=== PATIENT | male | born 1965 | race Hispanic/Latino ===

== ENCOUNTER 2019-06-13 11:31 | Inpatient (IN) | payer OTHER ==
[2019-06-13] MEDS ORDERED: MORPHINE 4 MG/ML SYR ONE (12:51)
[2019-06-13] MEDS ORDERED: ONDANSETRON 4 MG/2 ML VIAL ONE (12:51)
[2019-06-13] MEDS ORDERED: NA CHLORIDE 0.9% 1,000 ML ONE (12:51)
[2019-06-13 13:10] LABS: Absolute Lymphocytes (CBC) 2.7 K/uL (0.7-4.9); Basophils % 0.7 % (0-1.3); Hematocrit 43.6 % (39.6-49.0); Lymphocytes % 23.9 % (15.3-44.8); MPV 8.3 fL (7.6-11.3); RBC Red Blood Cell Count 4.95 M/uL (4.33-5.43)
[2019-06-13 13:38] LABS: Albumin 3.5 g/dL (3.4-5.0); Bilirubin Total 0.3 mg/dL (0.2-1.0); Potassium 4.2 mmol/L (3.5-5.1); Protein, Total 7.5 g/dL (6.4-8.2)
--- NOTE | 2019-06-13 14:13 | RAD REPORT ---
EXAM DESCRIPTION: RAD - Foot Right 3 View - 06/13/2019 1:24 pm CLINICAL HISTORY: Foot pain, foot wound COMPARISON: None. FINDINGS: No fracture, dislocation or periosteal reaction. No acute or destructive bone process to s uspect osteomyelitis. Spurring is present at the Achilles attachment. Soft tissue swelling present with no air or foreign body. IMPRESSION: No acute or destructive bone process. Soft tissue swelling without air or foreign body seen.
--- NOTE | 2019-06-13 15:06 | RAD REPORT ---
EXAM DESCRIPTION: MRI - Foot Right Wo Cont - 06/13/2019 2:43 pm CLINICAL HISTORY: Cellulitis Right Foot, possible osteomyelitis COMPARISON: None. TECHNIQUE: Multiplanar imaging of the right foot performed using T1 weighted, T2 fat saturation, T1 fat saturation and T2 stir sequencing. FINDINGS: Edematous/inflammatory signal is present between the fourth and fifth toes. No abscess or drainable fluid collection. Normal marrow signal characteristics present in the fourth and fifth toes as well as the distal fourth and fifth metatarsals. No MR evidence for osteomyelitis at this time. Elsewhere in the right foot no suspicious marrow edema or marrow replacing process. No abscess or dwight inable fluid collection in the soft tissues. Soft tissue edema is evidence over the dorsum of the erika t. IMPRESSION: No osteomyelitis or acute bone finding identifiable. Infectious/inflammatory stranding between the fourth and fifth toes with soft tissue swelling over th e dorsum of the foot. No abscess or drainable fluid collection.
--- NOTE | 2019-06-13 16:04 | ER ---
Nurse's Notes [facility] Name: Jude Grijalva Age: 54 yrs Sex: Male : 1965 Arrival Date: 06/13/2019 Time: 11:33 Bed 25 Private MD: Unknown, Unknown Diagnosis: Cellulitis of right lower limb-Failed outpatient antibiotic therapy Presentation: 06/13 11:41 Presenting complaint: Patient states: My doctor sent me here to get labs,had an la1 abnormal US and my foot wound is not responding after three days of ABX. Transition of care: patient was not received from another setting of care. Onset of symptoms was June 13, 2019. Risk Assessment: Do you want to hurt yourself or someone else? Patient reports no desire to harm self or others. Initial Sepsis Screen: Does the patient meet any 2 criteria? No. Patient's initial sepsis screen is negative. Does the patient have a suspected source of infection? No. Patient's initial sepsis screen is negative. Care prior to arrival: None. 11:41 Method Of Arrival: Ambulatory la1 11:41 Acuity: QASIM 3 la1 Historical: - Allergies: 11:41 No Known Allergies; la1 - PMHx: 11:41 Hypertension; Diabetes - NIDDM; la1 - Immunization history:: Adult Immunizations up to date. - Social history:: Smoking status: Patient uses tobacco products, smokes one-half pack cigarettes per day. - Ebola Screening: : No symptoms or risks identified at this time. Screenin:04 Abuse screen: Denies threats or abuse. Denies injuries from another. Nutritional mg2 screening: No deficits noted. Tuberculosis screening: No symptoms or risk factors identified. Fall Risk IV access (20 points). Assessment: 13:00 General: Appears in no apparent distress. comfortable, Behavior is calm, cooperative. mg2 Pain: Pain: Complains of pain in right foot. 13:00 Neuro: Level of Consciousness is awake, alert, obeys commands, Oriented to person, mg2 place, time, situation. Cardiovascular: Capillary refill < 3 seconds Patient's skin is warm and dry. GI: No signs and/or symptoms were reported involving the gastrointestinal system. 13:00 Respiratory: Airway is patent Respiratory effort is even, unlabored, Respiratory mg2 pattern is regular, symmetrical. : No signs and/or symptoms were reported regarding the genitourinary system. EENT: No signs and/or symptoms were reported regarding the EENT system. Derm: Skin is pink, warm \T\ dry. normal, Wound noted right foot Wound is with cellulitis in the right foot. Musculoskeletal: Circulation, motion, and sensation intact. Capillary refill < 3 seconds. 14:04 Reassessment: patient in MRI right now. mg2 Vital Signs: 11:42 BP 161 / 95; Pulse 88; Resp 16; Temp 98.4; Pulse Ox 100% on R/A; la1 13:00 BP 145 / 96; Pulse 90; Resp 18; Pulse Ox 100% on R/A; mg2 15:44 BP 163 / 95; Pulse 76; Resp 18; Pulse Ox 97% on R/A; mg2 ED Course: 11:33 Patient arrived in ED. ag5 11:34 Unknown, Unknown is Private Physician. ag5 11:41 Triage completed. la1 11:42 Arm band placed on right wrist. la1 12:19 Rob Hinson NP is PHCP. pm1 12:19 River Garcia MD is Attending Physician. pm1 12:22 Fredi Smith RN is Primary Nurse. mg2 12:56 Initial lab(s) drawn, by or, sent to lab. Inserted saline lock: 22 gauge in left sg forearm, using aseptic technique. Blood collected. 13:22 Foot Right 3 View XRAY In Process Unspecified. EDMS 14:04 Patient has correct armband on for positive identification. Pulse ox on. NIBP on. Door mg2 closed. 14:06 No provider procedures requiring assistance completed. mg2 14:28 Foot Right Wo Cont In Process Unspecified. EDMS 16:02 Wili Concepcion MD is Hospitalizing Provider. pm1 16:15 First set of blood cultures drawn by me, Second set of blood cultures drawn. mg2 18:00 Patient admitted, IV remains in place. mg2 Administered Medications: 13:29 Drug: morphine 4 mg Route: IVP; Site: left forearm; mg2 15:46 Follow up: Response: No adverse reaction mg2 13:29 Drug: Zofran 4 mg Route: IVP; Site: left forearm; mg2 15:46 Follow up: Response: No adverse reaction; Marked relief of symptoms mg2 13:29 Drug: NS 0.9% 1000 ml Route: IV; Rate: 1000 ml; Site: left forearm; mg2 15:46 Follow up: Response: No adverse reaction; IV Status: Completed infusion; IV Intake: mg2 1000ml 16:47 Drug: Zosyn 3.375 grams Route: IVPB; Infused Over: 60 mins; Site: left forearm; mg2 18:09 Follow up: Response: No adverse reaction; IV Status: Completed infusion mg2 18:01 Drug: vancoMYCIN 1 grams Route: IVPB; Infused Over: 2 hrs; Site: left forearm; mg2 18:09 Follow up: Response: No adverse reaction; IV Status: Infusion continued upon admission mg2 Intake: 15:46 IV: 1000ml; Total: 1000ml. mg2 Outcome: 16:02 Decision to Hospitalize by Provider. pm1 18:00 Admitted to Tele accompanied by tech, via wheelchair, room 427, with chart, Report mg2 called to RHETT Nicole 18:00 Condition: stable 18:00 Instructed on the need for admit, Demonstrated understanding of instructions. 18:19 Patient left the ED. mg2 Signatures: Dispatcher [employer] EDMS Juaquin Wynne RN RN sg Cornelio Amaral RN RN la1 Rob Hinson, [employer] MGMT DEV MANAGER pm1 Fredi Smith RN RN mg2 Cuco Mendoza ag5 Corrections: (The following items were deleted from the chart) 15:44 15:41 General: Appears in no apparent distress. comfortable, Behavior is calm, mg2 cooperative, mg2 15:44 15:41 Pain: mg2 mg2 15:48 15:44 Pulse 76bpm; Resp 18bpm; Pulse Ox 97% RA; mg2 mg2 16:03 15:44 BP 177 / 102; Pulse 76bpm; Resp 18bpm; Pulse Ox 97% RA; mg2 mg2
--- NOTE | 2019-06-13 16:04 | EDPHYS ---
Physician Documentation [facility] Name: Jude Grijalva Age: 54 yrs Sex: Male : 1965 Arrival Date: 06/13/2019 Time: 11:33 Bed 25 Private MD: Unknown, Unknown ED Physician River Garcia HPI: 06/13 13:05 This 54 yrs old Male presents to ER via Ambulatory with complaints of Right pm1 Foot Cellulitis Failed Outpatient. 13:05 The patient presents with pain, cellulitis. The complaints affect the right foot. pm1 Context: resulted from an unknown cause, the patient can fully bear weight, the patient is able to ambulate. Modifying factors: The symptoms are alleviated by nothing, the symptoms are aggravated by nothing. Associated signs and symptoms: Pertinent positives: swelling, pain, Pertinent negatives: calf tenderness, fever, numbness, tingling. Patient sent here by Dr. Robi Hdez, assistant general manager, for labs CBC, CMP. ESR. CRP, Lactate with a diagnosis or right foot cellulitis r/o osteomyelitis. Patient has taken 3 days of unknown antibiotics.. Historical: - Allergies: 11:41 No Known Allergies; la1 - PMHx: 11:41 Hypertension; Diabetes - NIDDM; la1 - Immunization history:: Adult Immunizations up to date. - Social history:: Smoking status: Patient uses tobacco products, smokes one-half pack cigarettes per day. - Ebola Screening: : No symptoms or risks identified at this time. ROS: 13:09 MS/extremity: Positive for pain, swelling, of the right foot. pm1 13:09 Constitutional: Negative for fever, chills, and weight loss, Neck: Negative for injury, pain, and swelling, Cardiovascular: Negative for chest pain, palpitations, and edema, Respiratory: Negative for shortness of breath, cough, wheezing, and pleuritic chest pain, Abdomen/GI: Negative for abdominal pain, nausea, vomiting, diarrhea, and constipation, Back: Negative for injury and pain. 13:09 Skin: Positive for ulceration, of the right foot between 4th and 5th toe. 13:09 All other systems are negative. Exam: 13:09 Constitutional: This is a well developed, well nourished patient who is awake, alert, pm1 and in no acute distress. Head/Face: Normocephalic, atraumatic. Neck: Trachea midline, no thyromegaly or masses palpated, and no cervical lymphadenopathy. Supple, full range of motion without nuchal rigidity, or vertebral point tenderness. No Meningismus. Chest/axilla: Normal chest wall appearance and motion. Nontender with no deformity. No lesions are appreciated. Cardiovascular: Regular rate and rhythm with a normal S1 and S2. No gallops, murmurs, or rubs. Normal PMI, no JVD. No pulse deficits. Respiratory: Lungs have equal breath sounds bilaterally, clear to auscultation and percussion. No rales, rhonchi or wheezes noted. No increased work of breathing, no retractions or nasal flaring. Abdomen/GI: Soft, non-tender, with normal bowel sounds. No distension or tympany. No guarding or rebound. No evidence of tenderness throughout. Back: No spinal tenderness. No costovertebral tenderness. Full range of motion. 13:09 Skin: Appearance: normal except for affected area, abscess, not appreciated, cellulitis, that is moderate, on the dorsum of right foot, sub-centimeter wound without any discharge present between 4th and 5th right toes. Vital Signs: 11:42 BP 161 / 95; Pulse 88; Resp 16; Temp 98.4; Pulse Ox 100% on R/A; la1 13:00 BP 145 / 96; Pulse 90; Resp 18; Pulse Ox 100% on R/A; mg2 15:44 BP 163 / 95; Pulse 76; Resp 18; Pulse Ox 97% on R/A; mg2 MDM: 12:20 Patient medically screened. pm1 15:54 Data reviewed: vital signs. Data interpreted: Pulse oximetry: on room air is 97 %. pm1 Interpretation: normal. 16:00 Physician consultation: Robi Hdez was contacted at 16:00, regarding consult, pm1 patient's condition, Would like the patient admitted to the hospital for failed outpatient antibiotic therapy. Concerned that antibiotics are not reaching his would due to poor circulation based on ultrasound results. Patient was taking Clindamycin and Cipro. 16:04 Counseling: I had a detailed discussion with the patient and/or guardian regarding: the pm1 historical points, exam findings, and any diagnostic results supporting the discharge/admit diagnosis, lab results, radiology results, the need for further work-up and treatment in the hospital. 17:00 Physician consultation: Wili Concepcion MD was contacted at 16:03, regarding admission, pm1 patient's condition, and will see patient in ED, would like medications started, Zosyn, Vancomycin. 06/13 12:27 Order name: CBC with Diff; Complete Time: 13:58 pm1 06/13 12:27 Order name: CMP; Complete Time: 13:58 pm1 06/13 12:28 Order name: ESR; Complete Time: 13:58 pm1 06/13 12:28 Order name: CRP; Complete Time: 13:58 pm1 06/13 12:28 Order name: Lactate; Complete Time: 13:58 pm1 06/13 16:03 Order name: Blood Culture Adult (2) pm1 06/13 16:03 Order name: Wound Culture pm1 06/13 16:32 Order name: CBC with Automated Diff EDMS 06/13 16:32 Order name: CBC with Automated Diff EDMS 06/13 16:32 Order name: Comprehensive Metabolic Panel EDMS 06/13 16:32 Order name: Comprehensive Metabolic Panel EDMS 06/13 16:34 Order name: Vancomycin Level Trough; Complete Time: 18:29 EDMS 06/13 18:04 Order name: Lipid Profile; Complete Time: 18:29 EDMS 06/13 18:16 Order name: Hemoglobin A1c; Complete Time: 18:29 EDMS 06/13 12:27 Order name: IV Saline Lock; Complete Time: 13:01 pm1 06/13 12:27 Order name: Foot Right 3 View XRAY; Complete Time: 15:41 pm1 06/13 12:41 Order name: Foot Right Wo Cont; Complete Time: 15:41 EDMS 06/13 16:32 Order name: CONS Pharmacy Consult EDMS 06/13 16:32 Order name: Consistent Carb (ADA) [address] EDMS 06/13 17:29 Order name: CT; Complete Time: 18:29 EDMS Administered Medications: 13:29 Drug: morphine 4 mg Route: IVP; Site: left forearm; mg2 15:46 Follow up: Response: No adverse reaction mg2 13:29 Drug: Zofran 4 mg Route: IVP; Site: left forearm; mg2 15:46 Follow up: Response: No adverse reaction; Marked relief of symptoms mg2 13:29 Drug: NS 0.9% 1000 ml Route: IV; Rate: 1000 ml; Site: left forearm; mg2 15:46 Follow up: Response: No adverse reaction; IV Status: Completed infusion; IV Intake: mg2 1000ml 16:47 Drug: Zosyn 3.375 grams Route: IVPB; Infused Over: 60 mins; Site: left forearm; mg2 18:09 Follow up: Response: No adverse reaction; IV Status: Completed infusion mg2 18:01 Drug: vancoMYCIN 1 grams Route: IVPB; Infused Over: 2 hrs; Site: left forearm; mg2 18:09 Follow up: Response: No adverse reaction; IV Status: Infusion continued upon admission mg2 Disposition: 18:46 Co-signature as Attending Physician, River Garcia MD. rn Disposition: 06/13/19 16:02 Hospitalization ordered by Wili Concepcion for Inpatient Admission. Preliminary diagnosis is Cellulitis of right lower limb - Failed outpatient antibiotic therapy. - Bed requested for Telemetry/MedSurg (Inpatient). - Status is Inpatient Admission. mg2 - Condition is Stable. - Problem is new. - Symptoms have improved. UTI on Admission? No Signatures: Dispatcher [employer] EDRosana Zamudio RN RN River Garcia MD MD rn Attema, Lee, RN RN la1 Rob Hinson NP PCAT INSTRUCTOR pm1 Fredi Smith RN RN mg2 Corrections: (The following items were deleted from the chart) 17:03 16:00 Physician consultation: Robi Prasannalivelillie was contacted at 16:00, regarding pm1 consult, patient's condition, Would like the patient admitted to the hospital for failed outpatient antibiotic therapy. Concerned that antibiotics are not reaching his would due to poor circulation based on ultrasound results, pm1 17:23 16:02 Hospitalization Ordered by Wili Concepcion MD for Inpatient Admission. Preliminary dw diagnosis is Cellulitis of right lower limb - Failed outpatient antibiotic therapy. Bed requested for Telemetry/MedSurg (Inpatient). Status is Inpatient Admission. Condition is Stable. Problem is new. Symptoms have improved. UTI on Admission? No. pm1 18:19 17:23 06/13/2019 16:02 Hospitalization Ordered by Wili Concepcion MD for Inpatient mg2 Admission. Preliminary diagnosis is Cellulitis of right lower limb - Failed outpatient antibiotic therapy. Bed requested for Telemetry/MedSurg (Inpatient). Status is Inpatient Admission. Condition is Stable. Problem is new. Symptoms have improved. UTI on Admission? No. dw
[2019-06-13] MEDS ORDERED: MORPHINE 2 MG/ML SYR IV PRN (16:28)
[2019-06-13] MEDS ORDERED: ONDANSETRON 4 MG/2 ML VIAL IV PRN (16:28)
[2019-06-13] MEDS ORDERED: ACETAMINOPHEN 500 MG TAB PO PRN (16:28)
[2019-06-13] MEDS: INSULIN -REGULAR HUMAN 50 UNIT/0.5 ML ML SQ SCH ×2 (16:30→22:17)
[2019-06-13] MEDS ORDERED: HYDROCODONE/APAP 10/325 TAB PO PRN (16:31)
[2019-06-13] MEDS ORDERED: NA CHLORIDE 0.9% 250 ML ONE (16:32)
[2019-06-13] MEDS ORDERED: VANCOMYCIN 1 GM/VIAL ONE (16:32)
[2019-06-13] MEDS ORDERED: PIPER/TAZO/NS 3.375gm 3.375 GM/100 ML BAG ONE (16:32)
--- NOTE | 2019-06-13 16:40 | P.HP ---
Certification for Inpatient Patient admitted to: Inpatient With expected LOS: >2 Midnights Patient will require the following post-hospital care: None Practitioner: I am a practitioner with admitting privileges, knowledge of patient current condition, hospital course, and medical plan of care. Services: Services provided to patient in accordance with Admission requirements found in Title 42 Section 412.3 of the Code of Federal Regulations Patient History Date of Service: 06/13/19 Reason for admission: Pain and swelling in the right foot History of Present Illness: 54 yrs old Male with past medical history of diabetes and hypertension transfer from Podiatrists office where he went with complaints of Right Foot Cellulitis 4 days back and was started on antibiotics with clindamycin and ciprofloxacin. As he was not getting better. He was sent to the ER for further workup to rule out osteomyelitis. Patient denies any trauma. No fever no chills. No nausea vomiting or diarrhea. States that started insidiously as pain between 4th and 5th toes and was noticed to have swelling which has been progressively worsening. Hence was seen in the podiatric office. At the time of interview the patient's vital signs were normal. he still complains of pain and swelling in the right foot. He had a workup in ER which was negative for osteomyelitis positive for PAD Is being admitted for for right foot cellulitis for failure of outpatient management Allergies No Known Drug Allergies Allergy (Unverified 07/05/14 14:51) Unknown No Known Allergies Allergy (Uncoded 12/01/16 08:18) Unknown Home medications list reviewed: Yes - Past Medical/Surgical History Past Medical History: Reviewed- Non-Contributory -: DM -: HTN Past Surgical History: Reviewed- Non-Contributory -: Denies any significant surgical history - Family History Family History: Reviewed- Non-Contributory - Social History Smoking Status: Former smoker Review of Systems 10-point ROS is otherwise unremarkable Eyes: Unremarkable Respiratory: Unremarkable Cardiovascular: Unremarkable Musculoskeletal: Foot Pain, Pedal edema Integumentary: Rash Physical Examination - Physical Exam General: Alert, In no apparent distress HEENT: Atraumatic, Normocephalic Neck: Supple, 2+ carotid pulse no bruit Respiratory: Clear to auscultation bilaterally, Normal air movement Cardiovascular: No edema, Regular rate/rhythm Gastrointestinal: Soft and benign, W/out hepatosplenomegaly Musculoskeletal: Swelling, Erythema, Tenderness, Warmth, Other (Right foot swollen tender, decreased peripheral pulses) Integumentary: Tenderness/swelling, Erythema, Warmth Neurological: Normal speech, Normal strength at 5/5 x4 extr Lymphatics: No axilla or inguinal lymphadenopathy External genitalia: Deferred Rectal: Deferred - Studies Laboratory Data (last 24 hrs) 06/13/19 12:50: Sodium 137, Potassium 4.2, BUN 17, Creatinine 0.90, Glucose 187 H, Total Bilirubin 0.3, AST 14 L, ALT 18, Alkaline Phosphatase 94 06/13/19 12:50: WBC 11.5 H, Hgb 15.1, Hct 43.6, Plt Count 226 Assessment and Plan - Problems (Diagnosis) (1) Cellulitis of right foot Current Visit: Yes Status: Acute Plan: Will start on IV antibiotics Pain control Podiatric consult Monitor closely Has elevated CRP Failed outpatient management with Cipro and clindamycin All (2) Diabetes Current Visit: Yes Status: Chronic Plan: Insulin sliding scale Will get an A1c Qualifiers: Diabetes mellitus complication status: with skin complications Diabetes mellitus complication detail: with foot ulcer (3) Hypertension Current Visit: Yes Status: Chronic Plan: Continue home medications and titrate as needed Hydralazine p.r.n. (4) PAD (peripheral artery disease) Current Visit: Yes Status: Acute Plan: Patient had an ultrasound done which was suggestive of PAD May need a CT angio to rule out any occlusions Discharge Plan: Home Plan to discharge in: Greater than 2 days - Advance Directives Does patient have a Living Will: No Does patient have a Durable POA for Healthcare: No Time Spent Managing Pts Care (In Minutes): 46
--- NOTE | 2019-06-13 17:27 | RAD REPORT ---
EXAM DESCRIPTION: CT - Lower Ext Angio - 06/13/2019 5:09 pm CLINICAL HISTORY: Leg pain. Peripheral arterial disease COMPARISON: None TECHNIQUE: Computed tomography angiography of the very distal abdominal aorta, right iliac, right fe moral, right popliteal artery is and the arteries of the right lower extremity. . 100 cc Isovue 370 w as administered intravenously. Coronal and sagittal reconstruction were performed. MIP 3D reconstruction was performed All CT scans are performed using dose optimization technique as appropriate and may include automated exposure control or mA/KV adjustment according to patient size. FINDINGS: Mild plaque is present within the distal abdominal aorta. Mild plaque is present within the right common iliac artery. Right internal and external iliac arteries are normal Mild to moderate plaque within the right common femoral artery The right superficial and deep femoral arteries are normal Right popliteal artery is normal Right posterior tibial artery is normal. Proximal and mid right peroneal artery normal. Mild disease involving the distal right peroneal arter y. Mild to moderate disease involves the right anterior tibial artery. Diffuse edema is present within the subcutaneous tissues of the right lower extremity IMPRESSION: [id number] stenosis right common femoral artery Mild to moderate disease involving the right anterior tibial artery.
[2019-06-13] MEDS: HYDRALAZINE HCL 20 MG/ML VIAL IV PRN (19:22)
[2019-06-13] MEDS ORDERED: CEFEPIME 1 GM/VIAL IV SCH (21:00)
[2019-06-13 21:43] VITALS: BMI 28.7
[2019-06-13 22:07] LABS: Urine Appearance CLEAR; Urine Bilirubin NEGATIVE (NEG); Urine Blood NEGATIVE (NEG); Urine Color YELLOW; Urine Glucose NEGATIVE (NEG); Urine Protein NEGATIVE (NEG); Urine Specific Gravity >=1.030 (1.005-1.030)
[2019-06-13] MEDS: CEFEPIME/SWI 1gm 10 ML IVP SCH (22:17)
[2019-06-13 22:19] LABS: Urine Microscopic Reflex NO UMIC
[2019-06-14] MEDS ORDERED: VANCOMYCIN 1.25 GM in NA CHLORIDE 0.9% 250 ML IVPB SCH (05:00)
[2019-06-14 07:00] LABS: Absolute Lymphocytes (CBC) 2.5 K/uL (0.7-4.9); Basophils % 0.4 % (0-1.3); Hematocrit 45.3 % (39.6-49.0); Lymphocytes % 22.2 % (15.3-44.8); MPV 8.2 fL (7.6-11.3); RBC Red Blood Cell Count 5.19 M/uL (4.33-5.43)
[2019-06-14 07:03] LABS: ALT/SGPT 17 U/L (12-78); AST/SGOT 12 U/L (15-37); Albumin 3.3 g/dL (3.4-5.0); Alkaline Phosphatase 84 U/L (45-117); BUN Blood Urea Nitrogen 12 mg/dL (7-18); Bicarbonate 30 mmol/L (21-32); Bilirubin Total 0.3 mg/dL (0.2-1.0); Glucose Level 157 mg/dL (74-106); Potassium 4.1 mmol/L (3.5-5.1); Protein, Total 7.1 g/dL (6.4-8.2); Sodium Level 141 mmol/L (136-145)
[2019-06-14] MEDS: PANTOPRAZOLE 40MG TABLET PO SCH (08:17)
[2019-06-14] MEDS: INSULIN -REGULAR HUMAN 50 UNIT/0.5 ML ML SQ SCH ×4 (08:27→22:25)
[2019-06-14] MEDS: CEFEPIME/SWI 1gm 10 ML IVP SCH ×2 (08:27→22:25)
--- NOTE | 2019-06-14 11:08 | P.PN ---
Subjective Date of Service: 06/14/19 Chief Complaint: Pain and swelling in the right foot Subjective: No new changes, Improving, Doing well <Gray Marie - Last Filed: 06/14/19 11:53> Date of Service: 06/14/19 <Gulhsan Hess - Last Filed: 06/14/19 17:33> Review of Systems General: Unremarkable Eyes: Unremarkable ENT: Unremarkable Respiratory: Unremarkable Cardiovascular: Unremarkable Gastrointestinal: Unremarkable Musculoskeletal: Unremarkable Integumentary: As per HPI (Diabetic ulcer right foot) Neurological: Unremarkable Lymphatics: Unremarkable <Gray Marie - Last Filed: 06/14/19 11:53> Physical Examination - Vital Signs Temperature: 97.1 F Blood Pressure: 156/89 Pulse: 77 Respirations: 17 Pulse Ox (%): 98 - Physical Exam General: Alert, In no apparent distress, Oriented x3, Cooperative HEENT: Normocephalic, PERRLA, Mucous membr. moist/pink, EOMI Neck: Supple, 2+ carotid pulse no bruit, JVD not distended, No Thyromegaly, No LAD Respiratory: Clear to auscultation bilaterally, Normal air movement Cardiovascular: No edema, Normal pulses, Regular rate/rhythm, Normal S1 S2, No gallops, No rubs, No murmurs Capillary refill: <2 Seconds Gastrointestinal: Normal bowel sounds, Soft and benign, Non-distended, No ascites, No tenderness, No masses Musculoskeletal: No clubbing, No swelling, No contractures Integumentary: Other (Patient has diabetic ulcer between the 4th and 5th digit with mild surrounding erythema. Foul-smelling odor. Minimal discharge) Neurological: Normal speech, Normal strength at 5/5 x4 extr, Normal tone, Sensation intact, Cranial nerves 3-12 intact, Normal reflexes 2+, Normal affect Lymphatics: No axilla or inguinal lymphadenopathy - Studies Laboratory Data (last 24 hrs) 06/13/19 12:50: Triglycerides 129, Cholesterol 155, HDL Cholesterol 36 L, Cholesterol/HDL Ratio 4.31 06/13/19 12:50: Sodium 137, Potassium 4.2, BUN 17, Creatinine 0.90, Glucose 187 H, Total Bilirubin 0.3, AST 14 L, ALT 18, Alkaline Phosphatase 94 06/13/19 12:50: WBC 11.5 H, Hgb 15.1, Hct 43.6, Plt Count 226 <Gray Marie - Last Filed: 06/14/19 11:53> - Studies Laboratory Data (last 24 hrs) 06/13/19 12:50: Triglycerides 129, Cholesterol 155, HDL Cholesterol 36 L, Cholesterol/HDL Ratio 4.31 <Gulshan Hess - Last Filed: 06/14/19 17:33> Assessment And Plan - Current Problems (Diagnosis) (1) Cellulitis of right foot Current Visit: Yes Status: Acute (2) PAD (peripheral artery disease) Current Visit: Yes Status: Chronic (3) Diabetes Current Visit: Yes Status: Chronic Qualifiers: Diabetes mellitus type: type 2 Diabetes mellitus complication status: with skin complications Diabetes mellitus complication detail: with foot ulcer (4) Hypertension Current Visit: Yes Status: Chronic Qualifiers: Hypertension type: essential hypertension Qualified Code(s): I10 - Essential (primary) hypertension - Plan Patient has a right foot cellulitis between the 4th and 5th digits with a diabetic ulcer stage 2/3. Dr. Short was consulted last night. I added Dr. denton recurred today after looking at wound. Patient will continue IV antibiotics. Mild pain at this time. No large amount of cellulitis or lymphangitis noted. Patient had MRI and does not appear to have a osto at this time. Will wait for Dr. Short and Jone's consults. Plan to discharge in: Greater than 2 days - Code Status/Comfort Care Code Status Assessed: No Critical Care: No Time Spent Managing PTS Care (In Minutes): 25 <Gray Marie - Last Filed: 06/14/19 11:53> - Plan Case discussed and reviewed with Venkat Marie NP. Continue IV antibiotic therapy at this time. Await recommendations by surgery and infectious disease. Cellulitis may be amenable to antibiotics. Likely no need for debridement. MRI shows no osteomyelitis at this time <Gulshan Hess - Last Filed: 06/14/19 17:33>
[2019-06-14 14:45] VITALS: O2SAT 98
--- NOTE | 2019-06-14 16:02 | CON ---
History Of Present Illness: Patient is a 54-year-old male coming in with right foot diabetic foot ul cer between the 4th and 5th toes. Patient denies any headache, nausea, vomiting, chest pain, abdomin al pain, constipation, diarrhea. Had redness, swelling, and increased discomfort to the right foot. Patient was started on clindamycin and Cipro as outpatient, did not get better, so came to the emerg ency room and MRI showed no signs of osteomyelitis. Past Medical History: Diabetes mellitus, hypertension, diabetic neuropathy. Past Surgical History: None. Social History: Former smoker. No alcohol. Family History: Noncontributory. Medications: Cefepime and vancomycin. Allergies: NO KNOWN DRUG ALLERGIES. Review of Systems: A 10-point review was performed. Physical Examination: General: This is a 54-year-old male, lying in bed, not in any acute cardiopulmonary distress. Vital Signs: Temperature 97, pulse 69, respirations 17, blood pressure 174/94. HEENT: Unremarkable. Neck: Supple. Lungs: Basal crackles. Heart: S1, S2. Regular. Abdomen: Soft, nontender. Bowel sounds present. Extremities: Right foot with erythematous changes, increased edema of 1+, and increased warmth. Sma ll 1 x 0.5 x cm wound noted at the right foot between the 4th and 5th toes with no excessi ve drainage at this time. Laboratory Data: Shows WBC 11.4, 15.6 hemoglobin, platelets are 241. Chemistry shows sodium 141, po tassium 4.1, chloride 107, bicarb 30, BUN 12, creatinine 0.8, glucose 157. Hemoglobin A1c of 7.9 and albumin level of 3.3. Assessment And Plan: 54-year-old male with diabetes mellitus and diabetic neuropathy, peripheral art erial disease, coming in with diabetic foot ulcer between 4th and 5th toes. We will recommend to anisa ly iodoform gauze, continue IV antibiotic, can be switched to oral on discharge, total of 2 weeks. F ollow up at the wound care clinic. We will follow the patient as needed. Thank you Dr. Concepcion for consult. KELSEA/MARLEY Voice ID: [id number] Report ID: [id number]
[2019-06-14] MEDS: VANCOMYCIN 1.5 GM in NA CHLORIDE 0.9% 500 ML IVPB SCH (17:03)
[2019-06-14] MEDS: HYDRALAZINE HCL 20 MG/ML VIAL IV PRN (17:26)
--- NOTE | 2019-06-14 21:15 | CON ---
Date of Consultation: 06/14/2019 Reason For Service: Right foot cellulitis. History Of Present Illness: This is the case of a 54-year-old patient, who comes to us complaining o f drainage and erythema of the right foot with tenderness. 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 H e did not improve with just p.o. medication. He was admitted to the hospital with failure of outpati ent treatment. He denies any dysuria, hematuria, hematochezia, or melena. He denies any trauma. He denies any recent travelling out of the country. He denies any family member sick at home. Allergies: NONE. Medical History: Diabetes, noninsulin dependent. Social History: He smokes half a pack a day. He does not drink alcohol. Family History: Noncontributory. Review of Systems: Ten points otherwise unremarkable. Physical Examination: General: Patient is awake and alert. No distress. HEENT: Pupils anicteric. Neck: Supple. Chest: Clear. Abdomen: Soft and depressible. Extremities: Bilateral dorsalis pedis pulse is still present but in the right foot, patient has an a long of cellulitis. Mainly at the dorsum of the foot, he has an opening already between the 4th and 5 th toe. It is about 1 cm opened. It is draining in the area and it looks big enough to at least dwight in the area of concern. I will be packing that area to keep this area open to drainage of that absce ss at point he probably had it. No cyanosis. Laboratory Data: Blood work shows a WBC count of 11.4 with hemoglobin of 15.6. Glucose 157. MRI of the right foot shows inflammatory changes over the 4th and 5th toes but no drainable abscess. Patie nt have a lower extremity CT angio, which shows moderate stenosis in the right common femoral artery and tibial disease. Patient recommended when this area get better and infection goes better, recomme janice to see his vascular surgeon. Assessment: This is a 54-year-old patient with cellulitis of the right foot. Apparently, this area open on its own, so he is draining that area properly. We just have to pack it, keep it clean and if it does not improve then we will make an incision bigger. At this moment, I believe it is going to be sufficient. Continue the antibiotics. Follow up cultures and when he gets discharged, he was adv ised to come to the wound healing center and also to visit his vascular surgeons. LATONYA/MARLEY Voice ID: [id number] Report ID: [id number]
[2019-06-15] MEDS: VANCOMYCIN 1.5 GM in NA CHLORIDE 0.9% 500 ML IVPB SCH (05:38)
[2019-06-15] MEDS: INSULIN -REGULAR HUMAN 50 UNIT/0.5 ML ML SQ SCH ×2 (07:30→12:39)
[2019-06-15] MEDS: PANTOPRAZOLE 40MG TABLET PO SCH (09:23)
[2019-06-15] MEDS: CEFEPIME/SWI 1gm 10 ML IVP SCH (09:24)
[2019-06-15 12:29] VITALS: BP 161/90; TEMP 98.1
--- NOTE | 2019-06-16 05:41 | DS ---
Date of Discharge: 06/15/2019 Discharge Diagnoses: 1. Diabetic foot ulcer with cellulitis. 2. Uncontrolled diabetes. 3. Peripheral vascular disease. 4. Neuropathy. 5. Hypertension. Consults: 1. General Surgery. 2. ID. Procedure: 1. Lower extremity CT showed [id number] stenosis, right common femoral artery, [id number]-pu-[id number] disease involving the right anterior tibial artery. 2. Foot MRI showed no osteomyelitis or acute bone findings. 3. Wound culture was negative except for mixed neyda, gram positive cocci and cluster, gram-positive rods. 4. Blood culture so far negative on preliminary. History Of Present Illness: Please refer to Dr. Concepcion's note on day of admission. Hospital Course: Initially, the patient presented to the Podiatry office with right foot cellulitis that started 4 days before. The patient was started on antibiotics, clindamycin and Cipro and did not get much better. He was sent to the ER to rule out osteomyelitis. MRI of the foot was negative for osteomyelitis. The patient was started on cefepime and vancomycin. White blood cells were elevated at 11.5. Chemistry was normal except for uncontrolled diabetes. Patient's wound culture was negative and showed mixed neyda. Blood culture was negative. ID consult requested as well as General Surgery and Dr. Short thought the patient need to follow up as outpatient with the wound care clinic and no need for debridement. Dr. Stinson advised to switch antibiotics to oral for 10 days and he ordered Cipro 500 mg for 10 days twice a day and clindamycin 300 mg every 8 hours for 10 days as well. The patient will be discharged today in stable condition. He will follow up with the primary care physician next week. Check his diabetes medication, check his hemoglobin A1c. He will also follow up with Dr. Stinson, in 2 wks after he finished antibiotics. He will need to follow up with the wound clinic in 2-3 days to check on his wound. Discharge Condition: Stable. Discharged Diet: Diabetic 1800 ADA. Discharge Activity: As tolerated. Discharge Condition: Stable. Discharge Physical Examination: Vital Signs: Blood pressure is 161/98, respiratory rate 18, pulse 75, temperature 98.1. General: The patient is alert and oriented x3. Does not look in any distress. HEENT: Atraumatic, normocephalic. PERRLA. Oral mucosa is moist. Neck: Supple. No JVD. No bruits. Chest: Clear to auscultation. Good air entry. Heart: Regular rate and rhythm. S1, S2 normal. No gallop or murmur. Abdomen: Soft, nontender. No masses. No hepatosplenomegaly. Positive bowel sounds. Overweight. Extremities: Right foot with mild erythema. +1 edema. There is 1 x 0.5 open wound on the right foot between the fifth and fourth toe with no bleeding or discharge. Discharge Medications: Metformin 500 mg twice a day, Cipro 500 mg twice a day for 10days, and clindamycin 300 mg t.i.d. every 8 hours for days. Again, patient is strongly advised to follow up with his primary care physician to adjust his diabetes medications, check his hemoglobin A1c, check his blood pressure and maybe I will start him on blood pressure medication. AMIE Voice ID: [id number] Report ID: [id number] MTDD
== END 2019-06-15 15:28 | disposition home or self-care (01) | DRG 638 ==
LOC: ER 11:31 → ERHOLD 16:30 → 4TH 18:02
PROVIDERS: ADMIT Internal Medicine; ATTEND Family Medicine
DX: E11.621 Type 2 diabetes mellitus with foot ulcer (principal); L03.115 Cellulitis of right lower limb; E11.65 Type 2 diabetes mellitus with hyperglycemia; I73.9 Peripheral vascular disease, unspecified; E11.40 Type 2 diabetes mellitus with diabetic neuropathy, unspecified; I10 Essential (primary) hypertension; F17.210 Nicotine dependence, cigarettes, uncomplicated
CPT/HCPCS: 36415; 73706; 80053; 80061; 80202; 81003; 82947; 83036; 83605; 85025; 85652; 86140; 87040; 87070; 87205; 96361; 96365; 96375; 99285; J0360; J0692; J2405; J2543; J7030; J7040; Q9967

== ENCOUNTER 2022-02-11 18:40 | Emergency (ER) | payer OTHER, SELFPAY ==
[2022-02-11 20:09] LABS: Protime INR 1.15
[2022-02-11 20:10] LABS: Absolute Lymphocytes (CBC) 2.9 K/uL (0.7-4.9); Hematocrit 40.5 % (39.6-49.0); Lymphocytes % 33.4 % (15.3-44.8); MCV 84.9 fL (80-100); MPV 7.5 fL (7.6-11.3); RBC Red Blood Cell Count 4.78 M/uL (4.33-5.43)
--- NOTE | 2022-02-11 20:15 | RAD REPORT ---
EXAM DESCRIPTION: RAD - Chest Single View - 02/11/2022 8:09 pm CLINICAL HISTORY: edema Chest pain. COMPARISON: Lumbar Spine 3 Views dated 2CHEST SINGLE VIEW dated 07/05/2014; CHEST SINGLE VIE W dated 03/13/2011 FINDINGS: Portable technique limits examination quality. The lungs are grossly clear. The heart is normal in size. No displaced fractures. IMPRESSION: No acute intrathoracic process suspected.
[2022-02-11 20:27] LABS: ALT/SGPT 16 U/L (12-78); AST/SGOT 15 U/L (15-37); Albumin 3.5 g/dL (3.4-5.0); Alkaline Phosphatase 101 U/L (45-117); BUN Blood Urea Nitrogen 12 mg/dL (7-18); Bicarbonate 28 mmol/L (21-32); Bilirubin Total 0.3 mg/dL (0.2-1.0); Glomerular Filtration Rate 97 ml/min (=/>90); Glucose Level 93 mg/dL (74-106); Magnesium 2.1 mg/dL (1.8-2.4); NT PRO-BNP 224 pg/mL (<125); Potassium 3.9 mmol/L (3.5-5.1); Protein, Total 7.9 g/dL (6.4-8.2); Sodium Level 139 mmol/L (136-145); Troponin High Sensitivity 5.6 pg/mL (<58.9)
[2022-02-11 20:47] LABS: Bilirubin Direct < 0.1 mg/dL (0-0.2)
--- NOTE | 2022-02-11 21:06 | RAD REPORT ---
EXAM DESCRIPTION: US - Extrem Venous W Compress Ganesh - 02/11/2022 8:32 pm CLINICAL HISTORY: SWELLING Bilateral leg edema and swelling. COMPARISON: Extremity Venous Uni Ltd dated 06/10/2019 TECHNIQUE: Real-time sonographic interrogation of the left and right lower extremity deep venous sys tems was performed. FINDINGS: Echogenic material is seen in the right femoral vein. Echogenic material is also seen in t he left mid and distal femoral vein. These portions of the veins are noncompressible completely. The remainder of the bilateral lower extremity venous system is unremarkable. IMPRESSION: Bilateral femoral vein partial DVT suspected, greater on the left.
--- NOTE | 2022-02-11 21:07 | RAD REPORT ---
EXAM DESCRIPTION: US - Lower Extremity Arterial Bilat - 02/11/2022 8:32 pm CLINICAL HISTORY: SWELLING Leg pain claudication COMPARISON: Lower Ext Angio dated 06/13/2019 TECHNIQUE: Bilateral lower extremity arterial Doppler examination was performed with waveform tracin g and velocity measurements. FINDINGS: Triphasic waveforms are seen on the right to the level of the popliteal artery. The right popliteal, posterior tibial and dorsalis pedis artery is monophasic. Triphasic waveforms are seen involving the left lower extremity arterial system to the level left pop liteal artery. The left posterior tibial and dorsalis pedis artery are monophasic and blunted. No complete occlusion identified. IMPRESSION: Moderate peripheral vascular disease is present bilaterally, predominately infrapoplitea l. No complete occlusion seen.
[2022-02-11] MEDS ORDERED: CLINDAMYCIN 900MG/D5W 900 MG/50 ML IVPB IV ONE (21:21)
--- NOTE | 2022-02-11 21:22 | ER ---
Nurse's Notes [facility] Name: Jude Grijalva Age: 57 yrs Sex: Male : 1965 Arrival Date: 02/11/2022 Time: 18:43 Bed 7 Private MD: Diagnosis: Acute embolism and thrombosis of other specified deep vein of left lower extremity;Acute embolism and thrombosis of other specified deep vein of right lower extremity Presentation: 02/11 18:50 Chief complaint: Patient states: Feet bleeding for one week. C/O JOHNNY feet pain. ld1 Coronavirus screen: At this time, the client does not indicate any symptoms associated with coronavirus-19. Ebola Screen: No symptoms or risks identified at this time. Initial Sepsis Screen: Does the patient meet any 2 criteria? No. Patient's initial sepsis screen is negative. Does the patient have a suspected source of infection? No. Patient's initial sepsis screen is negative. Risk Assessment: Do you want to hurt yourself or someone else? Patient reports no desire to harm self or others. Onset of symptoms was February 11, 2022. 18:50 Method Of Arrival: Ambulatory ld1 18:50 Acuity: QASIM 3 ld1 Triage Assessment: 18:51 General: Appears in no apparent distress. comfortable, Behavior is calm, cooperative, ld1 appropriate for age. Pain: Complains of pain in right foot and left foot Pain does not radiate. Pain currently is 10 out of 10 on a pain scale. EENT: No signs and/or symptoms were reported regarding the EENT system. Neuro: Level of Consciousness is awake, alert, obeys commands, Oriented to person, place, time, situation. Cardiovascular: Capillary refill < 3 seconds Patient's skin is warm and dry. Respiratory: Airway is patent Respiratory effort is even, unlabored. GI: Abdomen is flat, non-distended. : No signs and/or symptoms were reported regarding the genitourinary system. Derm: Reports. Historical: - Allergies: 18:51 No Known Allergies; ld1 - PMHx: 18:51 Diabetes - NIDDM; Hypertension; ld1 - PSHx: 18:51 None; ld1 - Immunization history:: Adult Immunizations up to date, Client reports receiving the 2nd dose of the Covid vaccine. - Social history:: Smoking status: Patient reports the use of cigarette tobacco products, smokes one-half pack cigarettes per day, Patient/guardian denies using alcohol. Screenin:50 Abuse screen: Denies threats or abuse. Denies injuries from another. Nutritional as6 screening: No deficits noted. Tuberculosis screening: No symptoms or risk factors identified. Fall Risk Ambulatory Aid- Crutches/Cane/Walker (15 pts). Total Santana Fall Scale indicates No Risk (0-24 pts). Assessment: 22:39 General: see triage assessment . as6 Vital Signs: 18:50 BP 163 / 85; Pulse 74; Resp 18; Temp 98.3(O); Pulse Ox 99% on R/A; Weight 77.11 kg; ld1 Height 5 ft. 7 in. (170.18 cm); Pain 10/10; 19:49 BP 162 / 83; Pulse 64; Resp 16 S; Pulse Ox 100% on R/A; as6 21:24 BP 162 / 89; Pulse 68; Resp 13 S; Pulse Ox 100% on R/A; as6 22:05 BP 153 / 82; Pulse 71; Resp 11 S; Pulse Ox 100% on R/A; as6 18:50 Body Mass Index 26.63 (77.11 kg, 170.18 cm) ld1 ED Course: 18:43 Patient arrived in ED. as 18:51 Triage completed. ld1 18:51 Arm band placed on right wrist. ld1 18:55 Jonnathan Julian PA is PHCP. cp 18:55 River Garcia MD is Attending Physician. cp 19:07 Escobar Romano, RHETT is Primary Nurse. as6 19:50 Bed in low position. Call light in reach. Client placed on continuous cardiac and pulse as6 oximetry monitoring. NIBP monitoring applied. 19:58 David Walker MD is Attending Physician. cp 20:06 Basic Metabolic Panel Sent. mh5 20:06 CBC with Diff Sent. mh5 20:06 LFT's Sent. mh5 20:06 Troponin HS Sent. mh5 20:06 PT-INR Sent. mh5 20:06 NT PRO-BNP Sent. mh5 20:06 Magnesium Sent. mh5 20:11 XRAY Chest (1 view) In Process Unspecified. EDMS 20:34 US LE Arterial Bilateral In Process Unspecified. EDMS 20:34 US Extremity Venous W Compression Johnny In Process Unspecified. EDMS 21:03 PHCP role handed off by Jonnathan Julian PA jmm 21:03 Junior Godfrey PA is PHCP. [facility] 21:21 Rodolfo Bang MD is Referral Physician. jmm 21:24 Inserted saline lock: 20 gauge in right antecubital area, using aseptic technique. as6 22:05 No provider procedures requiring assistance completed. as6 22:40 IV discontinued, intact, bleeding controlled, No redness/swelling at site. Pressure as6 dressing applied. Dressings: Kerlix X 2; left foot and right foot. Administered Medications: 21:24 Drug: Clindamycin 900 mg Route: IVPB; Infused Over: 30 mins; Site: right antecubital; as6 22:40 Follow up: Response: No adverse reaction; IV Status: Completed infusion; IV Intake: [id number] 22:20 Drug: Eliquis (apixaban) 5 mg Route: PO; as6 22:41 Follow up: Response: No adverse reaction as6 22:20 Drug: Eliquis (apixaban) 5 mg Route: PO; as6 22:41 Follow up: Response: No adverse reaction as6 Medication: 22:05 VIS not applicable for this client. as6 Intake: 22:40 IV: 50ml; Total: 50ml. as6 Outcome: 21:22 Discharge ordered by . jmm 22:40 Discharged to home ambulatory, with family. as6 22:40 Condition: stable 22:40 Discharge instructions given to patient, family, Instructed on discharge instructions, follow up and referral plans. medication usage, Demonstrated understanding of instructions, follow-up care, medications, Prescriptions given X 1. 22:45 Patient left the ED. as6 Signatures: Dispatcher [employer] EDMS Junior Godfrey PA PA jmm Martinez, Amelia as Jonnathan Julian PA PA cp Martinez, Maria [facility] Kathryn Thomas RN RN ld1 Escobar Romano RN RN as6
--- NOTE | 2022-02-11 21:22 | EDPHYS ---
Physician Documentation [facility] Name: Jude Grijalva Age: 57 yrs Sex: Male : 1965 Arrival Date: 02/11/2022 Time: 18:43 Bed 7 Private MD: ED Physician David Walker HPI: 02/11 19:30 This 57 yrs old Male presents to ER via Ambulatory with complaints of foot cp problem. 19:30 The patient presents with swelling, tenderness. The complaints affect the left lower cp leg and left foot and right lower leg and right foot. 19:30 Associated signs and symptoms: Pertinent negatives fever, weakness, shortness of breath.cp 19:30 Context: resulted from an unknown cause, the patient can fully bear weight, the patient cp is able to ambulate, with moderate difficulty. Onset: The symptoms/episode began/occurred gradually. 19:30 Treatment prior to arrival includes: no previous treatment. Severity of symptoms: in cp the emergency department the symptoms are unchanged, despite home interventions. Historical: - Allergies: 18:51 No Known Allergies; ld1 - PMHx: 18:51 Diabetes - NIDDM; Hypertension; ld1 - PSHx: 18:51 None; ld1 - Immunization history:: Adult Immunizations up to date, Client reports receiving the 2nd dose of the Covid vaccine. - Social history:: Smoking status: Patient reports the use of cigarette tobacco products, smokes one-half pack cigarettes per day, Patient/guardian denies using alcohol. ROS: 19:33 Constitutional: Negative for body aches, chills, fever, poor PO intake. cp 19:33 Eyes: Negative for injury, pain, redness, and discharge. cp 19:33 Neck: Negative for pain with movement, pain at rest, stiffness. 19:33 Cardiovascular: Positive for edema, Negative for chest pain, palpitations. 19:33 Respiratory: Negative for cough, shortness of breath, wheezing. 19:33 Abdomen/GI: Negative for abdominal pain, nausea, vomiting, and diarrhea. 19:33 Back: Negative for pain at rest, pain with movement. 19:33 MS/extremity: Positive for swelling, tenderness, warmth, of the right foot and left cp foot and right lower leg and left lower leg, Negative for injury or acute deformity, decreased range of motion. 19:33 Neuro: Negative for altered mental status, headache, weakness. 19:33 All other systems are negative. Exam: 19:35 Head/Face: Normocephalic, atraumatic. cp 19:35 Constitutional: The patient appears in no acute distress, alert, awake, non-diaphoretic, non-toxic, well developed, well nourished. 19:35 Eyes: Periorbital structures: appear normal, Conjunctiva: normal, no exudate, no injection, Sclera: no appreciated abnormality, Lids and lashes: appear normal, bilaterally. 19:35 ENT: External ear(s): are unremarkable, Nose: is normal, Mouth: Lips: moist, Oral mucosa: moist, Posterior pharynx: Airway: no evidence of obstruction, patent. 19:35 Neck: ROM/movement: no acute changes, pain. 19:35 Chest/axilla: Inspection: normal, Palpation: is normal. 19:35 Cardiovascular: Rate: normal, Rhythm: regular, Edema: ankle edema, that is moderate, JVD: is not appreciated. 19:35 Respiratory: mild respiratory distress is noted, Respirations: labored breathing, is not present, intercostal retractions, are absent, Breath sounds: are clear throughout, no bronchial sounds, no decreased breath sounds, no rales, rhonchi. 19:35 Abdomen/GI: Inspection: abdomen appears normal, Bowel sounds: active, all quadrants, Palpation: abdomen is soft and non-tender. 19:35 Back: pain, is absent, ROM is normal. cp 19:35 Musculoskeletal/extremity: Extremities: noted in the left lower leg: erythema, swelling, tenderness, noted in the left foot: swelling, tenderness, noted in the right lower leg: erythema, swelling, tenderness, Noted in right foot: swelling, tenderness, Pulses: noted to be 1+ in the right dorsalis pedis artery and left dorsalis pedis artery, Calf tenderness, that is mild, bilaterally. 19:35 Skin: warm, cracked with superficial bleeding from multiple areas, interdigital skin macerated of feet. 19:35 Neuro: Orientation: to person, place \T\ time. Mentation: is normal. cp 19:57 ECG was reviewed by the Attending Physician. cp Vital Signs: 18:50 BP 163 / 85; Pulse 74; Resp 18; Temp 98.3(O); Pulse Ox 99% on R/A; Weight 77.11 kg; ld1 Height 5 ft. 7 in. (170.18 cm); Pain 10/10; 19:49 BP 162 / 83; Pulse 64; Resp 16 S; Pulse Ox 100% on R/A; as6 21:24 BP 162 / 89; Pulse 68; Resp 13 S; Pulse Ox 100% on R/A; as6 22:05 BP 153 / 82; Pulse 71; Resp 11 S; Pulse Ox 100% on R/A; as6 18:50 Body Mass Index 26.63 (77.11 kg, 170.18 cm) ld1 MDM: 18:56 Patient medically screened. cp 20:00 Differential diagnosis: cellulitis, arterial occlusion, DVT. cp 21:21 Data reviewed: vital signs, nurses notes. Counseling: I had a detailed discussion with garrett the patient and/or guardian regarding: the historical points, exam findings, and any diagnostic results supporting the discharge/admit diagnosis, lab results, radiology results, the need for outpatient follow up, to return to the emergency department if symptoms worsen or persist or if there are any questions or concerns that arise at home. ED course: Patient is alert and nontoxic in appearance in the ED. Ultrasound revealed bilateral DVTs in the femoral vein. No arterial obstruction on imaging studies. Patient will be put on anticoagulants. Family given strict return precautions. Family history agrees plan of care.. 02/11 19:25 Order name: Basic Metabolic Panel; Complete Time: 20:50 cp 02/11 20:50 Interpretation: Reviewed. cp 02/11 19:25 Order name: CBC with Diff; Complete Time: 20:40 cp 02/11 20:40 Interpretation: Normal except: MPV 7.5. cp 02/11 19:25 Order name: LFT's; Complete Time: 20:50 cp 02/11 20:50 Interpretation: Normal except: GLOB 4.4; A/G 0.8. cp 02/11 19:25 Order name: Magnesium; Complete Time: 20:50 cp 02/11 19:25 Order name: NT PRO-BNP; Complete Time: 20:50 cp 02/11 20:50 Interpretation: NT PRO-BNP 224; Reviewed. cp 02/11 19:25 Order name: PT-INR; Complete Time: 20:40 cp 02/11 20:41 Interpretation: Reviewed. cp 02/11 19:25 Order name: Troponin HS; Complete Time: 20:50 cp 02/11 20:50 Interpretation: Reviewed. 02/11 19:25 Order name: XRAY Chest (1 view); Complete Time: 20:40 02/11 20:41 Interpretation: Report review. 02/11 19:25 Order name: EKG; Complete Time: 19:27 02/11 19:25 Order name: US LE Arterial Bilateral; Complete Time: 21:09 02/11 19:25 Order name: US Extremity Venous W Compression Ganesh; Complete Time: 21:09 02/11 19:25 Order name: Cardiac monitoring; Complete Time: 20:49 02/11 19:25 Order name: EKG - Nurse/Tech; Complete Time: 20:34 02/11 19:25 Order name: IV Saline Lock; Complete Time: 21:24 02/11 19:25 Order name: Labs collected and sent; Complete Time: 20:06 02/11 19:25 Order name: O2 Per Protocol; Complete Time: 19:39 02/11 19:25 Order name: O2 Sat Monitoring; Complete Time: 19:39 02/11 19:26 Order name: Wound Care: please clean feet; Complete Time: 22:39 cp EC:57 Rate is 66 beats/min. Rhythm is regular. VT interval is normal. QRS interval is normal. cp QT interval is normal. Interpreted by me. Reviewed by me. Administered Medications: 21:24 Drug: Clindamycin 900 mg Route: IVPB; Infused Over: 30 mins; Site: right antecubital; as6 22:40 Follow up: Response: No adverse reaction; IV Status: Completed infusion; IV Intake: [id number] 22:20 Drug: Eliquis (apixaban) 5 mg Route: PO; as6 22:41 Follow up: Response: No adverse reaction as6 22:20 Drug: Eliquis (apixaban) 5 mg Route: PO; as6 22:41 Follow up: Response: No adverse reaction as6 Disposition Summary: 02/11/22 21:22 Discharge Ordered Location: Home [facility] Condition: Stable jm Diagnosis - Acute embolism and thrombosis of other specified deep vein of left lower extremity jmm - Acute embolism and thrombosis of other specified deep vein of right lower extremity jmm Followup: jmm - With: Rodolfo Bang MD - When: 2 - 3 days - Reason: Recheck today's complaints, Continuance of care, Re-evaluation by your physician Discharge Instructions: - Discharge Summary Sheet jm - Deep Vein Thrombosis [facility] Forms: - Medication Reconciliation Form [facility] - Thank You Letter jm - Antibiotic Education jm - Prescription Opioid Use [facility] Prescriptions: - Eliquis DVT-PE Treat 30D Start 5 mg (74 tabs) Oral tablets,dose pack - take 2 tablet by ORAL route 2 times per day; 1 packet; Refills: 0, Product [facility] Selection Permitted Signatures: Dispatcher [employer] EDMS Junior Godfrey PA PA jmm Page, Corey, PA PA cp Dibbern, Lauren, RN RN ld1 Escobar Romano RN RN as6 Corrections: (The following items were deleted from the chart) 20:15 02/10 19:30 This 57 yrs old Male presents to ER via Ambulatory with complaints cp of foot problem. cp 02/11 21:02/10 19:35 Constitutional: The patient appears in no acute distress, alert, awake, cp non-diaphoretic, non-toxic, well developed, well nourished, cp 02/11 21:02/10 19:35 Head/Face: Normocephalic, atraumatic. cp cp 02/11 21:02/10 19:35 Eyes: Periorbital structures: appear normal, Conjunctiva: normal, no cp exudate, no injection, Sclera: no appreciated abnormality, Lids and lashes: appear normal, bilaterally, cp 02/11 21:02/10 19:35 ENT: External ear(s): are unremarkable, Nose: is normal, Mouth: Lips: cp moist, Oral mucosa: moist, Posterior pharynx: Airway: no evidence of obstruction, patent, cp 02/11 21:02/10 19:35 Neck: ROM/movement: no acute changes, pain, cp cp 02/11 21:02/10 19:35 Chest/axilla: Inspection: normal, Palpation: is normal, cp cp 02/11 21:02/10 19:35 Cardiovascular: Rate: normal, Rhythm: regular, Edema: ankle edema, that is cp moderate, JVD: is not appreciated, cp 02/11 21:02/10 19:35 Respiratory: mild respiratory distress is noted, Respirations: labored cp breathing, is not present, intercostal retractions, are absent, Breath sounds: are clear throughout, no bronchial sounds, no decreased breath sounds, no rales, rhonchi, cp 02/11 21:02/10 19:35 Abdomen/GI: Inspection: abdomen appears normal, Bowel sounds: active, all cp quadrants, Palpation: abdomen is soft and non-tender, cp 02/12 21:10 02/11 19:30 The complaints affect the ;eft lower leg and left foot and right lower leg cp and right foot, cp
[2022-02-11] MEDS ORDERED: APIXABAN 5 MG TABLET ONE (22:02)
[2022-02-12 01:21] VITALS: TEMP 98.3
[2022-02-12 01:23] VITALS: O2SAT 100
[2022-02-12 01:29] VITALS: BP 153/82
--- NOTE | 2022-02-13 06:23 | EKG ---
Test Date: 2022-02-11 Test Time: 19:56:17 [employer]her[employer] Engineer: TANYA MEASUREMENT RESULTS: Intervals: Rate: 66 VA: 186 QRSD: 94 QT: 402 QTc: 421 [place]: P: 48 VA: 186 QRS: 35 T: 41 INTERPRETIVE STATEMENTS: Normal sinus rhythm Normal ECG Compared to ECG 07/05/2014 11:56:27 Prolonged QT interval no longer present Electronically Signed On 02-13-22 06:22:00 CDT by Randall Tubbs
== END 2022-02-11 22:45 | disposition home or self-care (01) ==
LOC: ER 18:40
DX: I82.492 Acute embolism and thrombosis of other specified deep vein of left lower extremity (principal); I82.491 Acute embolism and thrombosis of other specified deep vein of right lower extremity; E11.9 Type 2 diabetes mellitus without complications; I10 Essential (primary) hypertension; F17.210 Nicotine dependence, cigarettes, uncomplicated
CPT/HCPCS: 36415; 71045; 80048; 80076; 83735; 83880; 84484; 85025; 85610; 93005; 93925; 93970; 96365; 99284

== ENCOUNTER 2022-03-08 18:23 | Inpatient (IN) | payer OTHER, SELFPAY ==
[2022-03-08 21:39] LABS: Absolute Lymphocytes (CBC) 1.9 K/uL (0.7-4.9); Lymphocytes % 11.3 % (15.3-44.8); MCV 82.3 fL (80-100); MPV 7.2 fL (7.6-11.3); RBC Red Blood Cell Count 4.62 M/uL (4.33-5.43)
[2022-03-08 21:41] LABS: Protime INR 1.42
--- NOTE | 2022-03-08 21:54 | RAD REPORT ---
EXAM DESCRIPTION: Elissa Single View03/08/2022 9:41 pm CLINICAL HISTORY: Chest pain COMPARISON: January 2022 FINDINGS: The lungs appear clear of acute infiltrate. The heart is normal size IMPRESSION: No acute abnormalities displayed
[2022-03-08 21:58] LABS: Albumin 2.9 g/dL (3.4-5.0); Bilirubin Direct 0.5 mg/dL (0-0.2); Magnesium 2.1 mg/dL (1.8-2.4); Potassium 4.1 mmol/L (3.5-5.1); Protein, Total 8.2 g/dL (6.4-8.2); Troponin High Sensitivity 4.8 pg/mL (<58.9)
--- NOTE | 2022-03-08 22:16 | RAD REPORT ---
EXAM DESCRIPTION: RAD - Foot Left 3 View - 03/08/2022 9:41 pm CLINICAL HISTORY: Left Foot pain FINDINGS: Ulceration involves the plantar soft tissue forefoot. Radiopaque foreign bodies are presen t within this region. There is equivocal collections of air within the deeper soft tissue which would indicate infection. T here is also equivocal cortical irregularity involving third proximal phalanx. If clinically indicated further evaluation with CT could obtained
--- NOTE | 2022-03-08 22:38 | RAD REPORT ---
EXAM DESCRIPTION: USExtrem Venous W Compress Bil03/08/2022 10:18 pm CLINICAL HISTORY: Leg pain COMPARISON: January 2022 FINDINGS: Right common femoral vein is patent. Partial thrombus right superficial femoral vein which has partially resolved since the prior exam. Right popliteal vein is patent. Right posterior tibial vein is patent Echogenic material consistent with thrombus is present within the proximal left superficial femoral v ein. This is a new finding when compared to the prior exam. Thrombus within the mid and distal left s uperficial femoral vein without significant change. Left popliteal vein is Grayscale, color and spectral analysis performed on all vessels IMPRESSION: Progression of thrombus into the proximal left superficial femoral vein since January 2022 Mild improvement in the right superficial femoral vein thrombus compared to January 2022
--- NOTE | 2022-03-08 22:41 | RAD REPORT ---
EXAM DESCRIPTION: US - Lower Extremity Arterial Bilat - 03/08/2022 10:18 pm CLINICAL HISTORY: Leg pain and swelling FINDINGS: Right common femoral arterial waveform triphasic. Right superficial femoral and right popliteal arter ial waveform is biphasic. Right posterior tibial artery waveform biphasic Right dorsalis pedis arterial waveform monophasic and diminished in amplitude Left common femoral, left superficial femoral, left popliteal, left posterior tibial and left dorsali s pedis arterial waveform is monophasic Grayscale, color and spectral analysis performed on all vessels IMPRESSION: Moderate distal right lower extremity arterial disease Moderate diffuse left lower extremity arterial disease No occlusion
[2022-03-08] MEDS ORDERED: MORPHINE 4 MG/ML SYR ONE (22:56)
[2022-03-08] MEDS ORDERED: VANCOMYCIN 1 GM/VIAL ONE (22:56)
[2022-03-08] MEDS ORDERED: ONDANSETRON 4 MG/2 ML VIAL ONE (22:56)
[2022-03-08] MEDS ORDERED: NA CHLORIDE 0.9% 250 ML ONE (22:56)
[2022-03-08] MEDS ORDERED: CEFEPIME 1 GM/VIAL ONE (23:11)
[2022-03-08] MEDS ORDERED: NA CHLORIDE 0.9% 100 ML ONE (23:11)
[2022-03-08 23:12] LABS: SARS-CoV-2 Antigen Rapid Res Negative (Negative)
--- NOTE | 2022-03-08 23:26 | EDPHYS ---
Physician Documentation [facility] Name: Jude Grijalva Age: 57 yrs Sex: Male : 1965 Arrival Date: 03/08/2022 Time: 18:26 Bed 17 Private MD: ED Physician Jack Ghosh HPI: 03/08 21:15 This 57 yrs old Male presents to ER via Wheelchair with complaints of Feet cp Swelling. 21:15 The patient presents with pain, swelling. The complaints affect the left foot. Onset: cp The symptoms/episode began/occurred gradually, and became worse 3 day(s) ago. Associated signs and symptoms: Pertinent positives: calf tenderness, swelling, warmth, bleeding and drainage, Pertinent negatives fever. Treatment prior to arrival includes: no previous treatment. Family member reports patient with HX DM, HTN, DVT and has not been taking any prescribed medications. Family member reports noticing bloody drainage from feet. Historical: - Allergies: 21:07 No Known Allergies; ha1 - Home Meds: 21:07 None [Active]; ha1 - PMHx: 21:07 Diabetes - NIDDM; Hypertension; stroke; left sided paralysis; ha1 - PSHx: 21:07 None; ha1 - Immunization history:: Adult Immunizations up to date, Client reports receiving the 2nd dose of the Covid vaccine. - Social history:: Smoking status: Patient reports the use of cigarette tobacco products, smokes one-half pack cigarettes per day, Patient/guardian denies using alcohol, street drugs. ROS: 21:20 Constitutional: Negative for body aches, chills, fever, poor PO intake. cp 21:20 Eyes: Negative for injury, pain, redness, and discharge. cp 21:20 ENT: Negative for drainage from ear(s), ear pain, sore throat, difficulty swallowing, difficulty handling secretions. 21:20 Cardiovascular: Positive for edema, Negative for chest pain, palpitations. 21:20 Respiratory: Negative for cough, shortness of breath, wheezing. 21:20 Abdomen/GI: Negative for abdominal pain, nausea, vomiting, and diarrhea. 21:20 Back: Negative for pain at rest, pain with movement. 21:20 MS/extremity: Positive for erythema, pain, swelling, tenderness, of the left foot, Negative for injury or acute deformity. 21:20 Neuro: Negative for altered mental status, dizziness, headache, syncope, weakness. 21:20 All other systems are negative. Exam: 21:25 Constitutional: The patient appears in no acute distress, alert, awake, cp non-diaphoretic, non-toxic, well developed, well nourished. 21:25 Head/Face: Normocephalic, atraumatic. cp 21:25 Eyes: Periorbital structures: appear normal, Conjunctiva: normal, no exudate, no injection, Sclera: no appreciated abnormality, Lids and lashes: appear normal, bilaterally. 21:25 ENT: External ear(s): are unremarkable, Nose: is normal, Mouth: Lips: moist, Oral mucosa: pink and intact, moist, Posterior pharynx: Airway: no evidence of obstruction, patent. 21:25 Chest/axilla: Inspection: normal, Palpation: is normal, no crepitus, no tenderness. 21:25 Cardiovascular: Rate: normal, Rhythm: regular, Pulses: palpable, weak bilateral dorsalis pedis pulses, JVD: is not appreciated. 21:25 Respiratory: the patient does not display signs of respiratory distress, Respirations: normal, no use of accessory muscles, no retractions, labored breathing, is not present, Breath sounds: are clear throughout, no decreased breath sounds, no stridor, no wheezing. 21:25 Abdomen/GI: Inspection: abdomen appears normal, Palpation: abdomen is soft and non-tender, in all quadrants. 21:25 Back: pain, is absent, ROM is normal. 21:25 Musculoskeletal/extremity: Extremities: noted in the left leg: swelling of lower leg with erythema extending from knee to foot, left third toe appears dark and discolored with lack of cap refill, deep open wound noted ball of foot plantar surface with purulent and foul smelling drainage, the left foot decreased sensation. 21:25 Neuro: Orientation: to person, place \T\ time. Mentation: is normal, Motor: moves all fours, strength is normal. 21:35 ECG was reviewed by the Attending Physician. cp 03/09 00:26 ECG was reviewed by the Attending Physician. cp Vital Signs: 03/08 18:38 BP 132 / 87; Pulse 95; Resp 16; Temp 97.8; Pulse Ox 99% on R/A; Pain 5/10; hb 23:32 Weight 76.2 kg (R); ha1 03/09 00:11 BP 212 / 169; Pulse 108; Resp 14; Pulse Ox 72% on R/A; ha1 00:52 BP 96 / 62; Pulse 89; Resp 13; Pulse Ox 95% on 5 lpm NC; ha1 01:30 BP 107 / 82; Pulse 90; Resp 13; Pulse Ox 97% on 5 lpm NC; ha1 MDM: 03/08 20:03 Patient medically screened. cp 22:00 Differential diagnosis: sepsis, cellulitis, osteomyelitis, arterial occlusion, dvt, cp pulmonary embolism. 23:15 Data reviewed: vital signs, nurses notes, lab test result(s), EKG, radiologic studies, cp plain films, ultrasound. 23:15 Test interpretation: by ED physician or midlevel provider: ECG, plain radiologic cp studies. Physician consultation: Cornelio Amaral was contacted at 23:10, regarding admission, to the telemetry unit. patient's condition, and will see patient in ED, shortly. 03/08 21:08 Order name: Basic Metabolic Panel; Complete Time: 22:08 cp 03/08 21:08 Order name: CBC with Diff; Complete Time: 22:08 cp 03/08 22:51 Interpretation: Normal except: WBC 16.70; HGB 13.0; HCT 38.0; MPV 7.2; ANA MARÍA% 80.2; LYM% cp 11.3; NEUT A 13.4. 03/08 21:08 Order name: LFT's; Complete Time: 22:37 cp 03/08 21:08 Order name: Magnesium; Complete Time: 22:37 cp 03/08 21:08 Order name: NT PRO-BNP; Complete Time: 22:37 cp 03/08 21:08 Order name: PT-INR; Complete Time: 22:37 cp 03/08 21:08 Order name: Troponin HS; Complete Time: 22:37 cp 03/08 21:08 Order name: Procalcitonin; Complete Time: 22:37 cp 03/08 21:08 Order name: Lactate; Complete Time: 22:37 cp 03/08 21:08 Order name: Blood Culture Adult (2) cp 03/08 21:12 Order name: Wound Culture cp 03/08 21:18 Order name: SARS RAPID; Complete Time: 23:20 mw2 03/09 00:13 Order name: ABG; Complete Time: 01:32 mw2 03/09 00:38 Order name: Glucose, Ancillary Testing; Complete Time: 00:41 EDMS 03/08 21:08 Order name: XRAY Chest (1 view); Complete Time: 22:37 cp 03/08 21:08 Order name: XRAY Foot LEFT 3 View; Complete Time: 22:37 cp 03/08 21:08 Order name: US Extremity Venous W Compression Ganesh; Complete Time: 22:50 cp 03/08 21:08 Order name: US LE Arterial Bilateral; Complete Time: 22:50 cp 03/09 00:14 Order name: Head Brain Wo Cont CT; Complete Time: 15:05 la1 03/09 00:28 Order name: Chest For PE Angio CT; Complete Time: 15:05 la1 03/09 05:34 Order name: Lactate; Complete Time: 15:05 EDMS 03/09 05:35 Order name: CBC with Automated Diff; Complete Time: 15:05 EDMS 03/09 05:48 Order name: Comprehensive Metabolic Panel; Complete Time: 15:05 EDMS 03/09 05:48 Order name: Troponin High Sensitivity; Complete Time: 15:05 EDMS 03/09 05:48 Order name: T4 Free; Complete Time: 15:05 EDMS 03/09 05:48 Order name: Thyroid Stimulating Hormone; Complete Time: 15:05 EDMS 03/09 08:02 Order name: Glucose, Ancillary Testing; Complete Time: 15:05 EDMS 03/08 21:08 Order name: EKG; Complete Time: 21:11 cp 03/08 21:08 Order name: Cardiac monitoring; Complete Time: 21:28 cp 03/08 21:08 Order name: EKG - Nurse/Tech; Complete Time: 21:28 cp 03/08 21:08 Order name: IV Saline Lock; Complete Time: 21:28 cp 03/08 21:08 Order name: Labs collected and sent; Complete Time: 21:28 cp 03/08 21:08 Order name: O2 Per Protocol; Complete Time: 21:28 cp 03/08 21:08 Order name: O2 Sat Monitoring; Complete Time: 21:28 cp 03/09 00:13 Order name: Glucose Level; Complete Time: 00:53 mw2 EC:35 Rate is 88 beats/min. Rhythm is regular. CA interval is normal. QRS interval is normal. cp QT interval is normal. T waves are Inverted in lead aVR. Interpreted by me. Reviewed by me. 03/09 00:26 Rate is 108 beats/min. Rhythm is regular. CA interval is normal at 132 msec. QRS cp interval is normal. QT interval is normal. T waves are Inverted in lead aVR. Interpreted by me. Reviewed by me. Administered Medications: 03/08 23:31 Drug: vancoMYCIN 1 grams Route: IVPB; Infused Over: 2 hrs; Site: left antecubital; ha1 23:35 Follow up: Response: No adverse reaction; IV Status: Completed infusion; IV Intake: ha1 250ml 23:31 Drug: morphine 4 mg Route: IVP; Infused Over: 4 mins; Site: left antecubital; ha1 23:35 Follow up: Response: No adverse reaction [facility] 23:31 Drug: Zofran (Ondansetron) 4 mg Route: IVP; Site: left antecubital; ha1 23:35 Follow up: Response: No adverse reaction [facility] 23:31 Drug: Cefepime 1 grams Route: IVPB; Rate: 200 ml/hr; Infused Over: 30 mins; Site: left ha1 antecubital; 03/09 00:53 Follow up: Response: No adverse reaction; IV Status: Completed infusion; IV Intake: ha1 100ml 03/08 23:34 Drug: Lovenox (enoxaparin) 1 mg/kg Route: Sub-Q; Site: abdomen; ha1 23:35 Follow up: Response: No adverse reaction [facility] 03/09 01:01 Drug: NS 0.9% 1000 ml Route: IV; Rate: 1 bolus; Site: right wrist; ha1 01:48 Follow up: Response: No adverse reaction; IV Status: Completed infusion; IV Intake: ha1 1000ml 01:49 Drug: NS 0.9% 1000 ml Route: IV; Rate: 1 bolus; Site: right wrist; ha1 Disposition Summary: 03/08/22 23:24 Hospitalization Ordered Hospitalization Status: Inpatient Admission cp Provider: Juan Garcia cp Condition: Stable cp Problem: new cp Symptoms: have improved cp Bed/Room Type: Standard cp Location: [facility] ER HOLD(03/08/22 23:28) Room Assignment: ERHOLD-(03/08/22 23:28) mw Diagnosis - Cellulitis of left lower limb cp - Chronic embolism and thrombosis of 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 [facility] Signatures: Dispatcher [employer] EDMS Angie Hollingsworth RN RN Cornelio Amaral, DIRECTOR WORKFORCE MANAGEMENT-C DIRECTOR WORKFORCE MANAGEMENT-Cla1 Jonnathan Julian PA PA cp Rashaad CarolReshma 2 Jack Ghosh MD MD [id number] Minna Singh RN RN kd3 Renee Song RN RN ha1 Corrections: (The following items were deleted from the chart) 03/08 23:28 23:24 Telemetry/MedSurg (Inpatient) [facility] 23: 23:24 [facility] 03/09 15:00 03/08 21:15 Family member reports patient with HX DM, HTN, DVT and has not been taking cp any prescribed medications since discharge from last admission to this hospital. 03/09 23:10 03/08 21:30 Constitutional: The patient appears in no acute distress, alert, awake, cp non-diaphoretic, non-toxic, well developed, well nourished, cp
--- NOTE | 2022-03-08 23:26 | ER ---
Nurse's Notes [facility] Name: Jude Grijalva Age: 57 yrs Sex: Male : 1965 Arrival Date: 03/08/2022 Time: 18:26 Bed 17 Private MD: Diagnosis: Cellulitis of left lower limb;Chronic embolism and thrombosis of unspecified deep veins of right lower extremity;Chronic embolism and thrombosis of unspecified deep veins of left lower extremity;Other specified sepsis Presentation: 03/08 18:38 Chief complaint: Bilateral foot pain and swelling x months. Daughter reports bleeding hb from toes that started 3 days ago. Coronavirus screen: At this time, the client does not indicate any symptoms associated with coronavirus-19. Ebola Screen: No symptoms or risks identified at this time. Risk Assessment: Do you want to hurt yourself or someone else? Patient reports no desire to harm self or others. Onset of symptoms is unknown. 18:38 Method Of Arrival: Wheelchair hb 18:38 Acuity: QASIM 3 hb 03/09 01:02 Initial Sepsis Screen: Does the patient meet any 2 criteria?. ha1 01:16 Initial Sepsis Screen: Does the patient meet any 2 criteria? No. Patient's initial ha1 sepsis screen is negative. Does the patient have a suspected source of infection? Yes: Skin breakdown/wound. Historical: - Allergies: 03/08 21:07 No Known Allergies; ha1 - Home Meds: 21:07 None [Active]; ha1 - PMHx: 21:07 Diabetes - NIDDM; Hypertension; stroke; left sided paralysis; ha1 - PSHx: 21:07 None; ha1 - Immunization history:: Adult Immunizations up to date, Client reports receiving the 2nd dose of the Covid vaccine. - Social history:: Smoking status: Patient reports the use of cigarette tobacco products, smokes one-half pack cigarettes per day, Patient/guardian denies using alcohol, street drugs. Screenin:09 Abuse screen: Denies threats or abuse. Denies injuries from another. Nutritional ha1 screening: No deficits noted. Tuberculosis screening: No symptoms or risk factors identified. Fall Risk Ambulatory Aid- Crutches/Cane/Walker (15 pts). Gait- Impaired (20 pts.). Total Santana Fall Scale indicates Low Risk Score (25-44 pts). Fall prevention measures have been instituted. Side Rails Up X 2 Frequent Obs/Assesments occuring Family Present and informed to notify staff if they need to leave bedside As available Patient and Family Educated on Fall Prevention Program and strategies. Assessment: 21:04 General: Appears in no apparent distress. comfortable, Behavior is calm, cooperative. ha1 Pain: Complains of pain in right foot, left foot, right leg and left leg. Neuro: No deficits noted. Level of Consciousness is awake, alert, obeys commands, Oriented to person, place, time, situation. Cardiovascular: No deficits noted. Denies chest pain, shortness of breath. Respiratory: No deficits noted. Airway is patent Trachea midline Respiratory effort is even, unlabored, Breath sounds are clear bilaterally. GI: No deficits noted. No signs and/or symptoms were reported involving the gastrointestinal system. Abdomen is flat, non-distended, Bowel sounds present X 4 quads. : No deficits noted. No signs and/or symptoms were reported regarding the genitourinary system. EENT: No deficits noted. No signs and/or symptoms were reported regarding the EENT system. Derm: Wound noted ball of left foot and left third toe swelling noted to bilateral extremities. third toe on left foot black in color. Musculoskeletal: Circulation, motion, and sensation intact. Range of motion: intact in all extremities, Swelling present in right foot, left foot, right leg and left leg. 22:05 Reassessment: Patient and/or family updated on plan of care and expected duration. Pain ha1 level reassessed. Patient is alert, oriented x 3, equal unlabored respirations, skin warm/dry/pink. 22:54 Reassessment: Patient appears in no apparent distress at this time. No changes from ha1 previously documented assessment. Patient and/or family updated on plan of care and expected duration. Pain level reassessed. Patient is alert, oriented x 3, equal unlabored respirations, skin warm/dry/pink. 03/09 00:11 Reassessment: pt became lethargic, confused and diaphoretic. oxygen saturation 72% on ha1 room air. 15L/min administered via non re-breather. Cornelio Amaral PEANUT [employer]TER MAKER notified. 00:52 Reassessment: pt currently more responsive and answering questions effectively. pt ha1 states he feels "good". pt no longer diaphoretic at this time. Vital Signs: 03/08 18:38 BP 132 / 87; Pulse 95; Resp 16; Temp 97.8; Pulse Ox 99% on R/A; Pain 5/10; hb 23:32 Weight 76.2 kg (R); ha1 03/09 00:11 BP 212 / 169; Pulse 108; Resp 14; Pulse Ox 72% on R/A; ha1 00:52 BP 96 / 62; Pulse 89; Resp 13; Pulse Ox 95% on 5 lpm NC; ha1 01:30 BP 107 / 82; Pulse 90; Resp 13; Pulse Ox 97% on 5 lpm NC; ha1 ED Course: 03/08 18:26 Patient arrived in ED. rg4 18:39 Triage completed. hb 18:55 Jonnathan Julian PA is PHCP. cp 18:55 Jose Luis Novak DO is Attending Physician. cp 20:02 Renee Song, RHETT is Primary Nurse. ha1 20:16 Jack Ghosh MD is Attending Physician. cp 21:09 Patient has correct armband on for positive identification. Fall risk band placed. ha1 Placed in gown. Bed in low position. Call light in reach. Side rails up X2. Client placed on continuous cardiac and pulse oximetry monitoring. NIBP monitoring applied. Door closed. Noise minimized. Warm blanket given. Family accompanied patient. 21:28 Procalcitonin Sent. ha1 21:28 Lactate Sent. ha1 21:28 Basic Metabolic Panel Sent. ha1 21:28 CBC with Diff Sent. ha1 21:28 LFT's Sent. ha1 21:28 Magnesium Sent. ha1 21:28 NT PRO-BNP Sent. ha1 21:28 PT-INR Sent. ha1 21:28 Troponin HS Sent. ha1 21:30 Inserted saline lock: 20 gauge in left antecubital area, using aseptic technique. Blood ha1 collected. 21:43 XRAY Chest (1 view) In Process Unspecified. EDMS 21:43 XRAY Foot LEFT 3 View In Process Unspecified. EDMS 22:20 US Extremity Venous W Compression Ganesh In Process Unspecified. EDMS 22:20 US LE Arterial Bilateral In Process Unspecified. EDMS 22:44 SARS RAPID Sent. ha1 22:44 Wound Culture Sent. ha1 22:44 Blood Culture Adult (2) Sent. ha1 23:22 Juan Garcia MD is Hospitalizing Provider. cp 03/09 00:52 Head Brain Wo Cont CT In Process Unspecified. EDMS 00:53 Chest For PE Angio CT In Process Unspecified. EDMS 01:01 Inserted saline lock: 20 gauge in right wrist, using aseptic technique. ha1 Administered Medications: 03/08 23:31 Drug: vancoMYCIN 1 grams Route: IVPB; Infused Over: 2 hrs; Site: left antecubital; ha1 23:35 Follow up: Response: No adverse reaction; IV Status: Completed infusion; IV Intake: ha1 250ml 23:31 Drug: morphine 4 mg Route: IVP; Infused Over: 4 mins; Site: left antecubital; ha1 23:35 Follow up: Response: No adverse reaction ha1 23:31 Drug: Zofran (Ondansetron) 4 mg Route: IVP; Site: left antecubital; ha1 23:35 Follow up: Response: No adverse reaction ha1 23:31 Drug: Cefepime 1 grams Route: IVPB; Rate: 200 ml/hr; Infused Over: 30 mins; Site: left ha1 antecubital; 03/09 00:53 Follow up: Response: No adverse reaction; IV Status: Completed infusion; IV Intake: ha1 100ml 03/08 23:34 Drug: Lovenox (enoxaparin) 1 mg/kg Route: Sub-Q; Site: abdomen; ha1 23:35 Follow up: Response: No adverse reaction ha1 03/09 01:01 Drug: NS 0.9% 1000 ml Route: IV; Rate: 1 bolus; Site: right wrist; ha1 01:48 Follow up: Response: No adverse reaction; IV Status: Completed infusion; IV Intake: ha1 1000ml 01:49 Drug: NS 0.9% 1000 ml Route: IV; Rate: 1 bolus; Site: right wrist; ha1 Intake: 03/08 23:35 IV: 250ml; Total: 250ml. ha1 03/09 00:53 IV: 100ml; Total: 350ml. ha1 01:48 IV: 1000ml; Total: 1350ml. ha1 Outcome: 03/08 23:24 Decision to Hospitalize by Provider. cp 03/09 12:37 Patient left the ED. iw Signatures: Dispatcher [employer] EDMS Dominic, Regine, RN RN Jonnathan Dinero PA PA cp Baxter, Heather, RN RN Julia Godinez 4 Renee Song, RN RN ha1
[2022-03-08] MEDS ORDERED: ENOXAPARIN 80 MG/0.8 ML SQ ONE (23:43)
[2022-03-09 00:57] LABS: Arterial Blood Carboxyhemoglob 1.1 % (0-1.5); Blood Gas Oxyhemoglobin 90.9 % (94-97); Blood O2 Saturation 92.8 % (92-98.5)
[2022-03-09] MEDS ORDERED: NA CHLORIDE 0.9% 1,000 ML ONE ×3 (01:06→03:05)
--- NOTE | 2022-03-09 02:02 | P.HP ---
Certification for Inpatient Patient admitted to: Inpatient With expected LOS: >2 Midnights Patient will require the following post-hospital care: None Practitioner: I am a practitioner with admitting privileges, knowledge of patient current condition, hospital course, and medical plan of care. Services: Services provided to patient in accordance with Admission requirements found in Title 42 Section 412.3 of the Code of Federal Regulations <Cornelio Amaral - Last Filed: 03/09/22 01:55> Patient History Date of Service: 03/09/22 History of Present Illness: 57-year-old male with history of diabetes, hypertension, medical noncompliance who was diagnosed with bilateral lower extremity DVTs on 02/11/2022 presents the emergency department for foot wound/bleeding. After being seen in the emergency department on 02/11/2022 patient did not fill his Eliquis, he stated he did not want to take any medication his family says he told them he would rather . Patient with significant diabetic foot wound to the plantar aspect of his left foot as well as a necrotic third toe with cellulitis of the left foot. Patient needs criteria for sepsis given leukocytosis, tachycardia. He was not hypotensive during her stay in the emergency department and his lactic acid was less than 2. No other endorgan damage noted. Venous ultrasound of bilateral lower extremity showed progression of thrombus into the proximal left superficial femoral vein and mild improvement in the right superficial femoral vein thrombus x-ray of the left foot showed ulceration involving the plantar soft tissue forefoot, equivocal collections of air within the deeper soft tissues which would indicate infection, cortical irregularity involving the third proximal phalanx arterial Doppler shows moderate distal right lower extremity arterial disease and moderate diffuse left lower extremity arterial disease with no occlusion this x-ray showed no acute abnormalities. During his stay in the emergency department patient had an episode where he became diaphoretic and altered for a couple of minutes. Repeat EKG was without changes ABG was obtained which was unremarkable CT scan of the head and CT angio for pulmonary embolism were performed which were both without acute findings, patient quickly was back to his baseline. No surgery was consulted while patient was in the emergency department instructed to the patient n.p.o. with anticipated surgical intervention of his diabetic foot wound. He was given a dose of therapeutic Lovenox for DVT in the emergency department. - Past Medical/Surgical History Diabetic: Yes -: DM -: HTN -: Denies any significant surgical history - Social History Smoking Status: Current every day smoker Counseled patient to stop smoking for: less than 10 minutes Smoking therapy provided: No Alcohol use: No CD- Drugs: No Caffeine use: Yes Place of Residence: Home <Cornelio Amaral - Last Filed: 03/09/22 01:55> Date of Service: 03/09/22 <Juan Garcia - Last Filed: 03/09/22 17:26> Allergies No Known Drug Allergies Allergy (Verified 06/13/19 18:54) Unknown Home Medications: NK [No Home Meds] 03/09/22 Review of Systems 10-point ROS is otherwise unremarkable Musculoskeletal: Foot Pain, As per HPI <Cornelio Amaral - Last Filed: 03/09/22 01:55> Physical Examination - Physical Exam General: Alert, In no apparent distress, Oriented x3 HEENT: Atraumatic, PERRLA, Mucous membr. moist/pink, EOMI, Sclerae nonicteric Neck: Supple, 2+ carotid pulse no bruit, No LAD, Without JVD or thyroid abnormality Respiratory: Clear to auscultation bilaterally, Normal air movement Cardiovascular: Regular rate/rhythm, Normal S1 S2 Capillary refill: <2 Seconds Gastrointestinal: Normal bowel sounds, No tenderness Musculoskeletal: No tenderness Integumentary: No rashes, Diabetic ulcer (Ulceration to the plantar aspect of the left foot, third left phalanx appears necrotic with surrounding cellulitis) Neurological: Normal speech, Normal strength at 5/5 x4 extr, Normal tone, Normal affect Lymphatics: No axilla or inguinal lymphadenopathy - Studies Laboratory Data (last 24 hrs) 03/08/22 21:23: PT 15.7 H, INR 1.42 03/08/22 21:23: WBC 16.70 H, Hgb 13.0 L, Hct 38.0 L, Plt Count 241 03/08/22 21:23: Sodium 133 L, Potassium 4.1, BUN 15, Creatinine 0.95, Glucose 110 H, Magnesium 2.1, Total Bilirubin 1.0, AST 35, ALT 38, Alkaline Phosphatase 125 H <Cornelio Amaral - Last Filed: 03/09/22 01:55> - Studies Laboratory Data (last 24 hrs) 03/08/22 21:23: PT 15.7 H, INR 1.42 03/08/22 21:23: WBC 16.70 H, Hgb 13.0 L, Hct 38.0 L, Plt Count 241 03/08/22 21:23: Sodium 133 L, Potassium 4.1, BUN 15, Creatinine 0.95, Glucose 110 H, Magnesium 2.1, Total Bilirubin 1.0, AST 35, ALT 38, Alkaline Phosphatase 125 H Microbiology Data (last 24 hrs): 03/08/22 22:40 Wound - Left Foot Gram Stain - Final <Juan Garcia - Last Filed: 03/09/22 17:26> Assessment and Plan - Plan Assessment: Sepsis secondary to left diabetic foot wound/cellulitis Diabetes mellitus type [id number] with noncompliance Bilateral lower extremity DVTs Moderate distal right lower extremity PAD, moderate diffuse left lower extremity PAD Hypertension Tobacco abuse Plan: Sepsis secondary to left diabetic foot wound/cellulitis: Patient not hypotensive, lactate less than 2 no indication for IV fluid bolus at this time continue broad-spectrum antibiotics with vancomycin/meropenem, case was discussed with general surgery plan is for surgical intervention tomorrow. N.p.o. Diabetes mellitus type [id number] with noncompliance: A1c in the morning, every 6 hours Accu-Cheks as patient will be n.p.o. until after surgery. Bilateral lower extremity DVTs: Patient given therapeutic dose of Lovenox in ED, likely will have surgical intervention of diabetic foot wound in the morning, further anticoagulation after cleared by surgery. PE noted on CT of the chest with contrast. Moderate distal right lower extremity PAD, moderate diffuse left lower extremity PAD: Patient could benefit with outpatient vascular evaluation. Hypertension: Patient not on any medications at home we will monitor blood pressure during hospitalization but medication as appropriate. Tobacco abuse: Counseled on need for tobacco cessation extensively. Patient reports he plans to quit. DVT PPX: Received therapeutic Lovenox in ED, hold till after surgical evaluation. Code status: Full Discharge Plan: Home Plan to discharge in: Greater than 2 days - Advance Directives Does patient have a Living Will: No Does patient have a Durable POA for Healthcare: No - Code Status/Comfort Care Code Status Assessed: Yes (Full code) Critical Care: No Time Spent Managing Pts Care (In Minutes): 70 <Cornelio Amaral - Last Filed: 03/09/22 01:55> - Plan Agree with plan of care as noted above. continue empiric antibiotics, sliding scale discussed with Dr. Kim, given noncompliance and risk; consulted Dr. Reddy for IVC filter placement Cardiology consulted to eval arterial flow; amputation needed later this week <Juan Garcia - Last Filed: 03/09/22 17:26>
[2022-03-09] MEDS: NA CHLORIDE 0.9% 1,000 ML IV SCH ×3 (02:49→22:49)
[2022-03-09] MEDS ORDERED: ONDANSETRON 4 MG/2 ML VIAL IV PRN (02:49)
[2022-03-09] MEDS ORDERED: VANCOMYCIN 1 GM in NA CHLORIDE 0.9% 250 ML IVPB SCH (02:49)
[2022-03-09 03:14] VITALS: BMI 24.0
[2022-03-09] MEDS ORDERED: VANCOMYCIN 1.25 GM in NA CHLORIDE 0.9% 250 ML IVPB SCH (04:00)
[2022-03-09 05:19] LABS: Absolute Lymphocytes (CBC) 1.4 K/uL (0.7-4.9); Hematocrit 38.2 % (39.6-49.0); Lymphocytes % 8.3 % (15.3-44.8); MCV 83.8 fL (80-100); MPV 7.6 fL (7.6-11.3); RBC Red Blood Cell Count 4.56 M/uL (4.33-5.43)
[2022-03-09 05:48] LABS: Albumin 2.4 g/dL (3.4-5.0); Bilirubin Total 1.2 mg/dL (0.2-1.0); Potassium 3.7 mmol/L (3.5-5.1); Thyroid Stimulating Hormone 1.52 uIU/mL (0.360-3.740); Troponin High Sensitivity 4.9 pg/mL (<58.9)
[2022-03-09] MEDS ORDERED: NA CHLORIDE 0.9% 500 ML IV ONE (07:05)
[2022-03-09] MEDS ORDERED: NA CHLORIDE 0.9% 500 ML ONE (07:23)
[2022-03-09] MEDS: INSULIN -REGULAR HUMAN 50 UNIT/0.5 ML ML SQ SCH ×4 (07:30→21:00)
[2022-03-09] MEDS: VANCOMYCIN 1.25 GM in NA CHLORIDE 0.9% 250 ML IVPB SCH ×2 (08:00→21:15)
[2022-03-09] MEDS ORDERED: KCL 20 MEQ/100 mL IVPB 20 MEQ/100 ML BAG IV SCH (10:00)
[2022-03-09] MEDS ORDERED: LIDOCAINE 1% MPF 30 ML VIAL ONE (10:03)
[2022-03-09] MEDS ORDERED: BUPIVACAINE 0.5% PF 10 ML VIAL ONE (10:03)
[2022-03-09] MEDS ORDERED: NA CHLORIDE 0.9% 50 ML ONE (10:03)
[2022-03-09] MEDS ORDERED: HEPARIN 5000 UNIT/ML 1 ML VIAL ONE (10:03)
[2022-03-09] MEDS ORDERED: propofoL 200 MG/20 ML VIAL IV ONE (10:37)
[2022-03-09] MEDS ORDERED: LIDOCAINE 2% MPF 5 ML VIAL ONE (10:38)
[2022-03-09] MEDS ORDERED: FENTANYL CITR 100 MCG/2 ML ONE (10:38)
[2022-03-09] MEDS ORDERED: Meropenem 1000 MG/VIAL IV ONE (10:40)
[2022-03-09] MEDS ORDERED: NA CHLORIDE 0.9% 100 ML ONE (10:41)
[2022-03-09] MEDS: Meropenem 1,000 MG in NA CHLORIDE 0.9% 100 ML IV SCH ×2 (10:50→16:40)
[2022-03-09] MEDS ORDERED: EPHEDRINE SULF 50 MG/ML VIAL ONE (11:23)
[2022-03-09] MEDS ORDERED: BUPIVACAINE 0.5% PF 10 ML VIAL SQ ONE (11:45)
--- NOTE | 2022-03-09 11:56 | P.OP ---
Date of Service: 03/09/22 Preop diagnosis: Bilateral lower extremity DVT, noncompliance to anticoagulation Postop diagnosis: Same Procedure performed: Placement of right common femoral vein Deep filter, interpretation of intraoperative fluoroscopy Surgeon: Korey Reddy MD Bathhouse Keeper: None Estimated blood loss: Minimal Specimen: None Findings: Normal anatomy Anesthesia: General Complications: None Drains: None Fluids and blood products: Not applicable Disposition: Recovery room Operative note: Patient brought to the OR and placed in the supine position. General anesthesia begun. Patient prepped and draped in usual sterile fashion. Marcaine 0.5% infiltrated locally. Doppler device used to identify the right femoral artery. At the inguinal crease, the right common femoral vein accessed with 18-gauge needle. Guidewire passed. Position confirmed with fluoroscopy. Dilator and sheath introducer placed under fluoroscopy. At the L3 level Deep filter deployed with complete opening. No motility of the filter noted. Pressure applied in the right groin and pressure dressing applied. Patient tolerated the procedure in stable condition and taken to recovery room in good general condition. CC:
--- NOTE | 2022-03-09 12:20 | RAD REPORT ---
EXAM DESCRIPTION: Head Brain Wo Cont 03/09/2022 1:22 AM CDT CLINICAL HISTORY: 57 years, Male, Mental status change, unknown cause COMPARISON: None. FINDINGS: Multiple transaxial tomograms of the brain were obtained from the base of the skull to the vertex without contrast. 2-D multiplanar reformats and the coronal and sagittal plane were performed and reviewed. This exam was performed according to our departmental dose-optimization protocol, which includes auto mated exposure control, adjustment of the mA and/or kV according to patient size and/or use of iterat milena reconstruction technique. Brain parenchyma demonstrate very minimal prominence of the sulci and gyri are corresponding to very minimal cerebral and cerebellar atrophy. There is minimal periventricular white matter changes of tal rovascular ischemia related to hypertension and/or diabetes. There is no midline shift and/or mass ef fect. There is no evidence for acute intracranial hemorrhage. Lateral ventricles and cisterns displ clara normal appearance. No intra or extra axial fluid collections were seen. The calvarium is intact with no evidence for fracture. The visualized portions of the paranasal sinuses demonstrate opacific ation/perhaps large mucus retention cyst left maxillary sinus. The mastoid air cells and orbits demon strate to be clear. IMPRESSION: No acute intracranial hemorrhage identified. Very minimal brain atrophy with minimal periventricular white matter changes of microvascular ischemi a from diabetes and/or hypertension. Opacification/perhaps large mucus retention cyst left maxillary sinus. Electronically signed by: Henrik Martinez MD 03/09/2022 1:24 AM CDT Due to temporary technical issues with the PACS/Fluency reporting system, reports are being signed by the in house radiologists without review as a courtesy to insure prompt reporting. The interpreting radiologist is fully responsible for the content of the report.
--- NOTE | 2022-03-09 12:43 | RAD REPORT ---
EXAM DESCRIPTION: Chest For Pe Angio 03/09/2022 1:18 AM CDT CLINICAL HISTORY: 57 years, Male, Pulmonary embolism (PE) suspected, high prob COMPARISON: None TECHNIQUE: Multiple transaxial tomograms of the chest were obtained from the lung apices through the lung bases utilizing 2 mm slice thickness at 2 mm interval reconstruction after the administration o f large bolus of IV contrast for complete opacification of the pulmonary arteries. Subsequent 3-D maximum intensity projection images were generated in the coronal and sagittal plane f or review. This exam was performed according to our departmental dose-optimization protocol, which includes auto mated exposure control, adjustment of the mA and/or kV according to patient size and/or use of iterat milena reconstruction technique. FINDINGS: Some of the images are compromised by breathing motion artifact limiting diagnostic value. The lungs parenchyma demonstrate minimal dependent ectatic changes posterior CP angles. No significan t masses, nodules and/or consolidations are identified. The trachea mainstem bronchus demonstrate t o be normal. There is no significant pericardial or pleural effusions. The thoracic aorta demonstrate demonstrate minimal intimal calcification proximal descending thoracic aorta. The heart is normal in size. No evidence for right ventricular strain. There is no significant mediastinal and/or hilar lymphadenopathy. The axillary regions demonstrate to be clear. Pulmonary arteries demonstrate suboptimal opacification with majority of the contrast along the thora cic aorta. No gross intraluminal within the central pulmonary arteries/or proximal lobar branches. The bone windows demonstrate mild diffuse bony osteopenia. There is anterior spondylosis along the T8 -T12. The visualized portions of the upper abdomen demonstrate cholelithiasis. IMPRESSION: Some of the images are compromised by breathing motion artifact limiting diagnostic valu e. No gross intraluminal within the central pulmonary arteries and/or proximal lobar branches. Minimal dependent ectatic changes at the lung bases. Cholelithiasis. Electronically signed by: Henrik Martinez MD 03/09/2022 1:22 AM CDT Due to temporary technical issues with the PACS/Fluency reporting system, reports are being signed by the in house radiologists without review as a courtesy to insure prompt reporting. The interpreting radiologist is fully responsible for the content of the report.
--- NOTE | 2022-03-09 13:52 | RAD REPORT ---
EXAM DESCRIPTION: RAD - Fluoroscopy <1 Hour - 03/09/2022 1:41 pm FINDINGS: There were 7 portable C-arm views submitted from fluoroscopic assisted placement of IVC fi lter. No suspicious or unexpected finding. Fluoro time was 1.1 minutes. Cumulative dose was 16.3 mGy.
--- NOTE | 2022-03-09 15:58 | PREOPCON ---
Date of Consultation: 03/09/2022 Reason: Patient needs Deep filter. History Of Present Illness: Patient is a 57-year-old gentleman with diabetes and hypertension, who w as diagnosed with bilateral lower extremity DVT last month, was sent home. He did not fill his medic ations, which was Eliquis and he came in with an infected diabetic foot wound, which Dr. Kim is m anaging and needs surgery for that as well and I was asked to put a Castle filter in the patient as he is noncompliant with his anticoagulation. Patient was given Lovenox last night for his DVT and I was asked to place a filter in the patient today. The venous Doppler was reviewed with the radiol ogist, although there is a thrombus in the superficial femoral, there is none in the common femoral o n the right side and a thrombus in the right superficial femoral is improving. The left groin does h ave thrombus, however. Patient denies any fever or chills at this time. Review of Systems: Otherwise unremarkable. Medical History: Significant for hypertension and diabetes. Surgical History: Patient denies surgical history. Allergies: NONE. Social History: Patient does smoke. Denies drinking. Family History: Noncontributory. Physical Examination: Vital Signs: Stable. He is currently afebrile. General: He is awake, alert. Speaks Georgian. Oriented x3. Head and Neck: No masses. Chest: Clear. Heart: S1, S2. Abdomen: Soft. Extremities: Slightly edematous. Neurovascularly intact. Neuro: Nonfocal. Laboratory Data: Reviewed. Patient has leukocytosis. INR is 1.42. Chemistry reviewed as well. Assessment: A 57-year-old gentleman with multiple medical problems with bilateral lower extremity DV T, but noncompliant with anticoagulation. Recommendations: We will proceed with placement of Castle filter. Patient is going to require s urgery for his right foot by Dr. Kim. Patient via blanket binder understands risks, benefits, and al ternatives and agrees to procedure. /MODL Voice ID: [id number] Report ID: [id number]
[2022-03-10] MEDS: Meropenem 1,000 MG in NA CHLORIDE 0.9% 100 ML IV SCH ×3 (00:29→18:12)
[2022-03-10] MEDS: NA CHLORIDE 0.9% 1,000 ML IV SCH ×3 (04:45→18:12)
--- NOTE | 2022-03-10 06:11 | P.PN ---
Date of Service: 03/10/22 Subjective: IVC filter placed yesterday surgery recommended BKA, patient refused, ok with toe amputation no new symptoms reports some pain at foot ROS: 10 point ROS as noted above, otherwise negative Physical exam GEN: Alert, oriented, NAD HEENT: Normal conjunctiva, sclera anicteric CV: Regular rate and rhythm, no edema Pulm: Non-labored respirations on room air ABD: Soft, nontender, nondistended MSK: No joint tenderness Integumentary: left foot: ulceration of plantar aspect of 3rd left phalanx, gangrenous changes Problem List Sepsis secondary to left diabetic foot wound/cellulitis Diabetes mellitus type 2wso-nrfmtgg-uyatrbqvq with noncompliance Bilateral lower extremity DVTs Moderate distal right lower extremity PAD, moderate diffuse left lower extremity PAD Hypertension Tobacco abuse Sepsis secondary to left diabetic foot wound/cellulitis Moderate distal right lower extremity PAD, moderate diffuse left lower extremity PAD no evidence of shock Continue broad-spectrum antibiotics, vancomycin, meropenem General surgery consulted, requested cardiology evaluation to assess potential therapeutic treatment of his decreased flow on his left leg Possible amputation on Monday N.p.o. after midnight Diabetes mellitus type 9knk-myjnyeo-icfawzuud with noncompliance: Continue Accu-Cheks, sliding scale Bilateral lower extremity DVTs: hold anticoagulation for surgery Dr. Reddy placed IVC filter on 03/09 Patient has been noncompliant, never picked up his anticoagulation medication that was prescribed a month ago Hypertension: monitor, medication as needed Tobacco abuse: Counseled on need for tobacco cessation extensively. Patient reports he plans to quit. Code: full Dispo: home, ~4 days
[2022-03-10 06:13] LABS: Absolute Lymphocytes (CBC) 1.8 K/uL (0.7-4.9); Lymphocytes % 11.5 % (15.3-44.8); MCV 84.8 fL (80-100); MPV 8.3 fL (7.6-11.3); RBC Red Blood Cell Count 4.36 M/uL (4.33-5.43)
[2022-03-10 06:27] LABS: Albumin 2.3 g/dL (3.4-5.0); Bilirubin Total 0.6 mg/dL (0.2-1.0); Protein, Total 6.8 g/dL (6.4-8.2)
[2022-03-10] MEDS: INSULIN -REGULAR HUMAN 50 UNIT/0.5 ML ML SQ SCH ×4 (07:30→21:00)
[2022-03-10] MEDS: VANCOMYCIN 1.25 GM in NA CHLORIDE 0.9% 250 ML IVPB SCH ×2 (10:40→21:48)
--- NOTE | 2022-03-10 14:30 | EKG ---
Test Date: 2022-03-08 Test Time: 21:24:16 Security Director: DWAIN MEASUREMENT RESULTS: Intervals: Rate: 89 RI: 142 QRSD: 94 QT: 376 QTc: 457 [place]: P: 50 RI: 142 QRS: 43 T: 62 INTERPRETIVE STATEMENTS: Normal sinus rhythm Normal ECG Compared to ECG 02/11/2022 19:56:17 No significant changes Electronically Signed On 03-10-22 14:28:24 CDT by Ike Nova
[2022-03-10] MEDS ORDERED: MIDAZOLAM HCL 2 MG/2 ML INJ ONE (15:12)
[2022-03-10] MEDS ORDERED: FENTANYL CITR 100 MCG/2 ML ONE (15:12)
[2022-03-10] MEDS ORDERED: CLOPIDOGREL 75 MG TABLET ONE (15:12)
[2022-03-10] MEDS ORDERED: ASPIRIN 325 MG TAB ONE (15:12)
[2022-03-10] MEDS ORDERED: ATROPINE SULF 1 MG/10 ML SYR IV ONE (15:13)
[2022-03-10] MEDS ORDERED: HEPARIN 10,000 UNIT/10 ML VIAL IV ONE (15:13)
[2022-03-10] MEDS ORDERED: TICAGRELOR 90 MG TABLET PO ONE (15:13)
[2022-03-10] MEDS ORDERED: NA CHLORIDE 0.9% 500 ML ONE (15:22)
[2022-03-10] MEDS ORDERED: HEPA 1000U/500MLS 1,000 UNIT/500 ML BAG IV ONE (16:07)
--- NOTE | 2022-03-10 20:41 | CON ---
Date of Consultation: 03/10/2022 Reason For Consultation: Peripheral vascular disease and nonhealing wounds. History Of Present Illness: A 57-year-old male with history of diabetes, hypertension, and history o f bilateral lower extremity DVT, presented for foot wound and pain and drainage, is evaluated by Gregg ellis and the patient needed amputation, however, patient is refusing amputation and I was asked by Sean garcia to evaluate the patient for the possibility of managing his peripheral vascular disease. Had an arterial Doppler that showed significant disease, involving left lower extremity. Past Medical History: Diabetes, hypertension. Medications: Refer reconciliation sheet for detailed list. Allergies: NO KNOWN DRUG ALLERGIES. Family History: No mention of coronary artery disease or cancer. Social History: He is a smoker, 1 pack per day. Does not drink or use any drugs. Review of Systems: All systems reviewed and they were negative except for mentioned in HPI. Physical Examination: Vital Signs: Reviewed. Head and Neck: Pupils are equal, reactive to light. Intact eye movements. No JVD. No cervical lymp hadenopathy. Neck is supple. Thyroid is not enlarged. Lungs: Clear to auscultation bilaterally. No rhonchi, wheezing, or crackles. No accessory muscle u se. Heart: Regular rate and rhythm. No extra sounds. Abdomen: Soft, nontender. Bowel sounds positive. No organomegaly. No masses or hernia. No rigidi ty or rebound. Extremities: No clubbing or cyanosis. Pulses are diminished in. Open wound of his foot. Neurologic: Alert, awake, oriented x3. No acute focal deficits appreciated. Lymph Nodes: No cervical lymphadenopathy. Investigations: Creatinine 0.61 and hemoglobin is 12.3, white blood cell count 15.3. The arterial D oppler was done, showed diffuse peripheral vascular disease in both lower extremity. Assessment And Recommendation: 1.Peripheral vascular disease, with significant wound to the right foot. We will plan to do periphe ral angiogram with a runoff today and intervention as needed. 2.Deep venous thrombosis, status post IVC filter placement. 3.Hypertension, blood pressure is controlled. Continue home medications. SR/MODL Voice ID: [id number] Report ID: [id number]
[2022-03-11] MEDS: Meropenem 1,000 MG in NA CHLORIDE 0.9% 100 ML IV SCH ×3 (01:15→17:01)
--- NOTE | 2022-03-11 02:57 | OP ---
Date of Procedure: 03/10/2022 Surgeon: CORAZON ZAIDI Procedures Performed: Peripheral angiogram with runoff and bilateral lower extremity selective angio gram. Indication: Peripheral vascular disease with foot ulcer. Access: Right femoral artery 6-Guamanian, closed with 6-Guamanian Angio-Seal. Complications: None. Bleeding: Less than 50 mL. Total Sedation Time: 50 minutes, used fentanyl and Versed. Description Of Procedure: After risks, benefits, and alternatives were explained, the patient agreed to the procedure and signed informed consent. The patient was brought into the cardiac catheterizat ion laboratory, prepped and draped in usual sterile fashion. Then, we accessed the right femoral art rhonda using micropuncture kit, fluoroscopy, and ultrasound guidance, placed 6-Guamanian Dyke sheath an d took a straight pigtail in the distal aorta and did distal aortogram with runoff and then exchanged for an Omni Flush with [place] Advantage wire and [place] Advantage wire was used to cross over to the s denver and placed the Omni Flush in the mid SFA and performed a selective angiogram to get the images be low the knee and then subsequently removed the catheter and sheath. A 6-Guamanian Angio-Seal was used f or closure with good hemostasis. Findings: 1.Silhouette is patent. 2.Right common iliac is normal, the right external iliac is normal, the right internal iliac artery has 60% stenosis. Then, the right profunda is patent, the right SFA is patent until the distal porti on has about 20% to 30% diffuse disease, and urtrw-ipw-lrgy, the posterior tibial has severe diffuse disease. Anterior tibial and peroneal are patent all the way to the toes. 3.The right common iliac, right external and internal iliacs, and common femoral artery are all christiansen nt. 4.The left common iliac, external and internal iliacs, and common femoral are patent, and then the l eft SFA is with distal 40% focal stenosis. Then xyqew-gsw-xved on the left, anterior tibial is widel y patent and large and reaches the toes. The peroneal and the posterior tibial are with diffuse dise ase, but there are small vessels and still have good flow all the way to the foot. Conclusion: Moderate peripheral vascular disease. Recommendation: Medical management. SR/MODL Voice ID: [id number] Report ID: [id number]
[2022-03-11 04:56] LABS: Absolute Lymphocytes (CBC) 1.9 K/uL (0.7-4.9); Hematocrit 33.3 % (39.6-49.0); Lymphocytes % 14.6 % (15.3-44.8); MCV 82.2 fL (80-100); MPV 7.3 fL (7.6-11.3); RBC Red Blood Cell Count 4.05 M/uL (4.33-5.43)
[2022-03-11 05:11] LABS: Albumin 2.2 g/dL (3.4-5.0); Bilirubin Total 0.5 mg/dL (0.2-1.0); Magnesium 1.6 mg/dL (1.8-2.4); Potassium 3.3 mmol/L (3.5-5.1); Protein, Total 6.5 g/dL (6.4-8.2)
--- NOTE | 2022-03-11 06:12 | P.PN ---
Date of Service: 03/11/22 Subjective: refused BKA denies any new symptoms/problems ROS: 10 point ROS as noted above, otherwise negative Physical exam GEN: Alert, oriented, NAD HEENT: Normal conjunctiva, sclera anicteric CV: Regular rate and rhythm, no edema Pulm: Non-labored respirations on room air ABD: Soft, nontender, nondistended Integumentary: left foot: ulceration of plantar aspect of 3rd left phalanx, gangrenous changes Problem List Sepsis secondary to left diabetic foot wound/cellulitis Diabetes mellitus type 1tnw-sdjwkwg-mcohslakc with noncompliance Bilateral lower extremity DVTs Moderate distal right lower extremity PAD, moderate diffuse left lower extremity PAD Hypertension Tobacco abuse Sepsis secondary to left diabetic foot wound/cellulitis Moderate distal right lower extremity PAD, moderate diffuse left lower extremity PAD no evidence of shock Continue broad-spectrum antibiotics, vancomycin, meropenem General surgery consulted, requested cardiology evaluation to assess potential therapeutic treatment of his decreased flow on his left leg no need for intervention per Dr. Nova amputation scheduled for today Diabetes mellitus type 4kvn-szdbxfq-qftldupmo with noncompliance: Continue Accu-Cheks, sliding scale Bilateral lower extremity DVTs: hold anticoagulation for surgery Dr. Reddy placed IVC filter on 03/09 Patient has been noncompliant, never picked up his anticoagulation medication that was prescribed a month ago Hypertension: monitor, medication as needed Tobacco abuse: Counseled on need for tobacco cessation extensively. Patient reports he plans to quit. Code: full Dispo: home, ~4 days
[2022-03-11] MEDS: INSULIN -REGULAR HUMAN 50 UNIT/0.5 ML ML SQ SCH ×4 (07:30→21:00)
[2022-03-11] MEDS: NA CHLORIDE 0.9% 1,000 ML IV SCH ×2 (08:38→17:01)
[2022-03-11] MEDS: VANCOMYCIN 1.25 GM in NA CHLORIDE 0.9% 250 ML IVPB SCH ×2 (08:40→21:57)
[2022-03-11] MEDS ORDERED: propofoL 200 MG/20 ML VIAL IV ONE (15:23)
[2022-03-11] MEDS ORDERED: FENTANYL CITR 100 MCG/2 ML ONE (15:24)
[2022-03-11] MEDS ORDERED: LIDOCAINE 2% MPF 5 ML VIAL ONE (15:24)
[2022-03-11] MEDS ORDERED: dexAMETHasone 10 MG/ML VIAL ONE (15:55)
[2022-03-11] MEDS ORDERED: ONDANSETRON 4 MG/2 ML VIAL ONE (15:56)
[2022-03-11] MEDS ORDERED: Phenylephrine HCl 10 MG/ML 1 ML VIAL ONE (16:05)
[2022-03-11] MEDS ORDERED: SODIUM HYPOCHLORITE 0.25% 473 ML ONE (16:13)
--- NOTE | 2022-03-11 16:19 | P.OP ---
Preoperative diagnosis: LEFT 3rd toe osteomyelitis Postoperative diagnosis: LEFT foot wet gangrene Primary procedure: Amputation of LEFT 3rd toe Secondary procedure: Debridement of LEFT food wound Anesthesia: GETA Estimated blood loss: <5cc Specimen: 3rd Toe, debridment tissue, cultures Findings: wet gangrene of LEFT foot extending beyond midfoot Complications: None Transferred to: Recovery Room Condition: Fair
[2022-03-12] MEDS: Meropenem 1,000 MG in NA CHLORIDE 0.9% 100 ML IV SCH ×3 (01:49→16:48)
--- NOTE | 2022-03-12 02:53 | OP ---
Date of Procedure: 03/11/2022 Surgeon: Jossue Kim MD, Brief History Of Present Illness: The patient is a 57-year-old male, admitted previously with draina ge and wound of his left foot. He noted that his third toe had become completely black and there was some drainage associated with it, which has foul odor. As such she came to the emergency room with the above-stated complaints. Ultimately, workup showed that he had a DVT. He was noncompliant and s tates he would rather than take medicine for diabetes and his blood thinners. Bert was prescr ibed. He outright refused to do so. He states further that he was not given specifically the medica tions in hand and was only given a prescription and therefore did not choose to fill these prescripti ons from the emergency room on previous admission. He comes in, however, with a significant draining wound and evidence of osteomyelitis and wet gangrenous changes. I spoke with Dr. Nova, who perfor med angiography of the lower extremity to evaluate it for blood flow as he had evidence of significan t peripheral arterial disease, which was confirmed on angiography. Please see Dr. Nova's note for complete details. As he had a history of a propagating DVT, he was given an IVC filter as well. Ult imately, he was taken to the operating room today, but would only agree to amputation and debridement . He would not submit to a hfvxm-iny-kbjb amputation, transmetatarsal amputation, or any higher leve l amputation of any other digits other than the third toe, which was the black most heavily involved and debridement to the remaining wound. I explained that the patient likely would benefit from below -knee amputation, however, as stated earlier, he states he would only submit to the above-stated proc edure. As such, we opted to proceed to get more information as well as to temporize and attempt to g et some semblance of source control in the area to help reduce his infectious burden to this area and obtain cultures as well. Preoperative Diagnosis: Left third toe osteomyelitis, wet gangrenous changes. Postoperative Diagnosis: Left foot wet gangrene. Procedure: 1.Amputation of the third toe of the left foot. 2.Debridement of left foot draining wound with necrosis. Anesthesia: General endotracheal. Estimated Fluid Loss: 5 cc. Specimen: Third toe and debridement tissue and cultures sent to both aerobic and anaerobic speciatio n. Findings: Significant wet green of the left foot extending beyond the mid foot with large areas of n ecrotic tissue extending through the entire plane. There was gross necrotic tissue, which was black in appearance with abscess extending all the way from the toe to the mid foot area with an open wound on the plantar aspect of the foot communicating with the same said area. Complications: None. Disposition: Patient was transferred to the recovery room in fair condition. Procedure In Detail: After informed consent was obtained as above, a curvilinear incision was made a round the base of the third toe, which was obviously black at the time of surgery. The wound was ope ginny. The toe was easily using simple blunt dissection from the metatarsophalangeal joint w ith minimal Metzenbaum scissor requirements. No bleeding was encountered. Hemostasis was not requir ed throughout the entire procedure. After the toe was sent off, I continued the debridement as there was significant amount of feculent foul odor coming from this black necrotic wet gangrenous tissue. As such, I cored out as much as I could within the plane of that third toe. It communicated with th e plantar wound and this necrotic tissue was removed as well. Leaving the foot open, I opted to go a head and irrigate as much as possible and packed the wound with Dakin solution and a sterile dressing placed over top. The patient tolerated the procedure without evidence of any complication, transfer red to PACU in fair condition. All counts were correct at the end of the case. I will revisit the c onversation for cyueo-mbj-indy amputation with the patient as I feel that without that the patient's life is in jeopardy. I will reiterate that with the patient as well and see if we can convince him t o proceed as I am significantly concerned with his chance of progression of this infectious process to cause a significant increase i n his mortality and morbidity. TK/MODL Voice ID: [id number] Report ID: [id number]
[2022-03-12 04:14] LABS: Absolute Lymphocytes (CBC) 1.3 K/uL (0.7-4.9); Hematocrit 34.5 % (39.6-49.0); Lymphocytes % 7.7 % (15.3-44.8); MPV 7.5 fL (7.6-11.3); RBC Red Blood Cell Count 4.11 M/uL (4.33-5.43)
[2022-03-12 04:34] LABS: Bilirubin Total 0.4 mg/dL (0.2-1.0); Magnesium 1.9 mg/dL (1.8-2.4); Potassium 3.7 mmol/L (3.5-5.1); Protein, Total 6.3 g/dL (6.4-8.2)
--- NOTE | 2022-03-12 06:12 | P.PN ---
Date of Service: 03/12/22 Subjective: s/p amputation yesterday, no complications discussed surgical findings - unlikely to salvage foot, needs BKA patient doing ok, seems depressed amenable to BKA now ROS: 10 point ROS as noted above, otherwise negative Physical exam GEN: Alert, oriented, NAD, depressed affect HEENT: Normal conjunctiva, sclera anicteric CV: Regular rate and rhythm, no edema Pulm: Non-labored respirations on room air ABD: Soft, nontender, nondistended Integumentary: left foot: Surgical dressing in place, foul odor Problem List Sepsis secondary to left diabetic foot wound/cellulitis, osteomyelitis Diabetes mellitus type 9bzc-[id number]-dqmvfeqfz with noncompliance Bilateral lower extremity DVTs Moderate distal right lower extremity PAD, moderate diffuse left lower extremity PAD Hypertension Tobacco abuse Sepsis secondary to left diabetic foot wound/cellulitis Moderate distal right lower extremity PAD, moderate diffuse left lower extremity PAD no evidence of shock Continue broad-spectrum antibiotics, vancomycin, meropenem wound culture: E. coli, Pseudomonas, pansensitive General surgery consulted, requested cardiology evaluation to assess potential therapeutic treatment of his decreased flow on his left leg performed on 03/10, no need for intervention per Dr. Nova s/p amputation 03/12 Surgeon reports foot does not appear to be salvageable given extensive infection and poor circulation Patient requires BKA, explained to the patient. agreed to BKA now Diabetes mellitus type 7zpb-bothkvs-xdjvijtsn with noncompliance: Continue Accu-Cheks, sliding scale Bilateral lower extremity DVTs: hold anticoagulation for surgery Dr. Reddy placed IVC filter on 03/09 Patient has been noncompliant, never picked up his anticoagulation medication that was prescribed a month ago Hypertension: monitor, medication as needed Tobacco abuse: Counseled on need for tobacco cessation extensively. Patient reports he plans to quit. Code: full Dispo: home, ~3 days Pending timing of BKA
[2022-03-12] MEDS: NA CHLORIDE 0.9% 1,000 ML IV SCH ×2 (06:18→10:49)
[2022-03-12] MEDS: VANCOMYCIN 1.25 GM in NA CHLORIDE 0.9% 250 ML IVPB SCH ×2 (08:31→20:47)
[2022-03-12] MEDS: INSULIN -REGULAR HUMAN 50 UNIT/0.5 ML ML SQ SCH ×4 (08:34→20:47)
[2022-03-12] MEDS ORDERED: POTASSIUM 25 MEQ EFFERV TAB PO ONE (09:00)
[2022-03-13] MEDS ORDERED: NA CHLORIDE 0.9% 100 ML ONE (00:50)
[2022-03-13] MEDS: Meropenem 1,000 MG in NA CHLORIDE 0.9% 100 ML IV SCH ×3 (00:54→16:45)
[2022-03-13 04:24] LABS: Hematocrit 32.5 % (39.6-49.0); MCV 82.9 fL (80-100); MPV 7.3 fL (7.6-11.3); RBC Red Blood Cell Count 3.92 M/uL (4.33-5.43)
[2022-03-13 04:46] LABS: C-Reactive Protein 62.1 mg/L (<3.00); Magnesium 1.8 mg/dL (1.8-2.4); Potassium 3.4 mmol/L (3.5-5.1)
[2022-03-13] MEDS ORDERED: POTASSIUM CL SA 10 MEQ TAB PO ONE (05:22)
--- NOTE | 2022-03-13 05:54 | P.PN ---
Date of Service: 03/13/22 Subjective: No acute events No significant pain and has left side, feels swelling ROS: 10 point ROS as noted above, otherwise negative Physical exam GEN: Alert, oriented, NAD, depressed affect HEENT: Normal conjunctiva, sclera anicteric CV: Regular rate and rhythm, trace LLE edema above ankle Pulm: Non-labored respirations on room air ABD: Soft, nontender, nondistended Integumentary: left foot: dressing in place, foul odor Problem List Sepsis secondary to left diabetic foot wound/cellulitis, osteomyelitis Diabetes mellitus type 9tqu-sungpfj-xedujyetg with noncompliance Bilateral lower extremity DVTs Moderate distal right lower extremity PAD, moderate diffuse left lower extremity PAD Hypertension Tobacco abuse Sepsis secondary to left diabetic foot wound/cellulitis Moderate distal right lower extremity PAD, moderate diffuse left lower extremity PAD no evidence of shock Continue broad-spectrum antibiotics, vancomycin, meropenem wound culture: E. coli, Pseudomonas, pansensitive General surgery consulted, requested cardiology evaluation to assess potential therapeutic treatment of his decreased flow on his left leg performed on 03/10, no need for intervention per Dr. Nova s/p amputation 03/12 Surgeon reports foot does not appear to be salvageable given extensive infection and poor circulation Patient requires BKA, explained to the patient. agreed to BKA now tentatively planned for Monday Diabetes mellitus type 1uqj-sywemru-dxaylzbof with noncompliance: Continue Accu-Cheks, sliding scale Bilateral lower extremity DVTs: hold anticoagulation for surgery Dr. Reddy placed IVC filter on 03/09 Patient has been noncompliant, never picked up his anticoagulation medication that was prescribed a month ago Hypertension: monitor, medication as needed Tobacco abuse: C : Patient reports he plans to quit. Code: full Dispo: home, ~4 days Pending timing of BKA -tentatively for Monday
[2022-03-13] MEDS: INSULIN -REGULAR HUMAN 50 UNIT/0.5 ML ML SQ SCH ×4 (07:30→20:46)
[2022-03-13] MEDS: VANCOMYCIN 1.25 GM in NA CHLORIDE 0.9% 250 ML IVPB SCH ×2 (08:10→20:41)
--- NOTE | 2022-03-13 08:22 | PN ---
Date of Progress Note: 03/11/2022 Mr. Grijalva underwent abdominal angiogram with runoff by Dr. Nova. He was found to have a diffuse disease in the peroneal and posterior tibial artery bilaterally. Vessels had good flow. There was small vessel that was decided to be medical therapy. The patient was cleared for surgery by Dr. Irasi barrios. The patient catheterization insertion site was intact without any hematoma. No cardiac complai nts. We will continue to follow him. I will follow him as needed. GAURANG/MARLEY Voice ID: [id number] Report ID: [id number]
[2022-03-13] MEDS: ACETAMINOPHEN 500 MG TAB PO PRN (16:44)
[2022-03-14] MEDS: Meropenem 1,000 MG in NA CHLORIDE 0.9% 100 ML IV SCH ×2 (01:22→09:00)
[2022-03-14] MEDS ORDERED: NA CHLORIDE 0.9% 100 ML ONE ×2 (01:24→08:09)
[2022-03-14] MEDS ORDERED: Meropenem 1000 MG/VIAL IV ONE ×2 (01:27→09:15)
[2022-03-14 05:42] LABS: Hematocrit 32.9 % (39.6-49.0); MCV 83.1 fL (80-100); MPV 7.1 fL (7.6-11.3); RBC Red Blood Cell Count 3.96 M/uL (4.33-5.43)
[2022-03-14 06:01] LABS: C-Reactive Protein 62.3 mg/L (<3.00); Potassium 3.6 mmol/L (3.5-5.1)
--- NOTE | 2022-03-14 06:26 | P.PN ---
Date of Service: 03/14/22 Subjective: stable ROS: 10 point ROS as noted above, otherwise negative Physical exam GEN: Alert, oriented, NAD, depressed affect HEENT: Normal conjunctiva, sclera anicteric CV: Regular rate and rhythm, trace LLE edema above ankle Pulm: Non-labored respirations on room air ABD: Soft, nontender, nondistended Integumentary: left foot: dressing in place, foul odor Problem List Sepsis secondary to left diabetic foot wound/cellulitis, osteomyelitis Diabetes mellitus type 9mpb-iifgkis-jseodxyxu with noncompliance Bilateral lower extremity DVTs Moderate distal right lower extremity PAD, moderate diffuse left lower extremity PAD Hypertension Tobacco abuse Sepsis secondary to left diabetic foot wound/cellulitis Moderate distal right lower extremity PAD, moderate diffuse left lower extremity PAD no evidence of shock Continue broad-spectrum antibiotics, vancomycin, meropenem wound culture: E. coli, Pseudomonas, pansensitive General surgery consulted, requested cardiology evaluation to assess potential therapeutic treatment of his decreased flow on his left leg performed on 03/10, no need for intervention per Dr. Nova s/p amputation 03/12 Surgeon reports foot does not appear to be salvageable given extensive infection and poor circulation Patient requires BKA, explained to the patient. agreed to BKA now tentatively planned for Monday Diabetes mellitus type 2ywo-pynjboh-rnrslxjsu with noncompliance: Continue Accu-Cheks, sliding scale Bilateral lower extremity DVTs: hold anticoagulation for surgery Dr. Reddy placed IVC filter on 03/09 Patient has been noncompliant, never picked up his anticoagulation medication that was prescribed a month ago Hypertension: monitor, medication as needed Tobacco abuse: C : Patient reports he plans to quit. Code: full Dispo: home, ~3 days Pending timing of BKA -tentatively for Monday
[2022-03-14] MEDS: INSULIN -REGULAR HUMAN 50 UNIT/0.5 ML ML SQ SCH ×4 (07:30→21:00)
--- NOTE | 2022-03-14 08:19 | EKG ---
Test Date: 2022-03-08 Test Time: 21:29:01 Spanish Language Lecturer: DWAIN MEASUREMENT RESULTS: Intervals: Rate: 88 [place]: 146 QRSD: 92 QT: 378 QTc: 457 [place]: P: 24 [place]: 146 QRS: 42 T: 53 INTERPRETIVE STATEMENTS: Normal sinus rhythm Normal ECG Compared to ECG 03/08/2022 21:24:16 No significant changes Electronically Signed On 03-14-22 08:07:35 CDT by Randall uTbbs
--- NOTE | 2022-03-14 08:19 | EKG ---
Test Date: 2022-03-09 Test Time: 00:23:06 Ophthalmic Pathologist: DWAIN MEASUREMENT RESULTS: Intervals: Rate: 108 MN: 132 QRSD: 90 QT: 366 QTc: 490 [place]: P: 39 MN: 132 QRS: -62 T: 48 INTERPRETIVE STATEMENTS: Sinus tachycardia Left axis deviation Nonspecific ST abnormality Abnormal ECG Compared to ECG 03/08/2022 21:29:01 Left-axis deviation now present ST (T wave) deviation now present Sinus rhythm no longer present Electronically Signed On 03-14-22 08:07:34 CDT by Randall Tubbs
[2022-03-14] MEDS: VANCOMYCIN 1.25 GM in NA CHLORIDE 0.9% 250 ML IVPB SCH ×2 (08:25→23:03)
[2022-03-14] MEDS ORDERED: POTASSIUM CL SA 10 MEQ TAB PO ONE (09:00)
--- NOTE | 2022-03-14 14:41 | CON ---
Date of Consultation: 03/09/2022 Brief History Of Present Illness: The patient is a 57-year-old male with a history of diabetes, hype rtension, medical noncompliance, who was diagnosed with bilateral lower extremity DVTs on 02/11/2022, who presented to the emergency room with left foot bleeding and foul feculent odor with a black toe. He was seen in the ER as described on 02/11/2022 and was given a prescription for Eliquis, which he did not take as he said he would rather than take any kind of long-term medications and he did h ave a significant diabetic foot wound at that time on the plantar aspect of the left foot and a necro tic third toe with cellulitis. He was admitted on this occasion on 03/08, I believe 03/[address] [facility] service. He was brought in for medical management, was given medications, and I was consult ed to see the patient. Given his history of DVT with likely propagation, I additionally requested ad ditional input from additional consultants. The patient had no pain, but noted feculent odor from hi s left foot. Past Medical History: Diabetes, hypertension. Past Surgical History: He denies any surgery before or in the past. Social History: He has a 40+ pack year history and currently continues to smoke. He denies alcohol or recreational drug use. He lives at home with his brothers. Allergies: NO KNOWN DRUG ALLERGIES. Home Medications: None. Review of Systems: Ten-point review of systems other than HPI, denies. Physical Examination: General: At the time of my examination, he is awake, alert, and oriented. I saw the patient with [facility] facility technician present as the patient is predominantly [place] Citizen speaking. He is conversive and anisa ropriate. He answers questions appropriately and has good insight to his situation. Neck: Supple without JVD. Chest: Normal expansion and excursion. Cardiovascular: Regular rate and rhythm. Pulmonary: Clear to auscultation bilaterally. Abdomen: Soft. Extremities: Focused examination of left lower extremity, there was a diabetic foot ulcer with a hol e/wound in the plantar aspect of his foot with feculent pus emanating from this area and a completely black necrotic gangrenous foot toe with evidence of wet gangrene extending to the metatarsophalangea l joint. The third phalanx was completely insensate and black and necrotic. There was surrounding c ellulitis and swelling of the lower extremity as well extending up to beyond the midfoot and beyond t he ankle. Laboratory Data: He had a laboratory exam, which revealed a white blood cell count of 16.7, hemoglob in 12.9, hematocrit 38.2, platelet count is 206. His coags showed a PT 15.7, INR 1.42. Chemistry sh owed a sodium of 137, potassium 3.7, chloride 102, carbon dioxide was 27, BUN 14, creatinine 0.78, gl ucose 126, lactic acid is 1.3 on admission. His COVID rapid was negative. He had imaging performed, which included a Doppler ultrasound on 03/08/2022, which was officially read as moderate distal lowe r extremity arterial disease, moderate diffuse left lower extremity arterial disease. The left commo n femoral, left SFA, left popliteal, left posterior tibial and left dorsalis pedis waveforms are mono phasic. The right dorsalis pedis is monophasic and diminished amplitude. The right SFA and right po pliteal artery were biphasic. The right common femoral artery is triphasic. Right posterior tibial artery is biphasic. He had an extremity venous study as well officially read as a progression of thr ombus into the proximal left superficial femoral vein since February 11, mildly improvement in the right superficial vein thrombus compared January 2022. He had an extremity x-ray of his left foot officially read as ulceration involved the plantar soft tissue, forefoot radiopaque foreign bodies are present w ithin this region. There is equivocal collection of air within the deeper soft tissue, which could i ndicate infection. There is also equivocal cortical irregularity involving the third proximal phalan x. Assessment And Plan: This is a 57-year-old male, who presents with signs and symptoms of a progressi ve diabetic foot wound with arterial insufficiency and deep vein thrombosis. 1.IV antibiotics. 2.I have requested placement of an inferior vena cava filter in the perioperative period. 3.I have requested Cardiology evaluation for possible endovascular evaluation to see if improved per fusion can be obtained for his lower extremity arterial insufficiency. 4.Cardiac clearance from Dr. Nova, who will also perform the peripheral vascular evaluations. 5.I have explained the risks, benefits, and alternatives of a snaok-lbj-vfmb amputation as this tran ent appears to have a significant infection of the right lower extremity precluding limb salvage in t his particular situation as with wet gangrene. This infection appears to extend significantly beyond the margins of just this toe and possibly a transmetatarsal amputation would be not plausible given his significant appearance of his foot and the location of the ulcer on his plantar aspect of the erika t with obvious feculent draining abscess. The patient has refused any below-knee amputation at this point and will only agree to an amputation of the third toe and debridement of the foot. Based on th at, he says he will consider further surgical intervention, but he absolutely refuses and does not wa nt to discuss orzfm-jcm-mnbi amputation at this point. As such, I will offer him an amputation as we ll as debridement of the foot to attempt to temporize his current situation and we will revisit the c onsideration of zunyv-jit-eepu amputation based on the findings of the surgery; however, given his cl inical condition, I feel it is unlikely that limb salvage would be possible given his poor arterial f indings and significant coagulopathic issues/deep vein thrombosis. I have explained the risks, benef its, and alternatives of the above stated plan. The patient agreed to proceed as indicated. PHOEBE/RONELL Voice ID: [id number] Report ID: [id number]
--- NOTE | 2022-03-14 17:06 | CON ---
History Of Present Illness: This is a 57-year-old male. I was consulted for evaluation of left foot osteomyelitis and diabetic foot ulcer. The patient has significant past medical history of diabetes mellitus and diabetic neuropathy. He was admitted to the hospital on 03/09 with significant damage to the left foot. The patient is awaiting below-knee amputation tomorrow. Denies any other problems at this time as the patient has severe neuropathy, has no sensation down there and because he was no t taking any medication for diabetes and hypertension and has no followup with any doctors outpatient , developed diabetic foot ulcer and currently on IV antibiotics. Past Medical History: Diabetes mellitus, hypertension. Social History: Tobacco positive. Alcohol negative. Family History: Noncontributory. Medications: Vancomycin, cefepime. See MAR for other medications. Allergies: NO KNOWN DRUG ALLERGIES. Review of Systems: A 10-point review was performed. Physical Examination: General: This is a 57-year-old male, lying in bed, not in any acute cardiopulmonary distress. Vital Signs: Temperature 98, pulse 67, respirations 18, blood pressure 117/70. HEENT: Unremarkable. Neck: Supple. Lungs: Clear to auscultation. Heart: S1, S2. Regular. Abdomen: Soft, nontender. Bowel sounds present. Extremities: No edema. Left foot with foul odor and large thickened metatarsal area wound noted and second toe was missing. Laboratory Data: Shows WBC 11.8, hemoglobin 11.2, platelets are 303. Chemistry shows sodium 138, po tassium 3.6, chloride 103, bicarb 21, BUN 13, creatinine 0.4, glucose is 107. C-reactive protein is 62. Micro data shows wound culture from the left side shows E coli and Proteus mirabilis. Assessment And Plan: Left foot osteomyelitis with poor prognosis. I agree with below-knee amputatio n. Currently being treated with vancomycin and cefepime. As the patient grew Escherichia coli and P roteus mirabilis, we will recommend to stop vancomycin. Continue cefepime for now, status post below -knee amputation. If the patient currently being used to do well, can be switched to Cipro 500 mg p. o. b.i.d. for total of 10 days. No other recommendation at this time. Thank you for consult. KELSEA/MARLYE Voice ID: [id number] Report ID: [id number]
[2022-03-14] MEDS: CEFEPIME 2 GM in NA CHLORIDE 0.9% 100 ML IV SCH (17:13)
[2022-03-15] MEDS: CEFEPIME 2 GM in NA CHLORIDE 0.9% 100 ML IV SCH ×3 (01:54→16:38)
[2022-03-15 03:55] LABS: Hematocrit 33.9 % (39.6-49.0); MCV 84.2 fL (80-100); MPV 7.3 fL (7.6-11.3); RBC Red Blood Cell Count 4.02 M/uL (4.33-5.43)
[2022-03-15 04:21] LABS: Potassium 3.5 mmol/L (3.5-5.1)
[2022-03-15] MEDS: INSULIN -REGULAR HUMAN 50 UNIT/0.5 ML ML SQ SCH ×4 (07:30→21:00)
[2022-03-15] MEDS: VANCOMYCIN 1.25 GM in NA CHLORIDE 0.9% 250 ML IVPB SCH (09:00)
[2022-03-15] MEDS ORDERED: POTASSIUM CL SA 10 MEQ TAB PO ONE (09:00)
--- NOTE | 2022-03-15 15:09 | P.PN ---
Subjective Date of Service: 03/15/22 Patient has no new complaints. No recorded fever. Oral intake has been good. Physical Examination - Vital Signs Temperature: 97.6 F Blood Pressure: 104/63 Pulse: 66 Respirations: 12 Pulse Ox (%): 99 Assessment And Plan - Plan Physical exam GEN: Alert, oriented, NAD, depressed affect HEENT: Normal conjunctiva, sclera anicteric CV: Regular rate and rhythm, trace LLE edema above ankle Pulm: Non-labored respirations on room air ABD: Soft, nontender, nondistended Integumentary: left foot: dressing in place, discharge noted. Problem List Sepsis secondary to left diabetic foot wound/cellulitis, osteomyelitis Diabetes mellitus type [id number]-[id number] with noncompliance Bilateral lower extremity DVTs Moderate distal right lower extremity PAD, moderate diffuse left lower extremity PAD Hypertension Tobacco abuse Sepsis secondary to left diabetic foot wound/cellulitis Moderate distal right lower extremity PAD, moderate diffuse left lower extremity PAD no evidence of shock Continue broad-spectrum antibiotics, vancomycin, meropenem wound culture: E. coli, Pseudomonas, pansensitive General surgery consulted, requested cardiology evaluation to assess potential therapeutic treatment of his decreased flow on his left leg Cardiology evaluation on 03/10, angiogram done on 03/11 which showed moderate peripheral vascular disease, no need for intervention per Dr. Nova s/p amputation 03/12 Surgeon reports foot does not appear to be salvageable given extensive infection and poor circulation Patient requires BKA, he has agreed to BKA, plan for tomorrow Diabetes mellitus type [id number]-[id number] with noncompliance: Continue Accu-Cheks, sliding scale Bilateral lower extremity DVTs: hold anticoagulation for surgery Dr. Reddy placed IVC filter on 03/09 Per report patient has been noncompliant with anticoagulation Hypertension: monitor, medication as needed Tobacco abuse: C : Smoking cessation advised. Code: full
[2022-03-15] MEDS ORDERED: VANCOMYCIN 1 GM in NA CHLORIDE 0.9% 250 ML IVPB SCH (21:00)
[2022-03-15] MEDS: VANCOMYCIN 1 GM in NA CHLORIDE 0.9% 250 ML IVPB SCH (21:17)
[2022-03-16] MEDS: CEFEPIME 2 GM in NA CHLORIDE 0.9% 100 ML IV SCH ×3 (01:22→16:44)
[2022-03-16 03:50] LABS: Hematocrit 33.1 % (39.6-49.0); MPV 7.2 fL (7.6-11.3); RBC Red Blood Cell Count 3.94 M/uL (4.33-5.43)
[2022-03-16 04:01] LABS: Potassium 3.5 mmol/L (3.5-5.1)
[2022-03-16] MEDS ORDERED: POTASSIUM CL SA 10 MEQ TAB PO ONE ×2 (04:46→04:51)
[2022-03-16] MEDS: INSULIN -REGULAR HUMAN 50 UNIT/0.5 ML ML SQ SCH ×4 (07:30→20:39)
[2022-03-16] MEDS: VANCOMYCIN 1 GM in NA CHLORIDE 0.9% 250 ML IVPB SCH ×2 (08:20→20:04)
[2022-03-16] MEDS ORDERED: propofoL 200 MG/20 ML VIAL IV ONE ×3 (10:58→13:26)
[2022-03-16] MEDS ORDERED: LIDOCAINE 2% MPF 5 ML VIAL ONE (10:59)
[2022-03-16] MEDS ORDERED: FENTANYL CITR 100 MCG/2 ML ONE (10:59)
[2022-03-16] MEDS ORDERED: MIDAZOLAM HCL 2 MG/2 ML INJ ONE (10:59)
[2022-03-16] MEDS ORDERED: NA CHLORIDE 0.9% 1,000 ML ONE (11:01)
[2022-03-16] MEDS ORDERED: BUPIVACAINE 0.25% PF 10 ML VIAL ONE (11:12)
[2022-03-16] MEDS ORDERED: BUPIVACAINE 0.5% Inj,MDV 50 mL VIAL ONE (11:13)
[2022-03-16] MEDS ORDERED: LIDOCAINE 1% MPF 5 ML VIAL ONE (11:13)
[2022-03-16] MEDS ORDERED: dexAMETHasone 4 MG/ML VIAL ONE (11:13)
[2022-03-16] MEDS ORDERED: BUPIVACAINE 0.25% PF 30 ML VIAL ONE (11:34)
[2022-03-16] MEDS ORDERED: Mastisol Adhesive Liq ONE (12:09)
[2022-03-16] MEDS ORDERED: EPHEDRINE SULF 50 MG/ML VIAL ONE (12:42)
--- NOTE | 2022-03-16 13:20 | P.PN ---
Subjective Date of Service: 03/16/22 Patient has no new complaints. No recorded fever. He is n.p.o. for surgery today. Physical Examination - Vital Signs Temperature: 97.0 F Blood Pressure: 167/87 Pulse: 73 Respirations: 16 Pulse Ox (%): 99 Assessment And Plan - Plan Physical exam GEN: Alert, oriented, NAD, depressed affect HEENT: Normal conjunctiva, sclera anicteric CV: Regular rate and rhythm, trace LLE edema above ankle Pulm: Non-labored respirations on room air ABD: Soft, nontender, nondistended Integumentary: left foot: dressing in place, discharge noted. Problem List Sepsis secondary to left diabetic foot wound/cellulitis, osteomyelitis Diabetes mellitus type [id number]-fhirugb-[id number] with noncompliance Bilateral lower extremity DVTs Moderate distal right lower extremity PAD, moderate diffuse left lower extremity PAD Hypertension Tobacco abuse Sepsis secondary to left diabetic foot wound/cellulitis Moderate distal right lower extremity PAD, moderate diffuse left lower extremity PAD no evidence of shock Continue broad-spectrum antibiotics, vancomycin, meropenem wound culture: E. coli, Pseudomonas, pansensitive General surgery is following Cardiology evaluation on 03/10, angiogram done on 03/11 which showed moderate peripheral vascular disease, no need for intervention per Dr. Nova s/p amputation 03/12 Surgeon reports foot does not appear to be salvageable given extensive infection and poor circulation Patient requires BKA, he has agreed to BKA. Patient plan for surgery today. Continue current antibiotics. Diabetes mellitus type [id number]-svfenau-ijedgqxwg with noncompliance: Continue Accu-Cheks, sliding scale Bilateral lower extremity DVTs: hold anticoagulation for surgery Dr. Reddy placed IVC filter on 03/09 Per report patient has been noncompliant with anticoagulation Hypertension: monitor, medication as needed Tobacco abuse: C : Smoking cessation advised. Code: full
--- NOTE | 2022-03-16 13:51 | P.OP ---
Preoperative diagnosis: LEFT Foot Gangrene / Severe Peripheral Arterial Disease Postoperative diagnosis: LEFT Foot Gangrene / Severe Peripheral Arterial Disease Primary procedure: LEFT Below the knee amputation Anesthesia: MAC + Regional Block Estimated blood loss: 50cc Specimen: Foot Findings: wet gangrene of LEFT foot extending beyond midfoot Complications: None Drain(s): SAPNA drain (10mm Flat SAPNA) Transferred to: Recovery Room Condition: Good
[2022-03-17] MEDS: CEFEPIME 2 GM in NA CHLORIDE 0.9% 100 ML IV SCH ×3 (00:21→17:35)
[2022-03-17 03:42] LABS: Absolute Lymphocytes (CBC) 1.7 K/uL (0.7-4.9); Hematocrit 36.2 % (39.6-49.0); Lymphocytes % 13.3 % (15.3-44.8); MCV 84.6 fL (80-100); RBC Red Blood Cell Count 4.28 M/uL (4.33-5.43)
[2022-03-17 04:00] LABS: Potassium 4.5 mmol/L (3.5-5.1)
[2022-03-17] MEDS: INSULIN -REGULAR HUMAN 50 UNIT/0.5 ML ML SQ SCH ×4 (07:30→20:42)
[2022-03-17] MEDS: VANCOMYCIN 1 GM in NA CHLORIDE 0.9% 250 ML IVPB SCH ×2 (10:38→20:41)
--- NOTE | 2022-03-17 14:44 | P.PN ---
Subjective Date of Service: 03/17/22 Patient has no new complaints. No recorded fever. Status post left BKA day 2. Physical Examination - Vital Signs Temperature: 97.1 F Blood Pressure: 103/58 Pulse: 57 Respirations: 16 Pulse Ox (%): 99 Assessment And Plan - Plan Physical exam GEN: Alert, oriented, NAD, depressed affect HEENT: Normal conjunctiva, sclera anicteric CV: Regular rate and rhythm, trace LLE edema above ankle Pulm: Non-labored respirations on room air ABD: Soft, nontender, nondistended Integumentary: left foot: dressing in place, discharge noted. Problem List Sepsis secondary to left diabetic foot wound/cellulitis, osteomyelitis Diabetes mellitus type [id number]-abketkjqu with noncompliance Bilateral lower extremity DVTs Moderate distal right lower extremity PAD, moderate diffuse left lower extremity PAD Hypertension Tobacco abuse Sepsis secondary to left diabetic foot wound/cellulitis Moderate distal right lower extremity PAD, moderate diffuse left lower extremity PAD no evidence of shock Continue broad-spectrum antibiotics, vancomycin, meropenem wound culture: E. coli, Pseudomonas, pansensitive General surgery is following Cardiology evaluation on 03/10, angiogram done on 03/11 which showed moderate peripheral vascular disease, no need for intervention per Dr. Nova s/p amputation 03/12 Surgeon reports foot does not appear to be salvageable given extensive infection and poor circulation. Status post BKA. Continue current antibiotics for now. Diabetes mellitus type [id number]-[id number] with noncompliance: Continue Accu-Cheks, sliding scale Bilateral lower extremity DVTs: Will discuss with Dr. Kim when to resume anticoagulation Dr. Reddy placed IVC filter on 03/09 Per report patient has been noncompliant with anticoagulation Hypertension: Patient has been normotensive without any antihypertensives. Code: full
[2022-03-17] MEDS ORDERED: DUOVISC 1 KIT OPTH ONE (16:08)
--- NOTE | 2022-03-17 18:23 | PN ---
Subjective: The patient had surgical BKA done yesterday. Denies any other problems. No fever. No chest pain, abdominal pain, constipation, or diarrhea. Objective: Vital Signs: Temperature 97, pulse 57, respirations 16, blood pressure 103/58. Lungs: Clear to auscultation. Heart: S1, S2. Regular. Abdomen: Soft, nontender. Bowel sounds present. Extremity: Left BKA and surgical dressing. Laboratory Data: WBC 12.5, hemoglobin 11.9, platelets are 344. Chemistry shows sodium 139, potassiu m 4.5, chloride 104, bicarb 24, BUN 15, creatinine 0.7, glucose 153. Assessment And Plan: Osteomyelitis and diabetic foot ulcer of the left foot, status post below-knee amputation. The patient is currently on vancomycin and cefepime. We will recommend to switch to Cip ro and doxycycline on discharge. Wound care per surgical team. No other recommendation at this time . Keep leg elevated when possible. We will follow the patient closely. NF/MODL Voice ID: [id number] Report ID: [id number]
[2022-03-17] MEDS: HYDROCODONE/APAP 5/325 MG TAB PO PRN (22:29)
[2022-03-17] MEDS: MORPHINE 2 MG/ML SYR IV PRN (23:51)
[2022-03-18] MEDS: CEFEPIME 2 GM in NA CHLORIDE 0.9% 100 ML IV SCH ×3 (00:25→17:06)
[2022-03-18] MEDS: HYDROCODONE/APAP 5/325 MG TAB PO PRN ×4 (04:03→21:36)
[2022-03-18] MEDS: MORPHINE 2 MG/ML SYR IV PRN (06:34)
[2022-03-18] MEDS: INSULIN -REGULAR HUMAN 50 UNIT/0.5 ML ML SQ SCH ×4 (07:30→21:00)
[2022-03-18] MEDS ORDERED: NA CHLORIDE 0.9% 250 ML ONE (08:52)
[2022-03-18] MEDS: VANCOMYCIN 1 GM in NA CHLORIDE 0.9% 250 ML IVPB SCH ×3 (09:00→21:36)
--- NOTE | 2022-03-18 15:18 | P.DS ---
Admission Date: 03/09/22 Discharge Date: 03/19/22 Disposition: ROUTINE DISCHARGE Discharge Condition: GOOD Brief History of Present Illness: 57-year-old male with history of diabetes, hypertension, medical noncompliance who was diagnosed with bilateral lower extremity DVTs on 02/11/2022 presented to the emergency department for foot wound/bleeding. After being seen in the emergency department on 02/11/2022 patient did not fill his Eliquis, he stated he did not want to take any medication his family says he told them he would rather . Patient with significant diabetic foot wound to the plantar aspect of his left foot as well as a necrotic third toe with cellulitis of the left foot. Patient met criteria for sepsis given leukocytosis, tachycardia. He was not hypotensive during her stay in the emergency department and his lactic acid was less than 2. No other endorgan damage noted. Venous ultrasound of bilateral lower extremity showed progression of thrombus into the proximal left superficial femoral vein and mild improvement in the right superficial femoral vein thrombus x-ray of the left foot showed ulceration involving the plantar soft tissue forefoot, equivocal collections of air within the deeper soft tissues which would indicate infection, cortical irregularity involving the third proximal phalanx arterial Doppler shows moderate distal right lower extremity arterial disease and moderate diffuse left lower extremity arterial disease with no occlusion this x-ray showed no acute abnormalities. During his stay in the emergency department patient had an episode where he became diaphoretic and altered for a couple of minutes. Repeat EKG was without changes ABG was obtained which was unremarkable. CT scan of the head and CT angio for pulmonary embolism were performed which were both without acute findings. Patient admitted for further management. Hospital Course: Diagnosis Sepsis secondary to left diabetic foot wound/cellulitis, osteomyelitis Diabetes mellitus type [id number]-smyinhy-lmmdzoyus with noncompliance Bilateral lower extremity DVTs Moderate distal right lower extremity PAD, moderate diffuse left lower extremity PAD Hypertension Tobacco abuse Sepsis secondary to left diabetic foot wound/cellulitis Moderate distal right lower extremity PAD, moderate diffuse left lower extremity PAD no evidence of shock Patient treated with broad-spectrum antibiotics, vancomycin, meropenem wound culture: E. coli, Pseudomonas, pansensitive Cardiology evaluation on 03/10, angiogram done on 03/11 which showed moderate peripheral vascular disease, no need for intervention per Dr. Nova s/p toe amputation 03/12 for wet gangrene. Surgeon reported foot does not appear to be salvageable given extensive infection and poor circulation. Status post BKA 03/16. Stable for discharge per Dr. Kim. Infectious disease recommend oral doxycycline and Cipro x7 days on discharge Diabetes mellitus type 3psw-lhftubu-yyqnezpmu with noncompliance: Continue Accu-Cheks, sliding scale Bilateral lower extremity DVTs: Dr. Reddy placed IVC filter on 03/09 Per report patient has been noncompliant with anticoagulation Resumed anticoagulation with Xarelto on discharge. Hypertension: Patient has been normotensive without any antihypertensives. Clinically stable for discharge. Vital Signs/Physical Exam: Temp Pulse Resp BP Pulse Ox 97.0 F 57 18 120/71 99 03/18/22 07:53 03/18/22 07:53 03/18/22 09:13 03/18/22 07:53 03/18/22 09:13 General: Alert, In no apparent distress HEENT: Mucous membr. moist/pink Neck: JVD not distended Respiratory: Clear to auscultation bilaterally, Normal air movement Cardiovascular: No edema, Regular rate/rhythm, Normal S1 S2 Gastrointestinal: Normal bowel sounds, Soft and benign, Non-distended Musculoskeletal: Other (Left BKA) Laboratory Data at Discharge: WBC 12.50 K/uL (4.3-10.9) H 03/17/22 03:14 Hgb 11.9 g/dL (13.6-17.9) L 03/17/22 03:14 Hct 36.2 % (39.6-49.0) L 03/17/22 03:14 Plt Count 344 K/uL (152-406) 03/17/22 03:14 PT 15.7 SECONDS (9.5-12.5) H 03/08/22 21:23 INR 1.42 03/08/22 21:23 Sodium 139 mmol/L (136-145) 03/17/22 03:14 Potassium 4.5 mmol/L (3.5-5.1) 03/17/22 03:14 BUN 15 mg/dL (7-18) 03/17/22 03:14 Creatinine 0.67 mg/dL (0.55-1.3) 03/17/22 03:14 Glucose 153 mg/dL (74-106) H 03/17/22 03:14 Magnesium 1.8 mg/dL (1.8-2.4) 03/13/22 03:58 Total Bilirubin 0.4 mg/dL (0.2-1.0) 03/12/22 03:56 AST 24 U/L (15-37) 03/12/22 03:56 ALT 28 U/L (12-78) 03/12/22 03:56 Alkaline Phosphatase 105 U/L (45-117) 03/12/22 03:56 Home Medications: Ciprofloxacin HCl [Cipro] 500 mg PO BID #14 tab 03/18/22 Doxycycline Hyclate 100 mg PO BID #14 tab 03/18/22 Hydrocodone 5/APAP 325 [[place] 5/325*] 1 tab PO Q6H PRN #20 tab 03/18/22 Rivaroxaban [Xarelto] 1 each PO BID #49 tab 03/19/22 New Medications: Ciprofloxacin HCl [Cipro] 500 mg PO BID #14 tab Doxycycline Hyclate 100 mg PO BID #14 tab Hydrocodone 5/APAP 325 [[place] 5/325*] 1 tab PO Q6H PRN #20 tab PRN Reason: Pain Scale 5-7 (Moderate) Rivaroxaban [Xarelto] 1 each PO BID #49 tab Physician Discharge Instructions: Please amputated leg elevated as much as possible to avoid contamination. Diet: ADA Activity: Fall precautions Followup: Jossue Kim MD [ACTIVE - CAN ADMIT] - 1 Week (Call to schedule appointment.) Time spent managing pt's care (in minutes): 39
--- NOTE | 2022-03-18 18:07 | P.PN ---
Subjective Date of Service: 03/18/22 Patient complaining of intermittent pain in the left amputated leg stump. Status post left BKA day 3. Physical Examination - Vital Signs Temperature: 98.2 F Blood Pressure: 148/72 Pulse: 64 Respirations: 18 Pulse Ox (%): 99 Assessment And Plan - Plan Physical exam GEN: Alert, oriented, NAD, depressed affect HEENT: Normal conjunctiva, sclera anicteric CV: Regular rate and rhythm, trace LLE edema above ankle Pulm: Non-labored respirations on room air ABD: Soft, nontender, nondistended Integumentary: left foot: dressing in place, discharge noted. Problem List Sepsis secondary to left diabetic foot wound/cellulitis, osteomyelitis Diabetes mellitus type [id number]-[id number] with noncompliance Bilateral lower extremity DVTs Moderate distal right lower extremity PAD, moderate diffuse left lower extremity PAD Hypertension Tobacco abuse Sepsis secondary to left diabetic foot wound/cellulitis Moderate distal right lower extremity PAD, moderate diffuse left lower extremity PAD no evidence of shock Continue broad-spectrum antibiotics, vancomycin, meropenem wound culture: E. coli, Pseudomonas, pansensitive Cardiology evaluation on 03/10, angiogram done on 03/11 which showed moderate peripheral vascular disease, no need for intervention per Dr. Nova s/p amputation 03/12 Surgeon reports foot does not appear to be salvageable given extensive infection and poor circulation. Status post BKA. Stable for discharge per Dr. Kim. Infectious disease recommend oral doxycycline and Cipro x7 days on discharge Diabetes mellitus type [id number]-[id number] with noncompliance: Continue Accu-Cheks, sliding scale Bilateral lower extremity DVTs: Will discuss with Dr. Kim when to resume anticoagulation Dr. Reddy placed IVC filter on 03/09 Per report patient has been noncompliant with anticoagulation Hypertension: Patient has been normotensive without any antihypertensives. Clinically stable for discharge. Code: full
[2022-03-19] MEDS ORDERED: NA CHLORIDE 0.9% 1,000 ML IV SCH (01:00)
[2022-03-19] MEDS: ACETAMINOPHEN 500 MG TAB PO PRN (01:02)
[2022-03-19] MEDS: CEFEPIME 2 GM in NA CHLORIDE 0.9% 100 ML IV SCH ×2 (01:07→09:00)
[2022-03-19 05:59] LABS: Potassium 3.6 mmol/L (3.5-5.1)
[2022-03-19] MEDS: INSULIN -REGULAR HUMAN 50 UNIT/0.5 ML ML SQ SCH ×2 (07:30→11:30)
[2022-03-19] MEDS ORDERED: VANCOMYCIN 1 GM/VIAL ONE (07:37)
[2022-03-19] MEDS ORDERED: NA CHLORIDE 0.9% 250 ML ONE (08:20)
[2022-03-19] MEDS ORDERED: POTASSIUM CL SA 10 MEQ TAB PO ONE (09:00)
[2022-03-19] MEDS: VANCOMYCIN 1 GM in NA CHLORIDE 0.9% 250 ML IVPB SCH (10:32)
[2022-03-19 11:03] VITALS: BP 148/63; TEMP 96
[2022-03-19 11:10] VITALS: O2SAT 100
[2022-03-19] MEDS ORDERED: CIPROFLOXACIN HCL 500 MG TAB PO SCH (21:00)
[2022-03-19] MEDS ORDERED: DOXYCYCLINE 100 MG CAP PO SCH (21:00)
--- NOTE | 2022-04-06 13:23 | OP ---
Date of Procedure: 03/16/2022 Surgeon: Jossue Kim MD, Preoperative Diagnosis: Left foot gangrene/severe peripheral arterial disease. Postoperative Diagnosis: Left foot gangrene/severe peripheral arterial disease. Procedure Performed: A left [id number]-[id number] amputation. Anesthesia: MAC plus regional block. Estimated Blood Loss: Less than 50 cc. Specimen: Foot and lower extremity on the left. Findings: Wet gangrene of the left foot extending beyond the midfoot. Complications: None. Drains: A 10 mm flat SAPNA drain placed. Disposition: The patient was transferred to the recovery room in good condition. Brief History Of Present Illness: The patient is a 57-year-old male, who presented to the hospital w ith significant peripheral arterial disease and gangrenous changes of the foot. He initially would n ot summit to surgical procedures and ultimately he ended up having an amputation of toes on the left foot in an attempt to save his foot as he did not want to consider BKA at that time. Postoperatively , he continued to have advancement and feculent drainage from his foot and he reconsidered at that po int and opted to proceed with left sxfzp-wws-lmnt amputation given his history of severe peripheral a rterial disease as well as continuing worsening infectious changes to his left lower extremity. I ex plained the risks, benefits, and alternatives of luzud-vra-pker amputation including, but not limited to bleeding, infection, damage to surrounding tissues, need for further operation and procedures, ch ronic pain, phantom limb, ongoing wound care, blood clots, heart, stroke, anesthesia related complica tions. We agreed to do this under regional anesthesia to minimize his perioperative mortality and mo rbidity risk. Procedure In Detail: The patient was prepped and draped in the usual sterile fashion. After the non infectious portions were exsanguinated, the tourniquet was applied to 300 mmHg at this time. I then marked around a posterior gastrocnemius flap distribution on the left lower extremity several cm belo w the tibial tuberosity with a marking pen for ventral flap closure. I then incised the skin down th rough subcutaneous tissues and circumferentially went around the entire skin area with a 10 blade. I then used electrocautery to dissect down through the subcutaneous plane approaching the fascial comp artments. As I encountered saphenous veins, these were suture ligated using 3-0 silk ties with good hemostasis in the anterior, lateral and posterior positions. Electrocautery was used to control the remaining small vessels, which were encountered. As I dissected down through the tissue planes, I ap proached the anterior compartment initially and after cutting through the tibialis anterior area, the tibia was cleared. I then entered through the interosseous membrane to expose the posterior tibial vein and artery. These were individually suture ligated on the artery as well as the vein using 2-0 Prolene sutures and an additional free tie of 2-0 silk was used as well on the arterial side. I then trimmed the tibial nerve back as high as possible and trimmed it and also tied it off with same said 2-0 silk tie and injected the nerve residual with Marcaine. I then dissected down through the peron eus longus and brevis compartments in the lateral compartment of the leg exposing the fibula and I di ssected down entering the posterior compartment at this point as well. As I encountered the deep per smith and anterior tibial artery and vein, these were individually suture ligated from the anterior c ompartment prior to entering the lateral compartment with the same said 2-0 Prolene suture on the art erial side and silk 2-0 ties on the venous side with good hemostasis. At this point, the deep perone al nerve was injected also to retract back after retracting distally. I then cleansed the area behind the tibialis and using an oscillating bone saw, I then secured the bone firmly and saw t hrough the bone at this point and I made a second cut bevelling the anterior portion of this to karmen h out the anterior surface of the bone. With bone separation was completed at this point, I then foc used on the fibula. I swept back the periosteum from both the tibia and fibula and allowed for good removal of periosteum back several cm from the cut edges of the both the tibia and fibula. I then us ed the same said bone saw to trim the fibula at this point approximately 2 cm higher than the tibia. At this point, the periosteum was pushed back additionally to allow for several cm of the periosteal surface to both the tibia and fibula. Hemostasis was good at this point. I then entered the bone density technician ior compartment and circumferentially dissected down to allow separation based on the gastrocs flap. I did take down the tissues of the soleus and removed these using electrocautery as well as the damir lupe artery and vein, which were encountered. These were individually suture ligated as well as the tibial nerve was also encountered and suture ligated and allowed to retract after injecting with Zain bob as well. I then used a Tracey knife to complete the dissection at this point and the gastrocnem ius muscle remained intact. I then took the tourniquet down this point. No additional hemostatic ma neuvers were required. I irrigated the area copiously and beveled the bone edges of both the tibia a nd fibula using a rasped until smooth. I irrigated the area once again copiously until completely cl ear. I then rotated the gastrocnemius flap over the anterior tibialis and secured it using interrupt ed combination 2-0 and 0 Vicryl sutures to secure to the anterior fascia. At this point, I then plac ed a drain into the space coming out laterally through a separate stab incision, which is a 10 mm fla t SAPNA drain, secured to the skin with a nylon 2-0 suture, and irrigated the skin and subcutaneous tiss ues at this point and then reapproximated the wound using a combination of 2-0 nylon and interrupted katharina. At this point, a sterile dressing placed over top. The patient tolerated the procedure wel l without evidence of complication and transferred to PACU in good condition. All counts were correc t at the end of the case. Tourniquet time was approximately 90 minutes total and the patient had goo d perfusion at the end of the procedure. Flaps were pink and viable at the end of the procedure. Th e patient had knee immobilizer placed. Once again, the patient tolerated the procedure well without evidence of complication and transferred to PACU in good condition. All counts were correct at the e nd of the case. TK/MODL Voice ID: [id number] Report ID: [id number]
== END 2022-03-19 12:42 | disposition home or self-care (01) | DRG 854 ==
LOC: ER 18:23 → ERHOLD 03-09 01:33 → 2ND 03-09 13:17 → 4TH 03-14 10:49
PROVIDERS: ADMIT Hospitalist; ATTEND Internal Medicine
PROC: 02HV3DZ Insertion of Intraluminal Device into Superior Vena Cava, Percutaneous Approach (ICD-10-PCS; principal; 2022-03-09 10:45)
PROC: B41G1ZZ Fluoroscopy of Left Lower Extremity Arteries using Low Osmolar Contrast (ICD-10-PCS; 2022-03-10)
PROC: B41F1ZZ Fluoroscopy of Right Lower Extremity Arteries using Low Osmolar Contrast (ICD-10-PCS; 2022-03-10)
PROC: 0Y6U0Z0 Detachment at Left 3rd Toe, Complete, Open Approach (ICD-10-PCS; 2022-03-11)
PROC: 0JBR0ZZ Excision of Left Foot Subcutaneous Tissue and Fascia, Open Approach (ICD-10-PCS; 2022-03-11)
PROC: 0Y6J0Z2 Detachment at Left Lower Leg, Mid, Open Approach (ICD-10-PCS; 2022-03-16)
DX: A41.51 Sepsis due to Escherichia coli [E. coli] (principal); L03.116 Cellulitis of left lower limb; E11.52 Type 2 diabetes mellitus with diabetic peripheral angiopathy with gangrene; M86.8X7 Other osteomyelitis, ankle and foot; I82.503 Chronic embolism and thrombosis of unspecified deep veins of lower extremity, bilateral; E11.69 Type 2 diabetes mellitus with other specified complication; E11.621 Type 2 diabetes mellitus with foot ulcer; E11.628 Type 2 diabetes mellitus with other skin complications; L97.529 Non-pressure chronic ulcer of other part of left foot with unspecified severity; I10 Essential (primary) hypertension; G83.9 Paralytic syndrome, unspecified; F17.210 Nicotine dependence, cigarettes, uncomplicated; B96.4 Proteus (mirabilis) (morganii) as the cause of diseases classified elsewhere; B96.5 Pseudomonas (aeruginosa) (mallei) (pseudomallei) as the cause of diseases classified elsewhere; Z79.01 Long term (current) use of anticoagulants; Z91.14 Patient's other noncompliance with medication regimen; Z79.899 Other long term (current) drug therapy; Z86.73 Personal history of transient ischemic attack (TIA), and cerebral infarction without residual deficits; Z20.822 Contact with and (suspected) exposure to COVID-19
CPT/HCPCS: 36200; 36415; 70450; 71045; 71275; 75630; 76000; 80048; 80053; 80076; 80202; 82805; 82947; 83036; 83605; 83735; 83880; 84132; 84145; 84439; 84443; 84484; 85025; 85027; 85610; 86140; 87040; 87070; 87075; 87077; 87186; 87205; 87811; 88305; 88307; 88311; 93005; 93925; 93970; 96361; 96365; 96372; 96375; 97161; 99251; 99284; C1760; C1769; C1893; G0269; J0692; J1100; J1644; J2001; J2185; J2250; J2270; J2370; J2405; J2704; J3010; J3370; J3480; J7030; J7040; J7050; Q9967

== ENCOUNTER 2022-04-22 18:14 | Inpatient (IN) | payer OTHER, SELFPAY ==
[2022-04-22] MEDS ORDERED: NA CHLORIDE 0.9% 500 ML ONE (19:34)
--- NOTE | 2022-04-22 19:41 | ER ---
Nurse's Notes [facility] Name: Jude Grijalva Age: 57 yrs Sex: Male : 1965 Arrival Date: 04/22/2022 Time: 18:18 Bed 4 Private MD: Diagnosis: Infection following a procedure-poorly compliant;Type 2 diabetes mellitus with hyperglycemia;Essential (primary) hypertension Presentation: 04/22 18:28 Chief complaint: Patient states: Pt's daughter reports pt with rash to RLE x1 week, pt kb3 using home remedy to treat and now experiencing pain and bleeding from underside of the toes. Pt with Left BKA approximately 1 month ago and has not followed dup. SAPNA drain remains in place draining dark colored drainage. Coronavirus screen: Vaccine status: Patient reports receiving the 2nd dose of the covid vaccine. Client denies travel out of the [place] in the last 14 days. Ebola Screen: Patient negative for fever greater than or equal to 101.5 degrees Fahrenheit, and additional compatible Ebola Virus Disease symptoms Patient denies exposure to infectious person. Patient denies travel to an Ebola-affected area in the 21 days before illness onset. No symptoms or risks identified at this time. Initial Sepsis Screen: Does the patient meet any 2 criteria? No. Patient's initial sepsis screen is negative. Does the patient have a suspected source of infection? No. Patient's initial sepsis screen is negative. Risk Assessment: Do you want to hurt yourself or someone else? Patient reports no desire to harm self or others. Onset of symptoms was April 15, 2022. 18:28 Method Of Arrival: Wheelchair kb3 18:28 Acuity: QASIM 3 kb3 Triage Assessment: 18:31 General: Appears in no apparent distress. Behavior is calm, cooperative. Pain: kb3 Complains of pain in plantar aspect of right fifth toe. Historical: - Allergies: 18:31 No Known Allergies; kb3 - Home Meds: 18:31 None [Active]; kb3 - PMHx: 18:31 Diabetes - NIDDM; Hypertension; left sided paralysis; stroke; kb3 - PSHx: 18:31 Left BKA; kb3 - Immunization history:: Adult Immunizations up to date, Client reports receiving the 2nd dose of the Covid vaccine, Last tetanus immunization: up to date. - Social history:: Smoking status: Patient reports the use of cigarette tobacco products, smokes one pack cigarettes per day. - Family history:: not pertinent. Screenin:43 Abuse screen: Denies threats or abuse. Denies injuries from another. Nutritional aa9 screening: No deficits noted. Tuberculosis screening: No symptoms or risk factors identified. Fall Risk Gait- Normal/Bed Rest/Wheelchair (0 pts). Assessment: 19:25 General: Appears uncomfortable, slender, Behavior is cooperative, anxious, Daughter aa9 states L BKA bandages have not been changed since PTS surgery month ago. General:. Pain: Complains of pain in right leg, lateral aspect of left calf, left lateral ankle, lateral aspect of left foot, left calf, left Achilles, left heel, medial aspect of left knee and left knee Pain currently is 6 out of 10 on a pain scale. Noted to be grimacing, Current management - is no interventions. Neuro: Level of Consciousness is awake, alert, obeys commands, Oriented to person, place, time, situation. Cardiovascular:. Musculoskeletal: Swelling present in right leg, lateral aspect of left calf, left lateral ankle, lateral aspect of left foot, left calf, left Achilles, left heel, medial aspect of left knee and left knee. 21:38 Reassessment: Patient is alert, oriented x 3, equal unlabored respirations, skin aa9 warm/dry/pink. Reassessment: Patient and/or family updated on plan of care and expected duration. Pain level reassessed. General: Appears uncomfortable. Neuro: Level of Consciousness is awake, alert, obeys commands. Vital Signs: 18:28 BP 139 / 88; Pulse 88; Resp 20; Temp 98.5; Pulse Ox 100% ; Weight 77.11 kg; Height 5 kb3 ft. 9 in. (175.26 cm); Pain 5/10; 19:15 BP 155 / 102; Pulse 86; Resp 16 S; Pulse Ox 96% on R/A; aa9 19:30 BP 147 / 77; Pulse 82; Resp 17 S; Temp 98.1(O); Pulse Ox 96% on R/A; aa9 20:00 BP 143 / 82; Pulse 83; Resp 17 S; Pulse Ox 97% on R/A; aa9 20:30 BP 133 / 70; Pulse 87; Resp 16 S; Pulse Ox 98% on R/A; aa9 21:00 BP 137 / 80; Pulse 85; Resp 16 S; Pulse Ox 98% on R/A; aa9 21:30 BP 153 / 77; Pulse 85; Resp 15 S; Pulse Ox 98% on R/A; aa9 21:58 BP 153 / 77; Pulse 86; Resp 12 S; Pulse Ox 98% on R/A; as6 23:21 BP 145 / 90; Pulse 86; Resp 14 S; Pulse Ox 97% on R/A; as6 18:28 Body Mass Index 25.10 (77.11 kg, 175.26 cm) kb3 ED Course: 18:18 Patient arrived in ED. dt4 18:31 Triage completed. kb3 18:31 Arm band placed on right wrist. kb3 19:00 Escobar Romano, RHETT is Primary Nurse. as6 19:15 Jonnathan Conn MD is Attending Physician. elsie 19:38 Juan Garcia MD is Hospitalizing Provider. elsie 19:59 PT-INR Sent. aa9 19:59 Troponin HS Sent. aa9 19:59 NT PRO-BNP Sent. aa9 19:59 Magnesium Sent. aa9 20:36 Blood Culture Adult (2) Sent. aa9 20:36 Lactate Sent. aa9 21:50 Basic Metabolic Panel Sent. aa9 21:50 CBC with Diff Sent. aa9 21:50 LFT's Sent. aa9 22:01 SARS RAPID Sent. aa9 22:02 Patient has correct armband on for positive identification. Bed in low position. Call aa9 light in reach. Warm blanket given. 23:05 Patient admitted, IV remains in place. aa9 23:21 No provider procedures requiring assistance completed. as6 Administered Medications: 20:04 Drug: NS 0.9% 1000 ml Route: IV; Rate: 125 ml/hr; Site: left forearm; aa9 23:22 Follow up: IV Status: Infusion continued upon admission as6 20:36 Drug: NS 0.9% 500 ml Route: IV; Rate: bolus; Site: left forearm; aa9 20:58 Follow up: IV Status: Completed infusion; IV Intake: 500ml aa9 20:58 Drug: Zosyn (piperacillin-tazobactam) 3.375 grams Route: IVPB; Infused Over: 60 mins; aa9 Site: left forearm; 21:37 Follow up: IV Status: Completed infusion; IV Intake: 100ml aa9 20:58 Drug: Pepcid (famotidine) 20 mg Route: IVP; Site: left forearm; aa9 21:37 Follow up: Response: No adverse reaction aa9 21:37 Drug: vancoMYCIN 1 grams Route: IVPB; Infused Over: 2 hrs; Site: left forearm; aa9 23:22 Follow up: Response: No adverse reaction; IV Status: Completed infusion; IV Intake: as6 250ml 22:00 Drug: Lovenox (enoxaparin) 1 mg/kg Route: Sub-Q; Site: abdomen; aa9 23:22 Follow up: Response: No adverse reaction as6 22:00 Drug: Lovenox (enoxaparin) 1 mg/kg Route: Sub-Q; Site: abdomen; aa9 Medication: 23:21 VIS not applicable for this client. as6 Intake: 20:58 IV: 500ml; Total: 500ml. aa9 21:37 IV: 100ml; Total: 600ml. aa9 23:22 IV: 250ml; Total: 850ml. as6 Outcome: 19:41 Decision to Hospitalize by Provider. [facility] 23:05 Admitted to Tele accompanied by nurse, family with patient, via stretcher, room 424, aa9 with chart, Report called to Angelica DELANEY 23:21 Condition: stable as6 23:22 Patient left the ED. aa9 Signatures: Jonnathan Conn MD MD cha Slawson, Ashby, RN RN as6 Liz Calzada RN RN aa9 Clotilde Ramirez RN RN kb3 Rita Williamson dt4
--- NOTE | 2022-04-22 19:41 | EDPHYS ---
Physician Documentation [facility] Name: Jude Grijalva Age: 57 yrs Sex: Male : 1965 Arrival Date: 04/22/2022 Time: 18:18 Bed 4 Private MD: ED Physician Jonnathan Conn HPI: 04/22 19:27 This 57 yrs old Male presents to ER via Wheelchair with complaints of SWOLLEN elsie RIGHT LEG, FOOT. 19:27 The patient presents with decreased range of motion, pain. The complaints affect the elsie lateral aspect of left thigh, left hamstring, medial aspect of left thigh and left quadriceps. Context: The problem was sustained at home, resulted from a mis-step, a repetitive motion, playing sports, the patient tripping, an unknown cause, last month. Onset: The symptoms/episode began/occurred 30 day(s) ago. Modifying factors: The symptoms are alleviated by nothing. the symptoms are aggravated by nothing. Associated signs and symptoms: The patient has no apparent associated signs or symptoms. Treatment prior to arrival includes: no previous treatment. Severity of symptoms: At their worst the symptoms were mild, in the emergency department the symptoms are unchanged. Historical: - Allergies: 18:31 No Known Allergies; kb3 - Home Meds: 18:31 None [Active]; kb3 - PMHx: 18:31 Diabetes - NIDDM; Hypertension; left sided paralysis; stroke; kb3 - PSHx: 18:31 Left BKA; kb3 - Immunization history:: Adult Immunizations up to date, Client reports receiving the 2nd dose of the Covid vaccine, Last tetanus immunization: up to date. - Social history:: Smoking status: Patient reports the use of cigarette tobacco products, smokes one pack cigarettes per day. - Family history:: not pertinent. ROS: 19:27 Constitutional: Negative for fever, chills, and weight loss, Eyes: Negative for injury, elsie pain, redness, and discharge, ENT: Negative for injury, pain, and discharge, Neck: Negative for injury, pain, and swelling, Cardiovascular: Negative for chest pain, palpitations, and edema, Respiratory: Negative for shortness of breath, cough, wheezing, and pleuritic chest pain, Abdomen/GI: Negative for abdominal pain, nausea, vomiting, diarrhea, and constipation, Back: Negative for injury and pain, : Negative for injury, bleeding, discharge, and swelling, Skin: Negative for injury, rash, and discoloration, Neuro: Negative for headache, weakness, numbness, tingling, and seizure, Psych: Negative for depression, anxiety, suicide ideation, homicidal ideation, and hallucinations, Allergy/Immunology: Negative for hives, rash, and allergies, Endocrine: Negative for neck swelling, polydipsia, polyuria, polyphagia, and marked weight changes, Hematologic/Lymphatic: Negative for swollen nodes, abnormal bleeding, and unusual bruising. 19:27 MS/extremity: Positive for injury or acute deformity, decreased range of motion, swelling, tenderness, warmth, of the lateral aspect of left thigh, left hamstring, medial aspect of left thigh and left quadriceps. Exam: 19:27 Constitutional: This is a well developed, well nourished patient who is awake, alert, elsie and in no acute distress. Head/Face: Normocephalic, atraumatic. Eyes: Pupils equal round and reactive to light, extra-ocular motions intact. Lids and lashes normal. Conjunctiva and sclera are non-icteric and not injected. Cornea within normal limits. Periorbital areas with no swelling, redness, or edema. ENT: Nares patent. No nasal discharge, no septal abnormalities noted. Tympanic membranes are normal and external auditory canals are clear. Oropharynx with no redness, swelling, or masses, exudates, or evidence of obstruction, uvula midline. Mucous membranes moist. Neck: Trachea midline, no thyromegaly or masses palpated, and no cervical lymphadenopathy. Supple, full range of motion without nuchal rigidity, or vertebral point tenderness. No Meningismus. Chest/axilla: Normal chest wall appearance and motion. Nontender with no deformity. No lesions are appreciated. Cardiovascular: Regular rate and rhythm with a normal S1 and S2. No gallops, murmurs, or rubs. Normal PMI, no JVD. No pulse deficits. Back: No spinal tenderness. No costovertebral tenderness. Full range of motion. Male : Normal genitalia with no discharge or lesions. Skin: Warm, dry with normal turgor. Normal color with no rashes, no lesions, and no evidence of cellulitis. Neuro: Awake and alert, GCS 15, oriented to person, place, time, and situation. Cranial nerves II-XII grossly intact. Motor strength 5/5 in all extremities. Sensory grossly intact. Cerebellar exam normal. Normal gait. Psych: Awake, alert, with orientation to person, place and time. Behavior, mood, and affect are within normal limits. 19:27 Musculoskeletal/extremity: Extremities: grossly normal except: noted in the lateral aspect of left thigh, left hamstring, medial aspect of left thigh and left quadriceps: contusion, decreased ROM, pain, ROM: intact in all extremities, Pulses: are normal with no appreciated deficits, Sensation intact. Compartment Syndrome exam of affected extremity: is normal. 20:09 ECG was reviewed by the Attending Physician. [facility] Vital Signs: 18:28 BP 139 / 88; Pulse 88; Resp 20; Temp 98.5; Pulse Ox 100% ; Weight 77.11 kg; Height 5 kb3 ft. 9 in. (175.26 cm); Pain 5/10; 19:15 BP 155 / 102; Pulse 86; Resp 16 S; Pulse Ox 96% on R/A; aa9 19:30 BP 147 / 77; Pulse 82; Resp 17 S; Temp 98.1(O); Pulse Ox 96% on R/A; aa9 20:00 BP 143 / 82; Pulse 83; Resp 17 S; Pulse Ox 97% on R/A; aa9 20:30 BP 133 / 70; Pulse 87; Resp 16 S; Pulse Ox 98% on R/A; aa9 21:00 BP 137 / 80; Pulse 85; Resp 16 S; Pulse Ox 98% on R/A; aa9 21:30 BP 153 / 77; Pulse 85; Resp 15 S; Pulse Ox 98% on R/A; aa9 21:58 BP 153 / 77; Pulse 86; Resp 12 S; Pulse Ox 98% on R/A; as6 23:21 BP 145 / 90; Pulse 86; Resp 14 S; Pulse Ox 97% on R/A; as6 18:28 Body Mass Index 25.10 (77.11 kg, 175.26 cm) kb3 MDM: 19:15 Patient medically screened. [facility] 19:30 Differential diagnosis: contusion, abrasion, tendonitis. Data reviewed: vital signs, [facility] nurses notes, lab test result(s), EKG, radiologic studies, plain films. Data interpreted: pvc monitor: rate is 100 beats/min, rhythm is regular, Pulse oximetry: on room air is 100 %. Test interpretation: by ED physician or midlevel provider: ECG, plain radiologic studies. Counseling: I had a detailed discussion with the patient and/or guardian regarding: the historical points, exam findings, and any diagnostic results supporting the discharge/admit diagnosis, lab results, radiology results. 04/22 19:26 Order name: Basic Metabolic Panel [facility] 04/22 19:26 Order name: CBC with Diff [facility] 04/22 19:26 Order name: LFT's [facility] 04/22 19:26 Order name: Magnesium [facility] 04/22 19:26 Order name: NT PRO-BNP [facility] 04/22 19:26 Order name: PT-INR [facility] 04/22 19:26 Order name: Troponin HS [facility] 04/22 19:36 Order name: Lactate [facility] 04/22 19:36 Order name: Blood Culture Adult (2) [facility] 04/22 19:41 Order name: SARS RAPID [facility] 04/22 20:29 Order name: CBC with Automated Diff; Complete Time: 21:14 EDID 04/22 20:32 Order name: Protime (+INR); Complete Time: 21:14 EDID 04/22 20:48 Order name: Basic Metabolic Panel; Complete Time: 21:14 EDID 04/22 20:48 Order name: Liver (Hepatic) Function; Complete Time: 21:14 EDID 04/22 19:26 Order name: XRAY Chest (1 view) [facility] 04/22 19:59 Order name: Tib Fib Left XRAY [facility] 04/22 20:22 Order name: Extrem Venous W Compression Ganesh US la1 04/22 20:41 Order name: RAD; Complete Time: 21:14 EDID 04/22 20:42 Order name: RAD; Complete Time: 21:14 EDID 04/22 20:48 Order name: Troponin High Sensitivity; Complete Time: 21:14 EDID 04/22 20:48 Order name: NT PRO-BNP; Complete Time: 21:14 EDMS 04/22 20:48 Order name: Magnesium; Complete Time: 21:14 EDID 04/22 20:59 Order name: SARS-COV-2 Antigen Rapid; Complete Time: 21:14 EDID 04/22 21:08 Order name: Lactate; Complete Time: 21:14 EDID 04/22 21:16 Order name: US; Complete Time: 21:30 EDMS 04/22 21:51 Order name: Urine Dipstick-Ancillary [facility] 04/22 19:26 Order name: EKG; Complete Time: 19:47 [facility] 04/22 19:26 Order name: Cardiac monitoring; Complete Time: :59 [facility] 04/22 19:26 Order name: EKG - Nurse/Tech; Complete Time: 19:59 [facility] 04/22 19:26 Order name: IV Saline Lock; Complete Time: :59 [facility] 04/22 19:26 Order name: Labs collected and sent; Complete Time: :59 [facility] 04/22 19:26 Order name: O2 Per Protocol; Complete Time: 19:59 [facility] 04/22 19:26 Order name: O2 Sat Monitoring; Complete Time: :59 [facility] 04/22 19:27 Order name: Urine Dipstick-Ancillary (obtain specimen); Complete Time: 21:50 elsie EC:09 Rate is 86 beats/min. Rhythm is regular. QRS [place] is Normal. OR interval is normal. QRS elsie interval is normal. QT interval is normal. No Q waves. T waves are Normal. No ST changes noted. Clinical impression: NSR w/ Non-specific ST/T Changes and No evidence of ischemia. Interpreted by me. Reviewed by me. Administered Medications: 20:04 Drug: NS 0.9% 1000 ml Route: IV; Rate: 125 ml/hr; Site: left forearm; aa9 23:22 Follow up: IV Status: Infusion continued upon admission as6 20:36 Drug: NS 0.9% 500 ml Route: IV; Rate: bolus; Site: left forearm; aa9 20:58 Follow up: IV Status: Completed infusion; IV Intake: 500ml aa9 20:58 Drug: Zosyn (piperacillin-tazobactam) 3.375 grams Route: IVPB; Infused Over: 60 mins; aa9 Site: left forearm; 21:37 Follow up: IV Status: Completed infusion; IV Intake: 100ml aa9 20:58 Drug: Pepcid (famotidine) 20 mg Route: IVP; Site: left forearm; aa9 21:37 Follow up: Response: No adverse reaction aa9 21:37 Drug: vancoMYCIN 1 grams Route: IVPB; Infused Over: 2 hrs; Site: left forearm; aa9 23:22 Follow up: Response: No adverse reaction; IV Status: Completed infusion; IV Intake: as6 250ml 22:00 Drug: Lovenox (enoxaparin) 1 mg/kg Route: Sub-Q; Site: abdomen; aa9 23:22 Follow up: Response: No adverse reaction as6 22:00 Drug: Lovenox (enoxaparin) 1 mg/kg Route: Sub-Q; Site: abdomen; aa9 Disposition Summary: 04/22/22 19:41 Hospitalization Ordered Hospitalization Status: Inpatient Admission elsie Provider: Juan Garcia cha Location: Telemetry/MedSurg (Inpatient) elsie Condition: Fair elsie Problem: new elsie Symptoms: have improved elsie Bed/Room Type: Standard elsie Room Assignment: [id number](04/22/22 22:21) cg Diagnosis - Infection following a procedure - poorly compliant elsie - Type 2 diabetes mellitus with hyperglycemia elsie - Essential (primary) hypertension elsie Forms: - Medication Reconciliation Form elsie - SBAR form elsie Signatures: Dispatcher [employer] EDJonnathan Jansen MD MD cha Attema, Lee, DRAG CAR RACER-C DRAG CAR RACER-Cla1 Anna Castle RN RN cg Liz Calzada RN RN aa9 Clotilde Ramirez RN RN kb3 Escobar Romano RN as6 Corrections: (The following items were deleted from the chart) 22:21 19:41 elsie cg
[2022-04-22 20:27] LABS: Absolute Lymphocytes (CBC) 2.5 K/uL (0.7-4.9); Hematocrit 37.3 % (39.6-49.0); Lymphocytes % 23.8 % (15.3-44.8); MCV 84.5 fL (80-100); MPV 7.2 fL (7.6-11.3); RBC Red Blood Cell Count 4.42 M/uL (4.33-5.43)
[2022-04-22 20:31] LABS: Protime INR 1.07
[2022-04-22] MEDS ORDERED: VANCOMYCIN 1 GM/VIAL ONE (20:38)
[2022-04-22] MEDS ORDERED: PIPERACIL/TAZO 3.375 GM VIAL IV ONE (20:39)
[2022-04-22] MEDS ORDERED: NA CHLORIDE 0.9% 100 ML IV ONE (20:39)
[2022-04-22] MEDS ORDERED: FAMOTIDINE 20 MG/2 ML VIAL IV ONE (20:39)
[2022-04-22] MEDS ORDERED: NA CHLORIDE 0.9% 1,000 ML ONE (20:39)
[2022-04-22] MEDS ORDERED: NA CHLORIDE 0.9% 250 ML ONE (20:41)
--- NOTE | 2022-04-22 20:41 | RAD REPORT ---
EXAM DESCRIPTION: RAD - Femur Left - 04/22/2022 8:33 pm CLINICAL HISTORY: PAIN COMPARISON: No comparisons FINDINGS/IMPRESSION: No left femur fracture identified. Status post below the knee amputation with s urgical katharina and a drain in place. No soft tissue gas. Mild left acetabular degenerative changes.
--- NOTE | 2022-04-22 20:41 | RAD REPORT ---
EXAM DESCRIPTION: RAD - Chest Single View - 04/22/2022 8:33 pm CLINICAL HISTORY: COUGH COMPARISON: Chest Single View dated 03/08/2022; Chest Single View dated 02/11/2022; CHEST SINGLE VIEW dated 07/05/2014; CHEST SINGLE VIEW dated 03/13/2011 FINDINGS: Lines: None. Lungs: No evidence of edema or pneumonia. Pleural: No significant pleural effusions or pneumothorax. Cardiac: The heart size is within normal limits. Mediastinum: Within normal limits. Bones: No acute fractures. Other: None IMPRESSION: No acute cardiopulmonary disease.
[2022-04-22 20:42] LABS: ALT/SGPT 19 U/L (12-78); AST/SGOT 11 U/L (15-37); Albumin 3.2 g/dL (3.4-5.0); Alkaline Phosphatase 113 U/L (45-117); BUN Blood Urea Nitrogen 10 mg/dL (7-18); Bicarbonate 29 mmol/L (21-32); Bilirubin Total 0.3 mg/dL (0.2-1.0); Glomerular Filtration Rate 103 ml/min (=/>90); Glucose Level 130 mg/dL (74-106); Magnesium 1.8 mg/dL (1.8-2.4); NT PRO-BNP 229 pg/mL (<125); Potassium 3.9 mmol/L (3.5-5.1); Protein, Total 7.5 g/dL (6.4-8.2); Sodium Level 137 mmol/L (136-145); Troponin High Sensitivity 3.3 pg/mL (<58.9)
[2022-04-22 20:47] LABS: Bilirubin Direct < 0.1 mg/dL (0-0.2)
[2022-04-22 20:58] LABS: SARS-CoV-2 Antigen Rapid Res Negative (Negative)
--- NOTE | 2022-04-22 21:14 | RAD REPORT ---
EXAM DESCRIPTION: US - Extrem Venous W Compress Ganesh - 04/22/2022 9:01 pm CLINICAL HISTORY: SWELLING COMPARISON: Extrem Venous W Compress Ganesh dated 03/08/2022; Extrem Venous W Compress Ganesh dated 02/12/20 TECHNIQUE: Real-time sonographic evaluation of the lower extremity deep venous systems was performed using color Doppler, grayscale, and compression. FINDINGS: Bilateral lower extremities. Color Doppler, grayscale, and spectral analysis was performed . Eccentric nonocclusive thrombus is present along the right mid and distal femoral vein. The popliteal vein is compressible and patent. The greater saphenous vein is compressible and patent. The posterio r tibial vein was not seen. Nonocclusive echogenic material present at the left femoral vein at its midportion, distally, as well as at the popliteal with partial compressibility. The patient has had a prior [id number] amputat ion and therefore the posterior tibial vein was not visualized. IMPRESSION: Chronic bilateral lower extremity nonocclusive deep venous thrombosis. The findings are similar to 03/08/2022.
[2022-04-22 21:50] LABS: Urine Blood Trace-intact (Negative); Urine Glucose Negative (Negative); Urine Protein Negative (Negative)
[2022-04-22] MEDS ORDERED: ENOXAPARIN 80 MG/0.8 ML SQ ONE (21:58)
--- NOTE | 2022-04-22 22:27 | P.HP ---
Certification for Inpatient Patient admitted to: Inpatient With expected LOS: >2 Midnights Patient will require the following post-hospital care: None Practitioner: I am a practitioner with admitting privileges, knowledge of patient current condition, hospital course, and medical plan of care. Services: Services provided to patient in accordance with Admission requirements found in Title 42 Section 412.3 of the Code of Federal Regulations Patient History Date of Service: 04/22/22 Reason for admission: LLE wound/infection History of Present Illness: 57-year-old male with history of diabetes mellitus type 2not insulin-dependent, bilateral lower extremity DVTs, hypertension, tobacco abuse, recent diabetic foot wound/cellulitis requiring BKA performed on 03/16/2022 presents the emergency department for leg pain/swelling/erythema concern for infection. He has not followed up with surgery after discharge from hospital nor has he been compliant with his anticoagulant therapy for DVTs. He still has a drain present to left lower extremity from surgery and katharina in place to wound. He has been putting Merthiolate on both of his lower extremities at home, surgical incision sites left lower extremity well approximated, distal/lateral aspect of wound with drain present has surrounding erythema/granulation tissue with some mild purulent drainage, right lower extremity with some blistering/erythema also staying red with Merthiolate currently. Patient was evaluated in the emergency department his labs were significant for white blood cell count 10.5 glucose 130 lactic acid 2.1 no SIRS criteria present at this time. Patient was given IV antibiotics in the emergency department ED provider discussed case with general surgery who will consult. Chest x-ray was obtained which was negative for acute findings x-ray left lower extremity was obtained which was negative for fractures, status post below-knee amputation with surgical katharina and drain in place no soft tissue gas. Mild left acetabular degenerative changes. Ultrasound of lower extremities bilaterally revealed chronic bilateral lower extremity nonocclusive deep vein thrombosis findings are similar to 03/08/2022. ED prior wishes to admit for further evaluation and management of left lower extremity wound/infection, chronic bilateral lower extremity DVT. Allergies No Known Drug Allergies Allergy (Verified 06/13/19 18:54) Unknown Home Medications: Ciprofloxacin HCl [Cipro] 500 mg PO BID #14 tab 03/18/22 Doxycycline Hyclate 100 mg PO BID #14 tab 03/18/22 Hydrocodone 5/APAP 325 [[place] 5/325*] 1 tab PO Q6H PRN #20 tab 03/18/22 Rivaroxaban [Xarelto] 1 each PO BID #49 tab 03/19/22 - Past Medical/Surgical History Diabetic: Yes -: DM -: HTN -: Bilateral DVTs -: Medical noncompliance -: Denies any significant surgical history -: Left BKA Psychosocial/ Personal History: Patient lives at home with his family - Family History Family History: Reviewed- Non-Contributory - Social History Smoking Status: Current every day smoker Alcohol use: No CD- Drugs: No Caffeine use: Yes Place of Residence: Home Review of Systems 10-point ROS is otherwise unremarkable Musculoskeletal: Leg Pain, As per HPI Physical Examination - Physical Exam General: Alert, In no apparent distress, Oriented x3 HEENT: Atraumatic, PERRLA, Mucous membr. moist/pink, EOMI, Sclerae nonicteric Neck: Supple, 2+ carotid pulse no bruit, No LAD, Without JVD or thyroid abnormality Respiratory: Clear to auscultation bilaterally, Normal air movement Cardiovascular: Regular rate/rhythm, Normal S1 S2 Capillary refill: <2 Seconds Gastrointestinal: Normal bowel sounds, No tenderness Musculoskeletal: No tenderness, Other (Left BKA) Integumentary: Diabetic ulcer, Other (Status post left BKA with katharina/drain in place, purulent drainage noted around drain site, erythema/granulation tissue also present in surrounding area. We will approximated otherwise.) Neurological: Normal speech, Normal strength at 5/5 x4 extr, Normal tone, Normal affect Lymphatics: No axilla or inguinal lymphadenopathy - Studies Laboratory Data (last 24 hrs) 04/22/22 19:58: PT 11.8, INR 1.07 04/22/22 19:58: WBC 10.50, Hgb 12.7 L, Hct 37.3 L, Plt Count 210 04/22/22 19:58: Sodium 137, Potassium 3.9, BUN 10, Creatinine 0.77, Glucose 130 H, Magnesium 1.8, Total Bilirubin 0.3, AST 11 L, ALT 19, Alkaline Phosphatase 113 Assessment and Plan - Plan Assessment: Left lower extremity postsurgical wound/infection secondary to noncompliance Chronic bilateral lower extremity DVT with medical noncompliance Diabetes was type XWxjm-siwybyi-mjrkxuzlb Hypertension Tobacco abuse Plan: Left lower extremity postsurgical wound/infection secondary to noncompliance: Blood cultures obtained in the emergency department, general surgery consult in place. Patient never followed up with surgery on outpatient basis still had drain present from surgery. Counseled patient's importance of outpatient follow-up. Continue antibiotics, appreciate further input from general surgery. Chronic bilateral lower extremity DVT with medical noncompliance: Patient reports that he was taking his anticoagulant he was discharged with but stopped a few weeks ago. He was given therapeutic Lovenox in the ED. Continue Lovenox at the time being. Diabetes was type [id number]: Every 6 hours Accu-Chek, sliding scale insulin. Hypertension: Continue home medications Tobacco abuse: Counseled on need for tobacco cessation. DVT PPX: Therapeutic Lovenox Code status: Full Discharge Plan: Home Plan to discharge in: 48 Hours - Advance Directives Does patient have a Living Will: No Does patient have a Durable POA for Healthcare: No - Code Status/Comfort Care Code Status Assessed: Yes (Full code) Critical Care: No Time Spent Managing Pts Care (In Minutes): 70
[2022-04-22] MEDS ORDERED: ONDANSETRON 4 MG/2 ML VIAL IV PRN (23:56)
[2022-04-22] MEDS ORDERED: VANCOMYCIN 1 GM in NA CHLORIDE 0.9% 250 ML IVPB SCH (23:56)
[2022-04-22] MEDS ORDERED: MORPHINE 2 MG/ML SYR IV PRN (23:56)
[2022-04-23] MEDS ORDERED: VANCOMYCIN 500 MG in NA CHLORIDE 0.9% 100 ML IVPB ONE (00:30)
[2022-04-23 05:14] VITALS: BMI 23.0
[2022-04-23 05:54] LABS: Absolute Lymphocytes (CBC) 2.6 K/uL (0.7-4.9); Hematocrit 34.8 % (39.6-49.0); Lymphocytes % 28.6 % (15.3-44.8); MCV 85.1 fL (80-100); MPV 7.3 fL (7.6-11.3); RBC Red Blood Cell Count 4.09 M/uL (4.33-5.43)
[2022-04-23 05:58] LABS: Albumin 2.8 g/dL (3.4-5.0); Bilirubin Total 0.4 mg/dL (0.2-1.0); Potassium 3.7 mmol/L (3.5-5.1); Protein, Total 6.6 g/dL (6.4-8.2)
--- NOTE | 2022-04-23 06:38 | P.PN ---
Date of Service: 04/23/22 Subjective continues with pain in bilateral legs upset he is NPO denies fever/chills, no chest pain, no SOB ROS 10 point ROS as noted above, otherwise negative Physical Exam Gen: NAD, AOx3 HEENT: normal conjunctiva, sclera anicteric CV: Regular rate/rhythm, no edema Pulm: clear to auscultation bilaterally, nonlabored respirations on room air MSK: L BKA site: katharina in place, drain still in place, erythematous, tender on lateral aspect around drain site R leg: peeled / dry skin in lower leg/foot Problem List Left lower extremity postsurgical wound/infection secondary to noncompliance Chronic bilateral lower extremity DVT with medical noncompliance Diabetes was type KOloc-gcpfost-gqmsfnice Hypertension Tobacco abuse Left lower extremity postsurgical wound/infection secondary to noncompliance: Blood cultures obtained in the emergency department, general surgery consult in place. Patient never followed up with surgery on outpatient basis still had drain present from surgery. discussed importance of follow up. Niece at bedside says he seemed to take care of himself for 1-2 weeks, then stopped continue antibiotics general surgery consulted Chronic bilateral lower extremity DVT with medical noncompliance: Patient reports that he was taking his anticoagulant he was discharged with but stopped a few weeks ago. He was given therapeutic Lovenox in the ED. Continue Lovenox at the time being. Diabetes was type KZrol-cdsrbho-moiikefri: q6h Accu-Chek, sliding scale insulin. Hypertension: Continue home medications Tobacco abuse: Counseled on need for tobacco cessation. VTE: lovenox Code: Full Dispo: home, ~3-4 days
[2022-04-23] MEDS: INSULIN -REGULAR HUMAN 50 UNIT/0.5 ML ML SQ SCH ×4 (07:30→20:58)
[2022-04-23 08:02] LABS: Urine Bilirubin NEGATIVE (Negative); Urine Blood Negative (Negative); Urine Clarity Clear (Clear); Urine Color Light-Yellow (Yellow); Urine Glucose NEGATIVE (Negative); Urine Protein NEGATIVE (Negative); Urine Urobilinogen Normal (Normal)
[2022-04-23 08:56] LABS: Urine Bacteria None Seen /HPF (<20); Urine RBC <5 /HPF (None Seen)
[2022-04-23] MEDS: VANCOMYCIN 1.5 GM in NA CHLORIDE 0.9% 500 ML IVPB SCH ×2 (09:36→20:56)
[2022-04-23] MEDS: ENOXAPARIN 80 MG/0.8 ML SQ SCH ×2 (09:38→20:06)
[2022-04-23] MEDS ORDERED: VANCOMYCIN 1.25 GM in NA CHLORIDE 0.9% 250 ML IVPB SCH (12:00)
[2022-04-23] MEDS: CEFEPIME 1 GM in NA CHLORIDE 0.9% 100 ML IV SCH ×2 (14:54→20:06)
[2022-04-23] MEDS ORDERED: CODEINE 30MG/APAP 300MG TAB PO PRN (15:05)
--- NOTE | 2022-04-23 18:04 | CON ---
Date of Consultation: 04/23/2022 Brief History Of Present Illness: Patient is a 57-year-old male, known to me from previous [facility] approximately 1-1/2 months ago. He presented at that time with significant peripheral arteria l disease and a left lower extremity wound with gangrenous changes. I had discussed the surgical opt ions at that time, which included surgical debridement of this wet gangrenous infection of the left f oot. However, I explained to him that he likely would need a tybqr-nqy-ikov amputation based on his poor arterial supply and significant infection at that time. He refused surgical intervention initia chris, then he agreed to a surgical intervention limited to the foot. Ultimately, we performed that charles laura. Postoperatively, his wound was very poor, necrotic, and had evidence of ongoing infection. A s such, I discussed that I felt that a yqveg-ofk-kqzz amputation would be necessary to save his life due to his significant peripheral arterial disease, medical comorbidities, smoking history, and lack of improvement of this lower extremity wound after surgical debridement. He finally agreed after marco hughes refusing the txzes-rbt-hunn amputation to a gukrp-dwm-dfnv amputation approximately on 022. He ultimately was discharged after improvement. He is self funded, but was sent home after a l anibalthy discussion I had with the patient's sister and brothers about wound care and the necessity for followup and ongoing wound care to manage his medical issues as well as need for endovascular interv ention to optimize his blood flow and see if he had any options for improved blood flow to his bilate ral residual lower extremity and his contralateral lower extremity. Subsequently, patient after basil goff called for an appointment to my office. However, he opted to not follow up with me and he was lost to follow up at that point. We had made several attempts to reach out to him and his family mem bers; however, he opted to not follow up with me despite our insistence that for the need to remove h is SAPNA drain, which was placed at the BKA stump as well as staple removal, ongoing wound care, and med ical management as described previously. He now presents on 04/22/2022, yesterday, with new onset of cellulitis of his BKA area as well as new onset cellulitis to the right lower extremity extending up to almost the knee area. He had pain, swelling, erythema to bilateral lower extremities, residual B KA site, as well as the contralateral extremity. He has not been compliant with his anticoagulation for DVTs as well and as stated, his katharina and SAPNA drain remained in site. He came to the emergency room with blistering of the skin, erythema, and worsening pain in the area. Past Medical History: Significant for diabetes, hypertension, bilateral DVTs, medical noncompliance. Past Surgical History: Includes left lower extremity debridement of foot and left qpmwr-krp-qocn amp utation. Social History: He lives at home. He smokes approximately a pack per day continuously. Denies alco hol or recreational drug use. Allergies: NO KNOWN DRUG ALLERGIES. Home Medications: Were prescribed including Cipro, doxycycline, [place], Xarelto; however, he is not t aking any of these by his report. He lives at home with his brothers and sisters and his is also present, but by report has other medical comorbidities precluding his presence here today. Review of Systems: Otherwise, 10-point review of systems other than HPI, denies. Physical Examination: General: He is awake, alert, and oriented x3. Psychiatric: He is appropriate, conversive. HEENT: Normocephalic. Sclerae anicteric. Mucous membranes are moist. Oropharynx clear. Neck: Supple. No JVD. Chest: Normal expansion and excursion. Cardiovascular: Regular rate and rhythm. Pulmonary: Clear to auscultation bilaterally. Abdomen: Soft. Extremities: Focused examination of the lower extremity, he has scaly cellulitic changes to the enti re right lower extremity below the knee with simple cellulitis extending to the knee with somewhat sk ip pattern from just below the knee to right at the knee and above the knee. There is some serous dr soledad from the foot as well. Examination of the left lower extremity BKA site has minimal celluliti s around the edges and at the entry point of the SAPNA drain, which has a feculent appearance. His knee has cellulitic changes, but the skin surrounding the BKA and leading up to the knee does not appear grossly cellulitic and only has mild cellulitic changes just in the area around the drain and near th e incision. There is minimal tenderness in this area. There is significant redness confined to the knee area. The contralateral lower extremity has significant cellulitis as described. I have remove d the SAPNA drain from the surgical site. The katharina remain in place for now, but I plan to remove the m during this admission. Laboratory Data: He had a laboratory exam, which revealed a white blood cell count of 9.2, hemoglobi n 11.8, hematocrit 34.8, platelet count is 200, neutrophils are 60%. His sodium is 143, potassium 3. 7, chloride was 109, carbon dioxide 30, BUN 8, creatinine 0.67, glucose is 105. Hemoglobin A1c was 5 .1. Lactic acid 1.3. AST 10, ALT 16, alkaline phosphatase was 93. He had imaging, which included a chest x-ray on 04/22, which is read as no acute cardiopulmonary disease. Additionally, he had a fem ur x-ray as well, which was officially read no left femur fracture identified, status post below-the- knee amputation with surgical katharina and drain in place. No soft tissue gas. Mild left acetabular degenerative changes. He additionally had an extremity venous study on 04/22, officially read as chr onic bilateral lower extremity nonocclusive deep venous thrombosis. Findings are similar to 03/08/20 22, specifically the eccentric nonocclusive thrombus is present along the right mid and distal femora l vein. The popliteal vein is compressible and patent. The posterior tibial vein was not seen. Non occlusive echogenic material present at the left femoral vein at its midportion distally as well as t he popliteal with partial compressibility of the left. The patient has a prior tvlqm-wzj-twcl amputa tion and therefore the posterior tibial vein was not visualized. His last Doppler study on , officially read as moderate distal right lower extremity arterial disease, moderate diffuse left l ower extremity arterial disease, and no occlusion, specifically. The right common femoral artery was triphasic. Right superficial femoral artery and popliteal artery were biphasic. Right posterior ar johanna was biphasic. Right dorsalis pedis waveform is monophasic and diminished in amplitude. Left co mmon femoral, left superficial femoral, left popliteal, left posterior tibial and left dorsalis pedis arterial waveforms are all monophasic that was preoperative on 03/08/2022. Assessment And Plan: This is a 57-year-old male, who comes in with cellulitis to bilateral lower ext remities. His right lower extremity is currently significantly more cellulitic and worse in appearan ce than his left hekcl-jam-hizq amputation; however, there is cellulitis on both. 1.IV fluid hydration. 2.Medical management of DVT with anticoagulation. 3.IV antibiotics for cellulitis. 4.Serial exams. 5.I have removed the SAPNA drain of the left BKA site and will remove katharina during this admission. 6.I have recommended Silvadene topically to both bilateral lower extremities, wraps, elevation, and minimal compression. 7.I have stressed the importance once again of smoking cessation and medical management and close fo llowup with a medical doctor to optimize his medical comorbidities and to improve his outcome. I hav e explained this to the patient and his family who was present in the room during my examination and through the entire course. I spent approximately 45 minutes discussing this with the patient and they have agreed to proceed. Jenny shelton is agreeable at this time to the nonoperative medical treatment plan and states he plans to fo llow up with me as an outpatient after his discharge. PHOEBE/MARLEY Voice ID: [id number] Report ID: [id number]
[2022-04-24 05:01] LABS: Absolute Lymphocytes (CBC) 2.6 K/uL (0.7-4.9); Hematocrit 34.4 % (39.6-49.0); Lymphocytes % 33.4 % (15.3-44.8); MCV 84.9 fL (80-100); MPV 7.1 fL (7.6-11.3); RBC Red Blood Cell Count 4.05 M/uL (4.33-5.43)
[2022-04-24 05:18] LABS: Albumin 2.6 g/dL (3.4-5.0); Bilirubin Total 0.4 mg/dL (0.2-1.0); C-Reactive Protein 52.5 mg/L (<3.00); Potassium 3.8 mmol/L (3.5-5.1); Protein, Total 6.5 g/dL (6.4-8.2)
[2022-04-24] MEDS: INSULIN -REGULAR HUMAN 50 UNIT/0.5 ML ML SQ SCH ×4 (07:30→21:00)
--- NOTE | 2022-04-24 07:45 | EKG ---
Test Date: 2022-04-22 Test Time: 19:51:08 Occup Therapist: FABRICE MEASUREMENT RESULTS: Intervals: Rate: 85 TX: 154 QRSD: 86 QT: 374 QTc: 445 [place]: P: 59 TX: 154 QRS: 52 T: 47 INTERPRETIVE STATEMENTS: Normal sinus rhythm Normal ECG Compared to ECG 03/09/2022 00:23:06 Sinus tachycardia no longer present Left-axis deviation no longer present ST (T wave) deviation no longer present Electronically Signed On 04-24-22 07:43:44 CDT by Randall Tubbs
[2022-04-24] MEDS: ENOXAPARIN 80 MG/0.8 ML SQ SCH ×2 (08:17→20:44)
[2022-04-24] MEDS: CEFEPIME 1 GM in NA CHLORIDE 0.9% 100 ML IV SCH ×2 (08:17→21:00)
[2022-04-24] MEDS: SILVER SULFADIAZINE 1% 25 GM TOP SCH (08:18)
[2022-04-24 08:28] VITALS: O2SAT 100
[2022-04-24] MEDS: VANCOMYCIN 1.5 GM in NA CHLORIDE 0.9% 500 ML IVPB SCH ×2 (09:00→14:07)
--- NOTE | 2022-04-24 15:49 | P.PN ---
Date of Service: 04/24/22 Subjective Pain improved No further worsening or new symptoms Drain removed by Dr. Kim yesterday ROS 10 point ROS as noted above, otherwise negative Physical Exam Gen: NAD, AOx3 HEENT: normal conjunctiva, sclera anicteric CV: Regular rate/rhythm, no edema Pulm: clear to auscultation bilaterally, nonlabored respirations on room air MSK: L BKA site: katharina in place, erythematous, soft, mildly tender R leg: peeled / dry skin in lower leg/foot, wrapped in Santosh bandage Problem List Left lower extremity postsurgical wound/infection secondary to noncompliance Chronic bilateral lower extremity DVT with medical noncompliance Diabetes was type VEzkk-jgdsgjj-uddtpuycb Hypertension Tobacco abuse Left lower extremity postsurgical wound/infection secondary to noncompliance: Blood cultures obtained in the emergency department without growth, general surgery consult in place. Patient never followed up with surgery on outpatient basis still had drain present from surgery. discussed importance of follow up. Niece at bedside says he seemed to take care of himself for 1-2 weeks, then stopped continue antibiotics, awaiting cultures general surgery consulted no plans for surgery Recommended antibiotics and topical wound care Chronic bilateral lower extremity DVT with medical noncompliance: Patient reports that he was taking his anticoagulant he was discharged with but stopped a few weeks ago. He was given therapeutic Lovenox in the ED. Continue Lovenox at the time being. Diabetes was type ZQlrt-orlgxzq-emejuegwk: q6h Accu-Chek, sliding scale insulin. Hypertension: Continue home medications Tobacco abuse: Counseled on need for tobacco cessation. VTE: lovenox Code: Full Dispo: home, ~1-2 days Possibly tomorrow if remains afebrile, labs normal security services manager consulted, niece requesting information/help with insurance
[2022-04-24] MEDS ORDERED: CEFEPIME 1 GM/VIAL ONE (20:27)
[2022-04-25 06:11] LABS: Hematocrit 37.2 % (39.6-49.0); MCV 83.7 fL (80-100); MPV 6.8 fL (7.6-11.3); RBC Red Blood Cell Count 4.45 M/uL (4.33-5.43)
[2022-04-25 06:31] LABS: C-Reactive Protein 28.3; Potassium 3.7 mmol/L (3.5-5.1)
[2022-04-25] MEDS: INSULIN -REGULAR HUMAN 50 UNIT/0.5 ML ML SQ SCH ×3 (07:30→15:49)
[2022-04-25] MEDS: CEFEPIME 1 GM in NA CHLORIDE 0.9% 100 ML IV SCH (09:42)
[2022-04-25] MEDS: ENOXAPARIN 80 MG/0.8 ML SQ SCH (09:43)
[2022-04-25] MEDS: SILVER SULFADIAZINE 1% 25 GM TOP SCH (09:45)
[2022-04-25] MEDS: VANCOMYCIN 1.5 GM in NA CHLORIDE 0.9% 500 ML IVPB SCH (10:57)
[2022-04-25 12:51] VITALS: TEMP 96.8
[2022-04-25] MEDS ORDERED: levoFLOXacin 750 MG TAB PO SCH (13:00)
--- NOTE | 2022-04-25 14:16 | EKG ---
Test Date: 2022-04-22 Test Time: 19:52:10 Osteopathic Neurologist: FABRICE MEASUREMENT RESULTS: Intervals: Rate: 86 TX: 140 QRSD: 84 QT: 374 QTc: 447 [place]: P: 30 TX: 140 QRS: 37 T: 51 INTERPRETIVE STATEMENTS: Normal sinus rhythm Normal ECG Compared to ECG 04/22/2022 19:51:08 No significant changes Electronically Signed On 04-25-22 14:14:01 CDT by Ike Nova
--- NOTE | 2022-04-25 16:45 | P.DS ---
Admission Date: 04/22/22 Discharge Date: 04/25/22 Disposition: ROUTINE DISCHARGE Discharge Condition: GOOD Reason for Admission: LLE wound/infection Vital Signs/Physical Exam: Temp Pulse Resp BP Pulse Ox 96.8 F 70 16 163/86 H 100 04/25/22 12:00 04/25/22 12:00 04/25/22 12:00 04/25/22 12:00 04/25/22 12:00 Laboratory Data at Discharge: WBC 5.90 K/uL (4.3-10.9) 04/25/22 05:27 Hgb 12.7 g/dL (13.6-17.9) L D 04/25/22 05:27 Hct 37.2 % (39.6-49.0) L 04/25/22 05:27 Plt Count 216 K/uL (152-406) 04/25/22 05:27 PT 11.8 SECONDS (9.5-12.5) 04/22/22 19:58 INR 1.07 04/22/22 19:58 Sodium 140 mmol/L (136-145) 04/25/22 05:27 Potassium 3.7 mmol/L (3.5-5.1) 04/25/22 05:27 BUN 11 mg/dL (7-18) 04/25/22 05:27 Creatinine 0.63 mg/dL (0.55-1.3) 04/25/22 05:27 Glucose 85 mg/dL (74-106) 04/25/22 05:27 Magnesium 1.8 mg/dL (1.8-2.4) 04/22/22 19:58 Total Bilirubin 0.4 mg/dL (0.2-1.0) 04/24/22 04:50 AST 13 U/L (15-37) L 04/24/22 04:50 ALT 16 U/L (12-78) 04/24/22 04:50 Alkaline Phosphatase 86 U/L (45-117) 04/24/22 04:50 Home Medications: RX: Doxycycline Hyclate 100 mg PO BID 12 Days #24 cap 04/25/22 RX: Silver Sulfadiazine [Silvadene 1% Cream] 1 appl TOP DAILY 14 Days #1 tube 04/25/22 RX: levoFLOXacin [Levaquin*] 750 mg PO DAILY 12 Days #12 tab 04/25/22 New Medications: RX: Doxycycline Hyclate 100 mg PO BID 12 Days #24 cap RX: levoFLOXacin [Levaquin*] 750 mg PO DAILY 12 Days #12 tab RX: Silver Sulfadiazine [Silvadene 1% Cream] 1 appl TOP DAILY 14 Days #1 tube Physician Discharge Instructions: Patient presented with lower extremity pain and redness. Found to have cellulitis of both lower extremities. Patient had not followed up with his general surgeon who performed amputation and still had the SAPNA drain in place. He was empirically treated with IV antibiotics. He did not have a leukocytosis, negative procalcitonin, and remained afebrile. The SAPNA drain and katharina were removed without issue. Cultures were negative. Patient had improvement of his pain. He was deemed stable for discharge home Is to continue doxycycline and Levaquin for 10 days. Continue silvadene for 7 days Advised to follow-up with general surgery in 1-2 weeks. Reviewed and stressed the importance of adhering to these medications and having close follow-up, to minimize the risk of further surgery/amputations. Resume xarelto Followup: NONE,NONE [Primary Care Provider] -
[2022-04-25 17:05] VITALS: BP 180/82
[2022-04-25] MEDS ORDERED: DOXYCYCLINE 100 MG CAP PO SCH (21:00)
--- NOTE | 2022-04-25 21:15 | CON ---
History Of Present Illness: This is a known patient to me from previous admission. The patient is c oming in with left leg cellulitis and right foot cellulitis. The patient denies any chest pain, abdo vonda pain, constipation, diarrhea, like to go home, has longstanding history of tobacco abuse, diabe tic foot wounds requiring BKA on March 16, 2022. The patient denies any other problems at this time . Past Medical History: As per HPI. Social History: Nonsmoker. Nondrinker. Family History: Noncontributory. Medications: Levaquin and doxy. See MAR for other medications. Allergies: NO KNOWN DRUG ALLERGIES. Review of Systems: A 10-point review was performed. Physical Examination: General: This is a 57-year-old male, lying in bed, not in any acute cardiopulmonary distress. Vital Signs: Temperature 96.8, pulse 70, respirations 16, blood pressure 163/86. HEENT: Unremarkable. Neck: Supple. Lungs: Basal crackles. Heart: S1, S2. Regular. Abdomen: Soft, nontender. Bowel sounds present. Extremities: Left leg BKA wound noted with SAPNA drain in place. Right leg with erythematous changes. Laboratory Data: Shows WBC 5.9, hemoglobin 12.7, platelets 216. Chemistry shows sodium 140, potassi um 3.7, chloride 106, bicarb 31, BUN 11, creatinine 0.6, glucose 85. Procalcitonin 0.05. Micro data shows blood cultures no growth. Assessment And Plan: 1.Left below-knee amputation status post nonhealing diabetic foot ulcer. 2.Noncompliance right leg xerosis. Recommend to continue Levaquin for 7 more days. Monitor signs f or infection. No other recommendation. NF/MODL Voice ID: [id number] Report ID: [id number]
== END 2022-04-25 17:49 | disposition home or self-care (01) | DRG 603 ==
LOC: ER 18:14 → 4TH 22:29
PROVIDERS: ADMIT Hospitalist; ATTEND Hospitalist
DX: L03.116 Cellulitis of left lower limb (principal); I82.503 Chronic embolism and thrombosis of unspecified deep veins of lower extremity, bilateral; L03.115 Cellulitis of right lower limb; E11.65 Type 2 diabetes mellitus with hyperglycemia; E11.621 Type 2 diabetes mellitus with foot ulcer; L97.529 Non-pressure chronic ulcer of other part of left foot with unspecified severity; I10 Essential (primary) hypertension; F17.210 Nicotine dependence, cigarettes, uncomplicated; Z79.01 Long term (current) use of anticoagulants; Z91.14 Patient's other noncompliance with medication regimen; Z89.512 Acquired absence of left leg below knee; Z79.899 Other long term (current) drug therapy; Z20.822 Contact with and (suspected) exposure to COVID-19; W01.0XXA Fall on same level from slipping, tripping and stumbling without subsequent striking against object, initial encounter
CPT/HCPCS: 36415; 71045; 80048; 80053; 80076; 80202; 81003; 82947; 83036; 83605; 83735; 83880; 84145; 84484; 85025; 85027; 85610; 86140; 87040; 87811; 93005; 93970; 96361; 96365; 96367; 96372; 96375; 97161; 97530; 99285; J0692; J2270; J2543; J3370; J7030; J7040; J7050

== ENCOUNTER 2022-11-23 17:51 | Inpatient (IN) | payer OTHER ==
--- OUTSIDE RECORDS SUMMARY | 2022-11-23 17:54 | XMS REPORT | Continuity of Care Document ---
:1965 Author Organization [facility] t Address [address] [place] [address] [place] [address] Care Team Providers Name Role Phone Courtney Campbell Primary Care Physician [phone] Problems This patient has no known problems. Allergies, Adverse Reactions, Alerts This patient has no known allergies or adverse reactions. Medications Ordered Filled Start Stop Current Ordering Indication Dosage Frequency Signature Comments Components Source Medication Medication Date Date Medication? Clinician (SIG) Name Name TAKE 2021-07 No CAPSULE BY 0-15 MOUTH TWICE 00:00: DAILY 00 TAKE 2021-07 No TABLET BY 0-15 MOUTH DAILY 00:00: 00 TAKE 2021-07 No CAPSULE BY 0-15 MOUTH TWICE 00:00: DAILY 00 TAKE 2021-07 No TABLET BY 0-15 MOUTH DAILY 00:00: 00 Vital Signs Vital Name Observation Time Observation Value Comments Source BP Systolic 2022-06-04 09:40:00 173 mm[Hg] BP Diastolic 2022-06-04 09:40:00 93 mm[Hg] Weight Measured 2022-06-04 09:40:00 170.00 pounds Height Measured 2022-06-04 09:40:00 69.50 inches Body Temperature 2022-06-04 09:40:00 98.30 degrees Heart Rate 2022-06-04 09:40:00 78.00 /min Respiratory Rate 2022-06-04 09:40:00 16.00 /min Heart Rate 2022-05-12 10:27:00 75.00 /min Respiratory Rate 2022-05-12 10:27:00 18.00 /min BP Systolic 2022-05-12 10:27:00 157 mm[Hg] BP Diastolic 2022-05-12 10:27:00 87 mm[Hg] Weight Measured 2022-05-12 10:27:00 170.00 pounds Height Measured 2022-05-12 10:27:00 69.50 inches Body Temperature 2022-05-12 10:27:00 98.10 degrees BP Systolic 2021-10-05 16:19:00 166 mm[Hg] BP Diastolic 2021-10-05 16:19:00 91 mm[Hg] Weight Measured 2021-10-05 16:19:00 173.20 pounds Height Measured 2021-10-05 16:19:00 69.50 inches Body Temperature 2021-10-05 16:19:00 98.30 degrees Heart Rate 2021-10-05 16:19:00 86.00 /min Respiratory Rate 2021-10-05 16:19:00 16.00 /min BP Systolic 2014-07-26 09:10:00 148 mm[Hg] BP Diastolic 2014-07-26 09:10:00 90 mm[Hg] Weight Measured 2014-07-26 09:10:00 Height Measured 2014-07-26 09:10:00 Body Temperature 2014-07-26 09:10:00 Heart Rate 2014-07-26 09:10:00 Respiratory Rate 2014-07-26 09:10:00 BP Systolic 2014-07-26 08:39:00 141 mm[Hg] BP Diastolic 2014-07-26 08:39:00 92 mm[Hg] Weight Measured 2014-07-26 08:39:00 201.80 pounds Height Measured 2014-07-26 08:39:00 69.50 inches Body Temperature 2014-07-26 08:39:00 98.40 degrees Heart Rate 2014-07-26 08:39:00 88.00 /min Respiratory Rate 2014-07-26 08:39:00 18.00 /min BP Systolic 2014-07-26 08:32:00 141 mm[Hg] BP Diastolic 2014-07-26 08:32:00 92 mm[Hg] Weight Measured 2014-07-26 08:32:00 201.80 pounds Height Measured 2014-07-26 08:32:00 69.50 inches Body Temperature 2014-07-26 08:32:00 98.40 degrees Heart Rate 2014-07-26 08:32:00 88.00 /min Respiratory Rate 2014-07-26 08:32:00 18.00 /min Procedures This patient has no known procedures. Plan of Care Planned Activity Planned Date Details Comments Source Goal Plan of Care Note [code = 52216-3] Goal Plan of Care Note [code = 00059-7] Goal Plan of Care Note [code = 54587-7] Goal Plan of Care Note [code = 41848-5] Goal Plan of Care Note [code = 18951-7] Goal Plan of Care Note [code = 13859-3] Goal Plan of Care Note [code = 35474-6] Goal Plan of Care Note [code = 58961-2] Goal Plan of Care Note [code = 02019-7] Goal Plan of Care Note [code = 46129-1] Goal Plan of Care Note [code = 83562-7] Goal Plan of Care Note [code = 92399-3] Goal Plan of Care Note [code = 23192-9] Goal Plan of Care Note [code = 31493-5] Goal Plan of Care Note [code = 72120-3] Goal Plan of Care Note [code = 60710-1] Goal Plan of Care Note [code = 68140-3] Goal Plan of Care Note [code = 40565-3] Goal Plan of Care Note [code = 84784-1] Goal Plan of Care Note [code = 57051-6] Goal Plan of Care Note [code = 50165-7] Goal Plan of Care Note [code = 14153-4] Encounters Start End Encounter Admission Attending Care Care Encounter Source Date/Time Date/Time Type Type Clinicians Facility Department ID 2022-11-23 2022-11-23 Outpatient SFA SFA [id number] [place] 11:21:31 11:21:31 0503 F [facility] 2022-08-20 2022-08-20 Outpatient SFA SFA [id number] [place] 11:50:43 11:50:43 0128 F [place] 2022-06-04 2022-06-04 Outpatient SFA SFA [id number] [place] 09:36:28 09:36:28 1112 [place] 2022-06-04 2022-06-04 Outpatient [id number] 00:00:00 00:00:00 Visit [id number] 2022-05-12 Outpatient TED [id number] [place] 10:06:19 10:06:19 1020 F Henr[place] 2022-05-12 2022-05-12 Outpatient [id number] 00:00:00 00:00:00 Visit [id number] Results Test Description Test Time Test Comments Results Result Comments Source COMPREHENSIVE METABOLIC PANEL 2022-08-22 00:01:28 Test Item Value Reference Range Interpretation Comme nts GLUCOSE (test code = 2217) 80 MG/DL 70-99 BUN (test code = 2208) 11 MG/DL 6-20 CREATININE (test code = 0.77 MG/DL 0.80-1.40 L 2213) eGFR (2020 CKD-EPI) (test 103 ML/MIN/1.73 >60 code = 92169) CALC BUN/CREAT (test code = 14 RATIO 01-18) SODIUM (test code = 2231) 146 MEQ/L 133-146 POTASSIUM (test code = 2228) 3.7 MEQ/L 3.5-5.4 CHLORIDE (test code = 2215) 104 MEQ/L 95-107 CARBON DIOXIDE (test code = 29 MEQ/L 2205) CALCIUM (test code = 2209) 10.1 MG/DL 8.5-10.5 PROTEIN, TOTAL (test code = 7.4 G/DL 6.1-8.3 2228) ALBUMIN (test code = 2201) 4.6 G/DL 3.5-5.2 CALC GLOBULIN (test code = 2.8 G/DL 1.9-3.7 2239) CALC A/G RATIO (test code = 1.6 RATIO 1.0-2.6 2233) BILIRUBIN, TOTAL (test code 0.6 MG/DL See_Comment [Automated message] The = 2206) system which ge nerated this result transmit anup reference range : <=1.2. The reference range was not used to interpr et this result as ej l/abnormal. ALKALINE PHOSPHATASE (test 84 U/L 40-123 code = 2204) AST (test code = 2218) 14 U/L 9-50 ALT (test code = 2219) 10 U/L 5-50 LIPID [id number] 00:01:28 Test Item Value Reference Range Interpretation Comments CHOLESTEROL (test 151 MG/DL <200 code = 2210) TRIGLYCERIDES (test 90 MG/DL <150 code = 2232) HDL CHOLESTEROL (test 41 MG/DL >39 code = 2220) CALC LDL CHOL (test 92 MG/DL <100 NOTE: C ALCULATED LDL code = 2237) IS BASED ON NOE-OBRIEN METHOD WHICHINCLUDES ADJUSTABLE TRIGLYCERIDE:VL DL CHOLESTEROL RAT IO.THIS FACTOR VARIES B Y MEASURED TRIGLY CERIDE AND NON-HDLCHOL ESTEROL CONCENTRATIONS WITH INCREASED CALCU LATED LDL SEENIN HIGH ER TRIGLYCERIDE OR LOWER NON-HDL SPECIME NS. FOR MOREINFORMATION , SEE CLIENT ANNOUNCE MENT AT [email or web address] LDL/HDL 2.24 RATIO <3.55 (test code = 2238) HEMOGLOBIN [id number] 03:24:54 Test Item Value Reference Range Interpretation Comments HEMOGLOBIN A1c (test 5.4 % 4.2-5.6 UNLESS OTHERWISE code = 23042) INDICATED, ALL TESTING PERFORMED [facility], [facility]. [address] [place] [id number] [place] [address] DIRECTOR: CHUCKY VAZQUEZ M.D. CLIA NUMBER [id number] CAP ACCREDITATION N O. [id number] HEMOGLOBIN [id number] 06:27:45 Test Item Value Reference Range Interpretation Comments HEMOGLOBIN A1c (test code = 10334) 5.0 % 4.2-5.6 COMPREHENSIVE METABOLIC [id number] 05:38:57 Test Item Value Reference Range Interpretation Comments GLUCOSE (test code = 89 MG/DL 70-99 2216) BUN (test code = 11 MG/DL 6-20 2207) CREATININE (test 0.65 MG/DL 0.80-1.40 L code = 2214) eGFR (2020 CKD-EPI) 109 >60 (test code = 45403) ML/MIN/1.73 CALC BUN/CREAT (test 17 RATIO 01-18 code = 2235) SODIUM (test code = 146 MEQ/L 676-467 4451) POTASSIUM (test code 4.5 MEQ/L 3.5-5.4 = 2227) CHLORIDE (test code 106 MEQ/L 95-107 = 2215) CARBON DIOXIDE (test 28 MEQ/L 19-31 code = 220) CALCIUM (test code = 9.6 MG/DL 8.5-10.5 2208) PROTEIN, TOTAL (test 7.8 G/DL 6.1-8.3 code = 222) ALBUMIN (test code = 4.7 G/DL 3.5-5.2 2200) CALC GLOBULIN (test 3.1 G/DL 1.9-3.7 code = 2240) CALC A/G RATIO (test 1.5 RATIO 1.0-2.6 code = 2234) BILIRUBIN, TOTAL 0.5 MG/DL See_Comment [Automated message] (test code = 220) The syste [employer] which generated this result transmit anup reference range : <=1.2. The refe rence range was not u sed to interpret th is result as normal/abnormal . ALKALINE PHOSPHATASE 92 U/L 40-123 (test code = 2203) AST (test code = 18 U/L 9-50 2217) ALT (test code = 16 U/L 5-50 2218) LIPID [id number] 05:38:57 Test Item Value Reference Range Interpretation Comments CHOLESTEROL (test 164 MG/DL <200 code = 2210) TRIGLYCERIDES (test 104 MG/DL <150 code = 2232) HDL CHOLESTEROL (test 43 MG/DL >39 code = 2220) CALC LDL CHOL (test 101 MG/DL <100 H NOTE: C ALCULATED LDL code = 2237) IS BASED ON NOE-OBRIEN METHOD WHICHINCLUDES ADJUSTABLE TRIGLYCERIDE:VL DL CHOLESTEROL RAT IO.THIS FACTOR VARIES B Y MEASURED TRIGLY CERIDE AND NON-HDLCHOL ESTEROL CONCENTRATIONS WITH INCREASED CALCU LATED LDL SEENIN HIGH ER TRIGLYCERIDE OR LOWER NON-HDL SPECIME NS. FOR MOREINFORMATION , SEE CLIENT ANNOUNCE MENT AT [email or web address] [email or web address] [email or web address] LDL/HDL 2.35 RATIO <3.55 (test code = 2238) PROTHROMBIN TIME (PT)2022-05-13 03:24:02 Test Item Value Reference Range Interpretation Comments PROTHROMBIN TIME 13.2 SECONDS 12.5-14.7 (PT) (test code = 1402) INR (test code = 1.0 SEE BELOW CURRENT 10041) RECOMMENDATIONS ARE FOR AN INR OF 2 .0-3.0 FOR ALL PATIENT S ON VITAMIN K ANTAG ONISTS, EXCEPT THOSE WI TH PROSTHETIC HEAR T VALVES, FOR WHO M INR OF 2.5-3.5 IS RECOMMENDED. U NLESS OTHERWISE INDIC ATED, ALL TESTING PER FORMED ATCL[facility]ICAL PATH [facility]LOGY [facility]IES, [facility]. [address] [place] [address] [facility] DIRECTOR: CHUCKY VAZQUEZ M.D. CLIA NUMBER [id number] CAP ACCREDITATION N O. [id number] COMPREHENSIVE METABOLIC [id number] 00:00:00 Test Item Value Reference Range Interpretation Comments GLUCOSE (test code = 2217) 89 MG/DL BUN (test code = 2208) 11 MG/DL CREATININE (test code = 2214) 0.65 MG/DL eGFR (2020 CKD-EPI) (test 109 ML/MIN/1.73 code = 70229) CALC BUN/CREAT (test code = 17 RATIO 2235) SODIUM (test code = 2231) 146 MEQ/L POTASSIUM (test code = 2228) 4.5 MEQ/L CHLORIDE (test code = 2215) 106 MEQ/L CARBON DIOXIDE (test code = 28 MEQ/L 2205) CALCIUM (test code = 2209) 9.6 MG/DL PROTEIN, TOTAL (test code = 7.8 G/DL 222) ALBUMIN (test code = 2201) 4.7 G/DL CALC GLOBULIN (test code = 3.1 G/DL 2240) CALC A/G RATIO (test code = 1.5 RATIO 2234) BILIRUBIN, TOTAL (test code = 0.5 MG/DL 220) ALKALINE PHOSPHATASE (test 92 U/L code = 2204) AST (test code = 2218) 18 U/L ALT (test code = 2219) 16 U/L COMPREHENSIVE METABOLIC [id number] 00:00:00 Test Item Value Reference Range Interpretation Comments GLUCOSE (test code = 2217) 89 MG/DL BUN (test code = 2208) 11 MG/DL CREATININE (test code = 2214) 0.65 MG/DL eGFR (2020 CKD-EPI) (test 109 ML/MIN/1.73 code = 73919) CALC BUN/CREAT (test code = 17 RATIO 2235) SODIUM (test code = 2231) 146 MEQ/L POTASSIUM (test code = 2228) 4.5 MEQ/L CHLORIDE (test code = 2215) 106 MEQ/L CARBON DIOXIDE (test code = 28 MEQ/L 2205) CALCIUM (test code = 2209) 9.6 MG/DL PROTEIN, TOTAL (test code = 7.8 G/DL 2228) ALBUMIN (test code = 2201) 4.7 G/DL CALC GLOBULIN (test code = 3.1 G/DL 2239) CALC A/G RATIO (test code = 1.5 RATIO 2233) BILIRUBIN, TOTAL (test code = 0.5 MG/DL 2206) ALKALINE PHOSPHATASE (test 92 U/L code = 2204) AST (test code = 2218) 18 U/L ALT (test code = 2219) 16 U/L LIPID [id number] 00:00:00 Test Item Value Reference Range Interpretation Comments CHOLESTEROL (test code = 2210) 164 MG/DL TRIGLYCERIDES (test code = 2232) 104 MG/DL HDL CHOLESTEROL (test code = 2220) 43 MG/DL CALC LDL CHOL (test code = 2237) 101 MG/DL RISK RATIO LDL/HDL (test code = 2.35 RATIO 2238) LIPID [id number] 00:00:00 Test Item Value Reference Range Interpretation Comments CHOLESTEROL (test code = 2210) 164 MG/DL TRIGLYCERIDES (test code = 2232) 104 MG/DL HDL CHOLESTEROL (test code = 2220) 43 MG/DL CALC LDL CHOL (test code = 2237) 101 MG/DL RISK RATIO LDL/HDL (test code = 2.35 RATIO 2238) HEMOGLOBIN [id number] 00:00:00 Test Item Value Reference Range Interpretation Comments HEMOGLOBIN A1c (test code = 41363) 5.0 % HEMOGLOBIN [id number] 00:00:00 Test Item Value Reference Range Interpretation Comments HEMOGLOBIN A1c (test code = 57352) 5.0 % HEMOGLOBIN [id number] 00:00:00 Test Item Value Reference Range Interpretation Comments HEMOGLOBIN A1c (test code = 82321) 5.0 % PROTHROMBIN TIME (PT)2022-05-13 00:00:00 Test Item Value Reference Range Interpretation Comments PROTHROMBIN TIME (PT) (test code 13.2 SECONDS = 1402) INR (test code = 67134) 1.0 PROTHROMBIN TIME (PT)2022-05-13 00:00:00 Test Item Value Reference Range Interpretation Comments PROTHROMBIN TIME (PT) (test code 13.2 SECONDS = 1402) INR (test code = 83624) 1.0
[2022-11-23 18:45] LABS: Absolute Lymphocytes (CBC) 2.6 K/uL (0.7-4.9); Hematocrit 44.6 % (39.6-49.0); Lymphocytes % 28.9 % (15.3-44.8); MCV 87.5 fL (80-100); MPV 7.2 fL (7.6-11.3)
[2022-11-23 18:48] LABS: Protime INR 1.22
[2022-11-23 18:59] LABS: Albumin 3.5 g/dL (3.4-5.0); Bilirubin Total 0.3 mg/dL (0.2-1.0); Potassium 3.8 mEq/L (3.5-5.1); Protein, Total 7.4 g/dL (6.4-8.2)
--- NOTE | 2022-11-23 19:10 | RAD REPORT ---
EXAM DESCRIPTION: Elissa Single View11/23/2022 6:49 pm CLINICAL HISTORY: Hypertension/leg swelling COMPARISON: 2021 FINDINGS: The lungs appear clear of acute infiltrate. The heart is normal size IMPRESSION: No acute abnormalities displayed
--- NOTE | 2022-11-23 19:48 | RAD REPORT ---
EXAM DESCRIPTION: USExtrem Venous W Compress Bil11/23/2022 7:27 pm CLINICAL HISTORY: Leg swelling COMPARISON: 2021 FINDINGS: Chronic peripheral thrombus right superficial femoral vein without significant change from prior exam. The vein is compressible. Right common femoral, right popliteal, right greater saphenous and right posterior tibial veins patent Left superficial femoral vein contains acute and chronic thrombus. Portion of the vein is noncompress ible. Acute and chronic thrombus extends into the left popliteal vein Doppler demonstrates good flow. Grayscale, color and spectral analysis performed on all vessels IMPRESSION: Acute and chronic thrombus left superficial femoral and left popliteal veins
--- NOTE | 2022-11-23 19:50 | RAD REPORT ---
EXAM DESCRIPTION: US - Lower Extremity Artery Uni Ltd - 11/23/2022 7:27 pm CLINICAL HISTORY: Leg swelling COMPARISON: 2021 FINDINGS: The right common femoral, superficial femoral and popliteal arteries demonstrate monophasic waveforms The right posterior tibial and dorsalis pedis arteries demonstrate monophasic waveforms No high-grade stenosis/occlusion seen Grayscale, color and spectral analysis performed on all vessels IMPRESSION: Monophasic waveforms throughout the arteries of the right lower extremity may indicate significant ri ght iliac arterial disease
--- NOTE | 2022-11-23 20:54 | RAD REPORT ---
EXAM DESCRIPTION: CT - Chest For Pe Angio - 11/23/2022 8:39 pm CLINICAL HISTORY: Chest pain/DVT COMPARISON: 2021 TECHNIQUE: Dynamically enhanced axial 3 mm thick images of the chest were obtained during administra tion of 100 mL Isovue 370 IV contrast. Coronal and oblique reconstruction images were generated and r eviewed. Exam utilizes a protocol for optimal evaluation of pulmonary arterial tree. Maximum intensity projections 3D imaging was utilized All CT scans are performed using dose optimization technique as appropriate and may include automated exposure control or mA/KV adjustment according to patient size. FINDINGS: A pulmonary embolus is not seen. A thoracic aortic aneurysm is not noted. A pleural effusion is not seen. A pericardial effusion is not seen. A lung consolidation is not present. IMPRESSION: Negative for a pulmonary embolism.
[2022-11-23] MEDS ORDERED: VANCOMYCIN 1 GM/VIAL ONE (21:23)
[2022-11-23] MEDS ORDERED: NA CHLORIDE 0.9% 250 ML ONE (21:23)
--- NOTE | 2022-11-23 21:32 | ER ---
Nurse's Notes 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 Coronavirus screen: At this time, the client does not indicate any symptoms associated with coronavirus-19. Ebola Screen: Patient denies travel to an Ebola-affected area in the 21 days before illness onset. Initial Sepsis Screen: Does the patient meet any 2 criteria? No. Patient's initial sepsis screen is negative. Does the patient have a suspected source of infection? No. Patient's initial sepsis screen is negative. Risk Assessment: Do you want to hurt yourself or someone else? Patient reports no desire to harm self or others. Onset of symptoms was November 2022. 18:00 Acuity: QASIM 3 aa5 18:00 Method Of Arrival: Wheelchair aa5 Historical: - Allergies: 18:00 No Known Allergies; aa5 - PMHx: 18:00 Diabetes - NIDDM; Hypertension; left sided paralysis; stroke; aa5 - PSHx: 18:00 Left BKA; aa5 - Immunization history:: Adult Immunizations unknown. - Social history:: Smoking status: Patient denies any tobacco usage or history of. Screenin:31 [facility] ED Fall Risk Assessment (Adult) History of falling in the last 3 months, aa9 including since admission No falls in past 3 months (0 pts) Confusion or Disorientation No (0 pts) Intoxicated or Sedated No (0 pts) Impaired Gait Yes (1 pt) Mobility Assist Device Used Yes (1 pt) Altered Elimination No (0 pt) Score/Fall Risk Level 3 or more points = High Risk Oriented to surroundings, Maintained a safe environment, Educated pt \T\ family on fall prevention, incl call for assistance when getting out of bed. Abuse screen: Denies threats or abuse. Denies injuries from another. Nutritional screening: No deficits noted. Tuberculosis screening: No symptoms or risk factors identified. Assessment: 18:46 General: Appears in no apparent distress. Behavior is cooperative, appropriate for age. mb9 Pain: Complains of pain in right leg Pain does not radiate. Pain currently is 4 out of 10 on a pain scale. Quality of pain is described as aching, throbbing. Neuro: Level of Consciousness is awake, alert, obeys commands, Oriented to person, place, time, situation, Appropriate for age. Cardiovascular: Patient's skin is warm and dry. Pulses are 1+ in right posterior tibial artery and right dorsalis pedis artery Rhythm is regular. Respiratory: Airway is patent Respiratory effort is even, unlabored, Respiratory pattern is regular, symmetrical, Breath sounds are clear bilaterally. GI: No signs and/or symptoms were reported involving the gastrointestinal system. : No signs and/or symptoms were reported regarding the genitourinary system. Derm: Rash noted that is red, on right foot and right leg. Musculoskeletal: Swelling present in right leg. 19:45 General: Appears in no apparent distress. comfortable, Behavior is calm, cooperative. aa9 Neuro: Level of Consciousness is awake, alert, obeys commands, Oriented to person, place, time, situation. Respiratory: Airway is patent Respiratory effort is even, unlabored. 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 aa9 23:23 Reassessment: Patient appears in no apparent distress at this time. Patient and/or aa9 family updated on plan of care and expected duration. Pain level reassessed. Patient is alert, oriented x 3, equal unlabored respirations, skin warm/dry/pink. Vital Signs: 18:00 BP 142 / 79; Pulse 77; Resp 18 S; Temp 97.9(TE); Pulse Ox 100% on R/A; Weight 77.11 kg aa5 (R); 18:48 BP 131 / 74; Pulse 70; Resp 18; Pulse Ox 100% ; mb9 19:45 BP 122 / 82; Pulse 66; Resp 18 S; Temp 98(O); Pulse Ox 100% ; aa9 ED Course: 17:56 Patient arrived in ED. am2 17:59 Arm band placed on. aa5 18:01 Triage completed. aa5 18:02 [facility] cp 18:02 Jonnathan Conn MD is Attending Physician. cp 18:05 Alia Allen, RN is Primary Nurse. mb9 18:25 First set of blood cultures drawn. EKG done, by ED staff, reviewed by Jonnathan MANNING. mb9 18:34 CBC with Diff Sent. mb9 18:34 CMP Sent. mb9 18:34 Lactate w/ 2H reflex if indic. Sent. mb9 18:34 Protime (+inr) Sent. mb9 18:34 Ptt, Activated Sent. mb9 18:40 Missed attempt(s): 22 gauge in left forearm. Bleeding controlled, band aid applied, mb9 catheter tip intact. 18:47 Placed in gown. Bed in low position. Call light in reach. Side rails up X 1. Client mb9 placed on continuous cardiac and pulse oximetry monitoring. NIBP monitoring applied. events solutions consultant on. 18:48 No provider procedures requiring assistance completed. mb9 18:51 Chest Single View XRAY In Process Unspecified. EDMS 19:01 Second set of blood cultures drawn by me. Inserted saline lock: 22 gauge in left wrist, em1 using aseptic technique. Blood collected. 19:29 US Extremity Venous W Compression Ganesh In Process Unspecified. EDMS 19:29 Lower Extremity Artery Uni Ltd US In Process Unspecified. EDMS 20:17 Vick Scott MD is Attending Physician. cp 20:41 CT Chest For PE Angio In Process Unspecified. EDMS 21:30 Nazia Sullivna PA-C is Hospitalizing Provider. cp 22:02 Jose Manuel Oscar is Hospitalizing Provider. sb4 22:44 Patient admitted, IV remains in place. aa9 Administered Medications: 21:27 Drug: vancoMYCIN IVPB 1 grams Route: IVPB; Infused Over: 2 hrs; Site: left hand; aa9 Medication: 18:47 VIS not applicable for this client. mb9 Outcome: 21:32 Decision to Hospitalize by Provider. cp 22:31 Condition: stable aa9 22:43 Admitted to Med/surg accompanied by tech, room 217, with chart, Report called to johnson lopes 22:43 Instructed on the need for admit. 23:28 Patient left the ED. jb4 Signatures: Dispatcher [employer] EDMS Matias Short em1 Sandie North, RN RN aa5 Jonnathan Julian PA PA cp Jaime Parish RN RN jb4 Delores Sanders am2 Liz Calzada, RN RN aa9 Nazia Sullivan PA-C PA-C sb4 Alia Allen, RN RN mb9
--- NOTE | 2022-11-23 21:32 | EDPHYS ---
Physician Documentation [facility] Name: Jude Grijalva Age: 57 yrs Sex: Male : 1965 Arrival Date: 11/23/2022 Time: 17:51 Bed 8 Private MD: ED Physician Vick Scott HPI: 11/23 18:20 This 57 yrs old Male presents to ER via Wheelchair with complaints of Leg cp Swelling. 18:20 The patient presents with pain, that is acute, swelling, tenderness. The complaints cp affect the right lower leg and right foot. 18:20 Context: resulted from an unknown cause. Onset: The symptoms/episode began/occurred 3 cp day(s) ago. 18:20 Associated signs and symptoms: Pertinent negatives fever, numbness, vomiting, shortness cp of breath, chest pain. Historical: - Allergies: 18:00 No Known Allergies; aa5 - PMHx: 18:00 Diabetes - NIDDM; Hypertension; left sided paralysis; stroke; aa5 - PSHx: 18:00 Left BKA; aa5 - Immunization history:: Adult Immunizations unknown. - Social history:: Smoking status: Patient denies any tobacco usage or history of. ROS: 18:25 Constitutional: Negative for body aches, chills, fever, poor PO intake. cp 18:25 Eyes: Negative for injury, pain, redness, and discharge. cp 18:25 ENT: Negative for drainage from ear(s), ear pain, sore throat, difficulty swallowing, difficulty handling secretions. 18:25 Cardiovascular: Negative for chest pain, palpitations. 18:25 Respiratory: Negative for cough, shortness of breath, wheezing. 18:25 MS/extremity: Positive for swelling, tenderness, of the right foot and right lower leg. cp 18:25 Neuro: Negative for altered mental status, dizziness, headache, weakness. cp 18:25 All other systems are negative. Exam: 18:30 Constitutional: The patient appears in no acute distress, alert, awake, cp non-diaphoretic, non-toxic, well developed, well nourished. 18:30 Head/Face: Normocephalic, atraumatic. cp 18:30 Eyes: Periorbital structures: appear normal, Conjunctiva: normal, no exudate, no injection, Sclera: no appreciated abnormality, Lids and lashes: appear normal, bilaterally. 18:30 ENT: External ear(s): are unremarkable, Nose: is normal, Mouth: Lips: moist, Oral mucosa: pink and intact, moist, Posterior pharynx: is normal, airway is patent, no erythema, no exudate. 18:30 Chest/axilla: Inspection: normal. 18:30 Cardiovascular: Rate: normal, Rhythm: regular. 18:30 Respiratory: the patient does not display signs of respiratory distress, Respirations: normal, no use of accessory muscles, no retractions, labored breathing, is not present, Breath sounds: are clear throughout, no decreased breath sounds, no stridor, no wheezing. 18:30 Abdomen/GI: Inspection: abdomen appears normal, Palpation: abdomen is soft and non-tender, in all quadrants. 18:30 Back: pain, is absent, ROM is normal. 18:30 Musculoskeletal/extremity: Extremities: grossly normal except: noted in the right foot and right lower leg: erythema, swelling, tenderness. 18:30 Neuro: Orientation: to person, place \T\ time. Mentation: is normal. 18:40 ECG was reviewed by the Attending Physician. Vital Signs: 18:00 BP 142 / 79; Pulse 77; Resp 18 S; Temp 97.9(TE); Pulse Ox 100% on R/A; Weight 77.11 kg aa5 (R); 18:48 BP 131 / 74; Pulse 70; Resp 18; Pulse Ox 100% ; mb9 19:45 BP 122 / 82; Pulse 66; Resp 18 S; Temp 98(O); Pulse Ox 100% ; aa9 MDM: 18:03 Patient medically screened. [facility] 21:30 Data reviewed: vital signs, nurses notes, lab test result(s), EKG, radiologic studies, cp CT scan, ultrasound. 21:30 Differential diagnosis: DVT, cellulitis, abscess, sepsis. Consideration of cp Admission/Observation Patient was admitted/placed on observation. Management of patient was discussed with the following: Hospitalist: Clarisse Sullivan NP will admit after discussion. I considered the following discharge prescriptions or medication management in the emergency department Medications were administered in the Emergency Department. See MAR. Historians other than the Patient: Friend: friend of patient assists with HPI and translation. Care significantly affected by the following chronic conditions: Diabetes, Hypertension. 11/23 18:18 Order name: Blood Culture Adult (2); Complete Time: 22:03 cp /03 18:18 Order name: CBC with Diff; Complete Time: 19:25 cp 05/03 19:25 Interpretation: Normal except: MPV 7.2. cp 05/03 18:18 Order name: CMP; Complete Time: 19:25 cp /03 18:18 Order name: Lactate w/ 2H reflex if indic.; Complete Time: 19:25 cp / 18:18 Order name: Protime (+inr); Complete Time: 19:25 cp / 18:18 Order name: Ptt, Activated; Complete Time: 19:25 cp / 18:18 Order name: Urinalysis w/ reflexes cp / 18:18 Order name: Chest Single View XRAY; Complete Time: 19:25 cp /03 18:18 Order name: US Extremity Venous W Compression Ganesh; Complete Time: 19:55 cp 11/23 19:56 Interpretation: Report reviewed. cp 11/23 18:18 Order name: Lower Extremity Artery Uni Ltd US; Complete Time: 19:55 cp 11/23 19:57 Order name: CT Chest For PE Angio; Complete Time: 20:57 cp /03 20:57 Interpretation: Report reviewed. cp 03 18:18 Order name: EKG; Complete Time: 18:19 cp /03 18:18 Order name: Accucheck; Complete Time: 18:33 cp /03 18:18 Order name: Cardiac monitoring; Complete Time: 18:34 cp /03 18:18 Order name: EKG - Nurse/Tech; Complete Time: 18:34 cp 03 18:18 Order name: IV Saline Lock - Large Bore; Complete Time: 18:34 cp 05/03 18:18 Order name: Labs collected and sent; Complete Time: 18:34 cp /03 18:18 Order name: O2 Per Protocol; Complete Time: 18:34 cp 05/03 18:18 Order name: O2 Sat Monitoring; Complete Time: 18:34 cp 05/03 18:18 Order name: Vital Signs; Complete Time: 18:34 cp EC:40 Rate is 69 beats/min. Rhythm is regular. RI interval is normal. QRS interval is normal. cp QT interval is normal. T waves are Inverted in lead aVR. Interpreted by me. Reviewed by me. Administered Medications: 21:27 Drug: vancoMYCIN IVPB 1 grams Route: IVPB; Infused Over: 2 hrs; Site: left hand; aa9 Disposition: 11/24 06:13 Co-signature as Attending Physician, Vick Scott MD I agree with the assessment and kdr plan of care. Disposition Summary: 11/23/22 21:32 Hospitalization Ordered Hospitalization Status: Inpatient Ad[facility] Condition: Stable cp Problem: new cp Symptoms: have improved cp Bed/Room Type: Standard cp Provider: Jose Manuel Oscar(11/23/22 22:02) sb4 Room Assignment: [facility](11/23/22 22:27) Diagnosis - Cellulitis of right lower limb cp - Chronic embolism and thrombosis of other specified deep vein of lower extremity, cp bilateral Forms: - Medication Reconciliation Form cp - SBAR form cp Signatures: Dispatcher [employer] EDJonnathan Jansen MD MD cha Rittger, Kevin, MD MD [facility] Sandie North RN RN aa5 Jonnathan Julian PA PA cp Garcia, Cindy, RN RN cg Liz Calzada RN RN aa9 Nazia Sullivan, PA-C PA-C sb4 Corrections: (The following items were deleted from the chart) 11/23 22:02 21:32 Nazia Sullivan cp sb4 22:27 21:32 cp cg
--- NOTE | 2022-11-23 22:10 | P.HP ---
Certification for Inpatient Patient admitted to: Inpatient With expected LOS: <2 Midnights Patient will require the following post-hospital care: None Practitioner: I am a practitioner with admitting privileges, knowledge of patient current condition, hospital course, and medical plan of care. Services: Services provided to patient in accordance with Admission requirements found in Title 42 Section 412.3 of the Code of Federal Regulations Patient History Date of Service: 11/23/22 Reason for admission: Cellulitus RLE History of Present Illness: Mr. Grijalva is a 57 year old male, primarily Nigerien speaking, with history of diabetes mellitus type 2, chronic bilateral lower extremity DVTs, hypertension, tobacco abuse, and known noncompliance who presented to the emergency department with complaints of right leg swelling and erythema. He went to an outpatient clinic today and was sent to the ED. He states that he has not followed up nor taken any medication since he was discharged from the hospital in April 2022. Right lower extremity is cellulitic. Ultrasound of lower extremities revealed acute and chronic thrombus left superficial femoral and left popliteal veins. He was started on vancomyin in the emergency department. Patient denies any pain. Vital signs stable. ED prior wishes to admit for further evaluation and management of right lower extremity cellulitus and bilateral lower extremity DVTs. Allergies No Known Drug Allergies Allergy (Verified 06/13/19 18:54) Unknown Home medications list reviewed: Yes Home Medications: Doxycycline Hyclate 100 mg PO BID 12 Days #24 cap 04/25/22 Silver Sulfadiazine [Silvadene 1% Cream] 1 appl TOP DAILY 14 Days #1 tube 04/25/22 levoFLOXacin [Levaquin*] 750 mg PO DAILY 12 Days #12 tab 04/25/22 - Past Medical/Surgical History Diabetic: Yes -: DM -: HTN -: Bilateral DVTs -: Medical noncompliance -: CVA -: Left BKA Psychosocial/ Personal History: Patient lives at home with his family - Family History Family History: Reviewed- Non-Contributory - Social History Smoking Status: Current every day smoker Alcohol use: No CD- Drugs: No Caffeine use: Yes Place of Residence: Home Review of Systems Integumentary: Other (right leg swelling and erythema) Physical Examination - Vital Signs Temperature: 98 F Blood Pressure: 122/82 Pulse: 66 Respirations: 18 Pulse Ox (%): 100 - Physical Exam General: Alert, In no apparent distress HEENT: Atraumatic, EOMI, Sclerae nonicteric Neck: Supple, 2+ carotid pulse no bruit Respiratory: Clear to auscultation bilaterally, Normal air movement Cardiovascular: Regular rate/rhythm, Normal S1 S2 Gastrointestinal: Normal bowel sounds, No tenderness Musculoskeletal: No tenderness Integumentary: No rashes Neurological: Normal speech, Sensation intact, Normal affect - Studies Laboratory Data (last 24 hrs) 11/23/22 18:29: PT 13.4 H, INR 1.22, APTT 30.3 11/23/22 18:29: Sodium 138, Potassium 3.8, BUN 10, Creatinine 0.76, Glucose 101, Total Bilirubin 0.3, AST 9 L, ALT 17, Alkaline Phosphatase 88 11/23/22 18:29: WBC 8.80, Hgb 15.0, Hct 44.6, Plt Count 220 Assessment and Plan - Problems (Diagnosis) (1) Cellulitis of right leg Current Visit: Yes Status: Acute (2) Diabetes Current Visit: Yes Status: Chronic Qualifiers: Diabetes mellitus type: type 2 Diabetes mellitus rn long term care insulin use: without jail use Diabetes mellitus complication status: with skin complications Diabetes mellitus complication detail: with other skin complication Qualified Code(s): E11.628 - Type 2 diabetes mellitus with other skin complications (3) Hypertension Current Visit: Yes Status: Chronic Qualifiers: Hypertension type: primary hypertension Qualified Code(s): I10 - Essential (primary) hypertension (4) PAD (peripheral artery disease) Current Visit: Yes Status: Chronic (5) DVT (deep venous thrombosis) Current Visit: Yes Status: Acute Qualifiers: DVT location: lower extremity Affected thrombotic vein of extremity: unspecified vein of extremity Chronicity: chronic Laterality: bilateral Qualified Code(s): I82.503 - Chronic embolism and thrombosis of unspecified deep veins of lower extremity, bilateral - Plan Right lower extremity cellulitus Blood cultures obtained in the emergency department. Continue vancomycin. Lactate and WBC within normal limits. Acute and chronic thrombus left superficial femoral and left popliteal veins Patient is supposed to be taking xarelto but has not had any anticoagulation since his discharge from the hospital in April 2022. Start therapeutic lovenox Diabetes was type [id number] Accu-Chek, sliding scale insulin. Check A1c and lipid panel Hypertension Continue home medications Tobacco abuse Counseled on need for tobacco cessation. Nicoderm patch proivded. Discharge Plan: Home Plan to discharge in: 48 Hours - Advance Directives Does patient have a Living Will: No Does patient have a Durable POA for Healthcare: No - Code Status/Comfort Care Code Status Assessed: Yes Code Status: Full Code Physician Review: Patient Assessed, Agree with Above Assessment and Plan Critical Care: No Time Spent Managing Pts Care (In Minutes): 50
[2022-11-23] MEDS ORDERED: ENOXAPARIN 80 MG/0.8 ML SQ ONE (23:00)
[2022-11-23] MEDS ORDERED: ONDANSETRON 4 MG/2 ML VIAL IV PRN (23:39)
[2022-11-23] MEDS ORDERED: ACETAMINOPHEN 500 MG TAB PO PRN (23:39)
[2022-11-23] MEDS ORDERED: VANCOMYCIN 1 GM in NA CHLORIDE 0.9% 250 ML IVPB SCH (23:39)
[2022-11-24] MEDS: NA CHLORIDE 0.9% 1,000 ML IV SCH ×2 (00:15→12:59)
[2022-11-24 00:45] VITALS: BMI 23.6
[2022-11-24] MEDS ORDERED: VANCOMYCIN 500 MG in NA CHLORIDE 0.9% 100 ML IVPB ONE (03:15)
[2022-11-24 03:54] LABS: Absolute Lymphocytes (CBC) 2.8 K/uL (0.7-4.9); Hematocrit 39.4 % (39.6-49.0); Lymphocytes % 28.7 % (15.3-44.8); MCV 87.8 fL (80-100); MPV 7.9 fL (7.6-11.3); RBC Red Blood Cell Count 4.48 M/uL (4.33-5.43)
[2022-11-24 04:22] LABS: BUN Blood Urea Nitrogen 6 mg/dL (7-18); Bicarbonate 28 mEq/L (21-32); Glomerular Filtration Rate 106 ml/min (=/>90); Glucose Level 104 mg/dL (74-106); HDL Cholesterol 33 mg/dL (40-60); LDL Cholesterol, Calculated 59 mg/dL (<130); Magnesium 1.8 mg/dL (1.6-2.4); Phosphorus 3.1 mg/dL (2.5-4.9); Potassium 3.3 mEq/L (3.5-5.1); Sodium Level 137 mEq/L (136-145)
[2022-11-24 04:24] LABS: C-Reactive Protein < 2.90 mg/L (<3.00)
[2022-11-24 04:39] LABS: Specific Gravity > 1.030 (1.005-1.030); Urine Bilirubin NEGATIVE (Negative); Urine Blood Negative (Negative); Urine Clarity Clear (Clear); Urine Color Light-Yellow (Yellow); Urine Glucose NEGATIVE (Negative); Urine Protein NEGATIVE (Negative); Urine Urobilinogen Normal (Normal); Urine pH 6.5 (5.0-7.0)
[2022-11-24] MEDS ORDERED: MAGNESIUM SULFATE 1 gm IVPB 1 GM/100 ML BAG IV ONE (05:00)
[2022-11-24] MEDS: INSULIN -REGULAR HUMAN 50 UNIT/0.5 ML ML SQ SCH ×4 (07:30→21:00)
--- NOTE | 2022-11-24 07:50 | EKG ---
Test Date: 2022-11-23 Test Time: 18:33:54 Can Closing Machine Operator: AYLA MEASUREMENT RESULTS: Intervals: Rate: 69 PA: 162 QRSD: 94 QT: 384 QTc: 411 [place]: P: 49 PA: 162 QRS: 15 T: 50 INTERPRETIVE STATEMENTS: Normal sinus rhythm Normal ECG Compared to ECG 04/22/2022 19:52:10 No significant changes Electronically Signed On 11-24-22 07:49:37 CDT by Randall Tubbs
[2022-11-24] MEDS: ENOXAPARIN 80 MG/0.8 ML SQ SCH ×2 (08:30→22:16)
[2022-11-24] MEDS ORDERED: POTASSIUM CL SA 10 MEQ TAB PO ONE (09:00)
[2022-11-24] MEDS ORDERED: VANCOMYCIN 1.5 GM in NA CHLORIDE 0.9% 500 ML IVPB SCH ×4 (15:00)
[2022-11-24] MEDS: WARFARIN SODIUM 5 MG TAB PO SCH (17:32)
--- NOTE | 2022-11-24 17:33 | P.PN ---
Subjective Date of Service: 11/24/22 Chief Complaint: Cellulitus RLE Patient is Italian-speaking. He denies any complain. He denies any pain in the right leg. Erythema and swelling completely resolved. Physical Examination - Vital Signs Temperature: 97.0 F Blood Pressure: 139/79 Pulse: 74 Respirations: 16 Pulse Ox (%): 100 - Studies Laboratory Data (last 24 hrs) 11/23/22 18:29: PT 13.4 H, INR 1.22, APTT 30.3 11/23/22 18:29: Sodium 138, Potassium 3.8, BUN 10, Creatinine 0.76, Glucose 101, Total Bilirubin 0.3, AST 9 L, ALT 17, Alkaline Phosphatase 88 11/23/22 18:29: WBC 8.80, Hgb 15.0, Hct 44.6, Plt Count 220 Assessment And Plan - Current Problems (Diagnosis) (1) DVT (deep venous thrombosis) Current Visit: Yes Status: Acute Qualifiers: DVT location: lower extremity Affected thrombotic vein of extremity: unspecified vein of extremity Chronicity: chronic Laterality: bilateral Qualified Code(s): I82.503 - Chronic embolism and thrombosis of unspecified deep veins of lower extremity, bilateral (2) Diabetes Current Visit: Yes Status: Chronic Qualifiers: Diabetes mellitus type: type 2 Diabetes mellitus watermelon inspector insulin use: without watermelon inspector use Diabetes mellitus complication status: with skin complications Diabetes mellitus complication detail: with other skin complication Qualified Code(s): E11.628 - Type 2 diabetes mellitus with other skin complications (3) Hypertension Current Visit: Yes Status: Chronic Qualifiers: Hypertension type: primary hypertension Qualified Code(s): I10 - Essential (primary) hypertension (4) PAD (peripheral artery disease) Current Visit: Yes Status: Chronic - Plan Physical Exam General: Alert, In no apparent distress HEENT: Atraumatic, EOMI, Sclerae nonicteric Neck: Supple, 2+ carotid pulse no bruit Respiratory: Clear to auscultation bilaterally, Normal air movement Cardiovascular: Regular rate/rhythm, Normal S1 S2 Gastrointestinal: Normal bowel sounds, No tenderness Musculoskeletal: No tenderness, right lower extremity erythema resolved, no swelling, not warm to touch, left BKA Integumentary: No rashes Neurological: Normal speech, Sensation intact, Normal affect Plan: I doubt patient has cellulitis. Discontinue antibiotic. Erythema and swelling likely related to the DVT. Patient with noncompliance issues. He is not insured. Family member stated patient was able to fill the Eliquis which was prescribed previously for DVT but patient did not take it. He is waiting to apply for Medicaid. Continue full dose Lovenox. Start warfarin and monitor PT/INR daily. Patient will need close monitoring as outpatient given his noncompliance issues Insulin sliding scale for glucose management. Continue other home medications. Physician Review: Patient Assessed, Agree with Above Assessment and Plan
[2022-11-25] MEDS: NA CHLORIDE 0.9% 1,000 ML IV SCH ×2 (02:29→15:53)
[2022-11-25 03:35] LABS: Absolute Lymphocytes (CBC) 2.6 K/uL (0.7-4.9); Hematocrit 40.8 % (39.6-49.0); Lymphocytes % 27.6 % (15.3-44.8); MCV 86.4 fL (80-100); MPV 7.8 fL (7.6-11.3); Protime INR 1.13; RBC Red Blood Cell Count 4.72 M/uL (4.33-5.43)
[2022-11-25 03:42] LABS: Magnesium 1.9 mg/dL (1.6-2.4); Potassium 3.8 mEq/L (3.5-5.1)
[2022-11-25] MEDS ORDERED: POTASSIUM CL SA 10 MEQ TAB PO ONE (04:45)
[2022-11-25] MEDS: INSULIN -REGULAR HUMAN 50 UNIT/0.5 ML ML SQ SCH ×4 (07:30→20:28)
[2022-11-25] MEDS: ENOXAPARIN 80 MG/0.8 ML SQ SCH ×2 (08:15→20:26)
--- NOTE | 2022-11-25 14:07 | P.PN ---
Subjective Date of Service: 11/25/22 Chief Complaint: Cellulitus RLE Patient is Kinyarw[place]-speaking. He denies any complain. He denies any pain in the right leg and wants to go home. Physical Examination - Vital Signs Temperature: 97.5 F Blood Pressure: 154/86 Pulse: 71 Respirations: 16 Pulse Ox (%): 100 Assessment And Plan - Current Problems (Diagnosis) (1) DVT (deep venous thrombosis) Current Visit: Yes Status: Acute Qualifiers: DVT location: lower extremity Affected thrombotic vein of extremity: unspecified vein of extremity Chronicity: chronic Laterality: bilateral Qualified Code(s): I82.503 - Chronic embolism and thrombosis of unspecified deep veins of lower extremity, bilateral (2) Diabetes Current Visit: Yes Status: Chronic Qualifiers: Diabetes mellitus type: type 2 Diabetes mellitus mid level game designer insulin use: without intermediate use Diabetes mellitus complication status: with skin complications Diabetes mellitus complication detail: with other skin complication Qualified Code(s): E11.628 - Type 2 diabetes mellitus with other skin complications (3) Hypertension Current Visit: Yes Status: Chronic Qualifiers: Hypertension type: primary hypertension Qualified Code(s): I10 - Essential (primary) hypertension (4) PAD (peripheral artery disease) Current Visit: Yes Status: Chronic - Plan Physical Exam General: Alert, In no apparent distress Respiratory: Clear to auscultation bilaterally, Normal air movement Cardiovascular: Regular rate/rhythm, Normal S1 S2 Gastrointestinal: Normal bowel sounds, No tenderness Musculoskeletal: No tenderness, right lower extremity erythema resolved, no swelling, not warm to touch, left BKA Integumentary: No rashes Neurological: Normal speech, Sensation intact, Normal affect Plan: No cellulitis. Off vancomycin. Erythema and swelling likely related to the DVT. Erythema and swelling resolved Patient with noncompliance issues. He is not insured. Family member stated patient was able to fill the Eliquis which was prescribed previously for DVT but patient did not take it. She mentioned patient has 2 weeks of Eliquis supply but no potential refills He is waiting to apply for Medicaid. Continue full dose Lovenox and warfarin. Monitor PT/INR daily. Patient will need close monitoring as outpatient given his noncompliance issues. He plans to use [facility] for INR monitoring Insulin sliding scale for glucose management. Continue other home medications.
[2022-11-25] MEDS: WARFARIN SODIUM 5 MG TAB PO SCH (17:31)
[2022-11-25 22:08] VITALS: O2SAT 99
[2022-11-26] MEDS: NA CHLORIDE 0.9% 1,000 ML IV SCH (05:09)
[2022-11-26 06:58] LABS: Protime INR 2.28
[2022-11-26 07:19] LABS: Albumin 3.3 g/dL (3.4-5.0); Bilirubin Total 0.2 mg/dL (0.2-1.0); Potassium 3.6 mEq/L (3.5-5.1); Protein, Total 6.9 g/dL (6.4-8.2)
[2022-11-26] MEDS: INSULIN -REGULAR HUMAN 50 UNIT/0.5 ML ML SQ SCH ×4 (07:30→20:55)
[2022-11-26] MEDS ORDERED: POTASSIUM CL SA 10 MEQ TAB PO ONE (09:00)
[2022-11-26] MEDS: ENOXAPARIN 80 MG/0.8 ML SQ SCH (09:03)
--- NOTE | 2022-11-26 16:47 | P.PN ---
Subjective Date of Service: 11/26/22 Chief Complaint: Cellulitus RLE He denies any complain. Physical Examination - Vital Signs Temperature: 97.3 F Blood Pressure: 136/74 Pulse: 71 Respirations: 16 Pulse Ox (%): 100 Assessment And Plan - Current Problems (Diagnosis) (1) DVT (deep venous thrombosis) Current Visit: Yes Status: Acute Qualifiers: DVT location: lower extremity Affected thrombotic vein of extremity: unspecified vein of extremity Chronicity: chronic Laterality: bilateral Qualified Code(s): I82.503 - Chronic embolism and thrombosis of unspecified deep veins of lower extremity, bilateral (2) Diabetes Current Visit: Yes Status: Chronic Qualifiers: Diabetes mellitus type: type 2 Diabetes mellitus fpc insulin use: without exterminator helper use Diabetes mellitus complication status: with skin complications Diabetes mellitus complication detail: with other skin complication Qualified Code(s): E11.628 - Type 2 diabetes mellitus with other skin complications (3) Hypertension Current Visit: Yes Status: Chronic Qualifiers: Hypertension type: primary hypertension Qualified Code(s): I10 - Essential (primary) hypertension (4) PAD (peripheral artery disease) Current Visit: Yes Status: Chronic - Plan Physical Exam General: Alert, In no apparent distress Respiratory: Clear to auscultation bilaterally, Normal air movement Cardiovascular: Regular rate/rhythm, Normal S1 S2 Gastrointestinal: Normal bowel sounds, No tenderness Musculoskeletal: No tenderness, right lower extremity erythema resolved, no swelling, not warm to touch, left BKA Integumentary: No rashes Neurological: Normal speech, Sensation intact, Normal affect Plan: No cellulitis. Off vancomycin. Erythema and swelling likely related to the DVT. Erythema and swelling resolved Patient with noncompliance issues. He is not insured. Family member stated patient was able to fill the Eliquis which was prescribed previously for DVT but patient did not take it. She mentioned patient has 2 weeks of Eliquis supply but no potential refills He is waiting to apply for Medicaid. INR is now therapeutic. Discontinue full dose Lovenox Warfarin dose reduced to 5 mg daily Check INR tomorrow and discharge if INR is stable. Patient will need close monitoring as outpatient given his noncompliance issues. He plans to use [facility] for INR monitoring Insulin sliding scale for glucose management. Continue other home medications.
[2022-11-26] MEDS ORDERED: WARFARIN SODIUM 5 MG TAB PO SCH (17:00)
[2022-11-27 03:29] LABS: Protime INR 3.58
[2022-11-27] MEDS: INSULIN -REGULAR HUMAN 50 UNIT/0.5 ML ML SQ SCH (07:30)
[2022-11-27 09:04] VITALS: BP 119/81; TEMP 97.3
--- NOTE | 2022-11-27 14:18 | P.DS ---
Admission Date: 11/23/22 Discharge Date: 11/27/22 Disposition: AMA-LEFT AGAINST MEDICAL ADVIC Reason for Admission: Cellulitus RLE - Problems (1) DVT (deep venous thrombosis) Status: Acute Qualifiers: DVT location: lower extremity Affected thrombotic vein of extremity: unspecified vein of extremity Chronicity: chronic Laterality: bilateral Qualified Code(s): I82.503 - Chronic embolism and thrombosis of unspecified deep veins of lower extremity, bilateral (2) Diabetes Status: Chronic Qualifiers: Diabetes mellitus type: type 2 Diabetes mellitus exterminator insulin use: without halfway use Diabetes mellitus complication status: with skin complications Diabetes mellitus complication detail: with other skin complication Qualified Code(s): E11.628 - Type 2 diabetes mellitus with other skin complications (3) Hypertension Status: Chronic Qualifiers: Hypertension type: primary hypertension Qualified Code(s): I10 - Essential (primary) hypertension (4) PAD (peripheral artery disease) Status: Chronic Brief History of Present Illness: Mr. Grijalva is a 57 year old male, primarily German speaking, with history of diabetes mellitus type 2, chronic bilateral lower extremity DVTs, hypertension, tobacco abuse, and known noncompliance who presented to the emergency department with complaints of right leg swelling and erythema. He went to an outpatient clinic and was sent to the ED. He states that he did not followed up nor taken any medication since he was discharged from the hospital in April 2022. Right lower extremity is cellulitic. Ultrasound of lower extremities revealed acute and chronic thrombus left superficial femoral and left popliteal veins. He was started on vancomyin in the emergency department. Patient denied any pain. Vital signs stable. Patient admitted for further evaluation and management of right lower extremity cellulitus and bilateral lower extremity DVTs. Hospital Course: No cellulitis. Vancomycin stopped.. Erythema and swelling likely related to the DVT. Erythema and swelling resolved Patient with noncompliance issues. He is not insured. Family member stated [facility] prescribed him Eliquis for DVT. He stated he stopped taking it because someone told him it is not a good medication. jewelry technician mentioned patient has 2 weeks of Eliquis supply left. He is waiting to apply for Medicaid. He was started on Warfarin and full dose lovenox INR became slightly supratherapeutic (3.58). Discontinue full dose Lovenox. Warfarin dose decreased to 5 mg yesterday. Plan was to continue INR monitoring until it stabilizes because of concern for further increase. Patient stated he will not wait for another day and signed out AGAINST MEDICAL ADVICE. He mentioned he has the option of follow-up with [facility] to refill his Eliquis once he runs out. I also gave him a prescription to check his INR within 2 days to make sure it is stable, then consider prescribing him warfarin if he would like to use warfarin instead of Eliquis. He stated he will utilize [facility] for INR monitoring if he chooses warfarin. Vital Signs/Physical Exam: Temp Pulse Resp BP Pulse Ox 97.3 F 75 16 119/81 100 11/27/22 08:00 11/27/22 08:00 11/27/22 08:00 11/27/22 08:00 11/27/22 08:00 Laboratory Data at Discharge: WBC 9.50 thou/uL (4.3-10.9) 11/25/22 03:03 Hgb 13.8 g/dL (13.6-17.9) 11/25/22 03:03 Hct 40.8 % (39.6-49.0) 11/25/22 03:03 Plt Count 189 thou/uL (152-406) 11/25/22 03:03 PT 39.4 SECONDS (9.5-12.5) H 11/27/22 03:09 INR 3.58 11/27/22 03:09 APTT 30.3 SECONDS (24.3-36.9) 11/23/22 18:29 Sodium 139 mEq/L (136-145) 11/26/22 06:42 Potassium 4.2 mEq/L (3.5-5.1) D 11/27/22 03:09 BUN 7 mg/dL (7-18) 11/26/22 06:42 Creatinine 0.56 mg/dL (0.70-1.30) L 11/26/22 06:42 Glucose 86 mg/dL (74-106) 11/26/22 06:42 Phosphorus 3.1 mg/dL (2.5-4.9) 11/24/22 02:15 Magnesium 1.9 mg/dL (1.6-2.4) 11/25/22 03:03 Total Bilirubin 0.2 mg/dL (0.2-1.0) 11/26/22 06:42 AST 14 U/L (15-37) L 11/26/22 06:42 ALT 15 U/L (16-61) L 11/26/22 06:42 Alkaline Phosphatase 80 U/L (45-117) 11/26/22 06:42 Triglycerides 43 mg/dL (<150) 11/24/22 02:15 Cholesterol 101 mg/dL (<200) 11/24/22 02:15 HDL Cholesterol 33 mg/dL (40-60) L 11/24/22 02:15 Cholesterol/HDL Ratio 3.06 11/24/22 02:15 Home Medications: Doxycycline Hyclate 100 mg PO BID 12 Days #24 cap 04/25/22 Silver Sulfadiazine [Silvadene 1% Cream] 1 appl TOP DAILY 14 Days #1 tube 04/25/22 levoFLOXacin [Levaquin*] 750 mg PO DAILY 12 Days #12 tab 04/25/22 Followup: NONE,NONE [Primary Care Provider] -
== END 2022-11-27 09:55 | disposition left against medical advice (07) | DRG 301 ==
LOC: ER 17:51 → ERHOLD 22:02 → 2ND 23:03
PROVIDERS: ADMIT Internal Medicine; ATTEND Internal Medicine
DX: I82.412 Acute embolism and thrombosis of left femoral vein (principal); I82.432 Acute embolism and thrombosis of left popliteal vein; I10 Essential (primary) hypertension; E11.628 Type 2 diabetes mellitus with other skin complications; E11.51 Type 2 diabetes mellitus with diabetic peripheral angiopathy without gangrene; F17.200 Nicotine dependence, unspecified, uncomplicated; T45.516A Underdosing of anticoagulants, initial encounter; Z86.73 Personal history of transient ischemic attack (TIA), and cerebral infarction without residual deficits; Z53.29 Procedure and treatment not carried out because of patient's decision for other reasons; Z91.128 Patient's intentional underdosing of medication regimen for other reason; Z91.199 Patient's noncompliance with other medical treatment and regimen due to unspecified reason; Z89.512 Acquired absence of left leg below knee; Z91.148 Patient's other noncompliance with medication regimen for other reason; Z79.899 Other long term (current) drug therapy
CPT/HCPCS: 36415; 71045; 71275; 80048; 80053; 80061; 81003; 82947; 83036; 83605; 83735; 84100; 84132; 84145; 85025; 85610; 85730; 86140; 87040; 93005; 93926; 93970; 96374; 99285; J3475; J7030; J7040; J7050; Q9967

== ENCOUNTER 2023-01-15 11:43 | Emergency (ER) | payer OTHER, SELFPAY ==
--- OUTSIDE RECORDS SUMMARY | 2023-01-15 11:46 | XMS REPORT | Continuity of Care Document ---
:1965 Author Organization [facility] t Address [address] [place] [address] [place] [id number] Care Team Providers Name Role Phone Courtney Campbell Primary Care Physician [phone] Problems This patient has no known problems. [...] Goal Plan of Care Note [code = 03729-3] Goal Plan of Care Note [code = 31630-8] Goal Plan of Care Note [code = 46132-9] Goal Plan of Care Note [code = 48309-8] Goal Plan of Care Note [code = 19730-8] Goal Plan of Care Note [code = 03832-5] Goal Plan of Care Note [code = 68993-5] Goal Plan of Care Note [code = 52892-5] Goal Plan of Care Note [code = 80831-4] Goal Plan of Care Note [code = 50089-5] Goal Plan of Care Note [code = 55151-2] Goal Plan of Care Note [code = 65198-3] Goal Plan of Care Note [code = 23458-9] Goal Plan of Care Note [code = 05938-6] Goal Plan of Care Note [code = 16748-6] Goal Plan of Care Note [code = 52702-1] Goal Plan of Care Note [code = 81240-9] Goal Plan of Care Note [code = 42898-1] Goal Plan of Care Note [code = 35802-0] Goal Plan of Care Note [code = 10992-8] Goal Plan of Care Note [code = 18240-1] Goal Plan of Care Note [code = 83139-5] Encounters Start End Encounter Admission Attending Care Care Encounter Source Date/Time Date/Time Type Type Clinicians Facility Department ID 2022-11-23 2022-11-23 Outpatient SFA SFA [id number] Elmer 11:21:31 11:21:31 0503 F Henrry 2022-08-20 2022-08-20 Outpatient SFA SFA [id number] Elmer 11:50:43 11:50:43 0128 F Henrry 2022-06-04 2022-06-04 Outpatient SFA SFA [id number] Elmer 09:36:28 09:36:28 1112 F Mcbrides 2022-06-04 2022-06-04 Outpatient [id number] 00:00:00 00:00:00 Visit [id number] 1454-10-20 2022-05-12 Outpatient [facility] [id number] Elmer 10:06:19 10:06:19 1020 F Henrry 2022-05-12 2022-05-12 Outpatient [id number] 00:00:00 00:00:00 Visit [id number] Results Test Description Test Time Test Comments Results Result Comments Source COMPREHENSIVE METABOLIC PANEL 2022-08-22 00:01:28 Test Item Value Reference Range Interpretation Comme nts GLUCOSE (test code = 2217) 80 MG/DL 70-99 BUN (test code = 2208) 11 MG/DL 6-20 CREATININE (test code = 0.77 MG/DL 0.80-1.40 L 2213) eGFR (2020 CKD-EPI) (test 103 ML/MIN/1.73 >60 code = 46879) CALC BUN/CREAT (test code = 14 RATIO [...] code = 2219) 10 U/L 5-50 LIPID [id number] 00:01:28 Test Item Value Reference Range Interpretation [...] MOREINFORMATION , SEE CLIENT ANNOUNCE MENT AT [email or web address] LDL/HDL 2.24 RATIO <3.55 (test code = 2238) HEMOGLOBIN [id number] 03:24:54 Test Item Value Reference Range Interpretation Comments HEMOGLOBIN A1c (test 5.4 % 4.2-5.6 UNLESS OTHERWISE code = 49184) INDICATED, ALL TESTING PERFORMED [facility] NICAL PATHOLOGY [facility], [facility]. [address] [place] [id number] [place] [address] DIRECTOR: CHUCKY VAZQUEZ M.D. CLIA NUMBER [id number] CAP ACCREDITATION N O. [id number] HEMOGLOBIN [id number] 06:27:45 Test Item Value Reference Range Interpretation Comments HEMOGLOBIN A1c (test code = 84761) 5.0 % 4.2-5.6 LIPID [id number] 05:38:57 Test Item Value Reference Range Interpretation [...] MOREINFORMATION , SEE CLIENT ANNOUNCE MENT AT [email or web address] LDL/HDL 2.35 RATIO <3.55 (test code = 2237) COMPREHENSIVE METABOLIC [id number] 05:38:57 Test Item Value Reference Range Interpretation Comments GLUCOSE (test code = 89 MG/DL 70-99 2216) BUN (test code = 11 MG/DL 6-20 2207) CREATININE (test 0.65 MG/DL 0.80-1.40 L code = 221) eGFR (2020 CKD-EPI) 109 >60 (test code = 12856) ML/MIN/1.73 CALC BUN/CREAT (test 17 RATIO 6-28 code = 2235) SODIUM (test code = 146 MEQ/L 427-012 3305) POTASSIUM (test code 4.5 MEQ/L 3.5-5.4 = 2227) CHLORIDE (test code 106 MEQ/L 95-107 = 2214) CARBON DIOXIDE (test 28 MEQ/L 19-31 code = 220) CALCIUM (test code = 9.6 MG/DL 8.5-10.5 2208) PROTEIN, TOTAL (test 7.8 G/DL 6.1-8.3 code = 222) ALBUMIN (test code = 4.7 G/DL 3.5-5.2 2200) CALC GLOBULIN (test 3.1 G/DL 1.9-3.7 code = 2240) CALC A/G RATIO (test 1.5 RATIO 1.0-2.6 code = 223) BILIRUBIN, TOTAL 0.5 MG/DL See_Comment [Automated message] (test code = 2207) The syste m which generated this result transmit anup reference range : <=1.2. The refe rence range was not u sed to interpret th is result as normal/abnormal . ALKALINE PHOSPHATASE 92 U/L 40-123 (test code = 2203) AST (test code = 18 U/L 9-50 2217) ALT (test code = 16 U/L 5-50 2218) PROTHROMBIN TIME (PT)2022-05-13 03:24:02 Test Item Value Reference Range Interpretation Comments PROTHROMBIN TIME 13.2 SECONDS 12.5-14.7 (PT) (test code = 1402) INR (test code = 1.0 SEE BELOW CURRENT 34193) RECOMMENDATIONS ARE FOR AN INR OF 2 .0-3.0 FOR ALL PATIENT S ON VITAMIN K ANTAG ONISTS, EXCEPT THOSE WI TH PROSTHETIC HEAR T VALVES, FOR WHO M INR OF 2.5-3.5 IS RECOMMENDED. U NLESS OTHERWISE INDIC ATED, ALL TESTING PER FORMED ATCLINICAL PATH [facility]LOGY LAB[facility]ATORIES, [facility]. [address] [place] [address] [facility] DIRECTOR: CHUCKY VAZQUEZ M.D. CLIA NUMBER [id number] CAP ACCREDITATION N O. [id number] COMPREHENSIVE METABOLIC [id number] 00:00:00 Test Item Value Reference Range Interpretation Comments GLUCOSE (test code = 2217) 89 MG/DL BUN (test code = 2208) 11 MG/DL CREATININE (test code = 2214) 0.65 MG/DL eGFR (2020 CKD-EPI) (test 109 ML/MIN/1.73 code = 01881) CALC BUN/CREAT (test code = 17 RATIO [...] code = 2219) 16 U/L COMPREHENSIVE METABOLIC [id number] 00:00:00 Test Item Value Reference Range Interpretation Comments GLUCOSE (test code = 2217) 89 MG/DL BUN (test code = 2208) 11 MG/DL CREATININE (test code = 2214) 0.65 MG/DL eGFR (2020 CKD-EPI) (test 109 ML/MIN/1.73 code = 36242) CALC BUN/CREAT (test code = 17 RATIO [...] (test code = 2219) 16 U/L LIPID [id number] 00:00:00 Test Item Value Reference Range Interpretation Comments CHOLESTEROL (test code = 2210) 164 MG/DL TRIGLYCERIDES (test code = 2232) 104 MG/DL HDL CHOLESTEROL (test code = 2220) 43 MG/DL CALC LDL CHOL (test code = 2237) 101 MG/DL RISK RATIO LDL/HDL (test code = 2.35 RATIO 2238) LIPID [id number] 00:00:00 Test Item Value Reference Range Interpretation Comments CHOLESTEROL (test code = 2210) 164 MG/DL TRIGLYCERIDES (test code = 2232) 104 MG/DL HDL CHOLESTEROL (test code = 2220) 43 MG/DL CALC LDL CHOL (test code = 2237) 101 MG/DL RISK RATIO LDL/HDL (test code = 2.35 RATIO 2238) HEMOGLOBIN [id number] 00:00:00 Test Item Value Reference Range Interpretation Comments HEMOGLOBIN A1c (test code = 73740) 5.0 % HEMOGLOBIN [id number] 00:00:00 Test Item Value Reference Range Interpretation Comments HEMOGLOBIN A1c (test code = 34235) 5.0 % HEMOGLOBIN [id number] 00:00:00 Test Item Value Reference Range Interpretation Comments HEMOGLOBIN A1c (test code = 04744) 5.0 % PROTHROMBIN TIME (PT)2022-05-13 00:00:00 Test Item Value Reference Range Interpretation Comments PROTHROMBIN TIME (PT) (test code 13.2 SECONDS = 1402) INR (test code = 34342) 1.0 PROTHROMBIN TIME (PT)2022-05-13 00:00:00 Test Item Value Reference Range Interpretation Comments PROTHROMBIN TIME (PT) (test code 13.2 SECONDS = 1402) INR (test code = 55443) 1.0
[2023-01-15 12:32] LABS: Absolute Lymphocytes (CBC) 2.4 K/uL (0.7-4.9); Hematocrit 48.1 % (39.6-49.0); Lymphocytes % 23.4 % (15.3-44.8); MCV 88.5 fL (80-100); MPV 7.5 fL (7.6-11.3); RBC Red Blood Cell Count 5.44 M/uL (4.33-5.43)
[2023-01-15 12:39] LABS: Protime INR 0.98
--- NOTE | 2023-01-15 12:40 | RAD REPORT ---
EXAM DESCRIPTION: RAD - Chest Single View - 01/15/2023 12:34 pm CLINICAL HISTORY: SWELLING Chest pain. COMPARISON: Chest Single View dated 11/23/2022; Chest Single View dated 04/22/2022; Chest Single View d ated 03/08/2022; Chest Single View dated 02/11/2022 FINDINGS: Portable technique limits examination quality. Mild interstitial pulmonary edema. The heart is upper limit of normal. No displaced fractures. IMPRESSION: Mild CHF.
[2023-01-15 12:49] LABS: Albumin 3.4 g/dL (3.4-5.0); Bilirubin Total 0.3 mg/dL (0.2-1.0); Potassium 3.6 mEq/L (3.5-5.1); Protein, Total 7.7 g/dL (6.4-8.2)
--- NOTE | 2023-01-15 14:30 | RAD REPORT ---
EXAM DESCRIPTION: US - Extremity Venous Uni Ltd - 01/15/2023 2:22 pm CLINICAL HISTORY: Swelling;Numbness/tingling Leg swelling and edema. COMPARISON: Extrem Venous W Compress Ganesh dated 11/23/2022 FINDINGS: Right lower extremity venous system was interrogated with Doppler technique. Normal flow, compressibility and augmentation was noted. There is no DVT present. IMPRESSION: No evidence of right lower extremity deep venous thrombosis.
--- NOTE | 2023-01-15 14:32 | RAD REPORT ---
EXAM DESCRIPTION: US - Lower Extremity Artery Uni Ltd - 01/15/2023 2:22 pm CLINICAL HISTORY: Numbness/tingling;Swelling Pain and swelling COMPARISON: Lower Extremity Artery Uni Ltd dated 11/23/2022 FINDINGS: Right lower extremity arterial sonography was performed. Right common femoral artery, supe rficial femoral artery, popliteal artery demonstrate triphasic waveforms. Right SILK SCREEN CUTTER and dorsalis pedi s are monophasic. No occlusion. IMPRESSION: Moderate peripheral vascular disease right lower extremity infrapopliteal vessels.
--- NOTE | 2023-01-15 14:36 | EDPHYS ---
Physician Documentation [facility] Name: Jude Grijalva Age: 58 yrs Sex: Male : 1965 Arrival Date: 01/15/2023 Time: 11:43 Bed 17 Private MD: JAMES Physician Jonnathan Conn HPI: 01/15 12:42 This 58 yrs old Male presents to ER via Ambulatory with complaints of Leg snw Pain, Medication Refill. 12:42 The patient presents with numbness to right plantar foot. The complaints affect the snw plantar foot. Context: The problem was sustained at home, the patient is able to ambulate, Left BKA. Onset: The symptoms/episode began/occurred acutely. Modifying factors: The symptoms are alleviated by nothing. the symptoms are aggravated by nothing. Severity of symptoms: At their worst the symptoms were mild, moderate. It is unknown whether or not the patient has had similar symptoms in the past. The patient has not recently seen a physician. Historical: - Allergies: 11:54 No Known Drug Allergies; ll1 - PMHx: 11:54 Diabetes - NIDDM; Hypertension; left sided paralysis; stroke; ll1 - PSHx: 11:54 Left BKA; ll1 - Immunization history:: Client reports receiving the 2nd dose of the Covid vaccine. - Social history:: Smoking status: Patient reports the use of cigarette tobacco products, denies chronic smoking, but will smoke occasionally. ROS: 12:41 Constitutional: Negative for fever, chills, and weight loss, Eyes: Negative for injury, snw pain, redness, and discharge, ENT: Negative for injury, pain, and discharge, Neck: Negative for injury, pain, and swelling, Cardiovascular: Negative for chest pain, palpitations, and edema, Respiratory: Negative for shortness of breath, cough, wheezing, and pleuritic chest pain, Abdomen/GI: Negative for abdominal pain, nausea, vomiting, diarrhea, and constipation, Back: Negative for injury and pain, : Negative for injury, bleeding, discharge, and swelling, Skin: Negative for injury, rash, and discoloration, Neuro: Negative for headache, weakness, numbness, tingling, and seizure, Psych: Negative for depression, anxiety, suicide ideation, homicidal ideation, and hallucinations. 12:41 MS/extremity: Positive for paresthesias, numbness to right plantar foot. Exam: 12:10 Constitutional: This is a well developed, well nourished patient who is awake, alert, snw and in no acute distress. Head/Face: Normocephalic, atraumatic. Eyes: Pupils equal round and reactive to light, extra-ocular motions intact. Lids and lashes normal. Conjunctiva and sclera are non-icteric and not injected. Cornea within normal limits. Periorbital areas with no swelling, redness, or edema. ENT: Nares patent. No nasal discharge, no septal abnormalities noted. Tympanic membranes are normal and external auditory canals are clear. Oropharynx with no redness, swelling, or masses, exudates, or evidence of obstruction, uvula midline. Mucous membranes moist. Neck: Trachea midline, no thyromegaly or masses palpated, and no cervical lymphadenopathy. Supple, full range of motion without nuchal rigidity, or vertebral point tenderness. No Meningismus. Chest/axilla: Normal chest wall appearance and motion. Nontender with no deformity. No lesions are appreciated. Cardiovascular: Regular rate and rhythm with a normal S1 and S2. No gallops, murmurs, or rubs. Normal PMI, no JVD. No pulse deficits. Respiratory: Lungs have equal breath sounds bilaterally, clear to auscultation and percussion. No rales, rhonchi or wheezes noted. No increased work of breathing, no retractions or nasal flaring. Abdomen/GI: Soft, non-tender, with normal bowel sounds. No distension or tympany. No guarding or rebound. No evidence of tenderness throughout. Back: No spinal tenderness. No costovertebral tenderness. Full range of motion. Neuro: Awake and alert, GCS 15, oriented to person, place, time, and situation. Cranial nerves II-XII grossly intact. Motor strength 5/5 in all extremities. Sensory grossly intact. Cerebellar exam normal. Normal gait. Psych: Awake, alert, with orientation to person, place and time. Behavior, mood, and affect are within normal limits. 12:10 Skin: Appearance: normal except for affected area, skin is shiny, hairless, left bka, c/o numbness to plantar right foot. Vital Signs: 11:53 BP 120 / 69; Pulse 84; Resp 17; Temp 98.9; Pulse Ox 98% ; Weight 72.57 kg; Height 5 ft. ll1 9 in. ; Pain 9/10; 12:28 BP 122 / 85; Pulse 85; Resp 16; Temp 97.6; Pulse Ox 98% on R/A; ll1 13:00 BP 133 / 81; Pulse 84; Resp 14; Pulse Ox 98% on R/A; db 14:30 BP 164 / 87; Pulse 82; Resp 18; Pulse Ox 96% on R/A; db 11:53 Body Mass Index 23.63 (72.57 kg, 175.26 cm) ll1 11:53 Pain Scale: Adult ll1 MDM: 11:56 Patient medically screened. elsie 14:33 Differential diagnosis: arterial occlusion, diabetic neuropathy. Data reviewed: vital snw signs, nurses notes, lab test result(s), EKG, radiologic studies. Historians other than the Patient: Friend: Neighbor. Counseling: I had a detailed discussion with the patient and/or guardian regarding: the historical points, exam findings, and any diagnostic results supporting the discharge/admit diagnosis, lab results, radiology results, the need for outpatient follow up, for definitive care, to return to the emergency department if symptoms worsen or persist or if there are any questions or concerns that arise at home, smoking cessation. 01/15 12:10 Order name: Blood Culture Adult (2) snw 01/15 12:10 Order name: CBC with Diff; Complete Time: 12:40 snw 01/15 12:10 Order name: CMP; Complete Time: 12:49 snw 01/15 12:10 Order name: Protime (+inr); Complete Time: 12:40 snw 01/15 12:10 Order name: Ptt, Activated; Complete Time: 12:40 snw 01/15 12:38 Order name: Glucose, Ancillary Testing; Complete Time: 12:40 EDMS 01/15 11:59 Order name: Extremity Venous Uni Ltd US; Complete Time: 14:32 snw 01/15 11:59 Order name: Lower Extremity Artery Uni Ltd US; Complete Time: 14:32 snw 01/15 12:10 Order name: Chest Single View XRAY; Complete Time: 12:40 snw 01/15 12:10 Order name: EKG; Complete Time: 12:11 snw 01/15 12:10 Order name: Accucheck; Complete Time: 12:26 snw 01/15 12:10 Order name: Cardiac monitoring; Complete Time: : snw 01/15 12:10 Order name: EKG - Nurse/Tech; Complete Time: snw 01/15 12:10 Order name: IV Saline Lock - Large Bore; Complete Time: : snw 01/15 12:10 Order name: Labs collected and sent; Complete Time: : snw 01/15 12:10 Order name: O2 Per Protocol; Complete Time: : snw 01/15 12:10 Order name: O2 Sat Monitoring; Complete Time: : snw 01/15 12:10 Order name: Vital Signs; Complete Time: : snw EC:30 Rate is 83 beats/min. Rhythm is regular. QRS Tad is Normal. ME interval is normal. QRS snw interval is normal. QT interval is normal. Clinical impression: Normal ECG. Administered Medications: No medications were administered Disposition Summary: 01/15/23 14:35 Discharge Ordered Location: Home snw Condition: Stable snw Diagnosis - Peripheral vascular disease, unspecified snw - Diabetes mellitus due to underlying condition with diabetic neuropathy, unspecified snw - Tobacco use snw Followup: snw - With: Emergency Department - When: As needed - Reason: Worsening of condition Followup: snw - With: Private Physician - When: 2 - 3 days - Reason: Recheck today's complaints, Continuance of care, Re-evaluation by your physician Discharge Instructions: - Discharge Summary Sheet snw - Diabetes Mellitus and Foot Care snw - Diabetes Mellitus and Sick Day Management snw - Neuropathic Pain snw - Peripheral Vascular Disease snw - Steps to Quit Smoking snw - Health Risks of Smoking snw - Daily Diabetes Mellitus Record snw - Peripheral Neuropathy snw - Blood Glucose Monitoring, Adult snw - Aspirin and Your Heart snw - Smoking and Musculoskeletal Health snw Forms: - Medication Reconciliation Form snw - Thank You Letter snw - Antibiotic Education snw - Prescription Opioid Use snw Prescriptions: - aspirin/dipyridamole - take 1 capsule by ORAL route 2 times per day aspirin/dipyridamole 25/200 snw capsules; 60 tablet; Refills: 0, Product Selection Permitted Signatures: Dispatcher [employer] EDJonnathan Jansen MD MD cha Waters, Shelly, [employer] TEACHER-C [employer]ER-Csnw Jose Cleveland, RN RN ll1
--- NOTE | 2023-01-15 14:36 | ER ---
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 ll1 Coronavirus screen: Vaccine status: Patient reports receiving the 2nd dose of the covid vaccine. Client denies travel out of the [place] in the last 14 days. At this time, the client does not indicate any symptoms associated with coronavirus-19. Ebola Screen: Patient denies travel to an Ebola-affected area in the 21 days before illness onset. Initial Sepsis Screen: Does the patient meet any 2 criteria? No. Patient's initial sepsis screen is negative. Does the patient have a suspected source of infection? Yes: Bone or joint infection. Risk Assessment: Do you want to hurt yourself or someone else? Patient reports no desire to harm self or others. Onset of symptoms was January 12, 2023. 11:53 Method Of Arrival: Ambulatory ll1 11:53 Acuity: QASIM 3 ll1 Triage Assessment: 11:57 General: Appears uncomfortable, Behavior is calm, cooperative, appropriate for age. aa5 Pain: Complains of pain in right foot. Musculoskeletal: Reports pain in right foot. Historical: - Allergies: 11:54 No Known Drug Allergies; ll1 - PMHx: 11:54 Diabetes - NIDDM; Hypertension; left sided paralysis; stroke; ll1 - PSHx: 11:54 Left BKA; ll1 - Immunization history:: Client reports receiving the 2nd dose of the Covid vaccine. - Social history:: Smoking status: Patient reports the use of cigarette tobacco products, denies chronic smoking, but will smoke occasionally. Screenin:18 [facility] ED Fall Risk Assessment (Adult) History of falling in the last 3 months, db including since admission No falls in past 3 months (0 pts) Confusion or Disorientation No (0 pts) Intoxicated or Sedated No (0 pts) Impaired Gait No (0 pts) Mobility Assist Device Used No (0 pt) Altered Elimination No (0 pt) Score/Fall Risk Level 0 - 2 = Low Risk Oriented to surroundings, Maintained a safe environment. Abuse screen: Denies threats or abuse. Denies injuries from another. Nutritional screening: No deficits noted. Tuberculosis screening: No symptoms or risk factors identified. Assessment: 13:15 Reassessment: Patient appears in no apparent distress at this time. db 13:18 Reassessment: Patient appears in no apparent distress at this time. Patient and/or db family updated on plan of care and expected duration. Pain level reassessed. Patient is alert, oriented x 3, equal unlabored respirations, skin warm/dry/pink. 13:50 Reassessment: Patient appears in no apparent distress at this time. ultrasound at db bedside. 13:50 Reassessment: Patient appears in no apparent distress at this time. Patient and/or db family updated on plan of care and expected duration. Pain level reassessed. Patient is alert, oriented x 3, equal unlabored respirations, skin warm/dry/pink. General: Appears in no apparent distress. comfortable, Behavior is calm, cooperative. Pain: Complains of pain in right foot. Neuro: Level of Consciousness is awake, alert, obeys commands, Oriented to person, place, time, situation. Respiratory: Airway is patent Respiratory effort is even, unlabored, Respiratory pattern is regular, symmetrical. 14:45 Reassessment: Patient appears in no apparent distress at this time. Patient and/or db family updated on plan of care and expected duration. Pain level reassessed. Patient is alert, oriented x 3, equal unlabored respirations, skin warm/dry/pink. General: Appears in no apparent distress. comfortable, Behavior is calm, cooperative. Neuro: Level of Consciousness is awake, alert, obeys commands, Oriented to person, place, time, situation, Speech is normal. Respiratory: Airway is patent Respiratory effort is even, unlabored, Respiratory pattern is regular, symmetrical. Vital Signs: 11:53 BP 120 / 69; Pulse 84; Resp 17; Temp 98.9; Pulse Ox 98% ; Weight 72.57 kg; Height 5 ft. ll1 9 in. ; Pain 9/10; 12:28 BP 122 / 85; Pulse 85; Resp 16; Temp 97.6; Pulse Ox 98% on R/A; ll1 13:00 BP 133 / 81; Pulse 84; Resp 14; Pulse Ox 98% on R/A; db 14:30 BP 164 / 87; Pulse 82; Resp 18; Pulse Ox 96% on R/A; db 11:53 Body Mass Index 23.63 (72.57 kg, 175.26 cm) ll1 11:53 Pain Scale: Adult ll1 ED Course: 11:45 Patient arrived in ED. am2 11:54 Triage completed. ll1 11:56 Deedee Evans F[facility]-C [facility]. snw 11:56 Jonnathan Conn MD is Attending Physician. snw 11:57 Eugenio Gaitan, RN is Primary Nurse. bp 11:58 Arm band placed on Patient placed in an exam room, on a stretcher. aa5 12:35 Chest Single View XRAY In Process Unspecified. EDMS 12:35 Inserted saline lock: 20 gauge in right forearm, using aseptic technique. ,using db aseptic technique. PLACED BY ANGY Blood collected. 12:40 First set of blood cultures drawn RFA. db 12:49 Second set of blood cultures drawn RAC. db 13:00 Patient has correct armband on for positive identification. Bed in low position. Call db light in reach. Side rails up X2. Client placed on continuous cardiac and pulse oximetry monitoring. NIBP monitoring applied. 13:15 Warm blanket given. db 14:24 Extremity Venous Uni Ltd US In Process Unspecified. EDMS 14:24 Lower Extremity Artery Uni Ltd US In Process Unspecified. EDMS 15:00 No provider procedures requiring assistance completed. db 15:04 IV discontinued, intact, bleeding controlled, No redness/swelling at site. db Administered Medications: No medications were administered Medication: 15:00 VIS not applicable for this client. db Outcome: 14:35 Discharge ordered by . snw 15:04 Discharged to home via wheelchair, with friend. db 15:04 Condition: stable 15:04 Discharge instructions given to patient, Instructed on discharge instructions, follow up and referral plans. Prescriptions given X 1. 15:16 Patient left the ED. ll1 Signatures: Dispatcher [employer] EDMS Deedee Evans FNP-C FNP-Sandie Salamanca RN RN aa5 Delores Sanders am2 Eugenio Gaitan, RHETT RN bp Jose Cleveland RN RN ll1 Abiola Carlin RN RN db Corrections: (The following items were deleted from the chart) 11:57 11:53 Chief complaint: Patient states: R foot pain, numbness, and swelling for 1 few aa5 days. [email or web address]
[2023-01-15 15:23] VITALS: TEMP 97.6
[2023-01-15 15:26] VITALS: BP 164/87; O2SAT 96
--- NOTE | 2023-01-16 17:12 | EKG ---
Test Date: 2023-01-15 Test Time: 12:23:38 Crosstie Inspector: SERAFIN MEASUREMENT RESULTS: Intervals: Rate: 83 WI: 160 QRSD: 94 QT: 382 QTc: 448 Sabine: P: 34 WI: 160 QRS: 70 T: 29 INTERPRETIVE STATEMENTS: Normal sinus rhythm Normal ECG Compared to ECG 11/23/2022 18:33:54 No significant changes Electronically Signed On 01-16-23 17:10:38 CDT by Ike Nova
== END 2023-01-15 15:16 | disposition home or self-care (01) ==
LOC: ER 11:43
DX: I73.9 Peripheral vascular disease, unspecified (principal); E08.40 Diabetes mellitus due to underlying condition with diabetic neuropathy, unspecified; Z72.0 Tobacco use; R20.0 Anesthesia of skin; M79.671 Pain in right foot; Z89.512 Acquired absence of left leg below knee; I10 Essential (primary) hypertension
CPT/HCPCS: 36415; 71045; 80053; 82947; 85025; 85610; 85730; 87040; 93005; 93926; 93971; 99284

== ENCOUNTER 2025-04-27 12:13 | Emergency (ER) | payer OTHER, SELFPAY ==
--- OUTSIDE RECORDS SUMMARY | 2025-04-27 12:16 | XMS REPORT | Continuity of Care Document ---
Author Name Unknown Address [address] [facility] [place] [address] [facility] Address [address] [facility] [address] [place] [address] Care Team Providers Care Wheel Polisher Name Role Phone Courtney Campbell Primary Care Physician Medications Ordered Medication Name Filled Medication Name Start Date Stop Date Current Medication? Ordering Clinician Indication Dosage Frequency Signature (SIG) Comments Components Source TAKE 1 CAPSULE BY MOUTH TWICE DAILY 2021-07 0-15 00:00: 00 No TAKE 1 TABLET BY MOUTH DAILY 2021-07 0-15 00:00: 00 No TAKE 1 CAPSULE BY MOUTH TWICE DAILY 2021-07 0-15 00:00: 00 No TAKE 1 TABLET BY MOUTH DAILY 2021-07 0-15 00:00: 00 No Vital Signs Vital Name Observation Time Observation Value Comments S ource BP Systolic 2022-06-04 09:40:00 173 mm[Hg] BP [...] /min Respiratory Rate 2014-07-26 08:32:00 18.00 /min Plan of Care Planned Activity Planned Date Details Comments Source Goal Plan of Care Note [code = 12519-5] Goal Plan of Care Note [code = 55755-3] Goal Plan of Care Note [code = 46461-8] Goal Plan of Care Note [code = 89047-7] Goal Plan of Care Note [code = 97223-9] Goal Plan of Care Note [code = 61816-1] Goal Plan of Care Note [code = 34431-0] Goal Plan of Care Note [code = 54036-5] Goal Plan of Care Note [code = 29873-8] Goal Plan of Care Note [code = 39841-5] Goal Plan of Care Note [code = 48782-2] Goal Plan of Care Note [code = 18062-4] Goal Plan of Care Note [code = 48281-8] Goal Plan of Care Note [code = 42972-8] Goal Plan of Care Note [code = 61666-9] Goal Plan of Care Note [code = 75944-2] Goal Plan of Care Note [code = 80263-0] Goal Plan of Care Note [code = 82864-6] Goal Plan of Care Note [code = 78155-5] Goal Plan of Care Note [code = 62166-9] Goal Plan of Care Note [code = 76946-8] Goal Plan of Care Note [code = 82069-8] Encounters Start Date/Time End Date/Time Encounter Type Admission Type Attending [facility] Facility Care Department Encounter ID Source 2023-05-19 14:06:17 2023-05-19 14:06:17 Outpatient [facility] [id number] 2022-11-23 11:21:31 2022-11-23 11:21:31 Outpatient [facility] [id number] 2022-08-20 11:50:43 2022-08-20 11:50:43 Outpatient [facility] [id number] 2022-06-04 09:36:28 2022-06-04 09:36:28 Outpatient [facility] [id number] 2022-06-04 00:00:00 2022-06-04 00:00:00 Outpatient Visit [id number] [id number] 10:06:19 2022-05-12 10:06:19 Outpatient [facility] [id number] 2022-05-12 00:00:00 2022-05-12 00:00:00 Outpatient Visit [id number] Results Test Description Test Time Test Comments Results Result Co mments Source LIPID [id number] 00:01:28* Test Item Value Reference Range Interpretation Comme nts CHOLESTEROL (test code = 2210) 151 MG/DL <200 TRIGLYCERIDES (test code = 2232) 90 MG/DL <150 HDL CHOLESTEROL (test code = 2220) 41 MG/DL >39 CALC LDL CHOL (test code = 2237) 92 MG/DL <100 NOTE: CALCULATED LDL IS BASED ON NOE-OBRIEN METHOD WHICHINCLUDES ADJUSTABLE TRIGLYCERIDE:VLDL CHOLESTEROL RATIO.THIS FACTOR VARIES BY MEASURED TRIGLYCERIDE AND NON-HDLCHOLESTEROL CONCENTRATIONS WITH INCREASED CALCULATED LDL SEENIN HIGHER TRIGLYCERIDE OR LOWER NON-HDL SPECIMENS. FOR MOREINFORMATION, SEE CLIENT ANNOUNCEMENT AT [email or web address] RISK RATIO LDL/HDL (test code = 2238) 2.24 RATIO <3.55 HEMOGLOBIN [id number] 03:24:54* Test Item Value Reference Range Interpretation Comme nts HEMOGLOBIN A1c (test code = 53868) 5.4 % 4.2-5.6 UNLESS OTHERWISE INDICATED, ALL TESTING PERFORMED [facility] [address] [place] [address], [place] [address] UTILITY INSPECTOR: CHUCKY VAZQUEZ M.D. CLIA NUMBER [id number] [facility] [place]. [id number] HEMOGLOBIN [id number] 06:27:45* Test Item Value Reference Range Interpretation Comme nts HEMOGLOBIN A1c (test code = 35824) 5.0 % 4.2-5.6 COMPREHENSIVE METABOLIC [id number] 05:38:57* Test Item Value Reference Range Interpretation Comme nts GLUCOSE (test code = 2216) 89 MG/DL 70-99 BUN (test code = 2207) 11 MG/DL 6-20 CREATININE (test code = 2213) 0.65 MG/DL 0.80-1.40 L eGFR (2020 CKD-EPI) (test code = ) 109 ML/MIN/1.73 >60 CALC BUN/CREAT (test code = 2234) 17 RATIO 6-28 SODIUM (test code = 2230) 146 MEQ/L 133-146 POTASSIUM (test code = 2227) 4.5 MEQ/L 3.5-5.4 CHLORIDE (test code = 2214) 106 MEQ/L 95-107 CARBON DIOXIDE (test code = 2205) 28 MEQ/L 19-31 CALCIUM (test code = 2208) 9.6 MG/DL 8.5-10.5 PROTEIN, TOTAL (test code = 2228) 7.8 G/DL 6.1-8.3 ALBUMIN (test code = 2200) 4.7 G/DL 3.5-5.2 CALC GLOBULIN (test code = 2239) 3.1 G/DL 1.9-3.7 CALC A/G RATIO (test code = 2233) 1.5 RATIO 1.0-2.6 BILIRUBIN, TOTAL (test code = 2206) 0.5 MG/DL See_Comment [Automated me ssage] The system which generated this result transmitted reference range: <=1.2. The reference range was not used to interpret this result as normal/abnormal. ALKALINE PHOSPHATASE (test code = 2203) 92 U/L 40-123 AST (test code = 2217) 18 U/L 9-50 ALT (test code = 2219) 16 U/L 5-50 LIPID [id number] 05:38:57* Test Item Value Reference Range Interpretation Comme nts CHOLESTEROL (test code = 0) 164 MG/DL <200 TRIGLYCERIDES (test code = 223) 104 MG/DL <150 HDL CHOLESTEROL (test code = 222) 43 MG/DL >39 CALC LDL CHOL (test code = 2236) 101 MG/DL <100 H NOTE: CALCULATED LDL IS BASED ON NOE-OBRIEN METHOD WHICHINCLUDES ADJUSTABLE TRIGLYCERIDE:VLDL CHOLESTEROL RATIO.THIS FACTOR VARIES BY MEASURED TRIGLYCERIDE AND NON-HDLCHOLESTEROL CONCENTRATIONS WITH INCREASED CALCULATED LDL SEENIN HIGHER TRIGLYCERIDE OR LOWER NON-HDL SPECIMENS. FOR MOREINFORMATION, SEE CLIENT ANNOUNCEMENT AT [email or web address] RISK RATIO LDL/HDL (test code = 2238) 2.35 RATIO <3.55 PROTHROMBIN TIME (PT)2022-05-13 03:24:02* Test Item Value Reference Range Interpretation Comme nts PROTHROMBIN TIME (PT) (test code = 1402) 13.2 SECONDS 12.5-14.7 INR (test code = 57974) 1.0 SEE BELOW CURRENT RECOMMENDATIONS ARE FOR AN INR OF 2.0-3.0 FOR ALL PATIENTS ON VITAMIN K ANTAGONISTS, EXCEPT THOSE WITH PROSTHETIC HEART VALVES, FOR WHOM INR OF 2.5-3.5 IS RECOMMENDED. UNLESS OTHERWISE INDICATED, ALL TESTING PERFORMED [facility] [address] [place] [address] UTILITY INSPECTOR: CHUCKY VAZQUEZ M.D. CLIA NUMBER [id number] [facility] [place]. [id number] COMPREHENSIVE METABOLIC [id number] 00:00:00* Test Item Value Reference Range Interpretation Comme nts GLUCOSE (test code = 2217) 89 MG/DL BUN (test code = 2208) 11 MG/DL CREATININE (test code = 2214) 0.65 MG/DL eGFR (2020 CKD-EPI) (test code = 23649) 109 ML/MIN/1.73 CALC BUN/CREAT (test code = 2235) 17 RATIO SODIUM (test code = 2231) 146 MEQ/L POTASSIUM (test code = 2228) 4.5 MEQ/L CHLORIDE (test code = 2215) 106 MEQ/L CARBON DIOXIDE (test code = 2206) 28 MEQ/L CALCIUM (test code = 2209) 9.6 MG/DL PROTEIN, TOTAL (test code = 2229) 7.8 G/DL ALBUMIN (test code = 2201) 4.7 G/DL CALC GLOBULIN (test code = 2240) 3.1 G/DL CALC A/G RATIO (test code = 2234) 1.5 RATIO BILIRUBIN, TOTAL (test code = 2207) 0.5 MG/DL ALKALINE PHOSPHATASE (test code = 2204) 92 U/L AST (test code = 2218) 18 U/L ALT (test code = 2219) 16 U/L LIPID [id number] 00:00:00* Test Item Value Reference Range Interpretation Comme nts CHOLESTEROL (test code = 2210) 164 MG/DL TRIGLYCERIDES (test code = 2232) 104 MG/DL HDL CHOLESTEROL (test code = 2220) 43 MG/DL CALC LDL CHOL (test code = 2237) 101 MG/DL RISK RATIO LDL/HDL (test cod e = 2238) 2.35 RATIO HEMOGLOBIN [id number] 00:00:00* Test Item Value Reference Range Interpretation Comme nts HEMOGLOBIN A1c (test code = 74714) 5.0 % PROTHROMBIN TIME (PT)2022-05-13 00:00:00* Test Item Value Reference Range Interpretation Comme nts PROTHROMBIN TIME (PT) (test code = 1402) 13.2 SECONDS INR (test code = 99078) 1.0
[2025-04-27] MEDS ORDERED: ONDANSETRON 4 MG/2 ML VIAL ONE (12:31)
[2025-04-27] MEDS ORDERED: NA CHLORIDE 0.9% 1,000 ML ONE (12:32)
[2025-04-27] MEDS ORDERED: MORPHINE 4 MG/ML SYR ONE (12:32)
[2025-04-27 12:36] LABS: Absolute Lymphocytes (CBC) 2.0 K/uL (0.7-4.9); Hematocrit 47.5 % (39.6-49.0); Hemoglobin 16.3 g/dL (13.6-17.9); MCH 30.0 pg (27.0-35.0); MCHC 34.3 g/dL (32.0-36.0); MCV 87.6 fL (80-100); MPV 7.8 fL (7.6-11.3); Nucleated RBC Absolute Count 0.0 (0-0); Nucleated Red Blood Cells % 0.1 % (0-0); RBC Red Blood Cell Count 5.42 M/uL (4.33-5.43); White Blood Count 21.90 thou/uL (4.3-10.9)
[2025-04-27 12:45] LABS: PT Prothrombin Time 12.3 SECONDS (10-13.0); Protime INR 1.09
[2025-04-27 12:59] LABS: ALT/SGPT 15 U/L (16-61); Albumin 3.5 g/dL (3.4-5.0); Albumin/Globulin Ratio 0.8 (1.1-1.8); Alkaline Phosphatase 110 U/L (45-117); Anion Gap 11.1 mEq/L (5.0-15.0); BUN Blood Urea Nitrogen 12 mg/dL (7-18); Globulin 4.2 g/dL (2.3-3.5); Glucose Level 193 mg/dL (74-106); Lipase 16 U/L (13-75); NT PRO-BNP 253 pg/mL (<125); Troponin High Sensitivity 4.6 pg/mL (<58.9)
[2025-04-27 13:00] LABS: AST/SGOT 20 U/L (15-37); Bilirubin Indirect, Calculated 0.4 mg/dL (0.2-0.8); Magnesium 1.7 mg/dL (1.6-2.4); Potassium 4.1 mEq/L (3.5-5.1)
[2025-04-27 13:07] LABS: Blood Morphology Comment NOT SEEN (NOT SEEN); Differential Total Cells Count 100; Segmented Neutrophils 81 % (40-80); Smudge Cells SEVERAL
--- NOTE | 2025-04-27 13:11 | RAD REPORT ---
EXAM: Chest Single View HISTORY: 60 years Male CHEST PAIN COMPARISON: 01/15/2023 FINDINGS: LUNGS/PLEURA: Ill-defined opacities present at the right lung base. Low lung volumes. CARDIAC/MEDIASTINUM: The cardiac silhouette is within normal limits. UPPER ABDOMEN: No significant abnormality. BONES: No acute abnormality. LINES/TUBES/OTHER: N/A IMPRESSION: Atelectasis versus airspace disease at the right lung base.
--- NOTE | 2025-04-27 14:10 | ER ---
Nurse's Notes [facility] Name: Jude Grijalva Age: 60 yrs Sex: Male : 1965 Arrival Date: 04/27/2025 Time: 12:13 Bed 17 Private MD: Diagnosis: Upper abdominal pain, unspecified;Lobar pneumonia, unspecified organism Presentation: 04/27 12:17 Chief complaint: EMS states: toned out for sudden onset of RUQ pain after eating this me1 morning. Pain 10 sharp. Denies n/v/d. 20 g LFA established by EMS. BGL 168, bp 160/100, NSR. 96% on room air. Coronavirus screen: At this time, the client does not indicate any symptoms associated with coronavirus-19. Ebola Screen: No symptoms or risks identified at this time. Initial Sepsis Screen: Does the patient meet any 2 criteria? No. Patient's initial sepsis screen is negative. Does the patient have a suspected source of infection? No. Patient's initial sepsis screen is negative. Risk Assessment: Do you want to hurt yourself or someone else? Patient reports no desire to harm self or others. Onset of symptoms was April 27, 2025 at 11:30. 12:17 Method Of Arrival: EMS: [facility] 12:17 Acuity: QASIM 3 me1 Triage Assessment: 12:19 General: Appears uncomfortable, Behavior is calm, cooperative, appropriate for age. me1 Pain: Complains of pain in right upper quadrant Pain does not radiate. Pain currently is 10 out of 10 on a pain scale. Quality of pain is described as sharp, Pain began suddenly, 30 min ago. Is continuous. EENT: No signs and/or symptoms were reported regarding the EENT system. Neuro: Level of Consciousness is awake, alert, obeys commands, Oriented to person, place, time, situation, Appropriate for age. Cardiovascular: Patient's skin is warm and dry. Respiratory: Airway is patent Respiratory effort is even, unlabored, Respiratory pattern is regular, symmetrical. GI: Reports upper abdominal pain, Patient currently denies diarrhea, nausea, vomiting. : No signs and/or symptoms were reported regarding the genitourinary system. Derm: Skin is intact, is healthy with good turgor, Skin is clammy, Skin is normal. Musculoskeletal: No signs and/or symptoms reported regarding the musculoskeletal system. Amputation of L BKA. Historical: - Allergies: 12:19 No Known Drug Allergies; me1 - PMHx: 12:19 Diabetes - NIDDM; Hypertension; left sided paralysis; stroke; me1 - PSHx: 12:19 Left BKA; me1 - Immunization history:: Adult Immunizations unknown. - Infectious Disease History:: Denies. - Social history:: Smoking status: Patient reports the use of cigarette tobacco products, smokes one pack cigarettes per day. Screenin:21 [facility] ED Fall Risk Assessment (Adult) History of falling in the last 3 months, fl1 including since admission No falls in past 3 months (0 pts) Confusion or Disorientation No (0 pts) Intoxicated or Sedated No (0 pts) Impaired Gait Yes (1 pt) Mobility Assist Device Used Yes (1 pt) Altered Elimination No (0 pt) Score/Fall Risk Level 0 - 2 = Low Risk Maintained a safe environment, Provided non-skid footwear, Hourly rounding (assess needs \T\ fall precautionary measures) done. Abuse screen: Denies threats or abuse. Nutritional screening: No deficits noted. Tuberculosis screening: No symptoms or risk factors identified. Assessment: 12:21 Reassessment: See triage assessment. me1 14:31 Reassessment: Discharged to [facility], showed patient how to use the phone to call his fl1 brother for a ride, demonstrated ability to call. Vital Signs: 12:17 BP 171 / 94; Pulse 81; Resp 20; Temp 98.2; Pulse Ox 98% ; Weight 85.2 kg; me1 12:17 Pain 10/10; me1 13:00 BP 177 / 94; Pulse 87; Resp 19; Pulse Ox 98% ; me1 14:00 BP 168 / 99; Pulse 92; Resp 17; Pulse Ox 97% ; me1 12:17 Pain Scale: Adult [facility] ED Course: 12:17 Patient arrived in ED. sb4 12:17 Nazia Sullivan PA-C is PHCP. sb4 12:17 Jonnathan Conn MD is Attending Physician. sb4 12:17 Deborah Mayer, RHETT is Primary Nurse. me1 12:19 Triage completed. me1 12:19 Arm band placed on Patient placed in an exam room. me1 12:21 Patient has correct armband on for positive identification. Bed in low position. Call me1 light in reach. Side rails up X2. Provided Education on: POC. Verbalized understanding.. Client placed on continuous cardiac and pulse oximetry monitoring. NIBP monitoring applied. engine monitor on. Pulse ox on. NIBP on. 12:21 No provider procedures requiring assistance completed. Maintain EMS IV. Dressing me1 intact. Good blood return noted. Site clean \T\ dry. Gauge \T\ site: 20g LFA. Flushed with 10 mL NS. 12:28 Basic Metabolic Panel Sent. me1 12:28 CBC with Diff Sent. me1 12:28 LFT's Sent. me1 12:28 Magnesium Sent. me1 12:28 NT PRO-BNP Sent. me1 12:28 PT-INR Sent. me1 12:28 Troponin HS Sent. me1 12:40 Initial lab(s) drawn, by me, sent to lab. EKG done, by ED staff, reviewed by Nazia carter1 Nate STYLES. 12:53 XRAY Chest (1 view) In Process Unspecified. EDMS 14:30 IV discontinued, intact, bleeding controlled, No redness/swelling at site. Pressure me1 dressing applied. Administered Medications: 12:35 Drug: Ondansetron IVP 4 mg IVP once; over 2 minutes Route: IVP; Site: left forearm; me1 13:31 Follow up: Response: No adverse reaction; Nausea is decreased me1 12:35 Drug: morphine IVP or IV 4 mg IVP once over 4 mins Route: IVP; Infused Over: 4 mins; me1 Site: left forearm; 13:31 Follow up: Response: No adverse reaction; Pain is decreased me1 12:35 Drug: NS 0.9% IV 1000 ml IV at 1 bolus Per protocol; to be given as a bolus over 60 me1 minutes Route: IV; Rate: 1 bolus; Site: left forearm; 13:31 Follow up: Response: No adverse reaction; IV Status: Completed infusion me1 Medication: 12:21 VIS not applicable for this client. me1 Outcome: 14:10 Discharge ordered by . sb4 14:30 Discharged to home via wheelchair, with family, me1 14:30 Condition: stable 14:30 Discharge instructions given to patient, Instructed on discharge instructions, follow up and referral plans. medication usage, Demonstrated understanding of instructions, follow-up care, medications, Prescriptions given X 1, 14:31 Patient left the ED. me1 Signatures: Dispatcher [employer] Nazia Sharma PA-C PA-C sb4 Deborah Mayer, RN RN me1
--- NOTE | 2025-04-27 14:11 | EDPHYS ---
Physician Documentation [facility] Name: Jude Grijalva Age: 60 yrs Sex: Male : 1965 Arrival Date: 04/27/2025 Time: 12:13 Bed 17 Private MD: ED Physician Jonnathan Conn HPI: 04/27 12:29 This 60 yrs old Male presents to ER via EMS with complaints of Abdominal Pain. sb4 12:29 Patient reports sudden onset of right upper quadrant pain that began this morning after sb4 eating eggs. Denies any nausea or vomiting or diarrhea. Denies any prior incidences of this. Denies any chest pain or shortness of breath. Reports history of hypertension and diabetes but is not taking any daily medications. Historical: - Allergies: 12:19 No Known Drug Allergies; me1 - PMHx: 12:19 Diabetes - NIDDM; Hypertension; left sided paralysis; stroke; me1 - PSHx: 12:19 Left BKA; me1 - Immunization history:: Adult Immunizations unknown. - Infectious Disease History:: Denies. - Social history:: Smoking status: Patient reports the use of cigarette tobacco products, smokes one pack cigarettes per day. ROS: 12:29 Constitutional: Negative for fever, chills, and weight loss, sb4 12:29 Abdomen/GI: Positive for abdominal pain, 12:29 All other systems are negative, Exam: 12:29 Head/Face: Normocephalic, atraumatic. Eyes: Extra-ocular motions intact. Periorbital sb4 areas with no swelling, redness, or edema. ENT: Mucous membranes moist. Cardiovascular: Regular rate and rhythm with a normal S1 and S2. Respiratory: No increased work of breathing, no retractions or nasal flaring. Skin: Warm, dry with normal turgor. Normal color with no rashes, no lesions, and no evidence of cellulitis. 12:29 Constitutional: The patient appears alert, awake, uncomfortable, 12:29 Abdomen/GI: Inspection: distension, that is mild, Bowel sounds: normal, Palpation: soft, mild abdominal tenderness, in the right upper quadrant, 12:29 Musculoskeletal/extremity: left BKA. Vital Signs: 12:17 BP 171 / 94; Pulse 81; Resp 20; Temp 98.2; Pulse Ox 98% ; Weight 85.2 kg; me1 12:17 Pain 10/10; me1 13:00 BP 177 / 94; Pulse 87; Resp 19; Pulse Ox 98% ; me1 14:00 BP 168 / 99; Pulse 92; Resp 17; Pulse Ox 97% ; me1 12:17 Pain Scale: Adult me1 MDM: 12:17 Medical Screening Exam initiated sb4 12:30 Differential diagnosis: acute coronary syndrome, cholecystitis, Cholelithiasis, sb4 gastritis, gastroesophageal reflux disease, non-specific abd pain, pancreatitis, Peptic Ulcer Disease. 14:10 Data reviewed: vital signs, nurses notes, EMS record, lab test result(s), EKG, sb4 radiologic studies, and as a result, I will discharge patient. Counseling: I had a detailed discussion with the patient and/or guardian regarding the historical points, exam findings, and any diagnostic results supporting the discharge/admit diagnosis, the presence of at least one elevated blood pressure reading (>120/80) during this emergency department visit, lab results, radiology results, the need for outpatient follow up, for definitive care, to return to the emergency department if symptoms worsen or persist or if there are any questions or concerns that arise at home. Refusal of service: The patient/guardian displays adequate decision making capability and despite a detailed discussion of alternatives, benefits, risks, and consequences refuses: CT Scan. 14:16 ED course: Wanted to obtain CT chest abdomen to evaluate further causes abdominal pain sb4 and get a better look at the lung bases but patient refused. States he feels better and wants to go home at this time. Will prescribe antibiotics and the possibility of pneumonia and advised follow-up for any new or worsening symptoms. 04/27 12:18 Order name: Basic Metabolic Panel; Complete Time: 13:02 sb4 04/27 12:18 Order name: CBC with Diff; Complete Time: 13:09 sb4 04/27 12:18 Order name: LFT's; Complete Time: 13:02 sb4 04/27 12:18 Order name: Magnesium; Complete Time: 13:02 sb4 04/27 12:18 Order name: NT PRO-BNP; Complete Time: 13:02 sb4 04/27 12:18 Order name: PT-INR; Complete Time: 12:45 sb4 04/27 12:18 Order name: Troponin HS; Complete Time: 13:02 sb4 04/27 12:18 Order name: Lipase; Complete Time: 13:02 sb4 04/27 13:07 Order name: Manual Differential; Complete Time: 13:09 EDMS 04/27 12:18 Order name: XRAY Chest (1 view); Complete Time: 13:12 sb4 04/27 12:18 Order name: Cardiac monitoring; Complete Time: 12:28 sb4 04/27 12:18 Order name: EKG - Nurse/Tech; Complete Time: 12:40 sb4 04/27 12:18 Order name: IV Saline Lock; Complete Time: 12:28 sb4 04/27 12:18 Order name: Labs collected and sent; Complete Time: 12: sb4 04/27 12:18 Order name: O2 Per Protocol; Complete Time: 12: sb4 04/27 12:18 Order name: O2 Sat Monitoring; Complete Time: 12: sb4 EC:43 Rate is 86 beats/min. Rhythm is regular, Normal Sinus Rhythm. MI interval is normal at sb4 154 msec. QRS interval is normal at 96 msec. QT interval is normal at 406 msec. No Q waves. T waves are Normal. No ST changes noted. Clinical impression: No evidence of ischemia. Interpreted by me. Reviewed by me. Administered Medications: 12:35 Drug: Ondansetron IVP 4 mg IVP once; over 2 minutes Route: IVP; Site: left forearm; me1 13:31 Follow up: Response: No adverse reaction; Nausea is decreased me1 12:35 Drug: morphine IVP or IV 4 mg IVP once over 4 mins Route: IVP; Infused Over: 4 mins; me1 Site: left forearm; 13:31 Follow up: Response: No adverse reaction; Pain is decreased me1 12:35 Drug: NS 0.9% IV 1000 ml IV at 1 bolus Per protocol; to be given as a bolus over 60 me1 minutes Route: IV; Rate: 1 bolus; Site: left forearm; 13:31 Follow up: Response: No adverse reaction; IV Status: Completed infusion me1 Disposition Summary: 04/27/25 14:10 Discharge Ordered Notes: Location: Home sb4 Problem: new sb4 Symptoms: are resolved sb4 Condition: Stable sb4 Diagnosis - Upper abdominal pain, unspecified sb4 - Lobar pneumonia, unspecified organism sb4 Followup: sb4 - With: Emergency Department - When: As needed - Reason: Trouble breathing, Worsening of condition Discharge Instructions: - Discharge Summary Sheet sb4 - Abdominal Pain, Adult sb4 - Community-Acquired Pneumonia, Adult sb4 Forms: - Antibiotic Education sb4 - Patient Portal Instructions sb4 - Leadership Thank You Letter sb4 Prescriptions: - levofloxacin 500 mg Oral tablet - take 1 tablet ORAL route once daily for 7 days; 7 tablet; Refills: 0, Product sb4 Selection Permitted Addendum: 05/07/2025 08:01 Co-signature as Attending Physician, Jonnathan Conn MD I agree with the assessment and c andrade plan of care. Signatures: Dispatcher [employer] EDJonnathan Jansen MD MD cha Brown, Sophia, PA-C PA-C sb4 Deborah Mayer, RN RN me1 Corrections: (The following items were deleted from the chart) 04/27 13:07 12:45 CBC Smear Scan ordered. EDMS EDMS 14:15 13:20 Chest Abdomen W/ Con+CT.RAD.BRZ ordered. EDMS EDMS
[2025-04-27 14:39] VITALS: TEMP 98.2
[2025-04-27 14:42] VITALS: BP 168/99; O2SAT 97
== END 2025-04-27 14:31 | disposition home or self-care (01) ==
LOC: ER 12:13
DX: J18.1 Lobar pneumonia, unspecified organism (principal); F17.210 Nicotine dependence, cigarettes, uncomplicated; Z89.512 Acquired absence of left leg below knee
CPT/HCPCS: 96361; 93005; 85025; 80048; 36415; 83735; 85610; 80076; 84484; 83690; 83880; 71045; 96375; 96374; 99285; J2405; J7030

== ENCOUNTER 2025-04-27 19:39 | Inpatient (IN) | payer OTHER ==
--- OUTSIDE RECORDS SUMMARY | 2025-04-27 19:41 | XMS REPORT | Continuity of Care Document ---
Author Name Unknown Address [address] [facility] [address] [place] [address] [facility] Address [address] [facility] [address] [place] [address] Care Team Providers Care Drier Belt Conveyor Name Role Phone Courtney Campbell Primary Care [...] Goal Plan of Care Note [code = 75606-7] Goal Plan of Care Note [code = 83149-8] Goal Plan of Care Note [code = 53457-5] Goal Plan of Care Note [code = 62191-3] Goal Plan of Care Note [code = 02804-7] Goal Plan of Care Note [code = 22958-2] Goal Plan of Care Note [code = 51239-8] Goal Plan of Care Note [code = 42090-3] Goal Plan of Care Note [code = 25454-1] Goal Plan of Care Note [code = 82080-9] Goal Plan of Care Note [code = 54467-3] Goal Plan of Care Note [code = 60059-6] Goal Plan of Care Note [code = 29913-0] Goal Plan of Care Note [code = 22310-0] Goal Plan of Care Note [code = 02309-8] Goal Plan of Care Note [code = 69698-4] Goal Plan of Care Note [code = 08253-0] Goal Plan of Care Note [code = 12960-0] Goal Plan of Care Note [code = 05813-3] Goal Plan of Care Note [code = 64837-0] Goal Plan of Care Note [code = 87050-1] Goal Plan of Care Note [code = 16895-1] Encounters Start Date/Time End Date/Time Encounter Type Admission Type Attending [facility] Facility Care Department Encounter ID Source 2023-05-19 14:06:17 2023-05-19 14:06:17 Outpatient [facility] [id number] 2022-11-23 11:21:31 2022-11-23 11:21:31 Outpatient [facility] [id number] 2022-08-20 11:50:43 2022-08-20 11:50:43 Outpatient [facility] [id number] 2022-06-04 09:36:28 2022-06-04 09:36:28 Outpatient [facility] [id number] 2022-06-04 00:00:2022-06-04 00:00:00 Outpatient Visit [id number] [id number] 10:06:19 2022-05-12 10:06:19 Outpatient [facility] [id number] [address] 2022-05-12 00:00:00 2022-05-12 00:00:00 Outpatient Visit [id number] Results Test Description Test Time Test Comments Results Result Co mments Source LIPID [id number] 00:01:28* Test Item Value Reference Range Interpretation [...] SPECIMENS. FOR MOREINFORMATION, SEE CLIENT ANNOUNCEMENT AT [email or web address] /CalcLDL-C RISK RATIO LDL/HDL (test code = 2238) 2.24 RATIO <3.55 HEMOGLOBIN [id number] 03:24:54* Test Item Value Reference Range Interpretation Comme nts HEMOGLOBIN A1c (test code = 96862) 5.4 % 4.2-5.6 UNLESS OTHERWISE INDICATED, ALL TESTING PERFORMED [facility] [address] [place] [address], [place] [address] SALES REPRESENTATIVE [employer]OPE: CHUCKY VAZQUEZ M.D. CLIA NUMBER [id number] [facility] [place]. [id number] HEMOGLOBIN [id number] 06:27:45* Test Item Value Reference Range Interpretation Comme nts HEMOGLOBIN A1c (test code = 44969) 5.0 % 4.2-5.6 COMPREHENSIVE METABOLIC [id number] 05:38:57* Test Item Value Reference Range Interpretation [...] code = 2219) 16 U/L 5-50 LIPID [id number] 05:38:57* Test Item Value Reference Range Interpretation Comme nts CHOLESTEROL (test code = 2209) 164 MG/DL <200 TRIGLYCERIDES (test code = [...] SPECIMENS. FOR MOREINFORMATION, SEE CLIENT ANNOUNCEMENT AT [email or web address] /CalcLDL-C RISK RATIO LDL/HDL (test code = 2238) 2.35 RATIO <3.55 PROTHROMBIN TIME (PT)2022-05-13 03:24:02* Test Item Value Reference Range Interpretation Comme nts PROTHROMBIN TIME (PT) (test code = 1402) 13.2 SECONDS 12.5-14.7 INR (test code = 23030) 1.0 SEE BELOW CURRENT RECOMMENDATIONS ARE FOR AN INR OF 2.0-3.0 FOR ALL PATIENTS ON VITAMIN K ANTAGONISTS, EXCEPT THOSE WITH PROSTHETIC HEART VALVES, FOR WHOM INR OF 2.5-3.5 IS RECOMMENDED. UNLESS OTHERWISE INDICATED, ALL TESTING PERFORMED [facility] [address] [place] [address] SALES REPRESENTATIVE [employer]: CHUCKY VAZQUEZ M.D. CLIA NUMBER [id number] [facility] [place]. [id number] COMPREHENSIVE METABOLIC [id number] 00:00:00* Test Item Value Reference Range Interpretation Comme nts GLUCOSE (test code = 2217) 89 MG/DL BUN (test code = 2208) 11 MG/DL CREATININE (test code = 2214) 0.65 MG/DL eGFR (2020 CKD-EPI) (test code = 64020) 109 ML/MIN/1.73 CALC BUN/CREAT (test code = [...] (test code = 2219) 16 U/L LIPID [id number] 00:00:00* Test Item Value Reference Range Interpretation Comme nts CHOLESTEROL (test code = 2210) 164 MG/DL TRIGLYCERIDES (test code = 2232) 104 MG/DL HDL CHOLESTEROL (test code = 2220) 43 MG/DL CALC LDL CHOL (test code = 2237) 101 MG/DL RISK RATIO LDL/HDL (test cod e = 2238) 2.35 RATIO HEMOGLOBIN [id number] 00:00:00* Test Item Value Reference Range Interpretation Comme nts HEMOGLOBIN A1c (test code = 42803) 5.0 % PROTHROMBIN TIME (PT)2022-05-13 00:00:00* Test Item Value Reference Range Interpretation Comme nts PROTHROMBIN TIME (PT) (test code = 1402) 13.2 SECONDS INR (test code = 92476) 1.0
[2025-04-27] MEDS ORDERED: KETOROLAC 30 MG/ML INJ ONE (20:29)
[2025-04-27] MEDS ORDERED: ONDANSETRON 4 MG/2 ML VIAL ONE (20:29)
[2025-04-27] MEDS ORDERED: VANCOMYCIN 1 GM/VIAL ONE (20:30)
[2025-04-27] MEDS ORDERED: CEFEPIME 2 GM VIAL ONE (20:30)
[2025-04-27] MEDS ORDERED: FAMOTIDINE 20 MG/2 ML VIAL IV ONE (20:30)
[2025-04-27] MEDS ORDERED: NA CHLORIDE 0.9% 2,000 ML ONE (20:31)
[2025-04-27] MEDS ORDERED: NA CHLORIDE 0.9% 100 ML ONE (20:31)
[2025-04-27] MEDS ORDERED: NA CHLORIDE 0.9% 500 ML ONE (20:32)
[2025-04-27 21:05] LABS: ALT/SGPT 22.0 U/L (16-61); AST/SGOT 19.0 U/L (15-37); Albumin 3.4 g/dL (3.4-5.0); Albumin/Globulin Ratio 0.8 (1.1-1.8); Alkaline Phosphatase 98.0 U/L (45-117); Anion Gap 12.0 mEq/L (5.0-15.0); BUN Blood Urea Nitrogen 9.0 mg/dL (7-18); Globulin 4.2 g/dL (2.3-3.5); Glucose Level 193.0 mg/dL (74-106); Lipase 29.0 U/L (13-75); Potassium 4.0 mEq/L (3.5-5.1)
--- NOTE | 2025-04-27 21:15 | RAD REPORT ---
EXAM: Chest Abdomen Pelvis W Cont CLINICAL INDICATION: Male, 60 years ABD PAIN TECHNIQUE: CT chest, abdomen and pelvis was performed, with IV contrast, as per department protocol. Axial, sagittal and coronal reconstructions were obtained. One or more of the following dose reduction techniques were used: Automated exposure control, adjustment of the mA and/or kV according to the patient size, and/or iterative reconstruction. Unless otherwise specified, incidental findings do not require dedicated imaging follow-up. [id number]. COMPARISON: No prior exams FINDINGS: ---THORAX--- LOWER NECK AND CHEST WALL: Visualized thyroid gland and soft tissues are normal. MEDIASTINUM AND LYMPH NODES: Enlarged mediastinal and hilar lymph nodes which are likely reactive. M ild distal esophageal thickening. THORACIC AORTA: No thoracic aortic aneurysm. PULMONARY ARTERIES: Caliber is within normal limits. HEART: Mild cardiomegaly. Mild coronary artery calcifications. No significant pericardial effusion. LUNGS AND AIRWAYS: Mild paraseptal emphysema. Dependent atelectasis. No suspicious and/or stable pulm onary nodules. PLEURA: No pleural effusion. No pneumothorax. ---ABDOMEN/PELVIS--- UPPER GI: No significant abnormality. LIVER: Steatosis and probably early cirrhosis. GALLBLADDER/BILE DUCTS: Cholelithiasis with gallbladder wall thickening and pericholecystic edema.? PANCREAS: No mass, ductal dilation, or emelia-pancreatic fluid. SPLEEN: Unremarkable. ADRENALS: Left adrenal nodularity. KIDNEYS AND URETERS: No hydronephrosis.Low density and/or too small to characterize renal lesions whi ch are statistically benign.No renal calculi. No ureteral calculi. ABDOMINAL AORTA AND OTHER VESSELS: Moderate atherosclerotic changes without aortic aneurysm. IVC filt er. PERITONEUM: Nonspecific free fluid. LYMPH NODES: No pathologic lymphadenopathy. ABDOMINAL WALL: Unremarkable SMALL BOWEL/COLON: Small bowel has normal course and caliber. No colonic wall thickening or pericolon ic inflammatory changes. Normal appendix. URINARY BLADDER: Underdistended but grossly unremarkable. REPRODUCTIVE ORGANS: No pathologic process. ---COMBINED--- MUSCULOSKELETAL: Multilevel degenerative changes in the spine. No acute fracture. ADDITIONAL FINDINGS: None. IMPRESSION: Cholelithiasis with mild gallbladder wall thickening and pericholecystic edema suspicious for acute c holecystitis. No other acute findings identified.
[2025-04-27 21:26] LABS: Absolute Lymphocytes (CBC) 1.7 K/uL (0.7-4.9); Hematocrit 47.0 % (39.6-49.0); Hemoglobin 16.0 g/dL (13.6-17.9); MCH 29.8 pg (27.0-35.0); MCHC 34.1 g/dL (32.0-36.0); MCV 87.4 fL (80-100); MPV 8.4 fL (7.6-11.3); Nucleated RBC Absolute Count 0.0 (0-0); Nucleated Red Blood Cells % 0.2 % (0-0); RBC Red Blood Cell Count 5.38 M/uL (4.33-5.43); White Blood Count 19.60 thou/uL (4.3-10.9)
[2025-04-27] MEDS ORDERED: DIPHENHYDRAMINE 50 MG/ML VIAL ONE (21:37)
[2025-04-27] MEDS ORDERED: METHYLPREDNISOLONE 125 MG INJ ONE (21:38)
[2025-04-27] MEDS ORDERED: Levofloxacin 750mg IV 750 MG/150 ML BAG IV ONE (21:41)
[2025-04-27 21:58] LABS: Blood Morphology Comment NOT SEEN (NOT SEEN); Platelets Clumped FEW; White Blood Cell Scan OK (OK)
--- NOTE | 2025-04-27 22:26 | RAD REPORT ---
Abdomen Exam Limited: 04/27/2025 9:39 PM CLINICAL HISTORY: ABD PAIN STUDY: Limited right upper quadrant ultrasound of abdomen. COMPARISON: Same-day CT FINDINGS: Liver: Limited evaluation but grossly unremarkable. Bile ducts: No intrahepatic or extrahepatic biliary ductal dilatation. Common bile duct measures 3 mm. Gallbladder: Cholelithiasis present. No sonographic Mojica sign. Gallbladder wall is thickened. IMPRESSION: Cholelithiasis with gallbladder wall thickening but no sonographic Mojica sign. The findings could st ill indicate acute cholecystitis in the appropriate clinical setting.
[2025-04-27 22:37] LABS: Sqamous Epithelial <5 /HPF (None Seen); Urine Culture Reflex Order REFLEXED; Urine Microscopic Reflex YN ORDER UMIC; Urine WBC Clump Rare /HPF (None Seen)
--- NOTE | 2025-04-28 00:20 | EDPHYS ---
Physician Documentation [facility] Name: Jude Grijalva Age: 60 yrs Sex: Male : 1965 Arrival Date: 04/27/2025 Time: 19:39 Bed 8 Private MD: ED Physician Dano Vidal HPI: 04/27 19:42 This 60 yrs old Male presents to ER via Unassigned with complaints of sp4 abdominal pain . 04/28 19:27 Patient returns to the emergency room with complaint of right sided abdominal pain most sp4 of the right lower quadrant. Patient was in the ER earlier today for abdominal pain but refused CT.. Historical: - Allergies: 04/27 22:11 cefepime; ha1 - PMHx: 20:13 Diabetes - NIDDM; Hypertension; left sided paralysis; stroke; cc6 - PSHx: 20:13 Left BKA; cc6 - Immunization history:: Adult Immunizations not up to date. - Infectious Disease History:: Denies. - Social history:: Smoking status: Patient reports the use of cigarette tobacco products, smokes one-half pack cigarettes per day. - Family history:: not pertinent. ROS: 04/28 19:27 Constitutional: Negative for fever, chills, and weight loss, positive for right lower sp4 abdominal pain All other systems are negative, Exam: 19:27 Constitutional: This is a well developed, well nourished patient who is awake, alert, sp4 and in no acute distress. Patient has left below-knee amputation. Well-healed stump Head/Face: Normocephalic, atraumatic. Eyes: Pupils equal round and reactive to light, extra-ocular motions intact. Lids and lashes normal. Conjunctiva and sclera are not injected. Cornea within normal limits. Periorbital areas with no swelling, redness, or edema. ENT: Nares patent. No nasal discharge, no septal abnormalities noted. Tympanic membranes are normal and external auditory canals are clear. Oropharynx with no redness, swelling, or masses, exudates, or evidence of obstruction, uvula midline. Mucous membranes moist. Neck: Trachea midline, no thyromegaly or masses palpated, and no cervical lymphadenopathy. Supple, full range of motion without nuchal rigidity, or vertebral point tenderness. Chest/axilla: Normal chest wall appearance and motion. Nontender with no deformity. No lesions are appreciated. Cardiovascular: Regular rate and rhythm with a normal S1 and S2. No gallops, murmurs, or rubs. No pulse deficits. Respiratory: Lungs have equal breath sounds bilaterally, clear to auscultation and percussion. No rales, rhonchi or wheezes noted. No increased work of breathing, no retractions or nasal flaring. Abdomen/GI: Soft, with normal bowel sounds. No distension or tympany. No guarding or rebound. No evidence of tenderness throughout. Back: No spinal tenderness. No costovertebral tenderness. Skin: Warm, dry with normal turgor. Normal color with no rashes, no lesions, and no evidence of cellulitis. MS/ Extremity: Pulses equal, no cyanosis. Neurovascular intact. Full, normal range of motion. Neuro: Awake and alert, GCS 15, oriented to person, place, time, and situation. Cranial nerves II-XII grossly intact. Motor strength 5/5 in all extremities. Sensory grossly intact. Psych: Awake, alert, with orientation to person, place and time. Behavior, mood, and affect are within normal limits Vital Signs: 04/27 19:40 BP 157 / 85; Pulse 92; Resp 18; Temp 99.2; Pulse Ox 98% on R/A; Weight 65.77 kg; Height cc6 5 ft. 7 in. ; Pain 10/10; 19:40 BP 157 / 85; Pulse 92; Resp 18; Temp 99.2; Pulse Ox 98% on R/A; Weight 65.77 kg; Height cc6 5 ft. 7 in. ; Pain 10/10; 20:52 BP 156 / 91; Pulse 89; Resp 18; Pulse Ox 99% on R/A; cc6 21:30 BP 165 / 76; Pulse 99; Resp 17; Pulse Ox 95% on R/A; cc6 23:40 BP 153 / 80; Pulse 90; Resp 18 S; Pulse Ox 99% on R/A; ha1 04/28 01:30 BP 160 / 78; Pulse 92; Resp 18 S; Temp 98.2(O); Pulse Ox 97% on R/A; ha1 04/27 19:40 Body Mass Index 22.71 (65.77 kg, 170.18 cm) cc6 04/27 19:40 Pain Scale: Adult cc6 19:40 Pain Scale: Adult cc6 [place] Coma Score: 19:27 Eye Response: spontaneous(4). Motor Response: obeys commands(6). Verbal Response: sp4 oriented(5). Total: 15. MDM: 04/27 21:15 Medical Screening Exam initiated sp4 04/28 00:05 ED course: FINDINGS: Liver: Limited evaluation but grossly unremarkable. Bile ducts: No sp4 intrahepatic or extrahepatic biliary ductal dilatation. Common bile duct measures 3 mm. Gallbladder: Cholelithiasis present. No sonographic Mojica sign. Gallbladder wall is thickened. IMPRESSION: Cholelithiasis with gallbladder wall thickening but no sonographic Mojica sign. The findings could still indicate acute cholecystitis in the appropriate clinical setting.. ED course: FINDINGS: ---THORAX--- LOWER NECK AND CHEST WALL: Visualized thyroid gland and soft tissues are normal. MEDIASTINUM AND LYMPH NODES: Enlarged mediastinal and hilar lymph nodes which are likely reactive. Mild distal esophageal thickening. THORACIC AORTA: No thoracic aortic aneurysm. PULMONARY ARTERIES: Caliber is within normal limits. HEART: Mild cardiomegaly. Mild coronary artery calcifications. No significant pericardial effusion. LUNGS AND AIRWAYS: Mild paraseptal emphysema. Dependent atelectasis. No suspicious and/or stable pulmonary nodules. PLEURA: No pleural effusion. No pneumothorax. ---ABDOMEN/PELVIS--- UPPER GI: No significant abnormality. LIVER: Steatosis and probably early cirrhosis. GALLBLADDER/BILE DUCTS: Cholelithiasis with gallbladder wall thickening and pericholecystic edema.? PANCREAS: No mass, ductal dilation, or emelia-pancreatic fluid. SPLEEN: Unremarkable. ADRENALS: Left adrenal nodularity. KIDNEYS AND URETERS: No hydronephrosis.Low density and/or too small to characterize renal lesions which are statistically benign.No renal calculi. No ureteral calculi. ABDOMINAL AORTA AND OTHER VESSELS: Moderate atherosclerotic changes without aortic aneurysm. IVC filter. PERITONEUM: Nonspecific free fluid. RADIOLOGY SERVICES REPORT LYMPH NODES: No pathologic lymphadenopathy. ABDOMINAL WALL: Unremarkable SMALL BOWEL/COLON: Small bowel has normal course and caliber. No colonic wall thickening or pericolonic inflammatory changes. Normal appendix. URINARY BLADDER: Underdistended but grossly unremarkable. REPRODUCTIVE ORGANS: No pathologic process. ---COMBINED--- MUSCULOSKELETAL: Multilevel degenerative changes in the spine. No acute fracture. ADDITIONAL FINDINGS: None. IMPRESSION: Cholelithiasis with mild gallbladder wall thickening and pericholecystic edema suspicious for acute cholecystitis. No other acute findings identified. . 00:19 Differential diagnosis: appendicitis, bowel obstruction, cholecystitis, Cholelithiasis, sp4 diverticulitis, gastritis, gastroesophageal reflux disease, Irritable bowel syndrome. Data reviewed: vital signs, nurses notes, EMS record, old medical records, lab test result(s), EKG, radiologic studies, CT scan, ultrasound. Consideration of Admission/Observation Escalation of care including admission/observation considered. ED course: Sepsis reevaluation complete. Full septic fluid bolus 30 mL/kg could not be administered secondary to concern for volume overload. Patient was administered a total of 1 L bolus and started on maintenance fluids 125 mL/h.. 19:27 Management of patient was discussed with the following: Hospitalist: Admission team. 4 [place]: Dr. Kim . 04/27 19:45 Order name: CBC with Diff; Complete Time: 00:02 [facility] 04/27 19:45 Order name: CMP; Complete Time: 21:37 [facility] 04/27 19:45 Order name: Lipase; Complete Time: 21:37 [facility] 04/27 19:46 Order name: UA Rfx Geremias Cult if indicated; Complete Time: 00:02 [facility] 04/27 20:11 Order name: Blood Culture Adult (2) [facility] 04/27 20:11 Order name: Lactate w/ 2H reflex if indic.; Complete Time: 21:37 [facility] 04/27 20:11 Order name: CRP; Complete Time: 21:37 [facility] 04/27 21:20 Order name: Ghost Lactate-NO COLLECT Timer; Complete Time: 00:02 [facility] 04/27 21:30 Order name: CBC Smear Scan; Complete Time: 00:02 [facility] 04/27 22:41 Order name: Urine Culture [facility] 04/27 23:45 Order name: Lactate Sepsis 2 HR Follow-up; Complete Time: 00:02 [facility] 04/28 01:35 Order name: CBC with Automated Diff EDMS 04/28 01:35 Order name: CBC with Automated Diff EDMS 04/28 01:35 Order name: CBC with Automated Diff EDMS 04/28 01:36 Order name: CBC with Automated Diff EDMS 04/28 01:36 Order name: Comprehensive Metabolic Panel [facility] 04/28 01:36 Order name: Comprehensive Metabolic Panel EDMS 04/28 01:36 Order name: Comprehensive Metabolic Panel EDMS 04/28 01:36 Order name: Comprehensive Metabolic Panel EDMS 04/28 01:36 Order name: Magnesium EDMS 04/28 01:36 Order name: Magnesium EDMS 04/28 01:36 Order name: Magnesium EDMS 04/28 01:36 Order name: Magnesium EDMS 04/28 01:36 Order name: Phosphorus EDMS 04/28 01:36 Order name: Phosphorus EDMS 04/28 01:36 Order name: Phosphorus EDMS 04/28 01:36 Order name: Phosphorus EDMS 04/27 20:49 Order name: Chest Abdomen Pelvis W Cont; Complete Time: 21:37 ED[facility] 04/27 21:39 Order name: US Abdomen Limited; Complete Time: 00:02 sp4 04/27 19:45 Order name: IV Saline Lock; Complete Time: 20:30 sp4 04/27 19:45 Order name: Labs collected and sent; Complete Time: 20:30 sp4 Administered Medications: 04/27 22:11 Discontinued: cefepime2 grams IVPB at 200 ml/hr once over 30 mins; (mix in NS 100 mL) cc6 21:18 Drug: Famotidine IVP 20 mg IVP once; dilute with 10 mL 0.9% NaCl; give over 2 minutes cc6 Route: IVP; Site: right antecubital; 21:49 Follow up: Response: No adverse reaction cc6 21:18 Drug: Droperidol IVP 2.5 mg IVP once Route: IVP; Site: right antecubital; cc6 21:48 Follow up: Response: No adverse reaction cc6 21:18 Drug: NS 0.9% IV 1000 ml IV at 250 ml/hr once; to be given at 250 ml / hour Route: IV; cc6 Rate: 250 ml/hr; Site: right antecubital; 04/28 02:02 Follow up: Response: No adverse reaction; IV Status: Infusion continued upon admission ha1 04/27 21:18 Drug: Cefepime IVPB 2 grams IVPB at 200 ml/hr once over 30 mins; (mix in NS 100 mL) cc6 Route: IVPB; Rate: 200 ml/hr; Infused Over: 30 mins; Site: right antecubital; 21:47 Follow up: Response: Adverse reaction, Physician notified cc6 21:19 Drug: TORadol - Ketorolac IVP 15 mg IVP once Route: IVP; Site: right antecubital; cc6 21:49 Follow up: Response: No adverse reaction cc6 21:19 Drug: Ondansetron IVP 4 mg IVP once; over 2 minutes Route: IVP; Site: right antecubital;cc6 21:49 Follow up: Response: No adverse reaction cc6 21:19 Drug: NS 0.9% IV 1000 ml IV at 1 bolus Per protocol; to be given as a bolus over 60 cc6 minutes Route: IV; Rate: 1 bolus; Site: right antecubital; 04/28 01:00 Follow up: Response: No adverse reaction; IV Status: Completed infusion ha1 04/27 21:46 Drug: diphenhydrAMINE IVP 50 mg IVP once Route: IVP; Site: right antecubital; cc6 22:10 Follow up: Response: No adverse reaction; Marked relief of symptoms ha1 21:46 Drug: MethylPrednisoLONE IVP 125 mg IVP once Route: IVP; Site: right antecubital; cc6 22:10 Follow up: Response: No adverse reaction; Marked relief of symptoms ha1 23:22 Drug: levofloxacin IVPB 750 mg 150 ml IVPB once over 90 mins Volume: 150 ml; Route: cc6 IVPB; Infused Over: 90 mins; Site: right antecubital; 04/28 00:47 Follow up: Response: No adverse reaction; IV Status: Completed infusion; IV Intake: cc6 150ml 01:10 Drug: metroNIDAZOLE IVPB 500 mg 100 ml IVPB at 200 ml/hr once over 30 mins Volume: 100 ha1 ml; Route: IVPB; Rate: 200 ml/hr; Infused Over: 30 mins; Site: right antecubital; 02:00 Follow up: Response: No adverse reaction; IV Status: Completed infusion ha1 02:01 Drug: vancoMYCIN IVPB 2 grams IVPB at calculated rate once Route: IVPB; Rate: ha1 calculated rate; Site: right antecubital; 04:04 Follow up: Response: No adverse reaction; IV Status: Infusion continued upon admission cc6 Disposition Summary: 04/28/25 00:19 Hospitalization Ordered Notes: Hospitalization Status: Inpatient Admission sp4 Provider: Garcia, Juan sp4 Location: Telemetry/MedSurg (Inpatient) sp4 Condition: Stable sp4 Problem: new sp4 Symptoms: have improved sp4 Bed/Room Type: Standard sp4 Room Assignment: 414(04/28/25 02:24) cc6 Diagnosis - Acute calculous cholecystitis, sepsis secondary to cholecystitis sp4 - Other specified sepsis sp4 Forms: - Medication Reconciliation Form sp4 - SBAR form sp4 - Leadership Thank You Letter sp4 Signatures: Dispatcher [employer] EDMS Renee Song RN RN ha1 Dano Vidal MD MD sp4 Denia Kang Cassandra, RN RN cc6 Corrections: (The following items were deleted from the chart) 04/27 20:49 19:46 Abdomen Pelvis W Con+CT.RAD.BRZ ordered. EDHI EDHI 22:11 20:13 Allergies: No Known Allergies; cc6 ha1 04/28 01:31 00:19 sp4 vk 02:24 01:31 413 [facility]6
--- NOTE | 2025-04-28 00:20 | ER ---
Nurse's Notes [facility] Name: Jude Grijalva Age: 60 yrs Sex: Male : 1965 Arrival Date: 04/27/2025 Time: 19:39 Bed 8 Private MD: Diagnosis: Acute calculous cholecystitis, sepsis secondary to cholecystitis;Other specified sepsis Presentation: 04/27 19:40 Chief complaint: EMS states: of abdominal pain that has been ongoing was discharged cc6 earlier with an anibitoic. States "the pain never went away.". 19:40 Coronavirus screen: Client denies travel out of the [place] in the last 14 days. At this cc6 time, the client does not indicate any symptoms associated with coronavirus-19. Ebola Screen: No symptoms or risks identified at this time. Initial Sepsis Screen: Does the patient meet any 2 criteria? No. Patient's initial sepsis screen is negative. Does the patient have a suspected source of infection? No. Patient's initial sepsis screen is negative. Risk Assessment: Do you want to hurt yourself or someone else? Patient reports no desire to harm self or others. Onset of symptoms was April 27, 2025. 19:40 Method Of Arrival: EMS: [facility] cc6 19:40 Acuity: QASIM 3 cc6 Triage Assessment: 20:13 General: SEE NURSING ASSESSMENT. cc6 Historical: - Allergies: 22:11 cefepime; ha1 - PMHx: 20:13 Diabetes - NIDDM; Hypertension; left sided paralysis; stroke; cc6 - PSHx: 20:13 Left BKA; cc6 - Immunization history:: Adult Immunizations not up to date. - Infectious Disease History:: Denies. - Social history:: Smoking status: Patient reports the use of cigarette tobacco products, smokes one-half pack cigarettes per day. - Family history:: not pertinent. Screenin:17 [facility] ED Fall Risk Assessment (Adult) History of falling in the last 3 months, cc6 including since admission No falls in past 3 months (0 pts) Confusion or Disorientation No (0 pts) Intoxicated or Sedated No (0 pts) Impaired Gait Yes (1 pt) Mobility Assist Device Used Yes (1 pt) Altered Elimination No (0 pt) Score/Fall Risk Level 0 - 2 = Low Risk Oriented to surroundings, Maintained a safe environment, Educated pt \\T\\ family on fall prevention, incl call for assistance when getting out of bed. Abuse screen: Denies threats or abuse. Denies injuries from another. Nutritional screening: No deficits noted. Tuberculosis screening: No symptoms or risk factors identified. Assessment: 19:40 General: Appears in no apparent distress. comfortable, Behavior is calm, cooperative. cc6 Pain: Complains of pain in right lower quadrant Pain does not radiate. Pain currently is 10 out of 10 on a pain scale. Quality of pain is described as sharp, Pain began 1 day ago. Is continuous. Neuro: Level of Consciousness is awake, alert, obeys commands, Oriented to person, place, time, situation. Cardiovascular: Patient's skin is warm and dry. Respiratory: Airway is patent. Respiratory: Respiratory effort is even, unlabored, Respiratory pattern is regular, symmetrical. GI: Bowel sounds present X 4 quads. Abd is soft and non tender X 4 quads. : No signs and/or symptoms were reported regarding the genitourinary system. EENT: No signs and/or symptoms were reported regarding the EENT system. Derm: No signs and/or symptoms reported regarding the dermatologic system. Musculoskeletal: Range of motion: intact in all extremities. 20:52 Reassessment: Patient and/or family updated on plan of care and expected duration. Pain cc6 level reassessed. Patient is alert, oriented x 3, equal unlabored respirations, skin warm/dry/pink. 21:30 Reassessment: Patient and/or family updated on plan of care and expected duration. Pain cc6 level reassessed. Patient is alert, oriented x 3, equal unlabored respirations, skin warm/dry/pink. 21:43 Reassessment: NOTICED REDNESS ON THE FACE. PATIENT STATES"MY FACE FEELS HOT". NOTIFIED ha1 DR. GORDON. 22:05 Reassessment: Patient and/or family updated on plan of care and expected duration. Pain ha1 level reassessed. Patient is alert, oriented x 3, equal unlabored respirations, skin warm/dry/pink. Patient denies pain at this time. Patient states feeling better. Patient states symptoms have improved. 23:20 Reassessment: Patient and/or family updated on plan of care and expected duration. Pain ha1 level reassessed. Patient is alert, oriented x 3, equal unlabored respirations, skin warm/dry/pink. 04/28 00:21 Reassessment: Patient and/or family updated on plan of care and expected duration. Pain ha1 level reassessed. Patient is alert, oriented x 3, equal unlabored respirations, skin warm/dry/pink. 01:10 Reassessment: Patient and/or family updated on plan of care and expected duration. Pain ha1 level reassessed. 02:03 Reassessment: Patient and/or family updated on plan of care and expected duration. Pain ha1 level reassessed. EYES CLOSED. Respiratory: Airway is patent Respiratory effort is even, unlabored, Respiratory pattern is regular, symmetrical. 02:31 Reassessment: Patient and/or family updated on plan of care and expected duration. Pain ha1 level reassessed. Vital Signs: 04/27 19:40 BP 157 / 85; Pulse 92; Resp 18; Temp 99.2; Pulse Ox 98% on R/A; Weight 65.77 kg; Height cc6 5 ft. 7 in. ; Pain 10/; 19:40 BP 157 / 85; Pulse 92; Resp 18; Temp 99.2; Pulse Ox 98% on R/A; Weight 65.77 kg; Height cc6 5 ft. 7 in. ; Pain 10/10; 20:52 BP 156 / 91; Pulse 89; Resp 18; Pulse Ox 99% on R/A; cc6 21:30 BP 165 / 76; Pulse 99; Resp 17; Pulse Ox 95% on R/A; cc6 23:40 BP 153 / 80; Pulse 90; Resp 18 S; Pulse Ox 99% on R/A; ha1 04/28 01:30 BP 160 / 78; Pulse 92; Resp 18 S; Temp 98.2(O); Pulse Ox 97% on R/A; ha1 04/27 19:40 Body Mass Index 22.71 (65.77 kg, 170.18 cm) cc6 04/27 19:40 Pain Scale: Adult cc6 19:40 Pain Scale: Adult cc6 [place] Coma Score: 19:27 Eye Response: spontaneous(4). Motor Response: obeys commands(6). Verbal Response: sp4 oriented(5). Total: 15. ED Course: 04/27 19:40 Patient arrived in ED. vk 19:41 Potepalov, Dano, MD is Attending Physician. sp4 19:57 Minna Singh, RHETT is Primary Nurse. kd3 20:10 Inserted saline lock: 20 gauge in right antecubital area, using aseptic technique. ha1 Blood collected. Flushed with 10 mL NS. 20:13 Triage completed. cc6 20:17 Bed in low position. Call light in reach. Side rails up X 1. Provided Education on: USE cc6 OF CALL LIGHT. 20:18 Arm band placed on right wrist. cc6 20:30 CBC with Diff Sent. ha1 20:30 CMP Sent. ha1 20:30 Lipase Sent. ha1 20:31 Blood Culture Adult (2) Sent. ha1 20:31 Lactate w/ 2H reflex if indic. Sent. ha1 20:31 CRP Sent. ha1 20:59 Chest Abdomen Pelvis W Cont In Process Unspecified. EDMS 22:07 US Abdomen Limited In Process Unspecified. EDMS 04/28 00:16 Juan Garcia MD is Hospitalizing Provider. sp4 04:05 No provider procedures requiring assistance completed. Patient admitted, IV remains in cc6 place. Administered Medications: 04/27 22:11 Discontinued: cefepime2 grams IVPB at 200 ml/hr once over 30 mins; (mix in NS 100 mL) cc6 21:18 Drug: Famotidine IVP 20 mg IVP once; dilute with 10 mL 0.9% NaCl; give over 2 minutes cc6 Route: IVP; Site: right antecubital; 21:49 Follow up: Response: No adverse reaction cc6 21:18 Drug: Droperidol IVP 2.5 mg IVP once Route: IVP; Site: right antecubital; cc6 21:48 Follow up: Response: No adverse reaction cc6 21:18 Drug: NS 0.9% IV 1000 ml IV at 250 ml/hr once; to be given at 250 ml / hour Route: IV; cc6 Rate: 250 ml/hr; Site: right antecubital; 04/28 02:02 Follow up: Response: No adverse reaction; IV Status: Infusion continued upon admission ha1 04/27 21:18 Drug: Cefepime IVPB 2 grams IVPB at 200 ml/hr once over 30 mins; (mix in NS 100 mL) cc6 Route: IVPB; Rate: 200 ml/hr; Infused Over: 30 mins; Site: right antecubital; 21:47 Follow up: Response: Adverse reaction, Physician notified cc6 21:19 Drug: TORadol - Ketorolac IVP 15 mg IVP once Route: IVP; Site: right antecubital; cc6 21:49 Follow up: Response: No adverse reaction cc6 21:19 Drug: Ondansetron IVP 4 mg IVP once; over 2 minutes Route: IVP; Site: right antecubital;cc6 21:49 Follow up: Response: No adverse reaction 6 21:19 Drug: NS 0.9% IV 1000 ml IV at 1 bolus Per protocol; to be given as a bolus over 60 cc6 minutes Route: IV; Rate: 1 bolus; Site: right antecubital; 04/28 01:00 Follow up: Response: No adverse reaction; IV Status: Completed infusion ha1 04/27 21:46 Drug: diphenhydrAMINE IVP 50 mg IVP once Route: IVP; Site: right antecubital; cc6 22:10 Follow up: Response: No adverse reaction; Marked relief of symptoms ha1 21:46 Drug: MethylPrednisoLONE IVP 125 mg IVP once Route: IVP; Site: right antecubital; cc6 22:10 Follow up: Response: No adverse reaction; Marked relief of symptoms ha1 23:22 Drug: levofloxacin IVPB 750 mg 150 ml IVPB once over 90 mins Volume: 150 ml; Route: cc6 IVPB; Infused Over: 90 mins; Site: right antecubital; 04/28 00:47 Follow up: Response: No adverse reaction; IV Status: Completed infusion; IV Intake: cc6 150ml 01:10 Drug: metroNIDAZOLE IVPB 500 mg 100 ml IVPB at 200 ml/hr once over 30 mins Volume: 100 ha1 ml; Route: IVPB; Rate: 200 ml/hr; Infused Over: 30 mins; Site: right antecubital; 02:00 Follow up: Response: No adverse reaction; IV Status: Completed infusion ha1 02:01 Drug: vancoMYCIN IVPB 2 grams IVPB at calculated rate once Route: IVPB; Rate: ha1 calculated rate; Site: right antecubital; 04:04 Follow up: Response: No adverse reaction; IV Status: Infusion continued upon admission 6 Medication: 02:30 VIS not applicable for this client. ha1 Intake: 00:47 IV: 150ml; Total: 150ml. cc6 Outcome: 00:19 Decision to Hospitalize by Provider. sp4 04:05 Admitted to Tele accompanied by nurse, via stretcher, room 406, cc6 04:05 Condition: stable 04:05 Instructed on the need for admit, Demonstrated understanding of instructions, 04:06 Patient left the ED. cc6 Signatures: Dispatcher [employer] Minna Noble, RN RN kd3 Renee Song RN RN ha1 Dano Vidal MD MD sp4 Denia Kang Cassandra, RN RN cc6 Corrections: (The following items were deleted from the chart) 04/27 20:51 20:16 BP 157 / 85; Pulse 92bpm; Resp 18bpm; Pulse Ox 98% RA; Temp 99.2F; 65.77 kg; cc6 Height 5 ft. 7 in.; BMI: 22.7; Pain 05/02, Adult; cc6 22:11 20:13 Allergies: No Known Allergies; cc6 ha1 22:14 22:13 BP 165 / 76; Pulse 99bpm; Resp 17bpm; Pulse Ox 95% RA; cc6 cc6 04/28 02:32 01:30 BP 160 / 78; Pulse 92bpm; Resp 18bpm; Spontaneous; Pulse Ox 97% RA; ha1 ha1
[2025-04-28] MEDS ORDERED: METRONIDAZOLE 500mg IVPB 500 MG/100 ML BAG IV ONE (00:50)
[2025-04-28] MEDS ORDERED: MORPHINE 4 MG/ML SYR IV PRN (01:26)
[2025-04-28] MEDS ORDERED: ONDANSETRON 4 MG/2 ML VIAL IV PRN (01:29)
--- NOTE | 2025-04-28 01:41 | P.HP ---
Certification for Inpatient Patient admitted to: Inpatient With expected LOS: >2 Midnights Patient will require the following post-hospital care: None Practitioner: I am a practitioner with admitting privileges, knowledge of patient current condition, hospital course, and medical plan of care. Services: Services provided to patient in accordance with Admission requirements found in Title 42 Section 412.3 of the Code of Federal Regulations <Merlin Roque - Last Filed: 04/28/25 06:12> Patient History Date of Service: 04/28/25 Reason for admission: Acute Cholecystitis History of Present Illness: Patient is a 62-year-old male predominantly Iranian-speaking only with past medical history of type 2 diabetes mellitus, essential hypertension, PVD, bilateral lower extremities DVT, left BKA, tobacco use disorder, noncompliant with medications administration, who presents to the ER complaining of severe pain right upper quadrant with associated nausea but no vomiting. Patient had previously visited the ER in the morning complaining of abdominal pain, but he left AMA and refused to have CT scan done. Patient presents back this evening to ER complaining of worsening pain right upper quadrant. Patient states he suddenly developed right upper quadrant pain this morning after eating some eggs. Initially denied of any nausea or vomiting, but subsequently started having nausea but no vomiting. Denies of any associated chest pain, shortness of breath. On admission assessment, patient positive rebound tenderness right upper quadrant. Report received from PA in ER, states consulted Dr. Kim, and will see patient in AM. Patient received cefepime in the ER, and had severe allergy reaction with hives, had to be given Benadryl. Course in ER. (1) CT chest, abdomen, and pelvis impression. (1) cholelithiasis with mild gallbladder wall thickening and pericholecystitis edema suspicion for acute cholecystitis. No other acute findings identified. (2) abdominal ultrasound. Impression: Cholelithiasis with gallbladder wall thickening but no sonographic Mojica sign. The findings could still indicate acute cholecystitis in the appropriate clinical setting. - Past Medical/Surgical History Diabetic: Yes -: DM -: HTN -: Bilateral DVTs -: Medical noncompliance -: CVA -: Tobacco abuse -: Left BKA Psychosocial/ Personal History: Lives at home, alone - Family History Mother -: Diabetes - Social History Alcohol use: No CD- Drugs: No Caffeine use: Yes Place of Residence: Home <Merlin Roque - Last Filed: 04/28/25 06:12> Date of Service: 04/28/25 <Jacoby King - Last Filed: 04/28/25 06:48> Allergies No Known Drug Allergies Allergy (Verified 11/23/22 23:42) Unknown Home Medications: Smz./Tmp. [Bactrim Ds 800 MG/160 MG] 1 tab PO BID 7 Days #14 tab 02/05/24 lisinopriL [Prinivil*] 10 mg PO DAILY #30 tab 02/05/24 Review of Systems 10-point ROS is otherwise unremarkable Gastrointestinal: Nausea, Vomiting, Abdominal Pain <Merlin Roque - Last Filed: 04/28/25 06:12> Physical Examination - Physical Exam General: Alert, In no apparent distress, Oriented x3 Neck: Supple, 2+ carotid pulse no bruit, JVD not distended, No Thyromegaly, No LAD, Without JVD or thyroid abnormality Respiratory: Clear to auscultation bilaterally, Normal air movement Cardiovascular: No edema, Normal pulses, Regular rate/rhythm, Normal S1 S2, No gallops Gastrointestinal: Normal bowel sounds, Non-distended, W/out hepatomegaly, W/out splenomegaly, No ascites, No rebound, No guarding (right uppwer quad), Tenderness - Studies Laboratory Data (last 24 hrs) 04/27/25 04/27/25 20:05 20:05 WBC 19.60 H Hgb 16.0 Hct 47.0 Plt Count 186 Sodium 136 Potassium 4.0 BUN 9 Creatinine 0.88 Glucose 193 H Total Bilirubin 0.6 AST 19 ALT 22 Alkaline Phosphatase 98 Lipase 29 Microbiology Data (last 24 hrs): 04/27/25 20:10 Blood - Blood Anaerobic Blood Culture - Final 04/27/25 20:25 Blood - Blood Anaerobic Blood Culture - Final <Merlin Roque - Last Filed: 04/28/25 06:12> - Studies Laboratory Data (last 24 hrs) 04/27/25 04/27/25 20:05 20:05 WBC 19.60 H Hgb 16.0 Hct 47.0 Plt Count 186 Sodium 136 Potassium 4.0 BUN 9 Creatinine 0.88 Glucose 193 H Total Bilirubin 0.6 AST 19 ALT 22 Alkaline Phosphatase 98 Lipase 29 Microbiology Data (last 24 hrs): 04/27/25 20:10 Blood - Blood Anaerobic Blood Culture - Final 04/27/25 20:25 Blood - Blood Anaerobic Blood Culture - Final <Jacoby King - Last Filed: 04/28/25 06:48> Male Exam - Male Exam Inguinal exam: No hernias <Merlin Roque - Last Filed: 04/28/25 06:12> Assessment and Plan - Plan Patient is a 60-year-old male admitted to inpatient with diagnosis of acute cholecystitis. (1)Acute cholecystitis. -Dr. Kim consulted. Patient was previously seen by Dr. Kim did amputation of his leg leg BKA. -Levaquin 7 and 50 mg IV daily, and metronidazole 500 mg IV every 8 hours. Patient had severe allergy reaction hives in ER today when cefepime was adm inistered. -IV NS at 75 mL/ hr. -Morphine 4 mg IV as needed every 6 hours. -NPO after midnight. -Zofran 4 mg IV as needed every 6 hours. (2)Chronic type 2 diabetes mellitus. -Order Accu-Chek Q6 patient NPO after midnight with moderate sliding scale coverage. -To resume Accu-Chek ACHS when patient start eating, moderate sliding scale coverage. (3)Catient home medications to be resumed when reconciled. Explained entire treatment plan to the patient, solicited questions answered and voiced understanding. Discharge Plan: Home Plan to discharge in: Greater than 2 days - Advance Directives Does patient have a Living Will: No Does patient have a Durable POA for Healthcare: No - Code Status/Comfort Care Code Status Assessed: Yes Code Status: Full Code Critical Care: No Time Spent Managing Pts Care (In Minutes): 55 <Merlin Roque - Last Filed: 04/28/25 06:12> Physician Review: Patient Assessed, Agree with Above Assessment and Plan <Jacoby King - Last Filed: 04/28/25 06:48>
[2025-04-28 04:41] VITALS: BMI 22.7
[2025-04-28 04:54] VITALS: O2SAT 97
[2025-04-28] MEDS: NA CHLORIDE 0.9% 1,000 ML IV SCH (05:26)
[2025-04-28] MEDS: INSULIN REGULAR (HUMAN) 100 UNIT/ML SQ SCH (05:28)
[2025-04-28] MEDS ORDERED: INSULIN REGULAR (HUMAN) 100 UNIT/ML SQ SCH (07:30)
[2025-04-28] MEDS ORDERED: FLU (Fluarix) 25-26 (6MOS UP)/PF 45 MCG/0.5 ML Syringe IM ONE (08:00)
[2025-04-28] MEDS ORDERED: PNEUMOCOCCAL VACCINE 0.5 ML IMVAC ONE (08:00)
[2025-04-28] MEDS: METRONIDAZOLE 500mg IVPB 500 MG/100 ML BAG IV SCH (08:56)
--- NOTE | 2025-04-28 14:30 | P.DS ---
Admission Date: 04/28/25 Discharge Date: 04/28/25 Disposition: ROUTINE DISCHARGE Reason for Admission: Acute Cholecystitis Brief History of Present Illness: Patient is a 62-year-old male predominantly English-speaking only with past medical history of type 2 diabetes mellitus, essential hypertension, PVD, bilateral lower extremities DVT, left BKA, tobacco use disorder, noncompliant with medications administration, who presents to the ER complaining of severe pain right upper quadrant with associated nausea but no vomiting. Patient had previously visited the ER in the morning complaining of abdominal pain, but he left AMA and refused to have CT scan done. Patient presents back this evening to ER complaining of worsening pain right upper quadrant. Patient states he suddenly developed right upper quadrant pain this morning after eating some eggs. Initially denied of any nausea or vomiting, but subsequently started having nausea but no vomiting. Denies of any associated chest pain, shortness of breath. On admission assessment, patient positive rebound tenderness right upper quadrant. Report received from PA in ER, states consulted Dr. Kim, and will see patient in AM. Patient received cefepime in the ER, and had severe allergy reaction with hives, had to be given Benadryl. Course in ER. (1) CT chest, abdomen, and pelvis impression. (1) cholelithiasis with mild gallbladder wall thickening and pericholecystitis edema suspicion for acute cholecystitis. No other acute findings identified. (2) abdominal ultrasound. Impression: Cholelithiasis with gallbladder wall thickening but no sonographic Mojica sign. The findings could still indicate acute cholecystitis in the appropriate clinical setting. Upon admission he was started on IV antibiotics. His clinical condition improved he is now tolerating a diet. He wishes to go home and follow-up with surgery as an outpatient. He will be discharged with 10 days of Augmentin. He is medically optimized for discharge and follow-up with Dr. Kim Vital Signs/Physical Exam: Temp Pulse Resp BP Pulse Ox 98.1 F 68 17 148/78 H 99 04/28/25 12:00 04/28/25 12:00 04/28/25 12:00 04/28/25 12:00 04/28/25 12:00 Laboratory Data at Discharge: WBC 19.60 thou/uL (4.3-10.9) H 04/27/25 20:05 Hgb 16.0 g/dL (13.6-17.9) 04/27/25 20:05 Hct 47.0 % (39.6-49.0) 04/27/25 20:05 Plt Count 186 thou/uL (152-406) 04/27/25 20:05 Sodium 136 mEq/L (136-145) 04/27/25 20:05 Potassium 4.0 mEq/L (3.5-5.1) 04/27/25 20:05 BUN 9 mg/dL (7-18) 04/27/25 20:05 Creatinine 0.88 mg/dL (0.70-1.30) 04/27/25 20:05 Glucose 193 mg/dL (74-106) H 04/27/25 20:05 Total Bilirubin 0.6 mg/dL (0.2-1.0) 04/27/25 20:05 AST 19 U/L (15-37) 04/27/25 20:05 ALT 22 U/L (16-61) 04/27/25 20:05 Alkaline Phosphatase 98 U/L (45-117) 04/27/25 20:05 Lipase 29 U/L (13-75) 04/27/25 20:05 Home Medications: lisinopriL [Prinivil*] 10 mg PO DAILY #30 tab 02/05/24 Amox/Clavulanate [Augmentin 875-125 Tab] 875 mg PO BID 10 Days #20 tab 04/28/25 New Medications: Amox/Clavulanate [Augmentin 875-125 Tab] 875 mg PO BID 10 Days #20 tab Followup: NONE,NONE [Primary Care Provider] - Jossue Kim MD [ACTIVE - CAN ADMIT] -
[2025-04-28 16:18] VITALS: BP 146/80; TEMP 97.9
[2025-04-28] MEDS ORDERED: Levofloxacin 750mg IV 750 MG/150 ML BAG IV SCH (21:00)
== END 2025-04-28 16:00 | disposition home or self-care (01) | DRG 872 ==
LOC: ER 19:39 → 4TH 04-28 01:20
PROVIDERS: ADMIT Family Medicine; ATTEND Family Medicine
DX: A41.9 Sepsis, unspecified organism (principal); K81.0 Acute cholecystitis; I10 Essential (primary) hypertension; E11.51 Type 2 diabetes mellitus with diabetic peripheral angiopathy without gangrene; F17.210 Nicotine dependence, cigarettes, uncomplicated; Z60.2 Problems related to living alone; Z88.1 Allergy status to other antibiotic agents; Z89.512 Acquired absence of left leg below knee; Z79.899 Other long term (current) drug therapy; Z91.148 Patient's other noncompliance with medication regimen for other reason
CPT/HCPCS: 36415; 71045; 71260; 74177; 76705; 80048; 80053; 80076; 81001; 82947; 83605; 83690; 83735; 83880; 84484; 85025; 85610; 86140; 87040; 87086; 87088; 93005; 96361; 96365; 96366; 96367; 96374; 96375; 99285; J0692; J1200; J1790; J1885; J2405; J2919; J3373; J7030; J7040; Q9967

== ENCOUNTER 2025-04-29 21:16 | Inpatient (IN) | payer OTHER ==
--- OUTSIDE RECORDS SUMMARY | 2025-04-29 21:19 | XMS REPORT | Continuity of Care Document ---
Author Name Unknown Address [address] [place] [address] [facility] Address [address] [place] [address] Care Team Providers Care Palliative Medicine Physician Name Role Phone Courtney Campbell Primary Care [...] Goal Plan of Care Note [code = 19974-9] Goal Plan of Care Note [code = 19019-2] Goal Plan of Care Note [code = 67437-1] Goal Plan of Care Note [code = 37145-1] Goal Plan of Care Note [code = 82112-2] Goal Plan of Care Note [code = 53028-7] Goal Plan of Care Note [code = 24649-8] Goal Plan of Care Note [code = 25475-4] Goal Plan of Care Note [code = 12805-4] Goal Plan of Care Note [code = 09448-1] Goal Plan of Care Note [code = 67057-6] Goal Plan of Care Note [code = 15583-7] Goal Plan of Care Note [code = 38041-1] Goal Plan of Care Note [code = 72779-0] Goal Plan of Care Note [code = 66713-3] Goal Plan of Care Note [code = 90131-9] Goal Plan of Care Note [code = 26847-0] Goal Plan of Care Note [code = 93040-7] Goal Plan of Care Note [code = 47409-7] Goal Plan of Care Note [code = 24384-8] Goal Plan of Care Note [code = 51923-7] Goal Plan of Care Note [code = 35433-5] Encounters Start Date/Time End Date/Time Encounter Type Admission Type Attending [facility] Care Department Encounter ID Source 2023-05-19 14:06:17 2023-05-19 14:06:17 Outpatient [facility] [id number] 2022-11-23 11:21:31 2022-11-23 11:21:31 Outpatient [facility] [id number] 2022-08-20 11:50:43 2022-08-20 11:50:43 Outpatient [facility] [id number] 2022-06-04 09:36:28 2022-06-04 09:36:28 Outpatient [facility] [id number] 2022-06-04 00:00:2022-06-04 00:00:00 Outpatient Visit [id number] 10:06:19 2022-05-12 10:06:19 Outpatient [facility] [id number] 2022-05-12 00:00:00 2022-05-12 00:00:00 Outpatient Visit [id number] Results Test Description Test Time Test Comments Results Result Co mments Source LIPID [id number] 00:01:28* Test Item Value Reference Range Interpretation [...] SPECIMENS. FOR MOREINFORMATION, SEE CLIENT ANNOUNCEMENT AT [email or web address] RISK RATIO LDL/HDL (test code = 2238) 2.24 RATIO <3.55 HEMOGLOBIN [id number] 03:24:54* Test Item Value Reference Range Interpretation Comme nts HEMOGLOBIN A1c (test code = 16016) 5.4 % 4.2-5.6 UNLESS OTHERWISE INDICATED, ALL TESTING PERFORMED [facility] [address] [place] [address], [place] [address] BRINE MAKER: CHUCKY VAZQUEZ M.D. CLIA NUMBER [id number] [facility] [place]. [id number] HEMOGLOBIN [id number] 06:27:45* Test Item Value Reference Range Interpretation Comme nts HEMOGLOBIN A1c (test code = 59421) 5.0 % 4.2-5.6 COMPREHENSIVE METABOLIC [id number] 05:38:57* Test Item Value Reference Range Interpretation [...] code = 2219) 16 U/L 5-50 LIPID [id number] 05:38:57* Test Item Value Reference Range Interpretation [...] SPECIMENS. FOR MOREINFORMATION, SEE CLIENT ANNOUNCEMENT AT [email or web address] RISK RATIO LDL/HDL (test code = 2238) 2.35 RATIO <3.55 PROTHROMBIN TIME (PT)2022-05-13 03:24:02* Test Item Value Reference Range Interpretation Comme nts PROTHROMBIN TIME (PT) (test code = 1402) 13.2 SECONDS 12.5-14.7 INR (test code = 19906) 1.0 SEE BELOW CURRENT RECOMMENDATIONS ARE FOR AN INR OF 2.0-3.0 FOR ALL PATIENTS ON VITAMIN K ANTAGONISTS, EXCEPT THOSE WITH PROSTHETIC HEART VALVES, FOR WHOM INR OF 2.5-3.5 IS RECOMMENDED. UNLESS OTHERWISE INDICATED, ALL TESTING PERFORMED [facility] [address] [place] [address] BRINE MAKER: CHUCKY VAZQUEZ M.D. CLIA NUMBER [id number] [facility] [place]. [id number] COMPREHENSIVE METABOLIC [id number] 00:00:00* Test Item Value Reference Range Interpretation Comme nts GLUCOSE (test code = 2217) 89 MG/DL BUN (test code = 2208) 11 MG/DL CREATININE (test code = 2214) 0.65 MG/DL eGFR (2020 CKD-EPI) (test code = 38447) 109 ML/MIN/1.73 CALC BUN/CREAT (test code = [...] (test code = 2219) 16 U/L LIPID [id number] 00:00:00* Test Item Value Reference Range Interpretation Comme nts CHOLESTEROL (test code = 2210) 164 MG/DL TRIGLYCERIDES (test code = 2232) 104 MG/DL HDL CHOLESTEROL (test code = 2220) 43 MG/DL CALC LDL CHOL (test code = 2237) 101 MG/DL RISK RATIO LDL/HDL (test cod e = 2238) 2.35 RATIO HEMOGLOBIN [id number] 00:00:00* Test Item Value Reference Range Interpretation Comme nts HEMOGLOBIN A1c (test code = 69474) 5.0 % PROTHROMBIN TIME (PT)2022-05-13 00:00:00* Test Item Value Reference Range Interpretation Comme nts PROTHROMBIN TIME (PT) (test code = 1402) 13.2 SECONDS INR (test code = 90187) 1.0
--- NOTE | 2025-04-29 22:28 | RAD REPORT ---
EXAMINATION: Abdomen Pelvis W Contrast CLINICAL INDICATION: Male, 60 years old.ABD PAIN TECHNIQUE: CT abdomen and pelvis was performed, after the administration of IV contrast, [facility]. Axial, sagittal and coronal reconstructions were obtained. One or more of the following dose reduction techniques were used: Automated exposure control, adjustment of the mA and/o r kV according to patient size, and/or iterative reconstruction. Unless otherwise specified, incidental findings do not require dedicated imaging follow-up. [id number]. COMPARISON: 04/27/2025 FINDINGS: LOWER CHEST: No acute process identified. No significant pericardial effusion. Mild circumferential t hickening of the distal esophagus which could reflect esophagitis. UPPER GI: No significant abnormality. LIVER: Steatosis and probably early cirrhosis. GALLBLADDER/BILE DUCTS: Cholelithiasis with gallbladder wall thickening.? PANCREAS: No mass, ductal dilation, or emelia-pancreatic fluid. SPLEEN: Unremarkable. ADRENALS: Adrenal thickening without discrete mass. KIDNEYS AND URETERS: No hydronephrosis. Low density and/or too small to characterize renal lesions wh ich are statistically benign. No renal calculi. No ureteral calculi. ABDOMINAL AORTA AND OTHER VESSELS: Moderate atherosclerotic changes without aortic aneurysm. IVC filt er. PERITONEUM: No abnormal free fluid. No free air. LYMPH NODES: No pathologic lymphadenopathy. ABDOMINAL WALL: Unremarkable SMALL BOWEL/COLON: Fluid present within the ascending and transverse colon. There is also some fluid present within the small bowel. No bowel obstruction. Normal appendix. URINARY BLADDER: Nonspecific circumferential bladder wall thickening. REPRODUCTIVE ORGANS: No pathologic process. MUSCULOSKELETAL: No acute or suspicious osseous abnormality. ADDITIONAL FINDINGS: None. IMPRESSION: Similar cholelithiasis with gallbladder wall thickening. Increased fluid present within the distal small bowel, ascending colon, transverse colon could reflec t a diarrheal disease. No bowel obstruction.
--- NOTE | 2025-04-29 22:32 | RAD REPORT ---
Abdomen Exam Limited: 04/29/2025 10:08 PM CLINICAL HISTORY: ABD PAIN STUDY: Limited right upper quadrant ultrasound of abdomen. COMPARISON: Same day CT, prior ultrasound 04/27/2025 FINDINGS: Liver: Hepatic steatosis. Bile ducts: No intrahepatic or extrahepatic biliary ductal dilatation. Common bile duct measures 4 mm. Gallbladder: Cholelithiasis with gallbladder wall thickening. The gallbladder wall measures 5 mm. A s onographic Mojica sign was not reported on today's exam. IMPRESSION: Cholelithiasis with gallbladder wall thickening similar to 04/27/2025. A sonographic Mojica sign was n ot reported on today's exam. The findings could indicate acute cholecystitis in the appropriate clinical setting.
[2025-04-29] MEDS ORDERED: NA CHLORIDE 0.9% 2,000 ML ONE (23:45)
[2025-04-29] MEDS ORDERED: FAMOTIDINE 20 MG/2 ML VIAL IV ONE (23:45)
[2025-04-29] MEDS ORDERED: ONDANSETRON 4 MG/2 ML VIAL ONE (23:45)
[2025-04-30 00:45] LABS: Absolute Lymphocytes (CBC) 1.2 K/uL (0.7-4.9); Hematocrit 45.5 % (39.6-49.0); Hemoglobin 15.8 g/dL (13.6-17.9); MCH 30.0 pg (27.0-35.0); MCHC 34.8 g/dL (32.0-36.0); MCV 86.3 fL (80-100); MPV 7.9 fL (7.6-11.3); Nucleated RBC Absolute Count 0.1 (0-0); Nucleated Red Blood Cells % 0.6 % (0-0); RBC Red Blood Cell Count 5.27 M/uL (4.33-5.43); White Blood Count 9.20 thou/uL (4.3-10.9)
[2025-04-30 01:04] LABS: ALT/SGPT < 14 U/L (16-61); AST/SGOT 13 U/L (15-37); Albumin 2.7 g/dL (3.4-5.0); Albumin/Globulin Ratio 0.8 (1.1-1.8); Alkaline Phosphatase 75 U/L (45-117); Anion Gap 8.3 mEq/L (5.0-15.0); BUN Blood Urea Nitrogen 10 mg/dL (7-18); Globulin 3.6 g/dL (2.3-3.5); Glucose Level 129 mg/dL (74-106); Lipase 18 U/L (13-75); Potassium 3.3 mEq/L (3.5-5.1)
--- NOTE | 2025-04-30 02:01 | ER ---
Nurse's Notes [facility] Name: Jude Grijalva Age: 60 yrs Sex: Male : 1965 Arrival Date: 04/29/2025 Time: 21:16 Bed 6 Private MD: Diagnosis: Acute cholecystitis Presentation: 04/29 21:24 Chief complaint: Patient states: abdominal pain. States he was admitted to hospital and cp4 discharged but is still having pain. Coronavirus screen: Client denies travel out of the [place] in the last 14 days. At this time, the client does not indicate any symptoms associated with coronavirus-19. Ebola Screen: Patient negative for fever greater than or equal to 101.5 degrees Fahrenheit, and additional compatible Ebola Virus Disease symptoms Patient denies exposure to infectious person. Patient denies travel to an Ebola-affected area in the 21 days before illness onset. No symptoms or risks identified at this time. Initial Sepsis Screen: Does the patient meet any 2 criteria? No. Patient's initial sepsis screen is negative. Does the patient have a suspected source of infection? No. Patient's initial sepsis screen is negative. Risk Assessment: Do you want to hurt yourself or someone else? Patient reports no desire to harm self or others. Onset of symptoms was April 29, 2025. 21:24 Method Of Arrival: Wheelchair cp4 21:24 Acuity: QASIM 3 cp4 Triage Assessment: 21:26 General: Appears in no apparent distress. uncomfortable, Behavior is calm, cooperative, cp4 appropriate for age. Pain: Complains of pain in abdomen Pain does not radiate. Pain currently is 10 out of 10 on a pain scale. GI: Reports lower abdominal pain, upper abdominal pain. Historical: - Allergies: 21:26 cefepime; cp4 - PMHx: 21:26 Diabetes - NIDDM; Hypertension; left sided paralysis; stroke; cp4 - PSHx: 21:26 Left BKA; cp4 - Immunization history:: Adult Immunizations up to date. - Infectious Disease History:: Denies. - Social history:: Smoking status: Patient reports the use of cigarette tobacco products, smokes one pack cigarettes per day. - Family history:: not pertinent. Screenin/08 01:05 [facility] ED Fall Risk Assessment (Adult) History of falling in the last 3 months, kb4 including since admission No falls in past 3 months (0 pts) Confusion or Disorientation No (0 pts) Intoxicated or Sedated No (0 pts) Impaired Gait Yes (1 pt) Mobility Assist Device Used Yes (1 pt) Altered Elimination No (0 pt) Score/Fall Risk Level 0 - 2 = Low Risk. Abuse screen: Denies threats or abuse. Denies injuries from another. Nutritional screening: No deficits noted. Tuberculosis screening: No symptoms or risk factors identified. Assessment: 00:30 General: Appears in no apparent distress. comfortable, Behavior is calm, cooperative. kb4 Neuro: Level of Consciousness is awake, alert, obeys commands, Oriented to person, place, time, situation. Cardiovascular: Patient's skin is warm and dry. Respiratory: Airway is patent Respiratory effort is even, unlabored, Respiratory pattern is regular, symmetrical. GI:. GI: Bowel sounds present X 4 quads. Guarding noted. : No signs and/or symptoms were reported regarding the genitourinary system. EENT: No signs and/or symptoms were reported regarding the EENT system. Derm: No signs and/or symptoms reported regarding the dermatologic system. 01:02 Reassessment: No changes from previously documented assessment. Patient and/or family kb4 updated on plan of care and expected duration. Pain level reassessed. 02:00 Reassessment: No changes from previously documented assessment. Patient and/or family kb4 updated on plan of care and expected duration. Pain level reassessed. 04:13 Reassessment: No changes from previously documented assessment. Patient and/or family kb4 updated on plan of care and expected duration. Pain level reassessed. sleeping. 05:16 Reassessment: No changes from previously documented assessment. Patient and/or family kb4 updated on plan of care and expected duration. Pain level reassessed. Vital Signs: 04/29 21:24 BP 133 / 102; Pulse 88; Resp 18; Temp 98.8; Pulse Ox 100% ; Weight 72.57 kg; Height 5 cp4 ft. 9 in. ; Pain 05/02; 04/30 00:10 BP 153 / 82; Pulse 78; Resp 18; Pulse Ox 99% on R/A; kb4 01:03 BP 151 / 77; Pulse 81; Resp 18; Pulse Ox 98% on R/A; kb4 02:00 BP 149 / 81; Pulse 77; Resp 18; Pulse Ox 98% on R/A; kd3 03:00 BP 160 / 80; Pulse 76; Resp 18; Pulse Ox 100% on R/A; kb4 04:13 BP 120 / 84; Pulse 71; Resp 18; Pulse Ox 100% on R/A; kb4 05:16 BP 146 / 71; Pulse 74; Resp 18; Pulse Ox 100% on R/A; kb4 04/29 21:24 Body Mass Index 23.63 (72.57 kg, 175.26 cm) cp4 04/29 21:24 Pain Scale: Adult cp4 Víctor Coma Score: 20:15 Eye Response: spontaneous(4). Motor Response: obeys commands(6). Verbal Response: sp4 oriented(5). Total: 15. ED Course: 04/29 21:19 Patient arrived in ED. gm2 21:22 Dano Vidal MD is Attending Physician. sp4 21:26 Triage completed. cp4 21:26 Arm band placed on right wrist. Patient placed in waiting room. cp4 22:11 CT Abd/Pelvis - IV Contrast Only In Process Unspecified. EDMS 22:11 US Abdomen Limited In Process Unspecified. EDMS 23:30 Minna Singh, RHETT is Primary Nurse. kd3 04/30 01:30 Patient has correct armband on for positive identification. Bed in low position. Call kb4 light in reach. Side rails up X 1. Provided Education on: need for admit . 01:59 Wili Concepcion MD is Hospitalizing Provider. sp4 02:01 No provider procedures requiring assistance completed. kd3 05:17 Patient admitted, IV remains in place. kb4 Administered Medications: 00:10 Drug: Famotidine IVP 20 mg IVP once; dilute with 10 mL 0.9% NaCl; give over 2 minutes kb4 Route: IVP; Site: left antecubital; 01:04 Follow up: Response: No adverse reaction kb4 00:10 Drug: Ondansetron IVP 8 mg IVP once; over 2 minutes Route: IVP; Site: left antecubital; kb4 01:04 Follow up: Response: No adverse reaction kb4 00:10 Drug: NS 0.9% IV 1000 ml IV at 1 bolus Per protocol; to be given as a bolus over 60 kb4 minutes Route: IV; Rate: 1 bolus; Site: left antecubital; 00:10 Drug: NS 0.9% IV 1000 ml IV at 125 ml/hr Per protocol; to be given at 125 ml / hour kb4 Route: IV; Rate: 125 ml/hr; Site: left antecubital; 01:04 Follow up: Response: No adverse reaction; IV Status: Completed infusion kb4 Medication: 05:17 VIS not applicable for this client. kb4 Outcome: 02:00 Decision to Hospitalize by Provider. sp4 05:17 Admitted to Med/surg accompanied by tech, via wheelchair, with chart, kb4 05:17 Condition: stable 05:17 Instructed on the need for admit, 05:18 Patient left the ED. kb4 Signatures: Dispatcher [employer] Minna Noble, RN RN kd3 Dano Vidal MD MD sp4 Suri Gage 4 Florecita Taylor 2 Celena Ryder RN RN kb4
--- NOTE | 2025-04-30 02:01 | EDPHYS ---
Physician Documentation [facility] Name: Jude Grijalva Age: 60 yrs Sex: Male : 1965 Arrival Date: 04/29/2025 Time: 21:16 Bed 6 Private MD: ED Physician Dano Vidal HPI: 04/30 01:37 This 60 yrs old Male presents to ER via Wheelchair with complaints of sp4 Abdominal Pain. 20:12 Very pleasant Mr. Grijalva is a 60-year-old male who presents with recurrent right sp4 upper and lower abdominal pain. Patient was admitted on 04/27/2025 for acute cholecystitis but while at the hospital he felt better and decided to go home.. Patient's family brings him back for recurrent abdominal pain.. Historical: - Allergies: 04/29 21:26 cefepime; cp4 - PMHx: 21:26 Diabetes - NIDDM; Hypertension; left sided paralysis; stroke; cp4 - PSHx: 21:26 Left BKA; cp4 - Immunization history:: Adult Immunizations up to date. - Infectious Disease History:: Denies. - Social history:: Smoking status: Patient reports the use of cigarette tobacco products, smokes one pack cigarettes per day. - Family history:: not pertinent. ROS: 04/30 20:14 Constitutional: Negative for fever, chills, and weight loss, positive right upper and sp4 lower abdominal pain All other systems are negative, Exam: 20:15 Constitutional: Chronically ill-appearing male, left below-knee amputee, nontoxic sp4 appearing, Head/Face: Normocephalic, atraumatic. Eyes: Pupils equal round and reactive to light, extra-ocular motions intact. Lids and lashes normal. Conjunctiva and sclera are not injected. Cornea within normal limits. Periorbital areas with no swelling, redness, or edema. ENT: Nares patent. No nasal discharge, no septal abnormalities noted. Tympanic membranes are normal and external auditory canals are clear. Oropharynx with no redness, swelling, or masses, exudates, or evidence of obstruction, uvula midline. Mucous membranes moist. Neck: Trachea midline, no thyromegaly or masses palpated, and no cervical lymphadenopathy. Supple, full range of motion without nuchal rigidity, or vertebral point tenderness. Chest/axilla: Normal chest wall appearance and motion. Nontender with no deformity. No lesions are appreciated. Cardiovascular: Regular rate and rhythm with a normal S1 and S2. No gallops, murmurs, or rubs. No pulse deficits. Respiratory: Lungs have equal breath sounds bilaterally, clear to auscultation and percussion. No rales, rhonchi or wheezes noted. No increased work of breathing, no retractions or nasal flaring. Abdomen/GI: Soft, with normal bowel sounds. No distension or tympany. No guarding or rebound. No evidence of tenderness throughout. Back: No spinal tenderness. No costovertebral tenderness. Skin: Warm, dry with normal turgor. Normal color with no rashes, no lesions, and no evidence of cellulitis. MS/ Extremity: Pulses equal, no cyanosis. Neurovascular intact. Full, normal range of motion. Neuro: Awake and alert, GCS 15, oriented to person, place, time, and situation. Cranial nerves II-XII grossly intact. Motor strength 5/5 in all extremities. Sensory grossly intact. Psych: Awake, alert, with orientation to person, place and time. Behavior, mood, and affect are within normal limits Vital Signs: 04/29 21:24 BP 133 / 102; Pulse 88; Resp 18; Temp 98.8; Pulse Ox 100% ; Weight 72.57 kg; Height 5 cp4 ft. 9 in. ; Pain 05/02; 04/30 00:10 BP 153 / 82; Pulse 78; Resp 18; Pulse Ox 99% on R/A; kb4 01:03 BP 151 / 77; Pulse 81; Resp 18; Pulse Ox 98% on R/A; kb4 02:00 BP 149 / 81; Pulse 77; Resp 18; Pulse Ox 98% on R/A; kd3 03:00 BP 160 / 80; Pulse 76; Resp 18; Pulse Ox 100% on R/A; kb4 04:13 BP 120 / 84; Pulse 71; Resp 18; Pulse Ox 100% on R/A; kb4 05:16 BP 146 / 71; Pulse 74; Resp 18; Pulse Ox 100% on R/A; kb4 04/29 21:24 Body Mass Index 23.63 (72.57 kg, 175.26 cm) cp4 04/29 21:24 Pain Scale: Adult cp4 Shiro Coma Score: 20:15 Eye Response: spontaneous(4). Motor Response: obeys commands(6). Verbal Response: sp4 oriented(5). Total: 15. MDM: 04/29 21:30 Medical Screening Exam initiated sp4 04/30 01:37 ED course: CLINICAL HISTORY: ABD PAIN STUDY: Limited right upper quadrant ultrasound of sp4 abdomen. COMPARISON: Same day CT, prior ultrasound 04/27/2025 FINDINGS: Liver: Hepatic steatosis. Bile ducts: No intrahepatic or extrahepatic biliary ductal dilatation. Common bile duct measures 4 mm. Gallbladder: Cholelithiasis with gallbladder wall thickening. The gallbladder wall measures 5 mm. A sonographic Mojica sign was not reported on today's exam. IMPRESSION: Cholelithiasis with gallbladder wall thickening similar to 04/27/2025. A sonographic Mojica sign was not reported on today's exam. The findings could indicate acute cholecystitis in the appropriate clinical setting. Reported By: Brian Gruber. ED course: COMPARISON: 04/27/2025 FINDINGS: LOWER CHEST: No acute process identified. No significant pericardial effusion. Mild circumferential thickening of the distal esophagus which could reflect esophagitis. UPPER GI: No significant abnormality. LIVER: Steatosis and probably early cirrhosis. GALLBLADDER/BILE DUCTS: Cholelithiasis with gallbladder wall thickening.? PANCREAS: No mass, ductal dilation, or emelia-pancreatic fluid. SPLEEN: Unremarkable. ADRENALS: Adrenal thickening without discrete mass. KIDNEYS AND URETERS: No hydronephrosis. Low density and/or too small to characterize renal lesions which are statistically benign. No renal calculi. No ureteral calculi. ABDOMINAL AORTA AND OTHER VESSELS: Moderate atherosclerotic changes without aortic aneurysm. IVC filter. PERITONEUM: No abnormal free fluid. No free air. LYMPH NODES: No pathologic lymphadenopathy. ABDOMINAL WALL: Unremarkable SMALL BOWEL/COLON: Fluid present within the ascending and transverse colon. There is also some fluid present within the small bowel. No bowel obstruction. Normal appendix. URINARY BLADDER: Nonspecific circumferential bladder wall thickening. REPRODUCTIVE ORGANS: No pathologic process. MUSCULOSKELETAL: No acute or suspicious osseous abnormality. ADDITIONAL FINDINGS: None. IMPRESSION: Similar cholelithiasis with gallbladder wall thickening. 01:56 Differential diagnosis: bowel obstruction, cholecystitis, Cholelithiasis, sp4 diverticulitis, gastritis, GI Bleed. Data reviewed: vital signs, nurses notes. Consideration of Admission/Observation Patient was admitted/placed on observation. Escalation of care including admission/observation considered. Management of patient was discussed with the following: Hospitalist: Jamey HOPPER . Windows Systems Engineer: Julio HOPPER . 20:15 ED course: We had extensive discussion with patient and his sister via language line sp4 [id number] [id number] armor crewman. Patient was informed that he has persistent problem of acute cholecystitis. He was advised to remain in the hospital to have a consultation with a surgeon about cholecystectomy. We have informed the patient that even though he left hospital the day prior and decided not to have surgery, we recommend that he stays and has another consultation with surgeon. Patient and his sister expressed understanding and they also expressed desire to stay in the hospital for consultation for cholecystectomy. . 04/29 21:23 Order name: CBC with Diff; Complete Time: :36 sp4 04/29 21:23 Order name: CMP; Complete Time: :36 sp4 04/29 21:23 Order name: Lipase; Complete Time: :36 sp4 04/29 21:29 Order name: UA Rfx Geremias Cult if indicated sp4 04/30 03:46 Order name: CBC with Automated Diff EDMS 04/30 03:46 Order name: CBC with Automated Diff EDMS 04/30 03:46 Order name: Comprehensive Metabolic Panel EDMS 04/30 03:46 Order name: Comprehensive Metabolic Panel EDMS 04/29 21:28 Order name: CT Abd/Pelvis - IV Contrast Only; Complete Time: 00:52 sp4 04/29 21:29 Order name: US Abdomen Limited; Complete Time: 00:52 sp4 04/30 03:46 Order name: CONS Physician Consult EDMS 04/29 21:23 Order name: IV Saline Lock; Complete Time: 00:10 sp4 04/29 21:23 Order name: Labs collected and sent; Complete Time: 00:10 sp4 Administered Medications: 00:10 Drug: Famotidine IVP 20 mg IVP once; dilute with 10 mL 0.9% NaCl; give over 2 minutes kb4 Route: IVP; Site: left antecubital; 01:04 Follow up: Response: No adverse reaction kb4 00:10 Drug: Ondansetron IVP 8 mg IVP once; over 2 minutes Route: IVP; Site: left antecubital; kb4 01:04 Follow up: Response: No adverse reaction kb4 00:10 Drug: NS 0.9% IV 1000 ml IV at 1 bolus Per protocol; to be given as a bolus over 60 kb4 minutes Route: IV; Rate: 1 bolus; Site: left antecubital; 00:10 Drug: NS 0.9% IV 1000 ml IV at 125 ml/hr Per protocol; to be given at 125 ml / hour kb4 Route: IV; Rate: 125 ml/hr; Site: left antecubital; 01:04 Follow up: Response: No adverse reaction; IV Status: Completed infusion kb4 Disposition: 20:17 Chart complete. sp4 Disposition Summary: 04/30/25 02:00 Hospitalization Ordered Notes: Hospitalization Status: Inpatient Admission sp4 Provider: Wili Concepcion sp4 Location: Telemetry/MedSurg (Inpatient) sp4 Condition: Stable sp4 Problem: new sp4 Symptoms: have improved sp4 Bed/Room Type: Standard sp4 Room Assignment: 411(04/30/25 04:04) al5 Diagnosis - Acute cholecystitis sp4 Forms: - Medication Reconciliation Form sp4 - SBAR form sp4 - Leadership Thank You Letter sp4 Signatures: Dispatcher [employer] Dano Hall MD MD sp4 Suri Gage cp4 Delores Black RN RN al5 Celena Ryder RN RN kb4 Corrections: (The following items were deleted from the chart) 04:04 02:00 sp4 al5
--- NOTE | 2025-04-30 03:41 | P.HP ---
Certification for Inpatient Patient admitted to: Inpatient With expected LOS: >2 Midnights Practitioner: I am a practitioner with admitting privileges, knowledge of patient current condition, hospital course, and medical plan of care. Services: Services provided to patient in accordance with Admission requirements found in Title 42 Section 412.3 of the Code of Federal Regulations Patient History Date of Service: 04/30/25 Reason for admission: Abdominal Pain History of Present Illness: 60-year-old male with past medical history of type 2 diabetes mellitus, essential hypertension, PVD, bilateral lower extremities DVT, left BKA, tobacco use disorder, noncompliant with medications who presents to the ER complaining of pain right upper quadrant with associated nausea but no vomiting. Patient had previously visited the ER in the morning complaining of abdominal pain, but he left AMA and refused to have CT scan done. Patient recently been admitted to the hospital and was discharged yesterday. He presents back to ER complaining of worsening pain right upper quadrant. Patient states he suddenly developed right upper quadrant pain . He is having nausea but no vomiting. Denies of any associated chest pain, shortness of breath. Patient was assessed in the ER and was admitted for further management of acute cholecystitis and Dr. Kim was consulted Allergies cefepime Allergy (Verified 04/28/25 07:47) Hives/Rash Home Medications: lisinopriL [Prinivil*] 10 mg PO DAILY #30 tab 02/05/24 Amox/Clavulanate [Augmentin 875-125 Tab] 875 mg PO BID 10 Days #20 tab 04/28/25 - Past Medical/Surgical History Diabetic: Yes Past Medical History: Reviewed- Non-Contributory -: DM -: HTN -: Bilateral DVTs -: Medical noncompliance -: CVA -: Tobacco abuse Past Surgical History: Reviewed- Non-Contributory -: Left BKA -: Left BKA Psychosocial/ Personal History: Lives at home, alone - Family History Mother -: Diabetes - Social History Smoking Status: Former smoker Alcohol use: No CD- Drugs: No Caffeine use: Yes Review of Systems 10-point ROS is otherwise unremarkable Physical Examination - Vital Signs Temperature: 97.8 F Blood Pressure: 136/70 Pulse: 88 Respirations: 18 Pulse Ox (%): 94 - Physical Exam General: Alert, Oriented x3, Mild distress HEENT: Atraumatic, Normocephalic Neck: Supple Respiratory: Clear to auscultation bilaterally, Normal air movement Cardiovascular: Regular rate/rhythm, Normal S1 S2 Capillary refill: <2 Seconds Gastrointestinal: Soft and benign, W/out hepatosplenomegaly, Tenderness Musculoskeletal: No clubbing Integumentary: No rashes Neurological: Other (Alert awake nonfocal) Lymphatics: No axilla or inguinal lymphadenopathy - Studies Laboratory Data (last 24 hrs) 04/30/25 04/30/25 00:03 00:03 WBC 9.20 Hgb 15.8 Hct 45.5 Plt Count 163 Sodium 139 Potassium 3.3 L BUN 10 Creatinine 0.81 Glucose 129 H Total Bilirubin 0.4 AST 13 L ALT < 14 L Alkaline Phosphatase 75 Lipase 18 Assessment and Plan - Plan 60-year-old male admitted to inpatient with diagnosis of acute cholecystitis. Acute cholecystitis. Dr. Kim consulted Started on antibiotics N.p.o. for now Monitor closely on telemetry IV hydration Awaiting further recommendations from surgery CT , ultrasound findings noted Hypertension Antihypertensives titrated Continue home medications and titrate as needed Hyperlipidemia Continue statin Diabetes Insulin sliding scale Accu-Chek before every meal and at bedtime Peripheral artery disease Status post BKA Supportive management Continue home medications GI/DVT prophylaxis Advanced directive full code Discharge Plan: Home Plan to discharge in: 48 Hours - Advance Directives Does patient have a Living Will: No Does patient have a Durable POA for Healthcare: No - Code Status/Comfort Care Code Status: Full Code Time Spent Managing Pts Care (In Minutes): 48
[2025-04-30] MEDS: KCL 20 MEQ/100 mL IVPB 100 ML IV SCH ×2 (09:41→16:09)
[2025-04-30] MEDS: PIPER TAZO 3.375 GM in NA CHLORIDE 0.9% 100 ML IV SCH (09:41)
[2025-04-30] MEDS: NA CHLORIDE 0.9% 1,000 ML ONE (12:56)
[2025-04-30] MEDS: LIDOCAINE HCL/EPINEPHRINE 20 ML MDV ONE (12:59)
[2025-04-30] MEDS ORDERED: ONDANSETRON 4 MG/2 ML VIAL ONE (13:30)
[2025-04-30] MEDS ORDERED: LIDOCAINE 2% MPF 5 ML VIAL ONE (13:30)
[2025-04-30] MEDS ORDERED: FENTANYL CITR 100 MCG/2 ML ONE (13:30)
[2025-04-30] MEDS ORDERED: ROCURONIUM 50 MG/5 ML VIAL IV ONE (13:31)
[2025-04-30] MEDS ORDERED: MIDAZOLAM HCL 2 MG/2 ML INJ ONE (13:31)
--- NOTE | 2025-04-30 15:26 | P.PN ---
Subjective Date of Service: 04/30/25 Chief Complaint: Abdominal Pain Subjective: No chest pain or shortness of breath. No nausea or vomiting. C/o RUQ abdominal pain. No obvious bleeding. Looks comfortable in the bed. Objective: General appearance: Alert and comfortable CVS: Normal S1 and S2 Lungs: Clear to auscultation bilaterally Abdomen: Soft, bowel sounds present, mild tenderness RUQ Extremities: Left BKA. Physical Examination - Vital Signs Temperature: 97.4 F Blood Pressure: 128/68 Pulse: 64 Respirations: 18 Pulse Ox (%): 100 - Studies Laboratory Data (last 24 hrs) 04/30/25 04/30/25 00:03 00:03 WBC 9.20 Hgb 15.8 Hct 45.5 Plt Count 163 Sodium 139 Potassium 3.3 L BUN 10 Creatinine 0.81 Glucose 129 H Total Bilirubin 0.4 AST 13 L ALT < 14 L Alkaline Phosphatase 75 Lipase 18 Assessment And Plan - Plan 60-year-old male admitted to inpatient with diagnosis of acute cholecystitis. Acute cholecystitis. Dr. Kim consulted Started on antibiotics N.p.o. for now IV hydration Awaiting for surgery Hypertension Continue home medications and titrate as needed Hyperlipidemia Continue statin Diabetes Insulin sliding scale Accu-Chek before every meal and at bedtime Peripheral artery disease Status post left BKA Supportive management Continue home medications Plan discussed with the patient and nursing staff, discussed with the case management team.
[2025-04-30] MEDS: ACETAMINOPHEN 325 MG TABLET PO PRN (15:57)
[2025-04-30] MEDS: ONDANSETRON 4 MG/2 ML VIAL IV PRN (15:58)
[2025-04-30] MEDS: ENOXAPARIN 40 MG/0.4 ML SQ SCH (16:13)
[2025-05-01 05:26] LABS: Absolute Lymphocytes (CBC) 2.7 K/uL (0.7-4.9); Hematocrit 43.6 % (39.6-49.0); Hemoglobin 15.2 g/dL (13.6-17.9); MCH 29.9 pg (27.0-35.0); MCHC 35.0 g/dL (32.0-36.0); MCV 85.6 fL (80-100); MPV 7.0 fL (7.6-11.3); Nucleated RBC Absolute Count 0.0 (0-0); Nucleated Red Blood Cells % 0.1 % (0-0); RBC Red Blood Cell Count 5.09 M/uL (4.33-5.43); White Blood Count 9.10 thou/uL (4.3-10.9)
[2025-05-01 05:40] LABS: ALT/SGPT 15 U/L (16-61); Albumin 2.8 g/dL (3.4-5.0); Albumin/Globulin Ratio 0.8 (1.1-1.8); Alkaline Phosphatase 67 U/L (45-117); Anion Gap 5.6 mEq/L (5.0-15.0); BUN Blood Urea Nitrogen 10 mg/dL (7-18); Globulin 3.6 g/dL (2.3-3.5); Glucose Level 98 mg/dL (74-106); Potassium 3.6 mEq/L (3.5-5.1)
[2025-05-01 05:41] LABS: AST/SGOT < 10 U/L (15-37)
[2025-05-01] MEDS: PNEUMOCOCCAL VACCINE 0.5 ML IMVAC ONE (08:00)
[2025-05-01] MEDS: NA CHLORIDE 0.9% 1,000 ML ONE (11:58)
[2025-05-01] MEDS ORDERED: LIDOCAINE 2% MPF 5 ML VIAL ONE (12:05)
[2025-05-01] MEDS ORDERED: ONDANSETRON 4 MG/2 ML VIAL ONE (12:05)
[2025-05-01] MEDS ORDERED: FENTANYL CITR 100 MCG/2 ML ONE (12:05)
[2025-05-01] MEDS ORDERED: ROCURONIUM 50 MG/5 ML VIAL IV ONE (12:06)
[2025-05-01] MEDS ORDERED: MIDAZOLAM HCL 2 MG/2 ML INJ ONE (12:06)
[2025-05-01] MEDS ORDERED: EPHEDRINE SULF 50 MG/ML VIAL ONE (12:33)
[2025-05-01] MEDS: LIDOCAINE HCL/EPINEPHRINE 20 ML MDV ONE (12:49)
--- NOTE | 2025-05-01 13:02 | P.PN ---
Subjective Date of Service: 05/01/25 Chief Complaint: Abdominal Pain Subjective: No chest pain or shortness of breath. No nausea or vomiting. C/o RUQ abdominal pain. No obvious bleeding. Looks comfortable in the bed. Objective: General appearance: Alert and comfortable CVS: Normal S1 and S2 Lungs: Clear to auscultation bilaterally Abdomen: Soft, bowel sounds present, mild tenderness RUQ Extremities: Left BKA. No edema right leg. Physical Examination - Vital Signs Temperature: 97.9 F Blood Pressure: 140/82 Pulse: 65 Respirations: 18 Pulse Ox (%): 97 Assessment And Plan - Plan 60-year-old male admitted to inpatient with diagnosis of acute cholecystitis. Acute cholecystitis. Dr. Kim consulted Started on antibiotics N.p.o. for now IV hydration Awaiting for surgery, plan for today Hypertension Continue home medications and titrate as needed Hyperlipidemia Continue statin Diabetes Insulin sliding scale Accu-Chek before every meal and at bedtime Peripheral artery disease Status post left BKA Supportive management Continue home medications Plan discussed with the patient and nursing staff, discussed with the case management team. DC home tomorrow if no issues with surgery today and recovers well postop.
[2025-05-01] MEDS ORDERED: NEOSTIGMINE 1 MG/ML -10 ML VIAL ONE (13:43)
[2025-05-01] MEDS ORDERED: GLYCOPYRROLATE 0.2 MG/ML SYR ONE (13:43)
--- NOTE | 2025-05-01 13:56 | P.OP ---
Preoperative diagnosis: Acute calculous cholecystits Postoperative diagnosis: acute calculous cholecystitis with perforation Primary procedure: Laparoscopic Cholecystectomy with ICG Cholangiography Anesthesia: GETA + Local Estimated blood loss: <10cc Specimen: Gallbladder Findings: Gallbladder perforation with free bile spillage, dense adhesions, Complications: None Drain(s): SAPNA drain (11mm Flat SAPNA) Implants: Mojgan Powder Transferred to: Recovery Room Condition: Good
[2025-05-01] MEDS: HYDROCODONE/APAP 5/325 MG TAB PO PRN (16:46)
--- NOTE | 2025-05-01 16:55 | CON ---
Date of Consultation: 04/30/2025 Brief History Of Present Illness: The patient is a 60-year-old male with past medical history of freida betes, hypertension, peripheral vascular disease, bilateral lower extremity DVT, left BKA, tobacco us e disorder, noncompliant with medications, noncompliant with recommendations and instructions, who wa s recently seen in the ER, ultimately brought in the hospital several days ago for acute cholecystiti s; however, he refused surgery at that time after being admitted, as he states his symptoms went comp letely away and he wanted to be discharged and as such, he was discharged home at that point; however , he returns now on this occasion with return of the right upper quadrant abdominal pain, epigastric with nausea and vomiting. He states that he had similar episodes before for some period of time. Hi s pain is significantly improved once again and he wanted to consider going home; however, on this pa rticular occasion, he has agreed to stay in the hospital, as he has evidence of cholecystitis on mult iple occasions and as such, we have recommended surgery at this point. Past Medical History: Diabetes, hypertension, bilateral DVTs, medical noncompliance, CVA, and tobacc o abuse. Past Surgical History: BKA on the left. Allergies: CEFEPIME. Home Medications: Include Prinivil. Social History: He smokes. He has an alcohol use history. Denies recreational drug use. Review of Systems: Ten-point review of systems other than HPI, denies. Physical Examination: General: At the time of my examination, he is awake, alert, and oriented. Psychiatric: Appropriate and conversive. HEENT: He is normocephalic. Sclerae anicteric. Mucous membranes are moist. Oropharynx is clear. Neck: Supple without JVD. Chest: Normal to expansion and excursion. Cardiovascular: Regular rate and rhythm. Pulmonary: Clear to auscultation bilaterally. Abdomen: Soft. Extremities: Focused examination of the abdomen shows soft mild tenderness in the right upper quadra nt weakly positive Mojica sign. No rebound. No guarding. No focal peritonitis. Extremities: No clubbing, cyanosis, or edema. However, he has BKA on the left. Laboratory Data: White blood cell count 9.2, hemoglobin 15.8, hematocrit of 45.5, platelet count is 163, neutrophils 77%. Sodium 139, potassium 3.3, chloride 97, carbon dioxide 27, BUN 10, creatinine 0.8, glucose is 129, total bilirubin is 0.4, AST 13, ALT less than 14, alkaline phosphatase was 75, l ipase is 18. He had a CT of the abdomen and pelvis, which officially read as similar cholelithiasis with gallbladder wall thickening, increased fluid present in the distal small bowel, ascending colon, transverse colon, reflect diarrheal disease. No bowel obstruction. Assessment And Plan: This is a 60-year-old male who comes in with signs and symptoms of acute calcul ous cholecystitis. 1. IV fluid hydration. 2. Antibiotic coverage. 3. I have explained the risks, benefits, and alternatives of laparoscopic possible open cholecystecto my with indocyanine green cholangiography including but not limited to bleeding, infection, damage to surrounding tissue, need for further operative procedures, blood clots, heart attack, strokes, or ot her unforeseen complications in the perioperative period. A pinked edge sewing machine operator was present during t he entire examination on multiple occasions. The patient had all questions answered and agreed to proceed as indicated. PHOEBE/MARLEY Voice ID: [id number] Report ID: [id number]
[2025-05-01] MEDS ORDERED: ENOXAPARIN 40 MG/0.4 ML SQ SCH (17:00)
--- NOTE | 2025-05-01 22:35 | OP ---
Date of Procedure: 05/01/2025 Surgeon: Jossue Kim MD, Brief History Of Present Illness: The patient is a 60-year-old male who was recently seen in the ER with acute calculous cholecystitis. He was admitted at that time and recommended to have laparoscopi c cholecystectomy at that time. However, he refused as he said he was completely asymptomatic. He wanted to leave AMA. However, he was started on clear liquid diet, tolerated well, was discharged to home. However, he returned back with similar symptoms on this occasion. He similarly had improveme nt of his abdominal symptoms and wanted to go home again. However, we discussed that this could be a ssociated with increased risks, and as such, he agreed to laparoscopic cholecystectomy. Preoperative Diagnosis: Acute calculous cholecystitis. Postoperative Diagnoses: Acute calculous cholecystitis with gallbladder perforation. Procedure Performed: Laparoscopic cholecystectomy with indocyanine green cholangiography. Anesthesia: General endotracheal plus local. Estimated Blood Loss: 10 cc. Specimen: Gallbladder. Findings: 1. Gallbladder perforation at the fundus of the gallbladder with free bile spillage. 2. Dense adhesions to the Mita pouch of the gallbladder. 3. Short cystic duct. 4. Accessory branch of cystic artery with the anterior and posterior branch contained within deep den se adhesions at the Mita pouch of the gallbladder. 5. Stone impacted in the Mita pouch of the gallbladder. Complications: None. Drains: A 10 mm flat SAPNA drain placed in the subhepatic space. Implants: Mojgan hemostatic powder. Disposition: The patient transferred to recovery room in good condition. Procedure In Detail: After informed consent was obtained, the patient was brought to the operating r oom, prepped and draped in the usual sterile fashion after adequate anesthesia was achieved. I anest hetized an area of the supraumbilical position down to subcutaneous tissues. 5-mm 0-degree optical t rocar was introduced without incident or complication. Insufflation was obtained to 15 mmHg, at this time. There was no injury to vital structures upon entry into the abdomen. Three additional trocars were p laced, one in the epigastrium, one in the right upper quadrant, and one in the right mid abdomen. Al l of these were 5 mm trocar was placed under direct vision without incident or complication. The umb ilical trocar was then upsized to a 12 mm under direct vision without incident or complication. The patient was positioned head up right-side up position. Ratcheted graspers were used to attempt to gr asp the patient's gallbladder and found to have free perforation of bile at the fundus of the gallbla dder emanating dark black bile at the Mita pouch of the gallbladder. There was free bile in the abdomen, at this point. This was suctioned out and the Mita pouch of the gallbladder was difficu lt to visualize at this time due to significant adhesions from the duodenum as well as the colon in t his area. This was mobilized using a predominantly blunt dissection with minimal amount of electroca utery. At this point, the gallbladder was grasped and closed at the Mita pouch of the gallbladde r using a clamp to place it towards the patient's right shoulder as dissection continued down the Venkat tmann pouch of the gallbladder. Dense adhesions were encountered throughout this area ultimately, di ssecting out 3 structures identified as both cystic duct and cystic artery with anterior and posterio r branch. At this point, critical view of safety was obtained. At this point, indocyanine green cho langiography confirmed the anatomy. However, the patient did have a short cystic duct. However, the transection point was deemed to be appropriate length to allow for closure with clips. At this poin t, double titanium clips were placed doubly on the proximal side, singly on the distal side of both c ystic duct and cystic artery branches. These structures were ligated between Endo Kg, at this po int. At this point, the gallbladder was removed from the hepatic fossa without incident or complicat ion. There was moderate hemostatic maneuvers required of the subhepatic fossa space as there was sig nificant inflammatory change in there allowing for oozing of the gallbladder bed. At this point, the gallbladder was placed in EndoCatch bag, removed through the umbilical trocar site, sent off for pat hologic examination. The area was copiously irrigated multiple times until complete clear. Hemostas is was achieved with multiple fulguration attempts at the midportion of the gallbladder. After good hemostasis was achieved, the abdomen was desufflated at this point, and the areas were inspected, fou nd to have good hemostasis, at this point. I then sprayed Mojgan hemostatic powder into the subhepat ic space. After no additional leakage of bile was appreciated, at this point, indocyanine green chol angiography confirmed that there was no additional bile leakage at the end of the procedure. At this point, the Mojgan was in the appropriate location. I then brought in a 10 mm flat SAPNA drai n through the most lateral inferior trocar and placed it in the subhepatic space. At this point, the abdomen was inspected. At this point, no additional hemostatic maneuvers were required. The patie nt was positioned back in neutral position. The remaining effluent was suctioned out. At this point , I closed the 12 mm trocar site using a Sergio-Thomas suture passer with an 0 Vicryl in an interru pted fashion with good approximation of tissues. The abdomen was desufflated, at this point. All tr ocars were removed under direct visualization without incident or complication. Remainder of the tro cars were removed. All skin incisions were then copiously irrigated and closed with a 4-0 Monocryl i n a running fashion. Dermabond was placed over top. At this point, I also secured the drain stitch of a 2-0 nylon suture in the right lower quadrant. At this point, all trocars were removed. The ski n incisions were then copiously irrigated once again and closed with interrupted katharina, at this poi nt, and a sterile dressing was placed over top. The patient tolerated the procedure without incident or complication, and transferred to PACU in good condition. All counts were correct at the end of t he case. PHOEBE/MARLEY Voice ID: [id number] Report ID: [id number]
[2025-05-02 06:32] LABS: ALT/SGPT 38.0 U/L (16-61); AST/SGOT 37.0 U/L (15-37); Albumin 3.2 g/dL (3.4-5.0); Albumin/Globulin Ratio 0.8 (1.1-1.8); Alkaline Phosphatase 75.0 U/L (45-117); Anion Gap 8.6 mEq/L (5.0-15.0); BUN Blood Urea Nitrogen 8.0 mg/dL (7-18); Globulin 3.8 g/dL (2.3-3.5); Glucose Level 153.0 mg/dL (74-106); Lipase 13.0 U/L (13-75); Potassium 3.6 mEq/L (3.5-5.1)
[2025-05-02 06:33] LABS: Absolute Lymphocytes (CBC) 2.6 K/uL (0.7-4.9); Hematocrit 47.0 % (39.6-49.0); Hemoglobin 16.1 g/dL (13.6-17.9); MCH 29.8 pg (27.0-35.0); MCHC 34.3 g/dL (32.0-36.0); MCV 87.0 fL (80-100); MPV 7.6 fL (7.6-11.3); Nucleated RBC Absolute Count 0.0 (0-0); Nucleated Red Blood Cells % 0.2 % (0-0); RBC Red Blood Cell Count 5.40 M/uL (4.33-5.43); White Blood Count 12.40 thou/uL (4.3-10.9)
--- NOTE | 2025-05-02 11:57 | P.PN ---
Date of Service: 05/02/25 Subjective: doing ok wanting to go home pain tolerable Physical Exam: GEN: Alert, oriented, NAD CV: Regular rate and rhythm, no edema Pulm:Nonlabored respirations on room air, clear bilaterally ABD: soft, dressing in place, SAPNA drain in place Neuro: Normal speech, normal affect Problem List: Acute cholecystitis with perforation s/p lap louie (05/01) Hypertension Hyperlipidemia PAD/PVD NIDDM2 on admission, presents with abdominal pain associated with nausea. No vomiting. CT abd/pelvis showed cholelithiasis with gallbladder wall thickening. Abdominal ultrasound with similar findings. s/p lap louie (05/01) with Dr. Kim and had SAPNA drain placed diet, wound care per surgery will need SAPNA drain teaching prior to discharge Dr. Kim is following IV zosyn (04/30-) pain control VTE: Lovenox Code: Full Dispo: Home, ~1-2 days Time Spent Managing Pts Care (In Minutes): 55
[2025-05-02] MEDS: ENOXAPARIN 40 MG/0.4 ML SQ SCH (16:36)
[2025-05-02 22:22] VITALS: O2SAT 99
[2025-05-03 05:25] VITALS: BMI 24.8
[2025-05-03 06:34] LABS: Absolute Lymphocytes (CBC) 3.1 K/uL (0.7-4.9); Hematocrit 44.6 % (39.6-49.0); Hemoglobin 15.5 g/dL (13.6-17.9); MCH 30.0 pg (27.0-35.0); MCHC 34.8 g/dL (32.0-36.0); MCV 86.2 fL (80-100); MPV 7.3 fL (7.6-11.3); Nucleated RBC Absolute Count 0.0 (0-0); Nucleated Red Blood Cells % 0.1 % (0-0); RBC Red Blood Cell Count 5.17 M/uL (4.33-5.43); White Blood Count 11.60 thou/uL (4.3-10.9)
[2025-05-03 06:56] LABS: ALT/SGPT 40.0 U/L (16-61); AST/SGOT 30.0 U/L (15-37); Albumin 2.9 g/dL (3.4-5.0); Albumin/Globulin Ratio 0.8 (1.1-1.8); Alkaline Phosphatase 67.0 U/L (45-117); Anion Gap 8.4 mEq/L (5.0-15.0); BUN Blood Urea Nitrogen 9.0 mg/dL (7-18); Globulin 3.6 g/dL (2.3-3.5); Glucose Level 103.0 mg/dL (74-106); Potassium 3.4 mEq/L (3.5-5.1)
--- NOTE | 2025-05-03 11:45 | P.DS ---
Admission Date: 04/30/25 Discharge Date: 05/03/25 Disposition: ROUTINE DISCHARGE Discharge Condition: GOOD Reason for Admission: Abdominal Pain Consultations: General surgery - Dr. Kim Brief History of Present Illness: 60yo M, PMH: type 2 diabetes mellitus, essential hypertension, PVD, bilateral lower extremities DVT, left BKA, tobacco use disorder, noncompliant with medications Patient presents to the ER complaining of pain right upper quadrant with associated nausea but no vomiting. Patient had previously visited the ER in the morning complaining of abdominal pain, but he left AMA and refused to have CT scan done. Patient recently been admitted to the hospital and was discharged yesterday. He presents back to ER complaining of worsening pain right upper quadrant. Patient states he suddenly developed right upper quadrant pain . He is having nausea but no vomiting. Denies of any associated chest pain, shortness of breath. Patient was assessed in the ER and was admitted for furthe r management of acute cholecystitis and Dr. Kim was consulted Hospital Course: Problem List: Acute cholecystitis with perforation s/p lap louie (05/01) Hypertension Hyperlipidemia PAD/PVD NIDDM2 Physician discharge instructions: Patient presented with right upper quadrant abdominal pain associated with nausea secondary to acute calculous cholecystitis with perforation. CT abdomen/pelvis on admission was consistent with acte cholecystitis. Abdominal ultrasound with similar findings. Patient was evaluated by Dr. Kim and underwent lap louie on 05/01 and had 1 SAPNA drain placed. She was found to have perforated gallbladder with free bile spillage and dense adhesions during surgery. His diet was slowly advanced as pain and nausea improved post-operatively. Patient was feeling better, tolerating diet without issues, pain improved and was deemed stable for discharge. Follow up with Dr. Kim in 1 week for further management. No heavy lifting > 10 lbs for 4-6 weeks or otherwise instructed by Dr. Kim Record and log SAPNA drain readings. Do not attempt to take out the SAPNA drain. Only let Dr. Kim remove the SAPNA drain. Follow up with Dr. Kim in 1 week for further management, SAPNA drain removal. Call to schedule an appointment. Medications: Augmentin. He already has bottle of Augmentin (Amox-Clavulanate) with ~7-8 days left that he was prescribed just 2-3 days before admission. Can finish prescription of Augmentin that was previously filled to complete 7 m ore days. No new antibiotic prescription. [place] as needed for pain Follow up: PCP 3-[address] Kim in 1 week in his office Please call to schedule / confirm appointments Physical Exam: GEN: Alert, oriented, NAD CV: Regular rate and rhythm, no edema Pulm:Nonlabored respirations on room air, clear bilaterally ABD: soft, dressing in place, SAPNA drain in place Neuro: Normal speech, normal affect Vital Signs/Physical Exam: Temp Pulse Resp BP Pulse Ox 98.1 F 58 18 153/70 H 96 05/03/25 08:00 05/03/25 08:00 05/03/25 08:00 05/03/25 08:00 05/03/25 08:00 Laboratory Data at Discharge: WBC 11.60 thou/uL (4.3-10.9) H 05/03/25 05:59 Hgb 15.5 g/dL (13.6-17.9) 05/03/25 05:59 Hct 44.6 % (39.6-49.0) 05/03/25 05:59 Plt Count 183 thou/uL (152-406) 05/03/25 05:59 Sodium 141 mEq/L (136-145) 05/03/25 05:59 Potassium 3.4 mEq/L (3.5-5.1) L 05/03/25 05:59 BUN 9 mg/dL (7-18) 05/03/25 05:59 Creatinine 0.79 mg/dL (0.70-1.30) 05/03/25 05:59 Glucose 103 mg/dL (74-106) 05/03/25 05:59 Total Bilirubin 0.7 mg/dL (0.2-1.0) 05/03/25 05:59 AST 30 U/L (15-37) 05/03/25 05:59 ALT 40 U/L (16-61) 05/03/25 05:59 Alkaline Phosphatase 67 U/L (45-117) 05/03/25 05:59 Lipase 13 U/L (13-75) 05/02/25 05:54 Home Medications: lisinopriL [Prinivil*] 10 mg PO DAILY #30 tab 02/05/24 Amox/Clavulanate [Augmentin 875-125 Tab*] 875 mg PO BID 10 Days #20 tab 04/28/25 Hydrocodone 5/APAP 325 [[place] 5/325*] 1 tab PO Q8H PRN #10 tab 05/03/25 New Medications: Hydrocodone 5/APAP 325 [[place] 5/325*] 1 tab PO Q8H PRN #10 tab PRN Reason: Pain Scale 5-7 (Moderate) Physician Discharge Instructions: Physician discharge instructions: Patient presented with right upper quadrant abdominal pain associated with nausea secondary to acute calculous cholecystitis with perforation. CT abdomen/pelvis on admission was consistent with acte cholecystitis. Abdominal ultrasound with similar findings. Patient was evaluated by Dr. Kim and underwent lap louie on 05/01 and had 1 SAPNA drain placed. She was found to have perforated gallbladder with free bile spillage and dense adhesions during surgery. His diet was slowly advanced as pain and nausea improved post-operatively. Patient was feeling better, tolerating diet without issues, pain improved and was deemed stable for discharge. Follow up with Dr. Kim in 1 week for further management. No heavy lifting > 10 lbs for 4-6 weeks or otherwise instructed by Dr. Kim Record and log SAPNA drain readings. Do not attempt to take out the SAPNA drain. Only let Dr. Kim remove the SAPNA drain. Follow up with Dr. Kim in 1 week for further management, SAPNA drain removal. Call to schedule an appointment. Medications: Augmentin. He already has bottle of Augmentin with ~8 days left that he was prescribed just 1-2 days before admission. Can finish prescription that was previously filled. No new antibiotic pres cription. [place] as needed for pain Follow up: PCP 3-[address] Kim in 1 week in his office Please call to schedule / confirm appointments Diet: Regular Activity: Ad dg Followup: Jossue Kim MD [ACTIVE - CAN ADMIT] - NONE,NONE [Primary Care Provider] - Time spent managing pt's care (in minutes): 45
[2025-05-03 16:05] VITALS: BP 142/82
[2025-05-03 16:09] VITALS: TEMP 98
== END 2025-05-03 16:37 | disposition home or self-care (01) | DRG 418 ==
LOC: ER 21:16 → ERHOLD 04-30 03:41 → 4TH 04-30 04:15
PROVIDERS: ADMIT Family Medicine; ATTEND Hospitalist
PROC: BF52200 Other Imaging of Gallbladder using Fluorescing Agent, Indocyanine Green Dye, Intraoperative (ICD-10-PCS; 2025-05-01)
PROC: 0FT44ZZ Resection of Gallbladder, Percutaneous Endoscopic Approach (ICD-10-PCS; principal; 2025-05-01 13:00)
DX: K80.00 Calculus of gallbladder with acute cholecystitis without obstruction (principal); K82.A2 Perforation of gallbladder in cholecystitis; I10 Essential (primary) hypertension; E78.5 Hyperlipidemia, unspecified; E11.51 Type 2 diabetes mellitus with diabetic peripheral angiopathy without gangrene; F17.210 Nicotine dependence, cigarettes, uncomplicated; Z60.2 Problems related to living alone; Z88.1 Allergy status to other antibiotic agents; Z86.73 Personal history of transient ischemic attack (TIA), and cerebral infarction without residual deficits; Z89.512 Acquired absence of left leg below knee; Z79.899 Other long term (current) drug therapy; Z91.148 Patient's other noncompliance with medication regimen for other reason
CPT/HCPCS: 36415; 74177; 76705; 80053; 82947; 83690; 85025; 88304; 96361; 96374; 96375; 99285; J1100; J1650; J2003; J2250; J2405; J2543; J2704; J2710; J3010; J3480; J7030; Q9967